=== PATIENT | male | born 1935 | race Caucasian/White ===

== ENCOUNTER → 2018-04-19 13:26 | Outpatient (CLI) | payer MEDICARE, OTHER, SELFPAY ==
[2018-04-19 14:18] LABS: INR 1.9 (0.9-1.3); Prothrombin Time 20.6 SECONDS (10.1-12.7)
== END ==
PROVIDERS: PCP Physician Assistant; Visit Provider Pharmacist
DX: Z79.01 Long term (current) use of anticoagulants (principal); I48.0 Paroxysmal atrial fibrillation
CPT/HCPCS: 36415; 85610

== ENCOUNTER → 2018-05-13 12:46 | Outpatient (CLI) | payer MEDICARE, OTHER, SELFPAY ==
[2018-05-13 13:34] LABS: INR 2.4 (0.9-1.3); Prothrombin Time 25.8 SECONDS (10.1-12.7)
== END ==
PROVIDERS: PCP Physician Assistant; Visit Provider Dentist Oral and Maxillofacial Surgery
DX: Z79.01 Long term (current) use of anticoagulants (principal); I48.0 Paroxysmal atrial fibrillation
CPT/HCPCS: 36415; 85610

== ENCOUNTER → 2018-06-07 15:13 | Outpatient (CLI) | payer MEDICARE, OTHER, SELFPAY ==
[2018-06-07 15:52] LABS: Prothrombin Time 22.1 SECONDS (10.1-12.7)
== END ==
PROVIDERS: PCP Physician Assistant; Visit Provider Pharmacist
DX: Z79.01 Long term (current) use of anticoagulants (principal); I48.0 Paroxysmal atrial fibrillation
CPT/HCPCS: 36415; 85610

== ENCOUNTER → 2018-06-24 13:25 | Outpatient (CLI) | payer MEDICARE, OTHER, SELFPAY ==
[2018-06-24 14:07] LABS: INR 2.1 (0.9-1.3); Prothrombin Time 23.2 SECONDS (10.1-12.7)
== END ==
PROVIDERS: Visit Provider Pharmacist
DX: Z79.01 Long term (current) use of anticoagulants (principal); I48.0 Paroxysmal atrial fibrillation
CPT/HCPCS: 36415; 85610

== ENCOUNTER → 2018-07-30 11:24 | Outpatient (CLI) | payer MEDICARE, OTHER, SELFPAY ==
[2018-07-30 13:08] LABS: INR 2.6 (0.9-1.3); Prothrombin Time 29.1 SECONDS (10.1-12.7)
== END ==
PROVIDERS: Visit Provider Pharmacist
DX: Z79.01 Long term (current) use of anticoagulants (principal); I48.0 Paroxysmal atrial fibrillation
CPT/HCPCS: 36415; 85610

== ENCOUNTER → 2018-08-31 12:19 | Outpatient (CLI) | payer MEDICARE, OTHER, SELFPAY ==
[2018-08-31 13:08] LABS: INR 1.9 (0.9-1.3); Prothrombin Time 20.4 SECONDS (10.1-12.7)
== END ==
PROVIDERS: PCP Physician Assistant; Visit Provider Internal Medicine Cardiovascular Disease
DX: Z79.01 Long term (current) use of anticoagulants (principal); I48.0 Paroxysmal atrial fibrillation
CPT/HCPCS: 36415; 85610

== ENCOUNTER 2018-09-04 08:32 | Emergency (ER) | payer MEDICARE, OTHER, SELFPAY ==
[2018-09-04 08:46] VITALS: PULSE 76; RESP 18; O2SAT 97
[2018-09-04] MEDS: ALBUTEROL/IPRATROPIUM 3 ML AMPUL INH (08:46)
--- NOTE | 2018-09-04 08:49 | DI.RAD.S_ITS ---
PROCEDURE: XR CHEST 1V INDICATIONS: SOB TECHNIQUE: One view of the chest was acquired. COMPARISON: [facility], , CHEST 2 VIEW, 11/24/2017, 9:53. FINDINGS: Surgical changes and devices: Post-surgical changes redemonstrated in the mediastinum. Lungs and pleura: There are confluent airspace opacities in the lung bases, left greater than right. There is a small left pleural effusion. Mediastinum: Mediastinal contours appear mildly prominent likely due to rotation. Heart size is normal. Bones and chest wall: No suspicious bony lesions. Overlying soft tissues appear unremarkable. IMPRESSION: 1. Confluent bibasilar air space opacities, left greater right, likely representing pneumonia possibly secondary to aspiration. 2. Small left pleural effusion. Dictated by: Angel Bolden M.D. on 09/04/2018 at 9:02 Approved by: Angel Bolden M.D. on 09/04/2018 at 9:05
--- NOTE | 2018-09-04 08:51 | ED.SOB ---
HPI - SOB/Dyspnea General Chief Complaint: Upper Respiratory Symptoms Stated Complaint: RESPIRATORY ISSUES Time Seen by Provider: 09/04/18 08:45 Source: patient Mode of arrival: ambulatory Limitations: no limitations History of Present Illness Patient is a 83-year-old male who presents with increasing shortness of breath. He said it started out of head cold a week ago on however last night he started having increased productive sputum. He does have a history of AFib and COPD. He denies any worsening shortness of breath or chest pain or palpitations. He has not had fever or chills. However last night he was coughing up quite a bit of mucus. MD Complaint: shortness of breath and cough Related Data Home Medications Medication Instructions Recorded Confirmed [VITEYES] #0 11/24/17 albuterol sulfate [Ventolin HFA] 2 puff INH QIDP PRN #0 11/24/17 aspirin #0 11/24/17 atorvastatin 40 mg PO HS #0 11/24/17 carvedilol [Coreg] 6.25 mg PO BID #0 11/24/17 digoxin [Lanoxin] 0.25 mg PO QDAY #0 11/24/17 furosemide 20 mg PO QDAY #0 11/24/17 imatinib [Gleevec] 400 mg PO QDAY #0 11/24/17 lisinopril 20 mg PO QDAY #0 11/24/17 spironolactone 12.5 mg PO QDAY #0 11/24/17 tiotropium bromide [Spiriva with 1 puff INH QDAY #0 11/24/17 HandiHaler] vardenafil [Levitra] 20 mg PO PRN PRN #0 11/24/17 warfarin [Coumadin] #0 11/24/17 Previous Rx's Medication Instructions Recorded prednisone 20 mg PO SEE INSTRUCTIONS #10 tab 11/24/17 doxycycline hyclate 100 mg PO BID #14 cap 09/04/18 Allergies Allergy/AdvReac Type Severity Reaction Status Date / Time No Known Allergies Allergy Uncoded 03/10/18 11:53 Review of Systems Review of Systems All systems reviewed & are unremarkable except as noted in HPI and below Constitutional Denies chills, Denies fever(s), Denies lethargy and Denies weakness Eyes Denies change in vision, Denies eye discharge, Denies irritation and Denies loss of vision Cardiovascular Denies chest pain, Denies irregular heart rhythm, Denies lightheadedness, Denies palpitations and Denies orthopnea Respiratory Reports as per HPI Gastrointestinal Gastrointestinal: Denies abdominal pain, Denies change in bowel habits, Denies diarrhea, Denies nausea and Denies vomiting Genitourinary Denies hematuria, Denies flank pain, Denies urinary incontinence and Denies urinary urgency Musculoskeletal Denies back pain, Denies muscle weakness, Denies numbness and Denies tingling Integumentary/Breasts Denies pruritus, Denies erythema, Denies rash and Denies wounds Neurologic Denies confusion, Denies loss of vision, Denies numbness, Denies tingling and Denies weakness Psychiatric Denies anxiety, Denies confusion, Denies depression, Denies homicidal ideation and Denies suicidal ideation Endocrine Denies palpitations PFSH Medical History Atrial fibrillation (Acute) COPD (chronic obstructive pulmonary disease) (Acute) Hyperlipidemia (Acute) Social History Smoking Status: Former smoker Exam Initial Vital Signs Initial Vital Signs: Vital Signs Pulse Rate 76 09/04/18 08:46 Respiratory Rate 18 09/04/18 08:46 Pulse Oximetry 97 09/04/18 08:46 Const General: cooperative and comfortable Orientation: alert, awake and oriented x3 Eyes General: appearance normal, both eyes and all related structures Neck Neck: normal visual inspection, full ROM and no meningeal signs Chest Chest: normal inspection of the chest Resp Effort & Inspection: normal respiratory effort and able to speak in complete sentences Auscultation: clear to auscultation bilaterally, no crackles, no rales, no rhonchi and no wheezes Cardio Rate: regular rate Rhythm: regular rhythm Heart Sounds: S1 normal and S2 normal GI Inspection: non-distended Palpation: soft, no hepatosplenomegaly, No guarding, No pulsatile mass and No tender Auscultation: normal bowel sounds Back/Spine/Pelvis Back: normal to inspection and No back tenderness Skin General: no rashes or lesions noted, No jaundice and No petechiae Neuro General: alert, oriented x3, gait normal and no focal motor deficits Speech: speech normal Scores CURB-65 Confusion: No BUN >19mg/dL (>7mmol/L): No Respiratory rate greater or equal to 30: No SBP <90mmHg or DBP less or equal to 60mmHg: No Age 65 or Older: Yes CURB-65 Total: 1 Score 0-1 Outpatient care, Score 2 Inpt vs. Obs, Score 3 or over Inpt admit with ICU for score of 4-5 Course Orders Ordered: ED Orders 09/04/18 08:48 Consult to Respiratory Therapy Evaluate & Treat 09/04/18 08:49 XR chest 1V Stat 09/04/18 08:51 EKG-12 Lead Stat 09/04/18 09:20 B Type Natriuretic Peptide Stat Complete Blood Count AUTO DIFF Stat Comprehensive Metabolic Panel Stat Partial Thromboplastin Time Stat Prothrombin Time INR Stat Troponin & CK Cardiac Panel Stat Discontinued Medications Albuterol/Ipratropium (Duoneb) 3 ml INH NOW ONE Stop: 09/04/18 08:48 Last Admin: 09/04/18 08:46 Dose: 3 ml Methylprednisolone (Solu-Medrol 125 Mg Vial) 125 mg IV NOW ONE Stop: 09/04/18 08:48 Last Admin: 09/04/18 09:20 Dose: 125 mg Vital Signs - 8 hr 09/04/18 08:46 09/04/18 08:55 09/04/18 09:00 Pulse Rate 76 82 82 Respiratory Rate 18 17 30 H Blood Pressure 148/74 H Blood Pressure [Right Arm] 114/58 L Pulse Oximetry 97 98 95 09/04/18 10:00 09/04/18 10:43 Pulse Rate 72 78 Respiratory Rate 22 24 Blood Pressure Blood Pressure [Right Arm] 123/56 L 123/61 Pulse Oximetry 99 96 MDM - SOB/Dyspnea Medical Records Attestation: I reviewed the patient's medical records. Lab Data Attestation: I reviewed the patient's lab results. Result diagrams: 09/04/18 09:20 09/04/18 09:20 Lab Results 09/04/18 09/04/18 09/04/18 Range/Units 09:20 09:20 09:20 WBC 14.0 H (4.5-11.0) X10^3/uL RBC 2.74 L (4.5-5.9) X10^6/uL Hgb 10.1 L (13.5-17.5) g/dL Hct 28.9 L (41-53) % MCV 105.7 H (80-100) fL MCH 37.1 H (26-34) PG MCHC 35.1 (30-36) % RDW 13.2 (11.6-14.8) % Plt Count 155 (150-400) X10^3/uL Neut % (Auto) 90.1 H (50-75) % Lymph % (Auto) 3.9 L (25-40) % [place] % (Auto) 5.9 (3-14) % Eos % (Auto) 0.0 L (2-4) % Baso % (Auto) 0.1 (0-2) % Neut # (Auto) 83723 H (5973-4167) /uL PT 21.0 H (10.1-12.7) SECONDS INR 1.9 H (0.9-1.3) APTT 34 (26.4-36.2) SECONDS Sodium 141 (137-145) mmol/L Potassium 4.0 (3.4-5.1) mmol/L Chloride 102 (98-107) mmol/L Carbon Dioxide 28 (22-32) mmol/L BUN 18 (9-20) mg/dL Creatinine 0.90 (0.66-1.25) mg/dL Estimated GFR > 60.0 (>60) mL/min BUN/Creatinine Ratio 20.0 (6-22) Glucose 129 H (80-110) mg/dL Calcium 8.2 L (8.4-10.2) mg/dL Total Bilirubin 1.7 H (0.2-1.3) mg/dL AST 17 (17-59) IU/L ALT 25 (21-72) IU/L Alkaline Phosphatase 56 (38-126) U/L Total Creatine Kinase 41 L (55-170) U/L CK-MB (CK-2) TNP CK-MB (CK-2) Rel Index TNP Troponin I 0.033 (0.01-0.034) ng/mL B-Natriuretic Peptide 260.0 H (<100) Total Protein 6.0 L (6.3-8.2) g/dL Albumin 3.6 (3.5-5.0) g/dL Globulin 2.4 (1.7-4.1) g/dL Albumin/Globulin Ratio 1.5 (1.0-2.8) Imaging Data Chest x-ray: Radiologist's impression: PROCEDURE: XR CHEST 1V INDICATIONS: SOB TECHNIQUE: One view of the chest was acquired. COMPARISON: [facility] , CHEST 2 VIEW, 11/24/2017, 9:53. FINDINGS: Surgical changes and devices: Post-surgical changes redemonstrated in the mediastinum. Lungs and pleura: There are confluent airspace opacities in the lung bases, left greater than right. There is a small left pleural effusion. Mediastinum: Mediastinal contours appear mildly prominent likely due to rotation. Heart size is normal. Bones and chest wall: No suspicious bony lesions. Overlying soft tissues appear unremarkable. IMPRESSION: 1. Confluent bibasilar air space opacities, left greater right, likely representing pneumonia possibly secondary to aspiration. 2. Small left pleural effusion. Dictated by: Angel Bolden M.D. on 09/04/2018 at 9:02 ECG Data Attestation: I personally reviewed and interpreted this ECG as follows: Prior ECG tracings: available for review Interpretation: Sinus rhythm rate [address] changes she does have ST depression and T-wave inversions in V5 and V6 similar to previous EKG in 2017 MDM Narrative Medical decision making narrative: Patient does have leukocytosis although he has taken 2 doses of prednisone. 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 I do not think he has CHF. X-ray does show pneumonia. Start him on doxycycline and short course of prednisone. He does have prednisone at home he says he vomited in [place]. Is a given him instructions on how much to use how often. Discharge Plan Departure Patient Disposition: Home Clinical Impression: Pneumonia Discharge Date/Time: 09/04/18 11:28 Interventions: ED Discharge Assessment Last Done: 09/04/18 11:27 Instructions: DI for Pneumonia -- Adult Activity Restrictions/Additional Instructions: *You have been diagnosed with pneumonia *What to do: Have INR rechecked next week with her primary provider, antibiotics can change this. *Continue to take medications as directed Doxycycline 1 pill twice a day for 1 week-faxed to [facility] Albuterol every 4 hr if needed for cough Prednisone 40 mg once a day for the next 3 days (you have already had 2 days worth of steroids) *Follow up with your primary care provider in 2-3 days *Return to ER if you should have increasing shortness of breath heart palpitations dizziness, shakes, computer or any new, worsening or concerning symptoms Prescriptions: New doxycycline hyclate 100 mg capsule 100 mg PO BID Qty: 14 RF: 0 No Action carvedilol [Coreg] 6.25 MG tablet 6.25 mg PO BID Qty: 0 RF: 0 digoxin [Lanoxin] 250 MCG tablet 0.25 mg PO QDAY Qty: 0 RF: 0 spironolactone 25 MG tablet 12.5 mg PO QDAY Qty: 0 RF: 0 furosemide 20 MG tablet 20 mg PO QDAY Qty: 0 RF: 0 imatinib [Gleevec] 400 MG tablet 400 mg PO QDAY Qty: 0 RF: 0 warfarin [Coumadin] 2.5 MG tablet Qty: 0 RF: 0 albuterol sulfate [Ventolin HFA] 90 MCG/PUFF HFA aerosol inhaler 2 puff INH QIDP PRNQty: 0 RF: 0 tiotropium bromide [Spiriva with HandiHaler] 18 MCG capsule, w/inhalation device 1 puff INH QDAY Qty: 0 RF: 0 atorvastatin 40 MG tablet 40 mg PO HS Qty: 0 RF: 0 lisinopril 20 MG tablet 20 mg PO QDAY Qty: 0 RF: 0 vardenafil [Levitra] 20 MG tablet 20 mg PO PRN PRNQty: 0 RF: 0 [VITEYES] Qty: 0 RF: 0 aspirin 81 MG tablet,delayed release (DR/EC) Qty: 0 RF: 0 prednisone 20 MG tablet 20 mg PO SEE INSTRUCTIONS Qty: 10 RF: 0 Referrals: Leigh Ann Alberto PA-C [Primary Care Provider] -
[2018-09-04 08:55] VITALS: BP 148/74; PULSE 82; RESP 17; O2SAT 98; BMI 28.5
[2018-09-04 09:00] VITALS: BP 114/58; PULSE 82; RESP 30; O2SAT 95
[2018-09-04] MEDS: methylPREDNISolone 125 MG/2 ML VIAL IV (09:20)
[2018-09-04 09:35] LABS: Add Manual Diff / Slide Review NO; Basophils Percent Auto 0.1 % (0-2); Hematocrit 28.9 % (41-53); Hemoglobin 10.1 g/dL (13.5-17.5); Lymphocytes Percent Auto 3.9 % (25-40); Mean Corpuscular HGB Conc 35.1 % (30-36); Mean Corpuscular Hemoglobin 37.1 PG (26-34); Mean Corpuscular Volume 105.7 fL (80-100); Monocytes Percent Auto 5.9 % (3-14); Neutrophils Absolute Auto 12600 /uL (3000-5900); Neutrophils Percent Auto 90.1 % (50-75); Platelet Count 155 X10^3/uL (150-400); Red Blood Cell Count 2.74 X10^6/uL (4.5-5.9); Red Cell Distribution Width 13.2 % (11.6-14.8)
[2018-09-04 09:40] LABS: INR 1.9 (0.9-1.3)
[2018-09-04 09:43] LABS: PTT Partial Thromboplastin Tim 34 SECONDS (26.4-36.2)
[2018-09-04 09:45] LABS: Alanine Aminotransferase 25 IU/L (21-72); Albumin 3.6 g/dL (3.5-5.0); Albumin Globulin Ratio 1.5 (1.0-2.8); Alkaline Phosphatase 56 U/L (38-126); Aspartate Aminotransferase 17 IU/L (17-59); Bilirubin Total 1.7 mg/dL (0.2-1.3); Blood Urea Nitrogen 18 mg/dL (9-20); Calcium 8.2 mg/dL (8.4-10.2); Carbon Dioxide 28 mmol/L (22-32); Chloride 102 mmol/L (98-107); Creatine Kinase 41 U/L (55-170); Estimated Glomerular Filt Rate > 60.0 mL/min (>60); Globulin 2.4 g/dL (1.7-4.1); Glucose 129 mg/dL (80-110); HEMOLYSIS < 15 (0-50); Sodium 141 mmol/L (137-145)
[2018-09-04 09:56] LABS: Troponin I 0.033 ng/mL (0.01-0.034)
[2018-09-04 10:00] VITALS: BP 123/56; PULSE 72; RESP 22; O2SAT 99
[2018-09-04 10:43] VITALS: BP 123/61; PULSE 78; RESP 24; O2SAT 96
--- NOTE | 2018-09-09 15:57 | PC.NURSE ---
called for pt follow up,no answer
== END 2018-09-04 11:28 | disposition home or self-care (01) ==
PROVIDERS: Emergency Provider Emergency Medicine; PCP Physician Assistant
DX: J18.9 Pneumonia, unspecified organism (principal)
CPT/HCPCS: 36591; 71045; 80053; 82550; 83880; 84484; 85025; 85610; 85730; 93005; 94640; 96374; 99283; 99285; J2930

== ENCOUNTER → 2018-10-05 13:51 | Outpatient (CLI) | payer MEDICARE, OTHER, SELFPAY ==
[2018-10-05 14:36] LABS: INR 2.1 (0.9-1.3); Prothrombin Time 23.2 SECONDS (10.1-12.7)
== END ==
PROVIDERS: PCP Physician Assistant; Visit Provider Pharmacist
DX: Z79.01 Long term (current) use of anticoagulants (principal); I48.0 Paroxysmal atrial fibrillation; I48.91 Unspecified atrial fibrillation
CPT/HCPCS: 36415; 85610

== ENCOUNTER → 2018-11-19 11:23 | Outpatient (CLI) | payer MEDICARE, OTHER, SELFPAY ==
[2018-11-19 12:52] LABS: INR 2.3 (0.9-1.3); Prothrombin Time 27.1 SECONDS (10.1-12.7)
== END ==
PROVIDERS: PCP Physician Assistant; Visit Provider Pharmacist
DX: Z79.01 Long term (current) use of anticoagulants (principal); I48.0 Paroxysmal atrial fibrillation
CPT/HCPCS: 36415; 85610

== ENCOUNTER 2019-01-18 23:37 | Inpatient (IN) | payer MEDICARE, OTHER, SELFPAY ==
[2019-01-18 23:54] VITALS: BP 191/72; PULSE 97; RESP 28; O2SAT 85
--- NOTE | 2019-01-18 23:55 | DI.RAD.S_ITS ---
PROCEDURE: XR CHEST 1V INDICATIONS: Shortness of breath, cough, hypoxia TECHNIQUE: One view of the chest was acquired. COMPARISON: [facility], CR, XR CHEST 1V, 09/04/2018, 8:52. FINDINGS: Surgical changes and devices: Mediastinal wires are stable. Lungs and pleura: Increased opacification noted in the left lung base which could represent, aspiration or pneumonia. Trace left sided pleural effusion. No pneumothorax. Mediastinum: Mediastinal contours appear normal. Heart size is normal. Bones and chest wall: No suspicious bony lesions. Overlying soft tissues appear unremarkable. IMPRESSION: Focal opacity left lung base concerning for aspiration or pneumonia. Trace left pleural effusion. Dictated by: Sharyn Waters MD, PhD on 01/19/2019 at 11:15 Approved by: Sharyn Waters MD, PhD on 01/19/2019 at 11:16
[2019-01-19] VITALS (25 sets, daily range): BP systolic 122–154; BP diastolic 56–91; PULSE 53–82; RESP 15–29; TEMP 36.6–38; O2SAT 88–98; BMI 28.3
[2019-01-19] MEDS: ALBUTEROL/IPRATROPIUM 3 ML AMPUL INH ×7 (00:10→19:21)
--- NOTE | 2019-01-19 00:17 | ED.SOB ---
HPI - SOB/Dyspnea General Chief Complaint: Shortness of Breath/Dyspnea Stated Complaint: HAVING COPD EPISODE DIFFICULTY BREATHING Time Seen by Provider: 01/18/19 23:45 Source: patient and family Mode of arrival: ambulatory Limitations: no limitations History of Present Illness 83-year-old male, former smoker with extensive cardiac history including heart failure, valve replacements, bypass, hypertension, hyperlipidemia, COPD presents with few days of gradually worsening shortness of breath, primarily at night. Presents and rather impressive fashion with significant respiratory distress and a pulse ox in the low to mid 80s. He is conversationally dyspneic and can get out 1-2 words. He denies missing any medications and does not use oxygen home. He has had cough which is increasingly productive of sputum. He denies any fever but had some chills earlier tonight. He did have his flu shot MD Complaint: shortness of breath and cough Onset (ago): day(s) Severity: severe Consistency/Duration: intermittent and progressively worsening Relieving factors: oxygen and rest Exacerbating factors: nothing Known history of: COPD and congestive heart failure Treatment prior to arrival: none Related Data Home oxygen amount: none Home Medications Medication Instructions Recorded Confirmed Ventolin HFA 2 puff INH QIDP PRN #0 11/24/17 01/19/19 aspirin 81 mg PO DAILY #0 11/24/17 01/19/19 atorvastatin 40 mg PO HS #0 11/24/17 01/19/19 furosemide 20 mg PO QDAY #0 11/24/17 01/19/19 imatinib [Gleevec] 400 mg PO QDAY #0 11/24/17 01/19/19 warfarin [Coumadin] 2.5 mg PO DAILY #0 11/24/17 01/19/19 amiodarone [Pacerone] 200 mg PO DAILY 01/19/19 01/19/19 carvedilol 3.125 mg PO BID 01/19/19 01/19/19 tamsulosin 0.4 mg PO DAILY 01/19/19 01/19/19 tiotropium bromide [Spiriva with 1 cap INHALATION DAILY 01/19/19 01/19/19 HandiHaler] Allergies Allergy/AdvReac Type Severity Reaction Status Date / Time No Known Drug Allergies Allergy Verified 01/19/19 00:41 Review of Systems Constitutional Denies chills, Denies fever(s), Denies lethargy and Denies weakness Eyes Denies change in vision, Denies eye discharge, Denies irritation and Denies loss of vision ENT Ears, Nose, Mouth, and Throat: Denies change in voice, Denies neck pain and Denies sore throat Cardiovascular Denies chest pain, Denies irregular heart rhythm, Denies lightheadedness, Denies palpitations, Reports dyspnea, Reports dyspnea on exertion and Denies orthopnea Respiratory Reports cough, Reports dyspnea, Reports dyspnea on exertion and Denies wheezing Gastrointestinal Gastrointestinal: Denies abdominal pain, Denies change in bowel habits, Denies diarrhea, Denies nausea and Denies vomiting Genitourinary Denies hematuria, Denies flank pain, Denies urinary incontinence and Denies urinary urgency Musculoskeletal Denies neck pain Integumentary/Breasts Denies pruritus, Denies erythema, Denies rash and Denies wounds Neurologic Denies confusion, Denies loss of vision and Denies weakness Psychiatric Denies anxiety, Denies confusion, Denies depression, Denies homicidal ideation and Denies suicidal ideation Endocrine Denies palpitations Hematologic/Lymphatic Denies easy bruising Allergic/Immunologic Denies wheezing [facility] Medical History Atrial fibrillation (Acute) COPD (chronic obstructive pulmonary disease) (Acute) Hyperlipidemia (Acute) Social History Smoking Status: Former smoker Social History Smoking Status: Former smoker Exam Narrative Exam Narrative: GENERAL: He 3-year-old male appears stated age, in obvious significant distress, use of accessory muscles, quite dyspneic, 1-2 word sentences HEAD: Atraumatic. Normocephalic. No temporal or scalp tenderness. EYES: Pupils equal round and reactive. Extraocular motions intact. No scleral icterus. No injection or drainage. ENT: Nose without bleeding, purulent drainage or septal hematoma. Throat without erythema, tonsillar hypertrophy or exudate. Uvula midline. Airway patent. NECK: Trachea midline. No JVD or lymphadenopathy. Supple, nontender, no meningeal signs. CARDIOVASCULAR: Regular rate and rhythm without murmurs, gallops, or rubs. RESPIRATORY: Tachypnea, prolonged expiratory phase with wet sounding lungs from the door. He GASTROINTESTINAL: Abdomen soft, non-tender, nondistended. No hepato-splenomegaly, or palpable masses. No guarding. EXTREMITIES: No clubbing, cyanosis, or edema. No joint tenderness, effusion, or edema noted. BACK: Nontender without deformity or crepitance. No flank tenderness. NEURO: AOx3. SKIN: No rash or erythema. Initial Vital Signs Initial Vital Signs: Vital Signs Pulse Rate 97 H 01/18/19 23:54 Respiratory Rate 28 H 01/18/19 23:54 Blood Pressure 191/72 H 01/18/19 23:54 Pulse Oximetry 85 L 01/18/19 23:54 Course Orders Ordered: ED Orders 01/18/19 23:48 Urine Culture Stat 01/18/19 23:54 Consult to Respiratory Therapy Evaluate & Treat Arterial Blood Gas Stat B Type Natriuretic Peptide Stat Basic Metabolic Panel Stat Blood Culture Stat Complete Blood Count AUTO DIFF Stat Digoxin Stat Lactate (Lactic Acid) Stat Magnesium Stat Partial Thromboplastin Time Stat Procalcitonin Stat Prothrombin Time INR Stat Troponin & CK Cardiac Panel Stat EKG-12 Lead Stat 01/18/19 23:55 XR chest 1V Stat 01/19/19 EKG-12 Lead Stat 01/19/19 00:03 Arterial Blood Gas Stat 01/19/19 00:20 Urine Microscopic Stat Albuterol/Ipratropium (Duoneb) 3 ml INH NOW PRN PRN Reason: Shortness Of Breath Or Wheezing Discontinued Medications Albuterol/Ipratropium (Duoneb) 3 ml INH NOW ONE Stop: 01/18/19 23:55 Furosemide (Lasix) 40 mg IV NOW ONE Stop: 01/19/19 00:18 Last Admin: 01/19/19 00:57 Dose: 40 mg Methylprednisolone (Solu-Medrol 125 Mg Vial) 125 mg IV NOW ONE Stop: 01/18/19 23:55 Last Admin: 01/19/19 00:46 Dose: 125 mg Reevaluation(s) Reevaluation #1: Patient shows definite improvement after DuoNeb, Solu-Medrol and oxygen. He has been given Lasix but yet to produce any dilute urine. Consultations Consultation #1: hospitalist happy to accept Vital Signs - 8 hr 01/18/19 23:54 01/19/19 00:00 01/19/19 00:10 Temperature Pulse Rate 97 H Respiratory Rate 28 H Blood Pressure 191/72 H Blood Pressure [Right Arm] Pulse Oximetry 85 L 92 93 01/19/19 00:20 01/19/19 01:03 01/19/19 01:14 Temperature 97.9 F Pulse Rate 82 Respiratory Rate 18 Blood Pressure Blood Pressure [Right Arm] 153/56 H Pulse Oximetry 94 96 MDM - SOB/Dyspnea Differential Diagnosis Likely acute exacerbation of chronic obstructive airways disease, congestive heart failure and community acquired pneumonia Medical Records Attestation: I reviewed the patient's medical records. Lab Data Attestation: I reviewed the patient's lab results. Result diagrams: 01/19/19 00:00 01/19/19 00:00 Lab Results 01/18/19 01/18/19 01/19/19 Range/Units 00:53 23:48 00:00 WBC 15.0 H (4.5-11.0) X10^3/uL RBC 3.12 L (4.5-5.9) X10^6/uL Hgb 10.7 L (13.5-17.5) g/dL Hct 32.2 L (41-53) % MCV 102.9 H (80-100) fL MCH 34.2 H (26-34) PG MCHC 33.2 (30-36) % RDW 14.5 (11.6-14.8) % Plt Count 215 (150-400) X10^3/uL Neut % (Auto) 87.8 H (50-75) % Lymph % (Auto) 5.2 L (25-40) % [place] % (Auto) 6.8 (3-14) % Eos % (Auto) 0.0 L (2-4) % Baso % (Auto) 0.2 (0-2) % Neut # (Auto) 34801 H (9567-4567) /uL Lymph # (Auto) 800 L (0364-3478) /uL [place] # (Auto) 1000 H (0-900) /uL Eos # (Auto) 0 (0-450) /uL Baso # (Auto) 0 (0-100) /uL PT (10.1-12.7) SECONDS INR (0.9-1.3) APTT (26.4-36.2) SECONDS ABG pH (7.35-7.45) ABG pCO2 (35-45) mmHg ABG pO2 (80-100) mmHg ABG HCO3 (22-26) mmol/L ABG Total CO2 (21-31) mmol/L ABG O2 Saturation (95-100) % ABG Base Excess (-2-2) mmol/L FiO2 Sodium (137-145) mmol/L Potassium (3.4-5.1) mmol/L Chloride (98-107) mmol/L Carbon Dioxide (22-32) mmol/L BUN (9-20) mg/dL Creatinine (0.66-1.25) mg/dL Estimated GFR (>60) mL/min BUN/Creatinine Ratio (6-22) Glucose (80-110) mg/dL Lactate (0.7-2.1) mmol/L Calcium (8.4-10.2) mg/dL Magnesium (1.6-2.3) mg/dL Total Creatine Kinase (55-170) U/L CK-MB (CK-2) CK-MB (CK-2) Rel Index Troponin I (0.01-0.034) ng/mL B-Natriuretic Peptide 516 H (<100) Procalcitonin (<0.5) ng/mL Urine RBC None seen (0-5/HPF) Urine WBC 0-1/hpf (0-5/HPF) Urine Bacteria None seen (None) Ur Culture Indicated? Specimen cultured Digoxin (0.8-2.0) ng/mL Influenza A & B (PCR) Negative (Negative) 01/19/19 01/19/19 01/19/19 Range/Units 00:00 00:00 00:00 WBC (4.5-11.0) X10^3/uL RBC (4.5-5.9) X10^6/uL Hgb (13.5-17.5) g/dL Hct (41-53) % MCV (80-100) fL MCH (26-34) PG MCHC (30-36) % RDW (11.6-14.8) % Plt Count (150-400) X10^3/uL Neut % (Auto) (50-75) % Lymph % (Auto) (25-40) % [place] % (Auto) (3-14) % Eos % (Auto) (2-4) % Baso % (Auto) (0-2) % Neut # (Auto) (1863-7900) /uL Lymph # (Auto) (2832-1636) /uL [place] # (Auto) (0-900) /uL Eos # (Auto) (0-450) /uL Baso # (Auto) (0-100) /uL PT 29.2 H (10.1-12.7) SECONDS INR 2.5 H (0.9-1.3) APTT 36 D (26.4-36.2) SECONDS ABG pH (7.35-7.45) ABG pCO2 (35-45) mmHg ABG pO2 (80-100) mmHg ABG HCO3 (22-26) mmol/L ABG Total CO2 (21-31) mmol/L ABG O2 Saturation (95-100) % ABG Base Excess (-2-2) mmol/L FiO2 Sodium 138 (137-145) mmol/L Potassium 3.8 (3.4-5.1) mmol/L Chloride 98 (98-107) mmol/L Carbon Dioxide 27 (22-32) mmol/L BUN 17 (9-20) mg/dL Creatinine 1.00 (0.66-1.25) mg/dL Estimated GFR > 60.0 (>60) mL/min BUN/Creatinine Ratio 17.0 (6-22) Glucose 148 H (80-110) mg/dL Lactate (0.7-2.1) mmol/L Calcium 8.6 (8.4-10.2) mg/dL Magnesium 1.5 L (1.6-2.3) mg/dL Total Creatine Kinase 33 L (55-170) U/L CK-MB (CK-2) TNP CK-MB (CK-2) Rel Index TNP Troponin I 0.027 (0.01-0.034) ng/mL B-Natriuretic Peptide (<100) Procalcitonin < 0.05 (<0.5) ng/mL Urine RBC (0-5/HPF) Urine WBC (0-5/HPF) Urine Bacteria (None) Ur Culture Indicated? Digoxin (0.8-2.0) ng/mL Influenza A & B (PCR) (Negative) 01/19/19 01/19/19 01/19/19 Range/Units 00:00 00:03 00:53 WBC (4.5-11.0) X10^3/uL RBC (4.5-5.9) X10^6/uL Hgb (13.5-17.5) g/dL Hct (41-53) % MCV (80-100) fL MCH (26-34) PG MCHC (30-36) % RDW (11.6-14.8) % Plt Count (150-400) X10^3/uL Neut % (Auto) (50-75) % Lymph % (Auto) (25-40) % [place] % (Auto) (3-14) % Eos % (Auto) (2-4) % Baso % (Auto) (0-2) % Neut # (Auto) (7199-1723) /uL Lymph # (Auto) (9920-3632) /uL [place] # (Auto) (0-900) /uL Eos # (Auto) (0-450) /uL Baso # (Auto) (0-100) /uL PT (10.1-12.7) SECONDS INR (0.9-1.3) APTT (26.4-36.2) SECONDS ABG pH 7.44 (7.35-7.45) ABG pCO2 35.6 (35-45) mmHg ABG pO2 71 L (80-100) mmHg ABG HCO3 24 (22-26) mmol/L ABG Total CO2 25 (21-31) mmol/L ABG O2 Saturation 95 (95-100) % ABG Base Excess 0.0 (-2-2) mmol/L FiO2 0.36 Sodium (137-145) mmol/L Potassium (3.4-5.1) mmol/L Chloride (98-107) mmol/L Carbon Dioxide (22-32) mmol/L BUN (9-20) mg/dL Creatinine (0.66-1.25) mg/dL Estimated GFR (>60) mL/min BUN/Creatinine Ratio (6-22) Glucose (80-110) mg/dL Lactate 1.2 (0.7-2.1) mmol/L Calcium (8.4-10.2) mg/dL Magnesium (1.6-2.3) mg/dL Total Creatine Kinase (55-170) U/L CK-MB (CK-2) CK-MB (CK-2) Rel Index Troponin I (0.01-0.034) ng/mL B-Natriuretic Peptide (<100) Procalcitonin (<0.5) ng/mL Urine RBC (0-5/HPF) Urine WBC (0-5/HPF) Urine Bacteria (None) Ur Culture Indicated? Digoxin < 0.4 L (0.8-2.0) ng/mL Influenza A & B (PCR) (Negative) Urine Dip Bedside Urine Glucose Negative Bedside Urine Bilirubin - Negative Bedside Urine Ketone - Negative Urine Specific [place] 1.015 Bedside Urine Occult Blood - Negative Bedside Urine pH 6.0 Bedside Urine Protein +/- 15 Bedside Urine Urobilinogen 1+ 2mg Bedside Urine Nitrite - Negative Bedside Urine Leukocytes + 70 Esterase Imaging Data Chest x-ray: Radiologist's impression: CHF ECG Data Attestation: I personally reviewed and interpreted this ECG as follows: Prior ECG tracings: not available for review Interpretation: Afib in 80s, no ectopy or ischemia MDM Narrative Medical decision making narrative: 83M with obvious respiratory difficulty. No fever or chills. Negative procalcitonin/lactate, no definite focal consolidate. Complains of orthopnea/exertional dyspnea with elevated BNP and mild B/L LE edema. Additional hx of COPD with decreased lung sounds and prolonged expiratory phase with response to bronchodilators would suggest COPD component. Discharge Plan Departure Patient Disposition: Admitted As Inpatient Clinical Impression: Acute and chronic respiratory failure with hypoxia, Acute exacerbation of chronic obstructive pulmonary disease (COPD) Acute CHF Qualifiers: Heart failure type: unspecified Qualified Code(s): I50.9 - Heart failure, unspecified Admit Date/Time: 01/19/19 01:31 Admit Provider: Mee Nova
[2019-01-19 00:19] LABS: INR 2.5 (0.9-1.3); Prothrombin Time 29.2 SECONDS (10.1-12.7)
[2019-01-19 00:22] LABS: PTT Partial Thromboplastin Tim 36 SECONDS (26.4-36.2)
[2019-01-19 00:26] LABS: Fractionated Inspired Oxygen 0.36; HCO3 ABG 24 mmol/L (22-26); Oxygen Saturation ABG 95 % (95-100); PCO2 ABG 35.6 mmHg (35-45); PO2 ABG 71 mmHg (80-100); TCO2 ABG 25 mmol/L (21-31); pH ABG 7.44 (7.35-7.45)
[2019-01-19 00:28] LABS: Add Manual Diff / Slide Review NO; Basophils Absolute Auto 0 /uL (0-100); Basophils Percent Auto 0.2 % (0-2); Blood Urea Nitrogen 17 mg/dL (9-20); Calcium 8.6 mg/dL (8.4-10.2); Carbon Dioxide 27 mmol/L (22-32); Chloride 98 mmol/L (98-107); Creatine Kinase 33 U/L (55-170); Eosinophils Absolute Auto 0 /uL (0-450); Estimated Glomerular Filt Rate > 60.0 mL/min (>60); Glucose 148 mg/dL (80-110); HEMOLYSIS 16 (0-50); Hematocrit 32.2 % (41-53); Hemoglobin 10.7 g/dL (13.5-17.5); Lymphocytes Absolute Auto 800 /uL (1100-4500); Lymphocytes Percent Auto 5.2 % (25-40); Magnesium 1.5 mg/dL (1.6-2.3); Mean Corpuscular HGB Conc 33.2 % (30-36); Mean Corpuscular Hemoglobin 34.2 PG (26-34); Mean Corpuscular Volume 102.9 fL (80-100); Monocytes Absolute Auto 1000 /uL (0-900); Monocytes Percent Auto 6.8 % (3-14); Neutrophils Absolute Auto 13100 /uL (1500-7000); Neutrophils Percent Auto 87.8 % (50-75); Platelet Count 215 X10^3/uL (150-400); Potassium 3.8 mmol/L (3.4-5.1); Red Blood Cell Count 3.12 X10^6/uL (4.5-5.9); Red Cell Distribution Width 14.5 % (11.6-14.8); Sodium 138 mmol/L (137-145)
[2019-01-19 00:29] LABS: Bacteria Urine None Seen; RBC Urine None Seen (0-5/HPF)
[2019-01-19 00:35] LABS: WBC Urine 0-1/HPF (0-5/HPF)
[2019-01-19 00:36] LABS: Culture Indicated Urine Specimen Cultured
[2019-01-19 00:40] LABS: Troponin I 0.027 ng/mL (0.01-0.034)
[2019-01-19] MEDS: methylPREDNISolone 125 MG/2 ML VIAL IV (00:46)
[2019-01-19 00:47] LABS: B Type Natriuretic Peptide 516 (<100)
--- NOTE | 2019-01-19 00:48 | ED_ITS ---
HPI - SOB/Dyspnea General Chief Complaint: Shortness of Breath/Dyspnea Stated Complaint: HAVING COPD EPISODE DIFFICULTY BREATHING Time Seen by Provider: 01/18/19 23:45 Source: patient and family Mode of arrival: ambulatory Limitations: no limitations History of Present Illness 83-year-old male, former smoker with extensive cardiac history including heart failure, valve replacements, bypass, hypertension, hyperlipidemia, COPD presents with few days of gradually worsening shortness of breath, primarily at night. Presents and rather impressive fashion with significant respiratory distress and a pulse ox in the low to mid 80s. He is conversationally dyspneic and can get out 1-2 words. He denies missing any medications and does not use oxygen home. He has had cough which is increasingly productive of sputum. He denies any fever but had some chills earlier tonight. He did have his flu shot MD Complaint: shortness of breath and cough Onset (ago): day(s) Severity: severe Consistency/Duration: intermittent and progressively worsening Relieving factors: oxygen and rest Exacerbating factors: nothing Known history of: COPD and congestive heart failure Treatment prior to arrival: none Related Data Home oxygen amount: none Home Medications Medication Instructions Recorded Confirmed Ventolin HFA 2 puff INH QIDP PRN #0 11/24/17 01/19/19 aspirin 81 mg PO DAILY #0 11/24/17 01/19/19 atorvastatin 40 mg PO HS #0 11/24/17 01/19/19 furosemide 20 mg PO QDAY #0 11/24/17 01/19/19 imatinib [Gleevec] 400 mg PO QDAY #0 11/24/17 01/19/19 warfarin [Coumadin] 2.5 mg PO DAILY #0 11/24/17 01/19/19 amiodarone [Pacerone] 200 mg PO DAILY 01/19/19 01/19/19 carvedilol 3.125 mg PO BID 01/19/19 01/19/19 tamsulosin 0.4 mg PO DAILY 01/19/19 01/19/19 tiotropium bromide [Spiriva with 1 cap INHALATION DAILY 01/19/19 01/19/19 HandiHaler] Allergies Allergy/AdvReac Type Severity Reaction Status Date / Time No Known Drug Allergies Allergy Verified 01/19/19 00:41 Review of Systems Constitutional Denies chills, Denies fever(s), Denies lethargy and Denies weakness Eyes Denies change in vision, Denies eye discharge, Denies irritation and Denies loss of vision ENT Ears, Nose, Mouth, and Throat: Denies change in voice, Denies neck pain and Denies sore throat Cardiovascular Denies chest pain, Denies irregular heart rhythm, Denies lightheadedness, Denies palpitations, Reports dyspnea, Reports dyspnea on exertion and Denies orthopnea Respiratory Reports cough, Reports dyspnea, Reports dyspnea on exertion and Denies wheezing Gastrointestinal Gastrointestinal: Denies abdominal pain, Denies change in bowel habits, Denies diarrhea, Denies nausea and Denies vomiting Genitourinary Denies hematuria, Denies flank pain, Denies urinary incontinence and Denies urinary urgency Musculoskeletal Denies neck pain Integumentary/Breasts Denies pruritus, Denies erythema, Denies rash and Denies wounds Neurologic Denies confusion, Denies loss of vision and Denies weakness Psychiatric Denies anxiety, Denies confusion, Denies depression, Denies homicidal ideation and Denies suicidal ideation Endocrine Denies palpitations Hematologic/Lymphatic Denies easy bruising Allergic/Immunologic Denies wheezing [facility] Medical History Atrial fibrillation (Acute) COPD (chronic obstructive pulmonary disease) (Acute) Hyperlipidemia (Acute) Social History Smoking Status: Former smoker Social History Smoking Status: Former smoker Exam Narrative Exam Narrative: GENERAL: He 3-year-old male appears stated age, in obvious significant distress, use of accessory muscles, quite dyspneic, 1-2 word sentences HEAD: Atraumatic. Normocephalic. No temporal or scalp tenderness. EYES: Pupils equal round and reactive. Extraocular motions intact. No scleral icterus. No injection or drainage. ENT: Nose without bleeding, purulent drainage or septal hematoma. Throat without erythema, tonsillar hypertrophy or exudate. Uvula midline. Airway patent. NECK: Trachea midline. No JVD or lymphadenopathy. Supple, nontender, no meningeal signs. CARDIOVASCULAR: Regular rate and rhythm without murmurs, gallops, or rubs. RESPIRATORY: Tachypnea, prolonged expiratory phase with wet sounding lungs from the door. He GASTROINTESTINAL: Abdomen soft, non-tender, nondistended. No hepato- splenomegaly, or palpable masses. No guarding. EXTREMITIES: No clubbing, cyanosis, or edema. No joint tenderness, effusion, or edema noted. BACK: Nontender without deformity or crepitance. No flank tenderness. NEURO: AOx3. SKIN: No rash or erythema. Initial Vital Signs Initial Vital Signs: Vital Signs Pulse Rate 97 H 01/18/19 23:54 Respiratory Rate 28 H 01/18/19 23:54 Blood Pressure 191/72 H 01/18/19 23:54 Pulse Oximetry 85 L 01/18/19 23:54 Course Orders Ordered: ED Orders 01/18/19 23:48 Urine Culture Stat 01/18/19 23:54 Consult to Respiratory Therapy Evaluate & Treat Arterial Blood Gas Stat B Type Natriuretic Peptide Stat Basic Metabolic Panel Stat Blood Culture Stat Complete Blood Count AUTO DIFF Stat Digoxin Stat Lactate (Lactic Acid) Stat Magnesium Stat Partial Thromboplastin Time Stat Procalcitonin Stat Prothrombin Time INR Stat Troponin & CK Cardiac Panel Stat EKG-12 Lead Stat 01/18/19 23:55 XR chest 1V Stat 01/19/19 EKG-12 Lead Stat 01/19/19 00:03 Arterial Blood Gas Stat 01/19/19 00:20 Urine Microscopic Stat Albuterol/Ipratropium (Duoneb) 3 ml INH NOW PRN PRN Reason: Shortness Of Breath Or Wheezing Discontinued Medications Albuterol/Ipratropium (Duoneb) 3 ml INH NOW ONE Stop: 01/18/19 23:55 Furosemide (Lasix) 40 mg IV NOW ONE Stop: 01/19/19 00:18 Last Admin: 01/19/19 00:57 Dose: 40 mg Methylprednisolone (Solu-Medrol 125 Mg Vial) 125 mg IV NOW ONE Stop: 01/18/19 23:55 Last Admin: 01/19/19 00:46 Dose: 125 mg Reevaluation(s) Reevaluation #1: Patient shows definite improvement after DuoNeb, Solu-Medrol and oxygen. He has been given Lasix but yet to produce any dilute urine. Consultations Consultation #1: hospitalist happy to accept Vital Signs - 8 hr 01/18/19 23:54 01/19/19 00:00 01/19/19 00:10 Temperature Pulse Rate 97 H Respiratory Rate 28 H Blood Pressure 191/72 H Blood Pressure [Right Arm] Pulse Oximetry 85 L 92 93 01/19/19 00:20 01/19/19 01:03 01/19/19 01:14 Temperature 97.9 F Pulse Rate 82 Respiratory Rate 18 Blood Pressure Blood Pressure [Right Arm] 153/56 H Pulse Oximetry 94 96 MDM - SOB/Dyspnea Differential Diagnosis Likely acute exacerbation of chronic obstructive airways disease, congestive heart failure and community acquired pneumonia Medical Records Attestation: I reviewed the patient's medical records. Lab Data Attestation: I reviewed the patient's lab results. Result diagrams: 01/19/19 00:00 01/19/19 00:00 Lab Results 01/18/19 01/18/19 01/19/19 Range/Units 00:53 23:48 00:00 WBC 15.0 H (4.5-11.0) X10^3/uL RBC 3.12 L (4.5-5.9) X10^6/uL Hgb 10.7 L (13.5-17.5) g/dL Hct 32.2 L (41-53) % MCV 102.9 H (80-100) fL MCH 34.2 H (26-34) PG MCHC 33.2 (30-36) % RDW 14.5 (11.6-14.8) % Plt Count 215 (150-400) X10^3/uL Neut % (Auto) 87.8 H (50-75) % Lymph % (Auto) 5.2 L (25-40) % [place] % (Auto) 6.8 (3-14) % Eos % (Auto) 0.0 L (2-4) % Baso % (Auto) 0.2 (0-2) % Neut # (Auto) 67020 H (5376-6625) /uL Lymph # (Auto) 800 L (4721-0277) /uL [place] # (Auto) 1000 H (0-900) /uL Eos # (Auto) 0 (0-450) /uL Baso # (Auto) 0 (0-100) /uL PT (10.1-12.7) SECONDS INR (0.9-1.3) APTT (26.4-36.2) SECONDS ABG pH (7.35-7.45) ABG pCO2 (35-45) mmHg ABG pO2 (80-100) mmHg ABG HCO3 (22-26) mmol/L ABG Total CO2 (21-31) mmol/L ABG O2 Saturation (95-100) % ABG Base Excess (-2-2) mmol/L FiO2 Sodium (137-145) mmol/L Potassium (3.4-5.1) mmol/L Chloride (98-107) mmol/L Carbon Dioxide (22-32) mmol/L BUN (9-20) mg/dL Creatinine (0.66-1.25) mg/dL Estimated GFR (>60) mL/min BUN/Creatinine Ratio (6-22) Glucose (80-110) mg/dL Lactate (0.7-2.1) mmol/L Calcium (8.4-10.2) mg/dL Magnesium (1.6-2.3) mg/dL Total Creatine Kinase (55-170) U/L CK-MB (CK-2) CK-MB (CK-2) Rel Index Troponin I (0.01-0.034) ng/mL B-Natriuretic Peptide 516 H (<100) Procalcitonin (<0.5) ng/mL Urine RBC None seen (0-5/HPF) Urine WBC 0-1/hpf (0-5/HPF) Urine Bacteria None seen (None) Ur Culture Indicated? Specimen cultured Digoxin (0.8-2.0) ng/mL Influenza A & B (PCR) Negative (Negative) 01/19/19 01/19/19 01/19/19 Range/Units 00:00 00:00 00:00 WBC (4.5-11.0) X10^3/uL RBC (4.5-5.9) X10^6/uL Hgb (13.5-17.5) g/dL Hct (41-53) % MCV (80-100) fL MCH (26-34) PG MCHC (30-36) % RDW (11.6-14.8) % Plt Count (150-400) X10^3/uL Neut % (Auto) (50-75) % Lymph % (Auto) (25-40) % [place] % (Auto) (3-14) % Eos % (Auto) (2-4) % Baso % (Auto) (0-2) % Neut # (Auto) (2771-8742) /uL Lymph # (Auto) (1514-2470) /uL [place] # (Auto) (0-900) /uL Eos # (Auto) (0-450) /uL Baso # (Auto) (0-100) /uL PT 29.2 H (10.1-12.7) SECONDS INR 2.5 H (0.9-1.3) APTT 36 D (26.4-36.2) SECONDS ABG pH (7.35-7.45) ABG pCO2 (35-45) mmHg ABG pO2 (80-100) mmHg ABG HCO3 (22-26) mmol/L ABG Total CO2 (21-31) mmol/L ABG O2 Saturation (95-100) % ABG Base Excess (-2-2) mmol/L FiO2 Sodium 138 (137-145) mmol/L Potassium 3.8 (3.4-5.1) mmol/L Chloride 98 (98-107) mmol/L Carbon Dioxide 27 (22-32) mmol/L BUN 17 (9-20) mg/dL Creatinine 1.00 (0.66-1.25) mg/dL Estimated GFR > 60.0 (>60) mL/min BUN/Creatinine Ratio 17.0 (6-22) Glucose 148 H (80-110) mg/dL Lactate (0.7-2.1) mmol/L Calcium 8.6 (8.4-10.2) mg/dL Magnesium 1.5 L (1.6-2.3) mg/dL Total Creatine Kinase 33 L (55-170) U/L CK-MB (CK-2) TNP CK-MB (CK-2) Rel Index TNP Troponin I 0.027 (0.01-0.034) ng/mL B-Natriuretic Peptide (<100) Procalcitonin < 0.05 (<0.5) ng/mL Urine RBC (0-5/HPF) Urine WBC (0-5/HPF) Urine Bacteria (None) Ur Culture Indicated? Digoxin (0.8-2.0) ng/mL Influenza A & B (PCR) (Negative) 01/19/19 01/19/19 01/19/19 Range/Units 00:00 00:03 00:53 WBC (4.5-11.0) X10^3/uL RBC (4.5-5.9) X10^6/uL Hgb (13.5-17.5) g/dL Hct (41-53) % MCV (80-100) fL MCH (26-34) PG MCHC (30-36) % RDW (11.6-14.8) % Plt Count (150-400) X10^3/uL Neut % (Auto) (50-75) % Lymph % (Auto) (25-40) % [place] % (Auto) (3-14) % Eos % (Auto) (2-4) % Baso % (Auto) (0-2) % Neut # (Auto) (8019-9071) /uL Lymph # (Auto) (5692-3039) /uL [place] # (Auto) (0-900) /uL Eos # (Auto) (0-450) /uL Baso # (Auto) (0-100) /uL PT (10.1-12.7) SECONDS INR (0.9-1.3) APTT (26.4-36.2) SECONDS ABG pH 7.44 (7.35-7.45) ABG pCO2 35.6 (35-45) mmHg ABG pO2 71 L (80-100) mmHg ABG HCO3 24 (22-26) mmol/L ABG Total CO2 25 (21-31) mmol/L ABG O2 Saturation 95 (95-100) % ABG Base Excess 0.0 (-2-2) mmol/L FiO2 0.36 Sodium (137-145) mmol/L Potassium (3.4-5.1) mmol/L Chloride (98-107) mmol/L Carbon Dioxide (22-32) mmol/L BUN (9-20) mg/dL Creatinine (0.66-1.25) mg/dL Estimated GFR (>60) mL/min BUN/Creatinine Ratio (6-22) Glucose (80-110) mg/dL Lactate 1.2 (0.7-2.1) mmol/L Calcium (8.4-10.2) mg/dL Magnesium (1.6-2.3) mg/dL Total Creatine Kinase (55-170) U/L CK-MB (CK-2) CK-MB (CK-2) Rel Index Troponin I (0.01-0.034) ng/mL B-Natriuretic Peptide (<100) Procalcitonin (<0.5) ng/mL Urine RBC (0-5/HPF) Urine WBC (0-5/HPF) Urine Bacteria (None) Ur Culture Indicated? Digoxin < 0.4 L (0.8-2.0) ng/mL Influenza A & B (PCR) (Negative) Urine Dip Bedside Urine Glucose Negative Bedside Urine Bilirubin - Negative Bedside Urine Ketone - Negative Urine Specific [place] 1.015 Bedside Urine Occult Blood - Negative Bedside Urine pH 6.0 Bedside Urine Protein +/- 15 Bedside Urine Urobilinogen 1+ 2mg Bedside Urine Nitrite - Negative Bedside Urine Leukocytes + 70 Esterase Imaging Data Chest x-ray: Radiologist's impression: CHF ECG Data Attestation: I personally reviewed and interpreted this ECG as follows: Prior ECG tracings: not available for review Interpretation: Afib in 80s, no ectopy or ischemia MDM Narrative Medical decision making narrative: 83M with obvious respiratory difficulty. No fever or chills. Negative procalcitonin/lactate, no definite focal consolidate. Complains of orthopnea/exertional dyspnea with elevated BNP and mild B/L LE edema. Additional hx of COPD with decreased lung sounds and prolonged expiratory phase with response to bronchodilators would suggest COPD component. Discharge Plan Departure Patient Disposition: Admitted As Inpatient Clinical Impression: Acute and chronic respiratory failure with hypoxia, Acute exacerbation of chronic obstructive pulmonary disease (COPD) Acute CHF Qualifiers: Heart failure type: unspecified Qualified Code(s): I50.9 - Heart failure, unspecified Admit Date/Time: 01/19/19 01:31 Admit Provider: Mee Nova
[2019-01-19 00:52] LABS: Procalcitonin < 0.05 ng/mL (<0.5)
[2019-01-19] MEDS: FUROSEMIDE 40 MG/4 ML VIAL IV ×2 (00:57→08:32)
[2019-01-19 01:17] LABS: Lactate (Lactic Acid) 1.2 mmol/L (0.7-2.1)
[2019-01-19 01:25] LABS: Influenza A and B by PCR Rapid Negative (Negative)
[2019-01-19 01:30] LABS: Digoxin < 0.4 ng/mL (0.8-2.0)
--- NOTE | 2019-01-19 01:51 | PC.NURSE ---
He was admitted to #[id number],pain free.controlled afib on cm.
--- NOTE | 2019-01-19 02:20 | PM.HP.1 ---
History of Present Illness Date Patient Seen: 01/19/19 Time Patient Seen: 02:21 Chief complaint: HAVING COPD EPISODE DIFFICULTY BREATHING Narrative: The patient is an 83-year-old male with PMH of COPD, pulmonary nodule LLL, PAH, CAD, chronic AFIB (s/p ablation x2, last in March 2018), chronic warfarin anticoagulation, (s/p TAVR, bio-prosphetic, 2015), HF, dyslipidemia, PAD, CML, anemia of chronic disease, anxiety, and EtOH use. Patient presented to the ED with shortness of breath, which has been worsening since thursday , 01/14/2019. Associated symptoms include a productive cough with dark purulence, exertional dyspnea, and hypoxia. Does not account for increase in purulence, but does note it to be thicker. Denies fever, but notes subjective chills. Denies CP, palpitations, dizziness, lightheadedness, or syncopal events. Denies abdominal pain, nausea, vomiting, and diarrhea. Patient does have underlying heart failure. In the past week he has taken partial doses of lasix 20 mg (supposed to take 40 mg) d/t discomfort associated w/ urinary frequency, he had multiple events to attend. Appetite stable. Notes baseline weight of 208#, in the past week he has been above his baseline, however consistent in the range of 211-212#. He does have baseline exertional dyspnea. He does not use oxygen at home. Reports 1 COPD / HF exacerbation a year for the past two years. Denies exposure to ill contacts; however, he has just returned from [place] (away Dec 14 to Jan 17). Reports increased use of rescue inhaler which was minimally effective. ED Work-Up WBC 15, HGB 10.7, PLT 215 INR 2.5 Trop 0.027, BNP 516 lactate 1.2, PCT < 0.05 NA 138, K 3.8, MG 1.5, CO 98, CA 8.6 CO2 27 BUN 17, Cr 1.0 Digoxin < 0.4 Influenza NEGATIVE pH 7.44, pCO2 35.6, pO2 71, HCO3 24 on room air PMH: COPD, pulmonary nodule LLL, PAH, CAD, chronic AFIB, chronic warfarin anticoagulation, (s/p TAVR, bio-prosphetic, 2016), HF, dyslipidemia, PAD, CML, anemia of chronic disease, anxiety, and EtOH use. PSH: A-V node ablation x2, TAVR, spinal surgery FHx: SHx: PRIOR tobacco dependence, 2 ppy x35 years, quit in 1990. Reports drinking 1 beer, 2 mixed drinks, and 1 wine 2-3x per week Patient History Medical History Atrial fibrillation (Acute) COPD (chronic obstructive pulmonary disease) (Acute) Hyperlipidemia (Acute) Social History Smoking Status: Former smoker Family & Social History Tobacco & Substance use: Smoking Status Former smoker alcohol intake frequency a few times a week Substance Use Type does not use Meds Home Medications Medication Instructions Recorded Confirmed Type Ventolin HFA 2 puff INH QIDP PRN #0 11/24/17 01/19/19 History aspirin 81 mg PO DAILY #0 11/24/17 01/19/19 History atorvastatin 40 mg PO HS #0 11/24/17 01/19/19 History furosemide 20 mg PO QDAY #0 11/24/17 01/19/19 History imatinib [Gleevec] 400 mg PO QDAY #0 11/24/17 01/19/19 History warfarin [Coumadin] 2.5 mg PO DAILY #0 11/24/17 01/19/19 History amiodarone [Pacerone] 200 mg PO DAILY 01/19/19 01/19/19 History carvedilol 3.125 mg PO BID 01/19/19 01/19/19 History tamsulosin 0.4 mg PO DAILY 01/19/19 01/19/19 History tiotropium bromide [Spiriva with 1 cap INHALATION DAILY 01/19/19 01/19/19 History HandiHaler] Allergies Allergy/AdvReac Type Severity Reaction Status Date / Time No Known Drug Allergies Allergy Verified 01/19/19 00:41 Review of Systems Review of Systems All systems reviewed & are unremarkable except as noted in HPI and below Exam Vital Signs (past 8 hours): - 01/18/19 23:54 01/19/19 00:00 01/19/19 00:10 Temperature Pulse Rate 97 H Respiratory Rate 28 H Blood Pressure 191/72 H Blood Pressure [Right Arm] Pulse Oximetry 85 L 92 93 01/19/19 00:20 01/19/19 01:03 01/19/19 01:14 Temperature 97.9 F Pulse Rate 82 Respiratory Rate 18 Blood Pressure Blood Pressure [Right Arm] 153/56 H Pulse Oximetry 94 96 01/19/19 02:12 Temperature 100.2 F H Pulse Rate 80 Respiratory Rate 24 Blood Pressure 154/91 H Blood Pressure [Right Arm] Pulse Oximetry 94 Oxygen Delivery Method Nasal Cannula Oxygen Flow Rate 4 Narrative Exam Narrative: Constitutional: mild respiratory distress Neurologic: AOx3, no focal neurological deficits Head: NC, AT Eyes: PERRL, EOMI, no scleral icterus Ears: external ears normal, no otorrhea Nose: external nose normal, no rhinorrhea or epistaxis Throat: MMM, oropharynx w/o exudate Neck: no masses, lymphadenopathy, or JVD Chest / Respiratory: equal chest rise, diminished, poor aeration, on 2L of oxygen Heart / CV: irregularly irregular, murmur present Abdomen / GI: round, NT, ND, + BS, no organomegaly : no suprapubic tenderness, no CVA Peripheral / Vascular: warm to touch, DP and PT pulses palpable, RLE 2+ edema (edema in RLE typically worse than left) and LLE 1+ Musc: full ROM of upper and lower extremities, adequate muscle tone and bulk Skin: no ecchymosis, skin tears / blisters on LLE Objective Labs Result Diagrams: 01/19/19 00:00 01/19/19 00:00 Labs: Laboratory Results - last 24 hr 01/18/19 01/18/19 01/19/19 00:53 23:48 00:00 WBC 15.0 H RBC 3.12 L Hgb 10.7 L Hct 32.2 L MCV 102.9 H MCH 34.2 H MCHC 33.2 RDW 14.5 Plt Count 215 Neut % (Auto) 87.8 H Lymph % (Auto) 5.2 L [place] % (Auto) 6.8 Eos % (Auto) 0.0 L Baso % (Auto) 0.2 Neut # (Auto) 93138 H Lymph # (Auto) 800 L [place] # (Auto) 1000 H Eos # (Auto) 0 Baso # (Auto) 0 PT INR APTT ABG pH ABG pCO2 ABG pO2 ABG HCO3 ABG Total CO2 ABG O2 Saturation ABG Base Excess FiO2 Sodium Potassium Chloride Carbon Dioxide BUN Creatinine Estimated GFR BUN/Creatinine Ratio Glucose Lactate Calcium Magnesium Total Creatine Kinase CK-MB (CK-2) CK-MB (CK-2) Rel Index Troponin I B-Natriuretic Peptide 516 H Procalcitonin Urine RBC None seen Urine WBC 0-1/hpf Urine Bacteria None seen Ur Culture Indicated? Specimen cultured Digoxin Influenza A & B (PCR) Negative 01/19/19 01/19/19 01/19/19 00:00 00:00 00:00 WBC RBC Hgb Hct MCV MCH MCHC RDW Plt Count Neut % (Auto) Lymph % (Auto) [place] % (Auto) Eos % (Auto) Baso % (Auto) Neut # (Auto) Lymph # (Auto) [place] # (Auto) Eos # (Auto) Baso # (Auto) PT 29.2 H INR 2.5 H APTT 36 D ABG pH ABG pCO2 ABG pO2 ABG HCO3 ABG Total CO2 ABG O2 Saturation ABG Base Excess FiO2 Sodium 138 Potassium 3.8 Chloride 98 Carbon Dioxide 27 BUN 17 Creatinine 1.00 Estimated GFR > 60.0 BUN/Creatinine Ratio 17.0 Glucose 148 H Lactate Calcium 8.6 Magnesium 1.5 L Total Creatine Kinase 33 L CK-MB (CK-2) TNP CK-MB (CK-2) Rel Index TNP Troponin I 0.027 B-Natriuretic Peptide Procalcitonin < 0.05 Urine RBC Urine WBC Urine Bacteria Ur Culture Indicated? Digoxin Influenza A & B (PCR) 01/19/19 01/19/19 01/19/19 00:00 00:03 00:53 WBC RBC Hgb Hct MCV MCH MCHC RDW Plt Count Neut % (Auto) Lymph % (Auto) [place] % (Auto) Eos % (Auto) Baso % (Auto) Neut # (Auto) Lymph # (Auto) [place] # (Auto) Eos # (Auto) Baso # (Auto) PT INR APTT ABG pH 7.44 ABG pCO2 35.6 ABG pO2 71 L ABG HCO3 24 ABG Total CO2 25 ABG O2 Saturation 95 ABG Base Excess 0.0 FiO2 0.36 Sodium Potassium Chloride Carbon Dioxide BUN Creatinine Estimated GFR BUN/Creatinine Ratio Glucose Lactate 1.2 Calcium Magnesium Total Creatine Kinase CK-MB (CK-2) CK-MB (CK-2) Rel Index Troponin I B-Natriuretic Peptide Procalcitonin Urine RBC Urine WBC Urine Bacteria Ur Culture Indicated? Digoxin < 0.4 L Influenza A & B (PCR) Assessment & Plan Assessment & Plan narrative: Acute respiratory failure with hypoxia pH 7.44 pCO2 35.6 pO2 71 HCO3 24, on room air 2/2 viral illness, RVP + rhinovirus - improving, down to 2L of oxygen - repeat ABG at 6 am Acute exacerbation of COPD 2/2 viral illness - Consult respiratory therapy - Respiratory viral panel STAT, results reviewed + rhinovirus / enterovirus - DuoNeb treatments Q6H x 24, then may adjust per RATE protocol - Resume [employer] regimen of Spiriva, will add LABA w/ ICS (salmeterol / fluticasone combination) - Start on azithromycin 500 mg QD x3 days - supplemental oxygen, maintain SpO2 between 90-94% - Received methylprednisolone 125 mg in ED. Continue at 60 mg IV BID for 24-48 hours, then re-evaluate, titrate downward and/or change to an oral regimen - Glucose POC Q8H while on steroids, if greater than 200 x2 then notify physician to consider prn SSI Leukocytosis, WBC 15, present on admission Inflammation vs. Infection. No fever, subjective chills. Increased / thick purulence. RVP + rhinovirus / enterovirus, immunocompromised, at risk for developing PNA. PCT WNL. Lactate WNL. Consider sepsis... meets criteria + SIRS w/ acute organ failure - blood cultures pending - influenza A/B negative in ED - respiratory viral panel pending - UA is not suggestive of an infection - CXR pending; degree of cardiopulmonary congestion, pending jill lread Heart Failure Exacerbation BNP 516 (appropriate for age), Trop is 0.027, CXR with degree of cardipulmonary congestion. Multi-factorial 2/2 COPD exacerbation and decreased dose of lasix. [employer] on furosemide 40 mg q.d., has been taking 20 mg on most days last week - Furosemide IV 40 mg QD - Daily weight, I/O monitoring - Daily BMP and Mg while diuresing, replete electrolytes Hypomagnesemia (Mg 1.5), acute, present on admission - MgSO4 2 gm IV x1, repeat Mg w/ am lab Chronic AFib, present on admission, controlled ventricular rate, Not on digoxin (taken off 24 days ago and started on amiodarone) - resume [employer] amiodarone, carvedilol, and warfarin Warfarin anticoagulation, chronic, h/o AFIB, (s/p TAVR), therapeutic INR of 2.5. Last week INR 1.5 his warfaring regimen was adjusted to 5 mg M-Sat, 2.5 Thursday - Daily INR, resume [employer] warfarin regimen, adjust warfarin accordingly CAD, stable chronic condition, present on admission No angina or angina-like / ACS-like symptoms - Continue optimizing risk factors, resume [employer] dose of ASA, statin, and BB Chronic myeloid leukemia, present on admission, stable - Resume [employer] regimen of Gleevec, (imatinib) 400 mg QD BPH w/o LUTS, present on admission, stable - Resume [employer] regimen of tamsulosin
--- NOTE | 2019-01-19 02:25 | P.HP_ITS ---
History of Present Illness Date Patient Seen: 01/19/19 Time Patient Seen: 02:21 Chief complaint: HAVING COPD EPISODE DIFFICULTY BREATHING Narrative: The patient is an 83-year-old male with PMH of COPD, pulmonary nodule LLL, PAH, CAD, chronic AFIB (s/p ablation x2, last in March 2018 ), chronic warfarin anticoagulation, (s/p TAVR, bio-prosphetic, 2015), HF, dyslipidemia, PAD, CML, anemia of chronic disease, anxiety, and EtOH use. Patient presented to the ED with shortness of breath, which has been worsening since thursday , 01/14/2019. Associated symptoms include a productive cough with dark purulence, exertional dyspnea, and hypoxia. Does not account for increase in purulence, but does note it to be thicker. Denies fever, but notes subjective chills. Denies CP, palpitations, dizziness, lightheadedness, or syncopal events. Denies abdominal pain, nausea, vomiting, and diarrhea. Patient does have underlying heart failure. In the past week he has taken partial doses of lasix 20 mg (supposed to take 40 mg) d/t discomfort associated w/ urinary frequency, he had multiple events to attend. Appetite stable. Notes baseline weight of 208#, in the past week he has been above his baseline, however consistent in the range of 211-212#. He does have baseline exertional dyspnea. He does not use oxygen at home. Reports 1 COPD / HF exacerbation a year for the past two years. Denies exposure to ill contacts; however, he has just returned from [place] (away Dec 14 to Jan 17). Reports increased use of rescue inhaler which was minimally effective. ED Work-Up WBC 15, HGB 10.7, PLT 215 INR 2.5 Trop 0.027, BNP 516 lactate 1.2, PCT < 0.05 NA 138, K 3.8, MG 1.5, CO 98, CA 8.6 CO2 27 BUN 17, Cr 1.0 Digoxin < 0.4 Influenza NEGATIVE pH 7.44, pCO2 35.6, pO2 71, HCO3 24 on room air PMH: COPD, pulmonary nodule LLL, PAH, CAD, chronic AFIB, chronic warfarin anticoagulation, (s/p TAVR, bio-prosphetic, 2016), HF, dyslipidemia, PAD, CML, anemia of chronic disease, anxiety, and EtOH use. PSH: A-V node ablation x2, TAVR, spinal surgery FHx: SHx: PRIOR tobacco dependence, 2 ppy x35 years, quit in 1990. Reports drinking 1 beer, 2 mixed drinks, and 1 wine 2-3x per week Patient History Medical History Atrial fibrillation (Acute) COPD (chronic obstructive pulmonary disease) (Acute) Hyperlipidemia (Acute) Social History Smoking Status: Former smoker Family & Social History Tobacco & Substance use: Smoking Status Former smoker alcohol intake frequency a few times a week Substance Use Type does not use Meds Home Medications Medication Instructions Recorded Confirmed Type Ventolin HFA 2 puff INH QIDP PRN #0 11/24/17 01/19/19 History aspirin 81 mg PO DAILY #0 11/24/17 01/19/19 History atorvastatin 40 mg PO HS #0 11/24/17 01/19/19 History furosemide 20 mg PO QDAY #0 11/24/17 01/19/19 History imatinib [Gleevec] 400 mg PO QDAY #0 11/24/17 01/19/19 History warfarin [Coumadin] 2.5 mg PO DAILY #0 11/24/17 01/19/19 History amiodarone [Pacerone] 200 mg PO DAILY 01/19/19 01/19/19 History carvedilol 3.125 mg PO BID 01/19/19 01/19/19 History tamsulosin 0.4 mg PO DAILY 01/19/19 01/19/19 History tiotropium bromide [Spiriva with 1 cap INHALATION DAILY 01/19/19 01/19/19 History HandiHaler] Allergies Allergy/AdvReac Type Severity Reaction Status Date / Time No Known Drug Allergies Allergy Verified 01/19/19 00:41 Review of Systems Review of Systems All systems reviewed & are unremarkable except as noted in HPI and below Exam Vital Signs (past 8 hours): - 01/18/19 23:54 01/19/19 00:00 01/19/19 00:10 Temperature Pulse Rate 97 H Respiratory Rate 28 H Blood Pressure 191/72 H Blood Pressure [Right Arm] Pulse Oximetry 85 L 92 93 01/19/19 00:20 01/19/19 01:03 01/19/19 01:14 Temperature 97.9 F Pulse Rate 82 Respiratory Rate 18 Blood Pressure Blood Pressure [Right Arm] 153/56 H Pulse Oximetry 94 96 01/19/19 02:12 Temperature 100.2 F H Pulse Rate 80 Respiratory Rate 24 Blood Pressure 154/91 H Blood Pressure [Right Arm] Pulse Oximetry 94 Oxygen Delivery Method Nasal Cannula Oxygen Flow Rate 4 Narrative Exam Narrative: Constitutional: mild respiratory distress Neurologic: AOx3, no focal neurological deficits Head: NC, AT Eyes: PERRL, EOMI, no scleral icterus Ears: external ears normal, no otorrhea Nose: external nose normal, no rhinorrhea or epistaxis Throat: MMM, oropharynx w/o exudate Neck: no masses, lymphadenopathy, or JVD Chest / Respiratory: equal chest rise, diminished, poor aeration, on 2L of oxygen Heart / CV: irregularly irregular, murmur present Abdomen / GI: round, NT, ND, + BS, no organomegaly : no suprapubic tenderness, no CVA Peripheral / Vascular: warm to touch, DP and PT pulses palpable, RLE 2+ edema (edema in RLE typically worse than left) and LLE 1+ Musc: full ROM of upper and lower extremities, adequate muscle tone and bulk Skin: no ecchymosis, skin tears / blisters on LLE Objective Labs Result Diagrams: 01/19/19 00:00 01/19/19 00:00 Labs: Laboratory Results - last 24 hr 01/18/19 01/18/19 01/19/19 00:53 23:48 00:00 WBC 15.0 H RBC 3.12 L Hgb 10.7 L Hct 32.2 L MCV 102.9 H MCH 34.2 H MCHC 33.2 RDW 14.5 Plt Count 215 Neut % (Auto) 87.8 H Lymph % (Auto) 5.2 L [place] % (Auto) 6.8 Eos % (Auto) 0.0 L Baso % (Auto) 0.2 Neut # (Auto) 36785 H Lymph # (Auto) 800 L [place] # (Auto) 1000 H Eos # (Auto) 0 Baso # (Auto) 0 PT INR APTT ABG pH ABG pCO2 ABG pO2 ABG HCO3 ABG Total CO2 ABG O2 Saturation ABG Base Excess FiO2 Sodium Potassium Chloride Carbon Dioxide BUN Creatinine Estimated GFR BUN/Creatinine Ratio Glucose Lactate Calcium Magnesium Total Creatine Kinase CK-MB (CK-2) CK-MB (CK-2) Rel Index Troponin I B-Natriuretic Peptide 516 H Procalcitonin Urine RBC None seen Urine WBC 0-1/hpf Urine Bacteria None seen Ur Culture Indicated? Specimen cultured Digoxin Influenza A & B (PCR) Negative 01/19/19 01/19/19 01/19/19 00:00 00:00 00:00 WBC RBC Hgb Hct MCV MCH MCHC RDW Plt Count Neut % (Auto) Lymph % (Auto) [place] % (Auto) Eos % (Auto) Baso % (Auto) Neut # (Auto) Lymph # (Auto) [place] # (Auto) Eos # (Auto) Baso # (Auto) PT 29.2 H INR 2.5 H APTT 36 D ABG pH ABG pCO2 ABG pO2 ABG HCO3 ABG Total CO2 ABG O2 Saturation ABG Base Excess FiO2 Sodium 138 Potassium 3.8 Chloride 98 Carbon Dioxide 27 BUN 17 Creatinine 1.00 Estimated GFR > 60.0 BUN/Creatinine Ratio 17.0 Glucose 148 H Lactate Calcium 8.6 Magnesium 1.5 L Total Creatine Kinase 33 L CK-MB (CK-2) TNP CK-MB (CK-2) Rel Index TNP Troponin I 0.027 B-Natriuretic Peptide Procalcitonin < 0.05 Urine RBC Urine WBC Urine Bacteria Ur Culture Indicated? Digoxin Influenza A & B (PCR) 01/19/19 01/19/19 01/19/19 00:00 00:03 00:53 WBC RBC Hgb Hct MCV MCH MCHC RDW Plt Count Neut % (Auto) Lymph % (Auto) [place] % (Auto) Eos % (Auto) Baso % (Auto) Neut # (Auto) Lymph # (Auto) [place] # (Auto) Eos # (Auto) Baso # (Auto) PT INR APTT ABG pH 7.44 ABG pCO2 35.6 ABG pO2 71 L ABG HCO3 24 ABG Total CO2 25 ABG O2 Saturation 95 ABG Base Excess 0.0 FiO2 0.36 Sodium Potassium Chloride Carbon Dioxide BUN Creatinine Estimated GFR BUN/Creatinine Ratio Glucose Lactate 1.2 Calcium Magnesium Total Creatine Kinase CK-MB (CK-2) CK-MB (CK-2) Rel Index Troponin I B-Natriuretic Peptide Procalcitonin Urine RBC Urine WBC Urine Bacteria Ur Culture Indicated? Digoxin < 0.4 L Influenza A & B (PCR) Assessment & Plan Assessment & Plan narrative: Acute respiratory failure with hypoxia pH 7.44 pCO2 35.6 pO2 71 HCO3 24, on room air 2/2 viral illness, RVP + rhinovirus - improving, down to 2L of oxygen - repeat ABG at 6 am Acute exacerbation of COPD 2/2 viral illness - Consult respiratory therapy - Respiratory viral panel STAT, results reviewed + rhinovirus / enterovirus - DuoNeb treatments Q6H x 24, then may adjust per RATE protocol - Resume DENTAL TECHNICIAN METAL regimen of Spiriva, will add LABA w/ ICS (salmeterol / fluticasone combination) - Start on azithromycin 500 mg QD x3 days - supplemental oxygen, maintain SpO2 between 90-94% - Received methylprednisolone 125 mg in ED. Continue at 60 mg IV BID for 24-48 hours, then re-evaluate, titrate downward and/or change to an oral regimen - Glucose POC Q8H while on steroids, if greater than 200 x2 then notify physician to consider prn SSI Leukocytosis, WBC 15, present on admission Inflammation vs. Infection. No fever, subjective chills. Increased / thick purulence. RVP + rhinovirus / enterovirus, immunocompromised, at risk for developing PNA. PCT WNL. Lactate WNL. Consider sepsis... meets criteria + SIRS w/ acute organ failure - blood cultures pending - influenza A/B negative in ED - respiratory viral panel pending - UA is not suggestive of an infection - CXR pending; degree of cardiopulmonary congestion, pending jill lread Heart Failure Exacerbation BNP 516 (appropriate for age), Trop is 0.027, CXR with degree of cardipulmonary congestion. Multi-factorial 2/2 COPD exacerbation and decreased dose of lasix. DENTAL TECHNICIAN METAL on furosemide 40 mg q.d., has been taking 20 mg on most days last week - Furosemide IV 40 mg QD - Daily weight, I/O monitoring - Daily BMP and Mg while diuresing, replete electrolytes Hypomagnesemia (Mg 1.5), acute, present on admission - MgSO4 2 gm IV x1, repeat Mg w/ am lab Chronic AFib, present on admission, controlled ventricular rate, Not on digoxin (taken off 24 days ago and started on amiodarone) - resume DENTAL TECHNICIAN METAL amiodarone, carvedilol, and warfarin Warfarin anticoagulation, chronic, h/o AFIB, (s/p TAVR), therapeutic INR of 2.5. Last week INR 1.5 his warfaring regimen was adjusted to 5 mg M-Sat, 2.5 Thursday - Daily INR, resume DENTAL TECHNICIAN METAL warfarin regimen, adjust warfarin accordingly CAD, stable chronic condition, present on admission No angina or angina-like / ACS-like symptoms - Continue optimizing risk factors, resume DENTAL TECHNICIAN METAL dose of ASA, statin, and BB Chronic myeloid leukemia, present on admission, stable - Resume DENTAL TECHNICIAN METAL regimen of Gleevec, (imatinib) 400 mg QD BPH w/o LUTS, present on admission, stable - Resume DENTAL TECHNICIAN METAL regimen of tamsulosin
[2019-01-19] MEDS: MAGNESIUM SULFATE 2 GM/50 ML PIGGYBACK IV (03:32)
[2019-01-19 03:47] LABS: Adenovirus Not Detected (Not Detect); Bordetella pertussis Not Detected (Not Detect); Chlamydophila pneumoniae Not Detected (Not Detect); Coronavirus 229E Not Detected (Not Detect); Coronavirus HKU1 Not Detected (Not Detect); Coronavirus NL 63 Not Detected (Not Detect); Coronavirus OC43 Not Detected (Not Detect); Human Metapneumovirus Not Detected (Not Detect); Human Rhinovirus/Enterovirus Detected (Not Detect); Influenza A Not Detected (Not Detect); Influenza B Not Detected (Not Detect); Mycoplasma pneumoniae Not Detected (Not Detect); Parainfluenza Virus 1 Not Detected (Not Detect); Parainfluenza Virus 2 Not Detected (Not Detect); Parainfluenza Virus 3 Not Detected (Not Detect); Parainfluenza Virus 4 Not Detected (Not Detect); Respiratory Syncytial Virus Not Detected (Not Detect)
[2019-01-19 05:10] LABS: INR 2.7 (0.9-1.3); Prothrombin Time 32.2 SECONDS (10.1-12.7)
--- NOTE | 2019-01-19 06:42 | PC.ADMIT ---
197 [facility] Admission Note: The patient,Cayetano Carrion,83 y/o, was given written information regarding hospital policies, unit procedures and contact persons. Patient's smoking status: Former smoker. Vital Signs - 8 hr 01/18/19 23:54 01/19/19 00:00 01/19/19 00:10 Temperature Pulse Rate 97 H Respiratory Rate 28 H Blood Pressure 191/72 H Blood Pressure [Right Arm] Pulse Oximetry 85 L 92 93 01/19/19 00:20 01/19/19 01:03 01/19/19 01:14 Temperature 97.9 F Pulse Rate 82 Respiratory Rate 18 Blood Pressure Blood Pressure [Right Arm] 153/56 H Pulse Oximetry 94 96 01/19/19 02:00 01/19/19 02:12 01/19/19 03:55 Temperature 100.2 F H 100.4 F H Pulse Rate 80 62 Respiratory Rate 24 29 H Blood Pressure 154/91 H 140/68 Blood Pressure [Right Arm] Pulse Oximetry 94 94 96 01/19/19 04:23 Temperature Pulse Rate Respiratory Rate Blood Pressure Blood Pressure [Right Arm] Pulse Oximetry 95 Patient admitted to ICU on Tele SR with PACs, rate controlled, SpO2 >92% on 2L NC, denies shortness of breath, can converse easily. Diuresing well after receiving Lasix in ED. Denies pain. at bedside.
--- NOTE | 2019-01-19 06:49 | PC.NURSE ---
Patient has been able to doze intermittently since admit. Mg+ rider bro, Zoë CHIU, 1st AVB, Temp 100.2, placed in Droplet Precautions for Entero/Rhino virus.
[2019-01-19] MEDS: AZITHROMYCIN 250 MG TABLET 500 MG PO (08:30)
[2019-01-19] MEDS: TAMSULOSIN 0.4 MG CAPSULE PO (08:30)
[2019-01-19] MEDS: methylPREDNISolone 125 MG/2 ML VIAL 60 MG IV ×2 (08:32→22:01)
[2019-01-19] MEDS: FLUTICASONE/SALMETEROL 500/50 14 PUFF DISKUS INH ×2 (08:41→19:22)
[2019-01-19] MEDS: TIOTROPIUM BROMIDE 18 MCG INHALER INH (08:41)
--- NOTE | 2019-01-19 08:43 | CM.DANOTE ---
DCP: Case received, EMR reviewed and met with patient. Introduced self and role. DCP template completed with information currently available. Patient is an 83 year old male who admitted early this morning to the care of [facility] hospitalist team. PCP: Seymour Brandt Payer: confirmed: Medicare/[employer]. Patient came to hospital via family vehicle due to symptoms of exacerbated shortness of breath. Patient has history of COPD, as well as A-Fib. Patient was diagnosed with Acute Resp. Failure, Hypoxia. Met with patient and spouse, Radha was in room. They both reside in [facility]. Confirmed with patient and that he does not use oxygen at home, and is independent. Does not have any DME supplies, but uses a walking stick when he goes out for walks. P: DCP to continue to follow closely. Will see how patient progresses here in hospital, to see if he may need any resources, such as home health. Nena Yoon RN/Floor Covering Contractor
[2019-01-19] MEDS: CARVEDILOL 3.125 MG TABLET PO ×2 (10:12→17:24)
[2019-01-19] MEDS: SODIUM CHLORIDE 0.9% FLUSH 10 ML IV ×2 (10:15→22:03)
[2019-01-19] MEDS: INSULIN ASPART 100 UNIT/ML INSULN PEN SUBCUT ×4 (10:15→22:03)
[2019-01-19] MEDS: AMIODARONE 200 MG TABLET PO (10:22)
[2019-01-19] MEDS: GLEEVEC 400 MG 400 EACH PO (12:47)
[2019-01-19] MEDS: WARFARIN 5 MG TABLET PO (17:25)
--- NOTE | 2019-01-19 20:32 | PC.NURSE ---
1700 - Pt sitting on edge of bed for meal. Reports feeling tight chest, and cough with deep inhalation. RA sats 94%. Educated to treatment plan. Information provided r/t BNP lab results. Pt and asking appropriate questions. A-febril. Denies pain. Review breathing treatment availability. Call light in reach.
[2019-01-19] MEDS: ATORVASTATIN 20 MG TABLET 40 MG PO (22:02)
[2019-01-20 01:00] VITALS: BP 148/70; PULSE 62; RESP 24; TEMP 36.8; O2SAT 94
[2019-01-20] MEDS: ALBUTEROL/IPRATROPIUM 3 ML AMPUL INH ×2 (01:47→06:24)
[2019-01-20 01:49] VITALS: PULSE 63; RESP 18; O2SAT 94
[2019-01-20 04:50] VITALS: BP 155/68; PULSE 62; RESP 20; TEMP 36.4; O2SAT 95
[2019-01-20 05:29] LABS: Magnesium 1.9 mg/dL (1.6-2.3)
[2019-01-20 05:33] LABS: Hematocrit 29.1 % (41-53); Hemoglobin 9.7 g/dL (13.5-17.5); Mean Corpuscular HGB Conc 33.4 % (30-36); Mean Corpuscular Hemoglobin 33.7 PG (26-34); Mean Corpuscular Volume 100.8 fL (80-100); Platelet Count 168 X10^3/uL (150-400); Red Blood Cell Count 2.89 X10^6/uL (4.5-5.9); Red Cell Distribution Width 14.1 % (11.6-14.8); White Blood Cell Count 15.9 X10^3/uL (4.5-11.0)
[2019-01-20 06:24] VITALS: PULSE 63; RESP 18; O2SAT 96
[2019-01-20 07:11] LABS: Neutrophils Absolute Manual 14946 /uL (3000-5900); Total Cells Counted 100
[2019-01-20 07:13] LABS: RBC Morphology Norm
[2019-01-20 07:19] LABS: Procalcitonin < 0.05 ng/mL (<0.5)
[2019-01-20 07:26] LABS: BUN Creatinine Ratio 25.5 (6-22); Blood Urea Nitrogen 28 mg/dL (9-20); Calcium 8.7 mg/dL (8.4-10.2); Carbon Dioxide 30 mmol/L (22-32); Chloride 96 mmol/L (98-107); Estimated Glomerular Filt Rate > 60.0 mL/min (>60); Glucose 175 mg/dL (80-110); HEMOLYSIS < 15 (0-50); Potassium 3.8 mmol/L (3.4-5.1); Sodium 133 mmol/L (137-145)
[2019-01-20 08:00] VITALS: BP 167/83; PULSE 64; PULSE 65; RESP 16; RESP 18; TEMP 36.4; O2SAT 93; O2SAT 97
--- NOTE | 2019-01-20 08:25 | P.DS_ITS ---
History of Present Illness Date Patient Seen: 01/20/19 Chief complaint: HAVING COPD EPISODE DIFFICULTY BREATHING Narrative: Written by Mee Nova: The patient is an 83-year-old male with PMH of COPD, pulmonary nodule LLL, PAH, CAD, chronic AFIB (s/p ablation x2, last in March 2018), chronic warfarin anticoagulation, (s/p TAVR, bio-prosphetic, 2016), HF, dyslipidemia, PAD, CML, anemia of chronic disease, anxiety, and EtOH use. Patient presented to the ED with shortness of breath, which has been worsening since thursday , 01/14/2019. Associated symptoms include a productive cough with dark purulence, exertional dyspnea, and hypoxia. Does not account for increase in purulence, but does note it to be thicker. Denies fever, but notes subjective chills. Denies CP, palpitations, dizziness, lightheadedness, or syncopal events. Denies abdominal pain, nausea, vomiting, and diarrhea. Patient does have underlying heart failure. In the past week he has taken partial doses of lasix 20 mg (supposed to take 40 mg) d/t discomfort associated w/ urinary frequency, he had multiple events to attend. Appetite stable. Notes baseline weight of 208#, in the past week he has been above his baseline, however consistent in the range of 211-212#. He does have baseline exertional dyspnea. He does not use oxygen at home. Reports 1 COPD / HF exacerbation a year for the past two years. Denies exposure to ill contacts; however, he has just returned from [place] (away Dec 14 to Jan 17). Reports increased use of rescue inhaler which was minimally effective. Discharge Providers Date of admission: 01/19/19 01:31 Primary care physician: Leigh Ann Alberto PA-C Consults: 01/18/19 23:54 Consult to Respiratory Therapy Evaluate & Treat Comment: Physician Instructions: Evaluate and treat Discharge provider: Esme Renae DO Discharge Date: 01/20/19 Summary Discharge Diagnosis: 1. Acute hypoxemic respiratory failure, present on admission. Resolved. 2. Acute COPD exacerbation, present on admission. Resolving. 3. Acute leukocytosis, present on admission. Stable. 4. Acute CHF exacerbation, unclear CHF type, present on admission. Resolved. 5. Hypomagnesemia acute, present on admission. Resolved. 6. Chronic atrial fibrillation with controlled ventricular rate, present on admission. Stable. 7. Chronic anticoagulation on warfarin, present on admission. Stable. 8. CAD, chronic, present on admission. Stable. 9. Chronic myeloid leukemia, present on admission. Stable. 10. BPH w/o LUTS, present on admission. Stable. Hospital Course: 1. Acute hypoxemic respiratory failure, present on admission. Resolved. -Secondary to viral illness with rhinovirus. -pH 7.44 pCO2 35.6 pO2 71 HCO3 24, on room air -Provided supplemental oxygen as needed. No longer on oxygen. 2. Acute COPD exacerbation, present on admission. Resolving. -Secondary to viral URI. -Consulted respiratory therapy. -Respiratory viral PCR positive for rhinovirus / enterovirus. -Continued DuoNeb treatments every 6 hr while awake. Discharged on home inhalers. Recommended discussing home nebulizer at scheduled appointment with environmental systems coordinator at [facility] next week. -Continued home Spiriva. -Received azithromycin 500 mg daily for 3 days total for anti-inflammatory effect. -Continued supplemental oxygen to maintain SpO2 88% or greater. No longer needing oxygen. -Received methylprednisolone 125 mg in ED. Continued at 60 mg IV BID for 24 hours then transition to prednisone 40 mg for 5 days total. -Continued to monitor blood glucose while on steroids and ordered low-dose correctional scale insulin as needed. 3. Acute leukocytosis, present on admission. Stable. -Initial WBC 15. WBC continues to be 15-16 likely due to glucocorticoids. -Inflammation vs. Infection. No fever, subjective chills. Increased / thick purulence. Respiratory viral PCR positive for rhinovirus / enterovirus, immunocompromised, at risk for developing PNA. -PCT WNL. Lactate WNL. Does not appear septic and overall clinically improved. -Blood cultures have no growth to date. -UA is not suggestive of an infection -Chest x-ray interpreted by me demonstrated mild degree of cardiopulmonary congestion and no definitive infiltrate. 4. Acute CHF exacerbation, unclear CHF type, present on admission. Resolved. -BNP 516 (appropriate for age), Trop is 0.027, CXR with degree of cardipulmonary congestion. Multi-factorial 2/2 COPD exacerbation and decreased dose of lasix. -Patient is on furosemide 40 mg daily for which he has been taking 20 mg on most days last week due to traveling. Received furosemide 40 mg IV. Discharged on home dose of furosemide 40 mg daily. -Measured daily weight and strict I&Os throughout hospitalization. Weight at time of discharge was 93 kg. -Checked BMP and Mg while diuresing, replete electrolytes 5. Hypomagnesemia acute, present on admission. Resolved. -Magnesium 1.5. Repleted with magnesium sulfate 2 gm IV x1. 6. Chronic atrial fibrillation with controlled ventricular rate, present on admission. Stable. -Not on digoxin (taken off 24 days ago and started on amiodarone). -Continued amiodarone, carvedilol, and warfarin. 7. Chronic anticoagulation on warfarin, present on admission. Stable. -History of atrial fibrillation and aortic stenosis status post TAVR on warfarin. Initial INR therapeutic at 2.5. Last week INR 1.5 his warfarin regimen was adjusted to 5 mg M-Sat, 2.5 Thursday. -Continued home warfarin doses and checked daily INR which was 3.0. [facility]. 8. CAD, chronic, present on admission. Stable. -No angina or angina-like / ACS-like symptoms, -Continued home ASA, statin, and BB. 9. Chronic myeloid leukemia, present on admission. Stable. -Continued Gleevec 400 mg daily. 10. BPH w/o LUTS, present on admission. Stable. -Continued home tamsulosin. Status at Discharge Functional status at discharge: independent ambulation Overall status at discharge: patient is back to baseline Exam Vital Signs (past 8 hours): - 01/20/19 01:00 01/20/19 01:49 01/20/19 04:50 Temperature 98.3 F 97.6 F Pulse Rate 62 63 62 Respiratory Rate 24 18 20 Blood Pressure 148/70 H 155/68 H Pulse Oximetry 94 94 95 01/20/19 06:24 Temperature Pulse Rate 63 Respiratory Rate 18 Blood Pressure Pulse Oximetry 96 Oxygen Delivery Method Room Air Oxygen Flow Rate 1 Narrative Exam Narrative: General: Elderly gentleman lying in bed and in no acute distress, well- developed, well-nourished, appropriately interactive. HEENT: Normocephalic, atraumatic. External ears without defect. Pupils equal, round, and reactive to light. Anicteric sclerae, moist conjunctivae, and no lid lag. Neck: Supple with full range of motion. No jugular venous distension. No bruits. No lymphadenopathy or thyromegaly. Cardiovascular: Irregularly irregular without murmurs, rubs, or gallops appreciated. Pulmonary: Diminished lung sounds throughout but clear to auscultation bilaterally without crackles, wheezes, or rhonchi. Normal respiratory effort with no use of accessory muscles. Abdomen: Soft, bowel sounds present, nontender, nondistended. No hepatosplenomegaly or masses appreciated. Extremities: No clubbing, cyanosis, or edema. Skin: Normal temperature, turgor, and texture; no rash, ulcers, or subcutaneous nodules appreciated. Neurological: Cranial nerves grossly intact. Psychiatric: Normal mood and affect. Alert and oriented to person, place, and time. Objective Labs Result Diagrams: 01/20/19 04:53 01/20/19 04:53 Labs: Laboratory Results - last 24 hr 01/20/19 01/20/19 01/20/19 04:53 04:53 04:53 WBC RBC Hgb Hct MCV MCH MCHC RDW Plt Count Total Counted Seg Neutrophils % Band Neutrophils % Lymphocytes % (Manual) Monocytes % (Manual) Neutrophils # (Manual) RBC Morphology PT 36.0 H INR 3.0 H Sodium 133 L Potassium 3.8 Chloride 96 L Carbon Dioxide 30 BUN 28 H Creatinine 1.10 Estimated GFR > 60.0 BUN/Creatinine Ratio 25.5 H Glucose 175 H Calcium 8.7 Magnesium Procalcitonin < 0.05 01/20/19 01/20/19 04:53 04:53 WBC 15.9 H RBC 2.89 L Hgb 9.7 L Hct 29.1 L MCV 100.8 H MCH 33.7 MCHC 33.4 RDW 14.1 Plt Count 168 Total Counted 100 Seg Neutrophils % 90.0 H Band Neutrophils % 4.0 Lymphocytes % (Manual) 4.0 L Monocytes % (Manual) 2.0 Neutrophils # (Manual) 61057 H RBC Morphology Norm PT INR Sodium Potassium Chloride Carbon Dioxide BUN Creatinine Estimated GFR BUN/Creatinine Ratio Glucose Calcium Magnesium 1.9 Procalcitonin Discharge Plan Discharge Plan Patient Disposition: Home Discharge comment: You are being discharged home. Please follow-up with your PCP, environmental systems coordinator, and time stamp assembler at your scheduled appointments at [facility]. You were hospitalized for CHF exacerbation and COPD exacerbation due to rhinovirus. Try to get plenty of rest and stay well-hydrated. You were prescribed azithromycin 500 mg for 1 more dose and prednisone 40 mg for 4 more days. You should discuss a nebulizer with your environmental systems coordinator. You may take [id number] medications such as Mucinex for excessive sputum production as directed on bottle and as needed for symptom management. Please continue taking your diuretic as prescribed. Your weight today was 93 kg or 204 lbs. Continue to keep track of your weight daily. Your INR was 3.0. Please have your INR checked at your Coumadin clinic by the end of the week. Discharge Med Rec/Prescriptions Prescriptions: New azithromycin [Zithromax Z-Ganesh] 250 mg Tablet 500 mg PO DAILY Qty: 1 RF: 0 prednisone 20 mg Tablet 40 mg PO DAILY Qty: 4 RF: 0 Continued furosemide 20 MG tablet 20 mg PO QDAY Qty: 0 RF: 0 imatinib [Gleevec] 400 MG tablet 400 mg PO QDAY Qty: 0 RF: 0 warfarin [Coumadin] 2.5 MG tablet 2.5 mg PO DAILY Qty: 0 RF: 0 Ventolin HFA 90 MCG/PUFF HFA aerosol inhaler 2 puff INH QIDP PRN (Reason: Shortness Of Breath) Qty: 0 RF: 0 atorvastatin 40 MG tablet 40 mg PO HS Qty: 0 RF: 0 aspirin 81 MG tablet,delayed release (DR/EC) 81 mg PO DAILY Qty: 0 RF: 0 carvedilol 3.125 mg Tablet 3.125 mg PO BID RF: 0 tamsulosin 0.4 mg Capsule 0.4 mg PO DAILY RF: 0 Spiriva with HandiHaler 18 mcg Capsule, W/Inhalation Device 1 cap Inhalation DAILY RF: 0 amiodarone [Pacerone] 100 mg Tablet 200 mg PO DAILY RF: 0 Follow up/Referrals: Leigh Ann Alberto PA-C [Primary Care Provider] - Provider Discharge Instructions Diet: Low-fat, Low-sodium and Low-cholesterol Activity: Activity as tolerated Visit Report/Discharge Packet Instructions: DI for Chronic Obstructive Pulmonary Disease, DI for Viral Syndrome Discharge Data Primary Care Provider: Leigh Ann Alberto Attending Provider: Mee Nova Admit Date/Time: 01/19/19 01:31 Quality VTE Deep Vein Thrombosis/Pulmonary Embolism Present on Admission: No
[2019-01-20] MEDS: AMIODARONE 200 MG TABLET PO (08:33)
[2019-01-20] MEDS: AZITHROMYCIN 250 MG TABLET 500 MG PO (08:34)
[2019-01-20] MEDS: predniSONE 20 MG TABLET 40 MG PO (08:35)
[2019-01-20] MEDS: GLEEVEC 400 MG 400 EACH PO (08:35)
[2019-01-20] MEDS: TAMSULOSIN 0.4 MG CAPSULE PO (08:36)
[2019-01-20] MEDS: FUROSEMIDE 40 MG TABLET PO (08:45)
[2019-01-20] MEDS: CARVEDILOL 3.125 MG TABLET PO (09:33)
[2019-01-20] MEDS: TIOTROPIUM BROMIDE 18 MCG INHALER INH (09:44)
[2019-01-20] MEDS: FLUTICASONE/SALMETEROL 500/50 14 PUFF DISKUS INH (09:44)
== END 2019-01-20 10:00 | disposition home or self-care (01) | DRG 190 ==
LOC: ED 01-19 00:48 → ICU 01-19 01:31
PROVIDERS: Admitting Provider Nurse Practitioner Gerontology; Emergency Provider Emergency Medicine; PCP Physician Assistant; Visit Provider Nurse Practitioner Gerontology
DX: J44.1 Chronic obstructive pulmonary disease with (acute) exacerbation (principal); J96.01 Acute respiratory failure with hypoxia; C92.10 Chronic myeloid leukemia, BCR/ABL-positive, not having achieved remission; I50.9 Heart failure, unspecified; E83.42 Hypomagnesemia; I25.10 Atherosclerotic heart disease of native coronary artery without angina pectoris; Z79.01 Long term (current) use of anticoagulants; E78.5 Hyperlipidemia, unspecified; N40.1 Benign prostatic hyperplasia with lower urinary tract symptoms; I48.2 Chronic atrial fibrillation
CPT/HCPCS: 36415; 36591; 36600; 71045; 80048; 80162; 81003; 81015; 82550; 82805; 82962; 83605; 83735; 83880; 84145; 84484; 85025; 85610; 85730; 87040; 87086; 87400; 87633; 87797; 93005; 94640; 94762; 96374; 96375; 99282; 99285; J1940; J2930

== ENCOUNTER → 2019-01-24 14:57 | Outpatient (CLI) | payer MEDICARE, OTHER, SELFPAY ==
[2019-01-19 02:12] VITALS: BMI 28.3
[2019-01-24 16:05] LABS: INR 3.2 (0.9-1.3); Prothrombin Time 37.7 SECONDS (10.1-12.7)
== END ==
PROVIDERS: PCP Physician Assistant; Visit Provider Pharmacist
DX: Z79.01 Long term (current) use of anticoagulants (principal); I48.0 Paroxysmal atrial fibrillation
CPT/HCPCS: 36415; 85610

== ENCOUNTER → 2019-02-11 12:44 | Outpatient (CLI) | payer MEDICARE, OTHER, SELFPAY ==
[2019-01-19 02:12] VITALS: BMI 28.3
[2019-02-11 14:21] LABS: Prothrombin Time 23.8 SECONDS (10.1-12.7)
== END ==
PROVIDERS: PCP Physician Assistant; Visit Provider Pharmacist
DX: Z79.01 Long term (current) use of anticoagulants (principal); I48.0 Paroxysmal atrial fibrillation
CPT/HCPCS: 36415; 85610

== ENCOUNTER 2019-02-17 17:28 | Emergency (ER) | payer MEDICARE, OTHER, SELFPAY ==
[2019-01-19 02:12] VITALS: BMI 28.3
[2019-02-17] VITALS (7 sets, daily range): BP systolic 141–174; BP diastolic 55–76; PULSE 68–77; RESP 15–27; TEMP 36.6; O2SAT 97–100
--- NOTE | 2019-02-17 18:12 | ED.SOB ---
HPI - SOB/Dyspnea General Chief Complaint: Shortness of Breath/Dyspnea Stated Complaint: FLUID RETENTION, BACK PAIN Time Seen by Provider: 02/17/19 18:09 Source: patient and family Mode of arrival: ambulatory Limitations: no limitations History of Present Illness Patient comes to the emergency department complaining of progressive weight gain over the last month and pain in his right flank/hip. Patient was admitted to the hospital last month for CHF and COPD exacerbations, and discharged January 20. He states that since then, he has not had an increase in shortness of breath, but does note that he has been progressively gaining weight, and has gained about 5 lb since discharge. Patient states he saw both his log hauler and his director of programming a couple of weeks ago, and that the director of programming doubled his Lasix dose from 40 mg once daily to 40 mg twice daily. Patient states that he has not noticed any increase in urination, and that his weight has continued to climb. Patient states he has not really noticed any increase in lower extremity edema, and that he has actually been up and around quite a bit. He states that he actually started going to cardiovascular rehab today, and was able to go for 8 min on the treadmill without getting short of breath. He states he actually did that twice today. Patient states that he has not noticed any dyspnea otherwise, but is concerned that the weight gain may indicate that he is building up fluid again. Patient does notice that he is more drowsy during the day, even though he states he spends 9 hr in bed. He states that today, he took a nap for an hour. Patient is also in treatment for a chronic form of leukemia, for which [facility], and is on chronic oral therapy. Patient states this has been stable. He denies fevers or increasing cough. No chest pain. He states he has a history of spinal stenosis, and thought that the right flank/hip pain was probably from that, though feels a little different. Patient denies any dysuria or fevers. No blood in his urine. Patient did notice that he had some dark stool last week, and has had this tested at his primary doctor's office. He states he is still waiting to hear the results. Patient denies any easy bruising or bleeding anywhere else. He is not on any anticoagulants, other than aspirin. No other complaints at this time. Related Data Home Medications Medication Instructions Recorded Confirmed Ventolin HFA 2 puff INH QIDP PRN #0 11/24/17 01/19/19 aspirin 81 mg PO DAILY #0 11/24/17 01/19/19 atorvastatin 40 mg PO HS #0 11/24/17 01/19/19 furosemide 20 mg PO QDAY #0 11/24/17 01/19/19 imatinib [Gleevec] 400 mg PO QDAY #0 11/24/17 01/19/19 warfarin [Coumadin] 2.5 mg PO DAILY #0 11/24/17 01/19/19 Spiriva with HandiHaler 1 cap INHALATION DAILY 01/19/19 01/19/19 amiodarone [Pacerone] 200 mg PO DAILY 01/19/19 01/19/19 carvedilol 3.125 mg PO BID 01/19/19 01/19/19 tamsulosin 0.4 mg PO DAILY 01/19/19 01/19/19 Previous Rx's Medication Instructions Recorded azithromycin [Zithromax Z-Ganesh] 500 mg PO DAILY #1 tab 01/20/19 prednisone 40 mg PO DAILY #4 tab 01/20/19 Allergies Allergy/AdvReac Type Severity Reaction Status Date / Time No Known Drug Allergies Allergy Verified 02/17/19 18:06 Review of Systems Constitutional Denies chills, Reports daytime sleepiness, Denies fever(s), Denies lethargy, Denies weakness and Reports weight gain Comments: Patient notes decreased appetite. Eyes Denies change in vision, Denies eye discharge, Denies irritation and Denies loss of vision ENT Ears, Nose, Mouth, and Throat: Denies change in voice, Denies neck pain and Denies sore throat Cardiovascular Denies chest pain, Denies irregular heart rhythm, Denies lightheadedness, Denies palpitations, Denies dyspnea, Denies dyspnea on exertion and Denies orthopnea Respiratory Denies cough, Denies dyspnea, Denies dyspnea on exertion and Denies wheezing Gastrointestinal Gastrointestinal: Denies abdominal pain, Denies change in bowel habits, Denies diarrhea, Denies nausea and Denies vomiting Genitourinary Denies hematuria, Denies flank pain, Denies urinary incontinence and Denies urinary urgency Musculoskeletal Denies neck pain Integumentary/Breasts Denies pruritus, Denies erythema, Denies rash and Denies wounds Neurologic Denies confusion, Denies loss of vision and Denies weakness Psychiatric Denies anxiety, Denies confusion, Denies depression, Denies homicidal ideation and Denies suicidal ideation Endocrine Denies palpitations Hematologic/Lymphatic Denies easy bruising Allergic/Immunologic Denies wheezing PFSH Medical History Acute and chronic respiratory failure with hypoxia (Acute) Acute CHF (Acute) Acute exacerbation of chronic obstructive pulmonary disease (COPD) (Acute) COPD exacerbation (Acute) Pulmonary nodule (Acute) Atrial fibrillation (Acute) COPD (chronic obstructive pulmonary disease) (Acute) Hyperlipidemia (Acute) Social History household members: spouse Smoking Status: Former smoker alcohol intake: current Social History household members: spouse Smoking Status: Former smoker alcohol intake: current Comment: Patient notes drinking 3 or more alcoholic drinks per day. Exam Narrative Exam Narrative: Patient in general is actually quite well appearing, with good color. He is not grossly dyspneic, and speaks in full sentences without difficulty. He is able to ambulate to the bathroom without difficulty. Initial Vital Signs Initial Vital Signs: Vital Signs Temperature 97.9 F 02/17/19 18:06 Pulse Rate 77 02/17/19 18:06 Respiratory Rate 20 02/17/19 18:06 Blood Pressure 174/73 H 02/17/19 18:06 Pulse Oximetry 98 02/17/19 18:06 Const General: cooperative and well developed Nutritional Appearance: well nourished Orientation: alert, awake, oriented x3 and not confused [facility] Head: normocephalic and atraumatic Ears: external ears normal and TM's normal bilaterally Nose: external nose normal and No nasal discharge Face and sinus: sinuses nontender, face symmetric, no sinus tenderness and No dry mucous membranes Mouth: oral mucosae normal and moist mucous membranes Teeth and gingiva: dentition normal Throat: tonsils normal and uvula midline Eyes General: appearance normal, both eyes and all related structures Eyelids: eyelids normal Conjunctivae: conjunctivae normal Sclera: sclerae normal Pupils: PERRL EOM: EOM intact bilaterally Neck Neck: normal visual inspection, trachea midline, No lymphadenopathy, No midline deformity and No JVD Lymphatic: No lymphedema Chest Chest: normal inspection of the chest Resp Effort & Inspection: normal respiratory effort, able to speak in complete sentences, no respiratory distress and no use of accessory muscles Auscultation: clear to auscultation bilaterally, diminished lung sounds (Throughout the entire lung kim) bilaterally, no rales, no rhonchi and no wheezes Cardio Rate: regular rate Rhythm: regular rhythm Heart Sounds: no click, no gallops, no murmurs and no rubs Pulses: normal peripheral pulses GI Inspection: non-distended Palpation: soft, no hepatosplenomegaly, No guarding, No pulsatile mass and No tender Other: No flank tenderness. Back/Spine/Pelvis Back: No CVA tenderness Cervical Spine: cervical ROM normal and No pain with cervical ROM Thoracic/Lumbar Spine: thoracic and lumbar spine normal to inspection Other: Patient has no paraspinal tenderness on either side, and no tenderness or step-off any level of the spine. Skin General: no rashes or lesions noted, No jaundice and No petechiae Neuro General: alert, oriented x3, gait normal and no focal motor deficits Speech: speech normal Extrem General: full ROM and no calf tenderness Other: Patient has minimal lower extremity edema with only slight pitting, just proximal to his ankles bilaterally. Patient has full active and passive range of motion of his right hip, and has no tenderness to palpation. There is no pain with range of motion. No pain in the back when right leg is put through range of motion. Psych Appearance: well kempt Mental Status: mental status grossly normal Attitude: cooperative Thought Content: normal and suicidality Judgment: judgment good Course Course Narrative: Patient was worked up with labs, EKG, urinalysis, and chest x-ray. He displayed minimal signs of fluid buildup, and I did not feel this was likely to be the cause of his weight gain clinically. Patient's labs were unremarkable, and did not display an increase in BNP. His chest x-ray was unremarkable. CT scan of the abdomen and pelvis was performed to evaluate the patient's right flank pain, after urinalysis was negative, and this was found to be unremarkable, as well. I have discussed with the patient and his that I am not sure what is causing the patient's waking, but that there is no sign of fluid buildup at this point. He will need to discuss with his director of programming whether he should continue on the double dose of Lasix, or whether he should go back to his prior dosing. We have discussed the usual indications for return. Vital Signs - 8 hr 02/17/19 18:06 Temperature 97.9 F Pulse Rate 77 Respiratory Rate 20 Blood Pressure 174/73 H Pulse Oximetry 98 MDM - SOB/Dyspnea Medical Records Attestation: I reviewed the patient's medical records. Lab Data Attestation: I reviewed the patient's lab results. Result diagrams: 02/17/19 18:25 02/17/19 18:25 Lab Results 02/17/19 02/17/19 02/17/19 Range/Units 18:25 18:25 19:10 WBC 4.8 (4.5-11.0) X10^3/uL RBC 2.73 L (4.5-5.9) X10^6/uL Hgb 9.1 L (13.5-17.5) g/dL Hct 27.2 L (41-53) % MCV 99.5 (80-100) fL MCH 33.1 (26-34) PG MCHC 33.3 (30-36) % RDW 15.2 H (11.6-14.8) % Plt Count 200 (150-400) X10^3/uL Neut % (Auto) 62.1 (50-75) % Lymph % (Auto) 23.4 L (25-40) % Wilkinson % (Auto) 12.7 (3-14) % Eos % (Auto) 1.6 L (2-4) % Baso % (Auto) 0.2 (0-2) % Neut # (Auto) 3000 (2165-6349) /uL Lymph # (Auto) 1100 (2461-6337) /uL Wilkinson # (Auto) 600 (0-900) /uL Eos # (Auto) 100 (0-450) /uL Baso # (Auto) 0 (0-100) /uL Sodium 137 (137-145) mmol/L Potassium 3.5 (3.4-5.1) mmol/L Chloride 100 (98-107) mmol/L Carbon Dioxide 31 (22-32) mmol/L BUN 18 (9-20) mg/dL Creatinine 1.20 (0.66-1.25) mg/dL Estimated GFR 58.0 L (>60) mL/min BUN/Creatinine Ratio 15.0 (6-22) Glucose 114 H (80-110) mg/dL Calcium 8.4 (8.4-10.2) mg/dL Total Bilirubin 1.1 (0.2-1.3) mg/dL AST 30 (17-59) IU/L ALT 41 (21-72) IU/L Alkaline Phosphatase 77 (38-126) U/L B-Natriuretic Peptide 155 H (<100) Total Protein 5.7 L (6.3-8.2) g/dL Albumin 3.5 (3.5-5.0) g/dL Globulin 2.2 (1.7-4.1) g/dL Albumin/Globulin Ratio 1.6 (1.0-2.8) Urine Color Yellow Urine Appearance Clear Urine pH 7.0 (4.5-8.0) Ur Specific [place] <=1.005 (1.000-1.035) Urine Protein Negative (Negative) Urine Glucose (UA) Negative (Negative) g/dL Urine Ketones Negative (NEGATIVE) Urine Occult Blood Negative (Negative) Urine Nitrate Negative (Negative) Urine Bilirubin Negative (NEGATIVE) Urine Urobilinogen 0.2 (0.2) E.U./dL Ur Leukocyte Esterase Negative (NEGATIVE) Urine RBC None seen (0-5/HPF) Urine WBC 0-1/hpf (0-5/HPF) Ur Squamous Epith Cells 0-1 /hpf Urine Bacteria None seen (None) Ur Culture Indicated? Cult not indicated Imaging Data Chest x-ray: Radiologist's impression: PROCEDURE: XR CHEST 2V INDICATIONS: dyspnea TECHNIQUE: 2 views of the chest were acquired. COMPARISON: [facility], , XR CHEST 1V, 01/18/2019, 23:59. FINDINGS: Surgical changes and devices: Multiple sternotomy wires are intact. Lungs and pleura: Streaky bibasilar opacities, more pronounced on the left. Previously reported opacity in the left lung base is much less conspicuous. No pleural effusions or pneumothorax. Mediastinum: Cardiomediastinal contours are stable. Bones and chest wall: No suspicious bony abnormalities. Soft tissues appear unremarkable. IMPRESSION: Persistent but decreased conspicuity of left basilar opacity. Mild persistent streaky left basilar opacity may represent atelectasis. No new focal consolidations. Dictated by: Jatinder Bhardwaj M.D. on 02/17/2019 at 20:58 Approved by: Jatinder Bhardwaj M.D. on 02/17/2019 at 21:01 CT scan - abdomen: Radiologist's impression: PROCEDURE: CT KIDNEY URETER BLADDER (KUB) INDICATIONS: Right flank pain TECHNIQUE: Noncontrast 5 mm thick sections acquired from the diaphragms to the symphysis. 5 mm thick coronal and sagittal reformats were then performed. For radiation dose reduction, the following was used: automated exposure control, adjustment of mA and/or kV according to patient size. COMPARISON: [facility], CT, CT CHEST ABDOMEN PELVIS WITH CONTRAST, 12/06/2018, 17:32. FINDINGS: Image quality: Excellent. Lung bases: Patchy bibasilar opacities worse on the left. Persistent thickening of the distal esophagus the. Heart size is normal. Urinary system: Both kidneys are normal in size. No kidney stones. No hydronephrosis or perinephric fat stranding. Multiple subcentimeter bilateral renal hyperdensities likely representing hyperdense cysts. These are too small to accurately characterize but were relatively hypointense on contrasted CT dated 12/06/2018. Both ureters appear non-dilated throughout their expected courses. Bladder wall thickness is normal; no calcified bladder stones. Other solid organs: Liver is normal in size. A few scattered hepatic hypodensities are too small to accurately characterize but likely represent cysts versus hemangiomas. Gallbladder contains innumerable gallstones as before. No CT evidence for acute pericholecystic inflammatory stranding. No CT evidence for extrahepatic or intrahepatic biliary ductal dilatation. Pancreas is normal in contours. The main pancreatic duct appears within normal limits. Scattered pancreatic calcifications most notably within the head and neck likely sequela of chronic pancreatitis. No peripancreatic inflammation. Spleen is normal in size. No adrenal nodules. Peritoneum and bowel: Unenhanced bowel loops demonstrate normal wall thickness and caliber. No free fluid or air.The visualized appendix appears normal. Nodes and vessels: No retroperitoneal or mesenteric adenopathy by size criteria. Aorta and inferior vena cava are normal in caliber. Scattered atherosclerotic calcifications of the abdominal aorta and iliac vessels. Abdominal wall: No ventral hernias. Pelvis: No free pelvic fluid. Small bilateral fat containing inguinal hernias. No evidence for adenopathy. The prostate is enlarged. Bones: No suspicious bony lesions. No acute vertebral body compression fractures. IMPRESSION: 1. CT abdomen and pelvis without acute abnormalities. 2. Cholelithiasis without CT evidence for acute cholecystitis. 3. No CT evidence for urolithiasis or obstructive uropathy. 4. Normal appendix. 5. Other chronic findings as above. Dictated by: Jatinder Bhardwaj M.D. on 02/17/2019 22:08 Approved by: Jatinder Bhardwaj M.D. on 02/17/2019 at 22:22 ECG Data Attestation: I personally reviewed and interpreted this ECG as follows: ( See below) Interpretation: 12 lead EKG performed February 17, 2019 at 7:31 p.m., as follows: Irregular ventricular rhythm with a rate of 67 beats per minute VA interval undetectable QRS duration 108 milliseconds QTC interval 402 millisecond axis normal Nonspecific ST T wave changes interpretation: Atrial fibrillation; possible anterior TX, indeterminate age; no STEMI; abnormal EKG as interpreted by ED MD. Discharge Plan Departure Patient Disposition: Home Clinical Impression: Recent weight gain, Acute flank pain Discharge Date/Time: 02/17/19 23:32 Interventions: ED Discharge Assessment Last Done: 02/17/19 23:32 Instructions: DI for Flank Pain Activity Restrictions/Additional Instructions: Your labs look good. There actually improved from your most recent levels, including heart labs. There is no evidence of a flare up of your congestive heart failure. Your kidney labs also are about at baseline. Your chest x-ray does not show increased fluid in your lungs. There is no evidence at this point that you're retaining excessive fluid. There is no evidence of extra fluid in your abdominal cavity on CT scan. Additionally, there is no evidence of any other organ or structural abnormality to be causing your right flank pain. You should speak with your director of programming to determine whether you should continue the double dose of furosemide, given that you're not retaining extra fluid. Prescriptions: No Action furosemide 20 MG tablet 20 mg PO QDAY Qty: 0 RF: 0 imatinib [Gleevec] 400 MG tablet 400 mg PO QDAY Qty: 0 RF: 0 warfarin [Coumadin] 2.5 MG tablet 2.5 mg PO DAILY Qty: 0 RF: 0 Ventolin HFA 90 MCG/PUFF HFA aerosol inhaler 2 puff INH QIDP PRN (Reason: Shortness Of Breath) Qty: 0 RF: 0 atorvastatin 40 MG tablet 40 mg PO HS Qty: 0 RF: 0 aspirin 81 MG tablet,delayed release (DR/EC) 81 mg PO DAILY Qty: 0 RF: 0 carvedilol 3.125 mg Tablet 3.125 mg PO BID RF: 0 tamsulosin 0.4 mg Capsule 0.4 mg PO DAILY RF: 0 Spiriva with HandiHaler 18 mcg Capsule, W/Inhalation Device 1 cap Inhalation DAILY RF: 0 amiodarone [Pacerone] 100 mg Tablet 200 mg PO DAILY RF: 0 azithromycin [Zithromax Z-Ganesh] 250 mg Tablet 500 mg PO DAILY Qty: 1 RF: 0 prednisone 20 mg Tablet 40 mg PO DAILY Qty: 4 RF: 0 Referrals: Leigh Ann Alberto PA-C [Primary Care Provider] -
--- NOTE | 2019-02-17 19:00 | DI.RAD.S_ITS ---
PROCEDURE: XR CHEST 2V INDICATIONS: dyspnea TECHNIQUE: 2 views of the chest were acquired. COMPARISON: [facility], CR, XR CHEST 1V, 01/18/2019, 23:59. FINDINGS: Surgical changes and devices: Multiple sternotomy wires are intact. Lungs and pleura: Streaky bibasilar opacities, more pronounced on the left. Previously reported opacity in the left lung base is much less conspicuous. No pleural effusions or pneumothorax. Mediastinum: Cardiomediastinal contours are stable. Bones and chest wall: No suspicious bony abnormalities. Soft tissues appear unremarkable. IMPRESSION: Persistent but decreased conspicuity of left basilar opacity. Mild persistent streaky left basilar opacity may represent atelectasis. No new focal consolidations. Dictated by: Jatinder Bhardwaj M.D. on 02/17/2019 at 20:58 Approved by: Jatinder Bhardwaj M.D. on 02/17/2019 at 21:01
--- NOTE | 2019-02-17 19:10 | ED_ITS ---
HPI - SOB/Dyspnea General Chief Complaint: Shortness of Breath/Dyspnea Stated Complaint: FLUID RETENTION, BACK PAIN Time Seen by Provider: 02/17/19 18:09 Source: patient and family Mode of arrival: ambulatory Limitations: no limitations History of Present Illness Patient comes to the emergency department complaining of progressive weight gain over the last month and pain in his right flank/hip. Patient was admitted to the hospital last month for CHF and COPD exacerbations, and discharged January 20. He states that since then, he has not had an increase in shortness of breath, but does note that he has been progressively gaining weight, and has gained about 5 lb since discharge. Patient states he saw both his web applications administrator and his tassel snipper a couple of weeks ago, and that the tassel snipper doubled his Lasix dose from 40 mg once daily to 40 mg twice daily. Patient states that he has not noticed any increase in urination, and that his weight has continued to climb. Patient states he has not really noticed any increase in lower extremity edema, and that he has actually been up and around quite a bit. He states that he actually started going to cardiovascular rehab today, and was able to go for 8 min on the treadmill without getting short of breath. He states he actually did that twice today. Patient states that he has not noticed any dyspnea otherwise, but is concerned that the weight gain may indicate that he is building up fluid again. Patient does notice that he is more drowsy during the day, even though he states he spends 9 hr in bed. He states that today, he took a nap for an hour. Patient is also in treatment for a chronic form of leukemia, for which [facility], and is on chronic oral therapy. Patient states this has been stable. He denies fevers or increasing cough. No chest pain. He states he has a history of spinal stenosis, and thought that the right flank/hip pain was probably from that, though feels a little different. Patient denies any dysuria or fevers. No blood in his urine. Patient did notice that he had some dark stool last week, and has had this tested at his primary doctor's office. He states he is still waiting to hear the results. Patient denies any easy bruising or bleeding anywhere else. He is not on any anticoagulants, other than aspirin. No other complaints at this time. Related Data Home Medications Medication Instructions Recorded Confirmed Ventolin HFA 2 puff INH QIDP PRN #0 11/24/17 01/19/19 aspirin 81 mg PO DAILY #0 11/24/17 01/19/19 atorvastatin 40 mg PO HS #0 11/24/17 01/19/19 furosemide 20 mg PO QDAY #0 11/24/17 01/19/19 imatinib [Gleevec] 400 mg PO QDAY #0 11/24/17 01/19/19 warfarin [Coumadin] 2.5 mg PO DAILY #0 11/24/17 01/19/19 Spiriva with HandiHaler 1 cap INHALATION DAILY 01/19/19 01/19/19 amiodarone [Pacerone] 200 mg PO DAILY 01/19/19 01/19/19 carvedilol 3.125 mg PO BID 01/19/19 01/19/19 tamsulosin 0.4 mg PO DAILY 01/19/19 01/19/19 Previous Rx's Medication Instructions Recorded azithromycin [Zithromax Z-Ganesh] 500 mg PO DAILY #1 tab 01/20/19 prednisone 40 mg PO DAILY #4 tab 01/20/19 Allergies Allergy/AdvReac Type Severity Reaction Status Date / Time No Known Drug Allergies Allergy Verified 02/17/19 18:06 Review of Systems Constitutional Denies chills, Reports daytime sleepiness, Denies fever(s), Denies lethargy, Denies weakness and Reports weight gain Comments: Patient notes decreased appetite. Eyes Denies change in vision, Denies eye discharge, Denies irritation and Denies loss of vision ENT Ears, Nose, Mouth, and Throat: Denies change in voice, Denies neck pain and Denies sore throat Cardiovascular Denies chest pain, Denies irregular heart rhythm, Denies lightheadedness, Denies palpitations, Denies dyspnea, Denies dyspnea on exertion and Denies orthopnea Respiratory Denies cough, Denies dyspnea, Denies dyspnea on exertion and Denies wheezing Gastrointestinal Gastrointestinal: Denies abdominal pain, Denies change in bowel habits, Denies diarrhea, Denies nausea and Denies vomiting Genitourinary Denies hematuria, Denies flank pain, Denies urinary incontinence and Denies urinary urgency Musculoskeletal Denies neck pain Integumentary/Breasts Denies pruritus, Denies erythema, Denies rash and Denies wounds Neurologic Denies confusion, Denies loss of vision and Denies weakness Psychiatric Denies anxiety, Denies confusion, Denies depression, Denies homicidal ideation and Denies suicidal ideation Endocrine Denies palpitations Hematologic/Lymphatic Denies easy bruising Allergic/Immunologic Denies wheezing PFSH Medical History Acute and chronic respiratory failure with hypoxia (Acute) Acute CHF (Acute) Acute exacerbation of chronic obstructive pulmonary disease (COPD) (Acute) COPD exacerbation (Acute) Pulmonary nodule (Acute) Atrial fibrillation (Acute) COPD (chronic obstructive pulmonary disease) (Acute) Hyperlipidemia (Acute) Social History household members: spouse Smoking Status: Former smoker alcohol intake: current Social History household members: spouse Smoking Status: Former smoker alcohol intake: current Comment: Patient notes drinking 3 or more alcoholic drinks per day. Exam Narrative Exam Narrative: Patient in general is actually quite well appearing, with good color. He is not grossly dyspneic, and speaks in full sentences without difficulty. He is able to ambulate to the bathroom without difficulty. Initial Vital Signs Initial Vital Signs: Vital Signs Temperature 97.9 F 02/17/19 18:06 Pulse Rate 77 02/17/19 18:06 Respiratory Rate 20 02/17/19 18:06 Blood Pressure 174/73 H 02/17/19 18:06 Pulse Oximetry 98 02/17/19 18:06 Const General: cooperative and well developed Nutritional Appearance: well nourished Orientation: alert, awake, oriented x3 and not confused [facility] Head: normocephalic and atraumatic Ears: external ears normal and TM's normal bilaterally Nose: external nose normal and No nasal discharge Face and sinus: sinuses nontender, face symmetric, no sinus tenderness and No dry mucous membranes Mouth: oral mucosae normal and moist mucous membranes Teeth and gingiva: dentition normal Throat: tonsils normal and uvula midline Eyes General: appearance normal, both eyes and all related structures Eyelids: eyelids normal Conjunctivae: conjunctivae normal Sclera: sclerae normal Pupils: PERRL EOM: EOM intact bilaterally Neck Neck: normal visual inspection, trachea midline, No lymphadenopathy, No midline deformity and No JVD Lymphatic: No lymphedema Chest Chest: normal inspection of the chest Resp Effort & Inspection: normal respiratory effort, able to speak in complete sentences, no respiratory distress and no use of accessory muscles Auscultation: clear to auscultation bilaterally, diminished lung sounds (T hroughout the entire lung ikm) bilaterally, no rales, no rhonchi and no wheezes Cardio Rate: regular rate Rhythm: regular rhythm Heart Sounds: no click, no gallops, no murmurs and no rubs Pulses: normal peripheral pulses GI Inspection: non-distended Palpation: soft, no hepatosplenomegaly, No guarding, No pulsatile mass and No tender Other: No flank tenderness. Back/Spine/Pelvis Back: No CVA tenderness Cervical Spine: cervical ROM normal and No pain with cervical ROM Thoracic/Lumbar Spine: thoracic and lumbar spine normal to inspection Other: Patient has no paraspinal tenderness on either side, and no tenderness or step-off any level of the spine. Skin General: no rashes or lesions noted, No jaundice and No petechiae Neuro General: alert, oriented x3, gait normal and no focal motor deficits Speech: speech normal Extrem General: full ROM and no calf tenderness Other: Patient has minimal lower extremity edema with only slight pitting, just proximal to his ankles bilaterally. Patient has full active and passive range of motion of his right hip, and has no tenderness to palpation. There is no pain with range of motion. No pain in the back when right leg is put through range of motion. Psych Appearance: well kempt Mental Status: mental status grossly normal Attitude: cooperative Thought Content: normal and suicidality Judgment: judgment good Course Course Narrative: Patient was worked up with labs, EKG, urinalysis, and chest x- ray. He displayed minimal signs of fluid buildup, and I did not feel this was likely to be the cause of his weight gain clinically. Patient's labs were unremarkable, and did not display an increase in BNP. His chest x-ray was unremarkable. CT scan of the abdomen and pelvis was performed to evaluate the patient's right flank pain, after urinalysis was negative, and this was found to be unremarkable, as well. I have discussed with the patient and his that I am not sure what is causing the patient's waking, but that there is no sign of fluid buildup at this point. He will need to discuss with his tassel snipper whether he should continue on the double dose of Lasix, or whether he should go back to his prior dosing. We have discussed the usual indications for return. Vital Signs - 8 hr 02/17/19 18:06 Temperature 97.9 F Pulse Rate 77 Respiratory Rate 20 Blood Pressure 174/73 H Pulse Oximetry 98 MDM - SOB/Dyspnea Medical Records Attestation: I reviewed the patient's medical records. Lab Data Attestation: I reviewed the patient's lab results. Result diagrams: 02/17/19 18:25 02/17/19 18:25 Lab Results 02/17/19 02/17/19 02/17/19 Range/Units 18:25 18:25 19:10 WBC 4.8 (4.5-11.0) X10^3/uL RBC 2.73 L (4.5-5.9) X10^6/uL Hgb 9.1 L (13.5-17.5) g/dL Hct 27.2 L (41-53) % MCV 99.5 (80-100) fL MCH 33.1 (26-34) PG MCHC 33.3 (30-36) % RDW 15.2 H (11.6-14.8) % Plt Count 200 (150-400) X10^3/uL Neut % (Auto) 62.1 (50-75) % Lymph % (Auto) 23.4 L (25-40) % [place] % (Auto) 12.7 (3-14) % Eos % (Auto) 1.6 L (2-4) % Baso % (Auto) 0.2 (0-2) % Neut # (Auto) 3000 (0081-1657) /uL Lymph # (Auto) 1100 (9767-0733) /uL [place] # (Auto) 600 (0-900) /uL Eos # (Auto) 100 (0-450) /uL Baso # (Auto) 0 (0-100) /uL Sodium 137 (137-145) mmol/L Potassium 3.5 (3.4-5.1) mmol/L Chloride 100 (98-107) mmol/L Carbon Dioxide 31 (22-32) mmol/L BUN 18 (9-20) mg/dL Creatinine 1.20 (0.66-1.25) mg/dL Estimated GFR 58.0 L (>60) mL/min BUN/Creatinine Ratio 15.0 (6-22) Glucose 114 H (80-110) mg/dL Calcium 8.4 (8.4-10.2) mg/dL Total Bilirubin 1.1 (0.2-1.3) mg/dL AST 30 (17-59) IU/L ALT 41 (21-72) IU/L Alkaline Phosphatase 77 (38-126) U/L B-Natriuretic Peptide 155 H (<100) Total Protein 5.7 L (6.3-8.2) g/dL Albumin 3.5 (3.5-5.0) g/dL Globulin 2.2 (1.7-4.1) g/dL Albumin/Globulin Ratio 1.6 (1.0-2.8) Urine Color Yellow Urine Appearance Clear Urine pH 7.0 (4.5-8.0) Ur Specific [place] <=1.005 (1.000-1.035) Urine Protein Negative (Negative) Urine Glucose (UA) Negative (Negative) g/dL Urine Ketones Negative (NEGATIVE) Urine Occult Blood Negative (Negative) Urine Nitrate Negative (Negative) Urine Bilirubin Negative (NEGATIVE) Urine Urobilinogen 0.2 (0.2) E.U./dL Ur Leukocyte Esterase Negative (NEGATIVE) Urine RBC None seen (0-5/HPF) Urine WBC 0-1/hpf (0-5/HPF) Ur Squamous Epith Cells 0-1 /hpf Urine Bacteria None seen (None) Ur Culture Indicated? Cult not indicated Imaging Data Chest x-ray: Radiologist's impression: PROCEDURE: XR CHEST 2V INDICATIONS: dyspnea TECHNIQUE: 2 views of the chest were acquired. COMPARISON: [facility], , XR CHEST 1V, 01/18/2019, 23:59. FINDINGS: Surgical changes and devices: Multiple sternotomy wires are intact. Lungs and pleura: Streaky bibasilar opacities, more pronounced on the left. Previously reported opacity in the left lung base is much less conspicuous. No pleural effusions or pneumothorax. Mediastinum: Cardiomediastinal contours are stable. Bones and chest wall: No suspicious bony abnormalities. Soft tissues appear unremarkable. IMPRESSION: Persistent but decreased conspicuity of left basilar opacity. Mild persistent streaky left basilar opacity may represent atelectasis. No new focal consolidations. Dictated by: Jatinder Bhardwaj M.D. on 02/17/2019 at 20:58 Approved by: Jatinder Bhardwaj M.D. on 02/17/2019 at 21:01 CT scan - abdomen: Radiologist's impression: PROCEDURE: CT KIDNEY URETER BLADDER (KUB) INDICATIONS: Right flank pain TECHNIQUE: Noncontrast 5 mm thick sections acquired from the diaphragms to the symphysis. 5 mm thick coronal and sagittal reformats were then performed. For radiation dose reduction, the following was used: automated exposure control, adjustment of mA and/or kV according to patient size. COMPARISON: [facility], CT, CT CHEST ABDOMEN PELVIS WITH CONTRAST, 12/06/2018, 17:32. FINDINGS: Image quality: Excellent. Lung bases: Patchy bibasilar opacities worse on the left. Persistent thickening of the distal esophagus the. Heart size is normal. Urinary system: Both kidneys are normal in size. No kidney stones. No hydronephrosis or perinephric fat stranding. Multiple subcentimeter bilateral renal hyperdensities likely representing hyperdense cysts. These are too small to accurately characterize but were relatively hypointense on contrasted CT dated 12/06/2018. Both ureters appear non-dilated throughout their expected courses. Bladder wall thickness is normal; no calcified bladder stones. Other solid organs: Liver is normal in size. A few scattered hepatic hypodensities are too small to accurately characterize but likely represent cysts versus hemangiomas. Gallbladder contains innumerable gallstones as before. No CT evidence for acute pericholecystic inflammatory stranding. No CT evidence for extrahepatic or intra hepatic biliary ductal dilatation. Pancreas is normal in contours. The main pancreatic duct appears within normal limits. Scattered pancreatic calcifications most notably within the head and neck likely sequela of chronic pancreatitis. No peripancreatic inflammation. Spleen is normal in size. No adrenal nodules. Peritoneum and bowel: Unenhanced bowel loops demonstrate normal wall thickness and caliber. No free fluid or air.The visualized appendix appears normal. Nodes and vessels: No retroperitoneal or mesenteric adenopathy by size criteria. Aorta and inferior vena cava are normal in caliber. Scattered atherosclerotic calcifications of the abdominal aorta and iliac vessels. Abdominal wall: No ventral hernias. Pelvis: No free pelvic fluid. Small bilateral fat containing inguinal hernias. No evidence for adenopathy. The prostate is enlarged. Bones: No suspicious bony lesions. No acute vertebral body compression fractures. IMPRESSION: 1. CT abdomen and pelvis without acute abnormalities. 2. Cholelithiasis without CT evidence for acute cholecystitis. 3. No CT evidence for urolithiasis or obstructive uropathy. 4. Normal appendix. 5. Other chronic findings as above. Dictated by: Jatinder Bhardwaj M.D. on 02/17/2019 22:08 Approved by: Jatinder Bhardwaj M.D. on 02/17/2019 at 22:22 ECG Data Attestation: I personally reviewed and interpreted this ECG as follows: ( See jim vieira) Interpretation: 12 lead EKG performed February 17, 2019 at 7:31 p.m., as follows: Irregular ventricular rhythm with a rate of 67 beats per minute TN interval undetectable QRS duration 108 milliseconds QTC interval 402 millisecond axis normal Nonspecific ST T wave changes interpretation: Atrial fibrillation; possible anterior FL, indeterminate age; no STEMI; abnormal EKG as interpreted by ED MD. Discharge Plan Departure Patient Disposition: Home Clinical Impression: Recent weight gain, Acute flank pain Discharge Date/Time: 02/17/19 23:32 Interventions: ED Discharge Assessment Last Done: 02/17/19 23:32 Instructions: DI for Flank Pain Activity Restrictions/Additional Instructions: Your labs look good. There actually improved from your most recent levels, including heart labs. There is no evidence of a flare up of your congestive heart failure. Your kidney labs also are about at baseline. Your chest x-ray does not show increased fluid in your lungs. There is no evidence at this point that you're retaining excessive fluid. There is no evidence of extra fluid in your abdominal cavity on CT scan. Additionally, there is no evidence of any other organ or structural abnormality to be causing your right flank pain. You should speak with your tassel snipper to determine whether you should continue the double dose of furosemide, given that you're not retaining extra fluid. Prescriptions: No Action furosemide 20 MG tablet 20 mg PO QDAY Qty: 0 RF: 0 imatinib [Gleevec] 400 MG tablet 400 mg PO QDAY Qty: 0 RF: 0 warfarin [Coumadin] 2.5 MG tablet 2.5 mg PO DAILY Qty: 0 RF: 0 Ventolin HFA 90 MCG/PUFF HFA aerosol inhaler 2 puff INH QIDP PRN (Reason: Shortness Of Breath) Qty: 0 RF: 0 atorvastatin 40 MG tablet 40 mg PO HS Qty: 0 RF: 0 aspirin 81 MG tablet,delayed release (DR/EC) 81 mg PO DAILY Qty: 0 RF: 0 carvedilol 3.125 mg Tablet 3.125 mg PO BID RF: 0 tamsulosin 0.4 mg Capsule 0.4 mg PO DAILY RF: 0 Spiriva with HandiHaler 18 mcg Capsule, W/Inhalation Device 1 cap Inhalation DAILY RF: 0 amiodarone [Pacerone] 100 mg Tablet 200 mg PO DAILY RF: 0 azithromycin [Zithromax Z-Ganesh] 250 mg Tablet 500 mg PO DAILY Qty: 1 RF: 0 prednisone 20 mg Tablet 40 mg PO DAILY Qty: 4 RF: 0 Referrals: Leigh Ann Alberto PA-C [Primary Care Provider] -
[2019-02-17 19:39] LABS: Add Manual Diff / Slide Review NO; Basophils Absolute Auto 0 /uL (0-100); Basophils Percent Auto 0.2 % (0-2); Eosinophils Absolute Auto 100 /uL (0-450); Eosinophils Percent Auto 1.6 % (2-4); Hematocrit 27.2 % (41-53); Hemoglobin 9.1 g/dL (13.5-17.5); Lymphocytes Absolute Auto 1100 /uL (1100-4500); Lymphocytes Percent Auto 23.4 % (25-40); Mean Corpuscular HGB Conc 33.3 % (30-36); Mean Corpuscular Hemoglobin 33.1 PG (26-34); Mean Corpuscular Volume 99.5 fL (80-100); Monocytes Absolute Auto 600 /uL (0-900); Monocytes Percent Auto 12.7 % (3-14); Neutrophils Absolute Auto 3000 /uL (1500-7000); Neutrophils Percent Auto 62.1 % (50-75); Platelet Count 200 X10^3/uL (150-400); Red Blood Cell Count 2.73 X10^6/uL (4.5-5.9); Red Cell Distribution Width 15.2 % (11.6-14.8); White Blood Cell Count 4.8 X10^3/uL (4.5-11.0)
[2019-02-17 19:44] LABS: Alanine Aminotransferase 41 IU/L (21-72); Albumin 3.5 g/dL (3.5-5.0); Albumin Globulin Ratio 1.6 (1.0-2.8); Alkaline Phosphatase 77 U/L (38-126); Aspartate Aminotransferase 30 IU/L (17-59); Bilirubin Total 1.1 mg/dL (0.2-1.3); Blood Urea Nitrogen 18 mg/dL (9-20); Calcium 8.4 mg/dL (8.4-10.2); Carbon Dioxide 31 mmol/L (22-32); Chloride 100 mmol/L (98-107); Globulin 2.2 g/dL (1.7-4.1); Glucose 114 mg/dL (80-110); HEMOLYSIS < 15 (0-50); Potassium 3.5 mmol/L (3.4-5.1); Sodium 137 mmol/L (137-145); Total Protein 5.7 g/dL (6.3-8.2)
[2019-02-17 19:45] LABS: Bacteria Urine None Seen; RBC Urine None Seen (0-5/HPF)
[2019-02-17 19:55] LABS: Appearance Urine UA CLEAR; Bilirubin Urine UA NEGATIVE (NEGATIVE); Color Urine UA YELLOW; Glucose Urine UA NEGATIVE (Negative); Ketones Urine UA NEGATIVE (NEGATIVE); Leukocyte Esterase Urine UA NEGATIVE (NEGATIVE); Nitrite Urine UA NEGATIVE (Negative); Occult Blood Urine UA NEGATIVE (Negative); Protein Urine UA NEGATIVE (Negative); Specific Gravity Urine UA <=1.005 (1.000-1.035); Urobilinogen Urine UA 0.2 E.U./dL (0.2)
[2019-02-17 20:02] LABS: B Type Natriuretic Peptide 155 (<100)
[2019-02-17 20:10] LABS: Culture Indicated Urine Cult Not Indicated; Squamous Epithelial Cell Urine 0-1 /HPF; WBC Urine 0-1/HPF (0-5/HPF)
--- NOTE | 2019-02-17 21:26 | DI.CT.S_ITS ---
PROCEDURE: CT KIDNEY URETER BLADDER (KUB) INDICATIONS: Right flank pain TECHNIQUE: Noncontrast 5 mm thick sections acquired from the diaphragms to the symphysis. 5 mm thick coronal and sagittal reformats were then performed. For radiation dose reduction, the following was used: automated exposure control, adjustment of mA and/or kV according to patient size. COMPARISON: [facility], CT, CT CHEST ABDOMEN PELVIS WITH CONTRAST, 12/06/2018, 17:32. FINDINGS: Image quality: Excellent. Lung bases: Patchy bibasilar opacities worse on the left. Persistent thickening of the distal esophagus the. Heart size is normal. Urinary system: Both kidneys are normal in size. No kidney stones. No hydronephrosis or perinephric fat stranding. Multiple subcentimeter bilateral renal hyperdensities likely representing hyperdense cysts. These are too small to accurately characterize but were relatively hypointense on contrasted CT dated 12/06/2018. Both ureters appear non-dilated throughout their expected courses. Bladder wall thickness is normal; no calcified bladder stones. Other solid organs: Liver is normal in size. A few scattered hepatic hypodensities are too small to accurately characterize but likely represent cysts versus hemangiomas. Gallbladder contains innumerable gallstones as before. No CT evidence for acute pericholecystic inflammatory stranding. No CT evidence for extrahepatic or intrahepatic biliary ductal dilatation. Pancreas is normal in contours. The main pancreatic duct appears within normal limits. Scattered pancreatic calcifications most notably within the head and neck likely sequela of chronic pancreatitis. No peripancreatic inflammation. Spleen is normal in size. No adrenal nodules. Peritoneum and bowel: Unenhanced bowel loops demonstrate normal wall thickness and caliber. No free fluid or air.The visualized appendix appears normal. Nodes and vessels: No retroperitoneal or mesenteric adenopathy by size criteria. Aorta and inferior vena cava are normal in caliber. Scattered atherosclerotic calcifications of the abdominal aorta and iliac vessels. Abdominal wall: No ventral hernias. Pelvis: No free pelvic fluid. Small bilateral fat containing inguinal hernias. No evidence for adenopathy. The prostate is enlarged. Bones: No suspicious bony lesions. No acute vertebral body compression fractures. IMPRESSION: 1. CT abdomen and pelvis without acute abnormalities. 2. Cholelithiasis without CT evidence for acute cholecystitis. 3. No CT evidence for urolithiasis or obstructive uropathy. 4. Normal appendix. 5. Other chronic findings as above. Dictated by: Jatinder Bhardwaj M.D. on 02/17/2019 22:08 Approved by: Jatinder Bhardwaj M.D. on 02/17/2019 at 22:22
== END 2019-02-17 23:32 | disposition home or self-care (01) ==
PROVIDERS: Emergency Provider Emergency Medicine; PCP Physician Assistant
DX: R63.5 Abnormal weight gain (principal); R10.9 Unspecified abdominal pain; Z87.09 Personal history of other diseases of the respiratory system
CPT/HCPCS: 36591; 71046; 74176; 80053; 81001; 83880; 85025; 93005; 99283; 99285

== ENCOUNTER → 2019-03-08 13:56 | Outpatient (CLI) | payer MEDICARE, OTHER, SELFPAY ==
[2019-01-19 02:12] VITALS: BMI 28.3
[2019-03-08 14:30] LABS: INR 1.9 (0.9-1.3); Prothrombin Time 21.8 SECONDS (10.1-12.7)
== END ==
PROVIDERS: PCP Physician Assistant; Visit Provider Pharmacist
DX: I50.32 Chronic diastolic (congestive) heart failure (principal); I48.0 Paroxysmal atrial fibrillation; Z79.01 Long term (current) use of anticoagulants
CPT/HCPCS: 36415; 85610

== ENCOUNTER → 2019-03-29 11:28 | Outpatient (CLI) | payer MEDICARE, OTHER, SELFPAY ==
[2019-01-19 02:12] VITALS: BMI 28.3
[2019-03-29 12:24] LABS: INR 2.8 (0.9-1.3); Prothrombin Time 32.8 SECONDS (10.1-12.7)
== END ==
PROVIDERS: PCP Physician Assistant; Visit Provider Pharmacist
DX: I48.0 Paroxysmal atrial fibrillation (principal); Z79.01 Long term (current) use of anticoagulants
CPT/HCPCS: 36415; 85610

== ENCOUNTER → 2019-04-21 15:18 | Outpatient (CLI) | payer MEDICARE, OTHER, SELFPAY ==
[2019-01-19 02:12] VITALS: BMI 28.3
[2019-04-21 17:44] LABS: Prothrombin Time 23.7 SECONDS (10.1-12.7)
== END ==
PROVIDERS: PCP Physician Assistant; Visit Provider Pharmacist
DX: I48.0 Paroxysmal atrial fibrillation (principal); Z79.01 Long term (current) use of anticoagulants
CPT/HCPCS: 36415; 85610

== ENCOUNTER → 2019-05-09 13:28 | Outpatient (CLI) | payer MEDICARE, OTHER, SELFPAY ==
[2019-01-19 02:12] VITALS: BMI 28.3
[2019-05-09 15:03] LABS: INR 3.8 (0.9-1.3); Prothrombin Time 44.9 SECONDS (10.1-12.7)
== END ==
PROVIDERS: PCP Physician Assistant; Visit Provider Internal Medicine Cardiovascular Disease
DX: I48.0 Paroxysmal atrial fibrillation (principal); Z79.01 Long term (current) use of anticoagulants
CPT/HCPCS: 36415; 85610

== ENCOUNTER → 2019-05-26 12:38 | Outpatient (CLI) | payer MEDICARE, OTHER, SELFPAY ==
[2019-01-19 02:12] VITALS: BMI 28.3
[2019-05-26 13:34] LABS: INR 2.4 (0.9-1.3); Prothrombin Time 28.1 SECONDS (10.1-12.7)
[2019-05-26 13:52] LABS: Add Manual Diff / Slide Review NO; Basophils Absolute Auto 0 /uL (0-100); Basophils Percent Auto 0.3 % (0-2); Eosinophils Absolute Auto 100 /uL (0-450); Eosinophils Percent Auto 1.7 % (2-4); Hematocrit 28.3 % (41-53); Hemoglobin 9.6 g/dL (13.5-17.5); Lymphocytes Absolute Auto 800 /uL (1100-4500); Lymphocytes Percent Auto 20.4 % (25-40); Mean Corpuscular HGB Conc 33.9 % (30-36); Mean Corpuscular Hemoglobin 34.9 PG (26-34); Mean Corpuscular Volume 102.9 fL (80-100); Monocytes Absolute Auto 500 /uL (0-900); Monocytes Percent Auto 12.2 % (3-14); Neutrophils Absolute Auto 2700 /uL (1500-7000); Neutrophils Percent Auto 65.4 % (50-75); Platelet Count 155 X10^3/uL (150-400); Red Blood Cell Count 2.75 X10^6/uL (4.5-5.9); White Blood Cell Count 4.1 X10^3/uL (4.5-11.0)
[2019-05-26 13:57] LABS: BUN Creatinine Ratio 14.6 (6-22); Blood Urea Nitrogen 19 mg/dL (9-20); Calcium 8.4 mg/dL (8.4-10.2); Carbon Dioxide 30 mmol/L (22-32); Chloride 103 mmol/L (98-107); Estimated Glomerular Filt Rate 52.7 mL/min (>60); Glucose 108 mg/dL (80-110); HEMOLYSIS < 15 (0-50); Potassium 4.3 mmol/L (3.4-5.1); Sodium 141 mmol/L (137-145)
[2019-05-26 14:25] LABS: B Type Natriuretic Peptide 198 (<100)
[2019-05-26 14:29] LABS: Anisocytosis 3+; Macrocytosis 2+
[2019-05-26 14:30] LABS: Acanthocytes 1+
== END ==
PROVIDERS: Visit Provider Internal Medicine Cardiovascular Disease
DX: I25.10 Atherosclerotic heart disease of native coronary artery without angina pectoris (principal); I48.91 Unspecified atrial fibrillation; I48.92 Unspecified atrial flutter; T14.8XXA Other injury of unspecified body region, initial encounter; I73.9 Peripheral vascular disease, unspecified; I50.9 Heart failure, unspecified; T82.857A Stenosis of other cardiac prosthetic devices, implants and grafts, initial encounter; I48.0 Paroxysmal atrial fibrillation; I25.2 Old myocardial infarction; Z79.01 Long term (current) use of anticoagulants
CPT/HCPCS: 36415; 80048; 83880; 85025; 85610

== ENCOUNTER → 2019-06-08 11:27 | Outpatient (CLI) | payer MEDICARE, OTHER, SELFPAY ==
[2019-01-19 02:12] VITALS: BMI 28.3
[2019-06-08 12:33] LABS: INR 2.1 (0.9-1.3)
== END ==
PROVIDERS: PCP Physician Assistant; Visit Provider Internal Medicine Cardiovascular Disease
DX: Z79.01 Long term (current) use of anticoagulants (principal); I48.0 Paroxysmal atrial fibrillation
CPT/HCPCS: 36415; 85610

== ENCOUNTER → 2019-07-11 13:21 | Outpatient (CLI) | payer MEDICARE, OTHER, SELFPAY ==
[2019-01-19 02:12] VITALS: BMI 28.3
[2019-07-11 14:02] LABS: INR 2.2 (0.9-1.3); Prothrombin Time 25.2 SECONDS (10.1-12.7)
== END ==
PROVIDERS: PCP Physician Assistant; Visit Provider Pharmacist
DX: I48.0 Paroxysmal atrial fibrillation (principal); Z79.01 Long term (current) use of anticoagulants
CPT/HCPCS: 36415; 85610

== ENCOUNTER → 2019-08-17 13:20 | Outpatient (CLI) | payer MEDICARE, OTHER, SELFPAY ==
[2019-01-19 02:12] VITALS: BMI 28.3
[2019-08-17 14:17] LABS: INR 2.1 (0.9-1.3); Prothrombin Time 24.8 SECONDS (10.1-12.7)
== END ==
PROVIDERS: PCP Physician Assistant; Visit Provider Internal Medicine Cardiovascular Disease
DX: Z79.01 Long term (current) use of anticoagulants (principal); I48.0 Paroxysmal atrial fibrillation
CPT/HCPCS: 36415; 85610

== ENCOUNTER 2019-08-17 14:00 | Outpatient (RCR) | payer MEDICARE, OTHER, SELFPAY ==
[2019-01-19 02:12] VITALS: BMI 28.3
== END 2019-08-23 12:28 ==
LOC: CAR 14:00
PROVIDERS: PCP Physician Assistant; Visit Provider Internal Medicine Cardiovascular Disease
DX: Z95.5 Presence of coronary angioplasty implant and graft (principal)
CPT/HCPCS: 93798

== ENCOUNTER → 2019-09-23 11:20 | Outpatient (CLI) | payer MEDICARE, OTHER, SELFPAY ==
[2019-01-19 02:12] VITALS: BMI 28.3
--- NOTE | 2019-09-23 | DI.RAD.S_ITS ---
PROCEDURE: XR CHEST 2V INDICATIONS: Shortness of breath TECHNIQUE: 2 views of the chest were acquired. COMPARISON: [facility], CR, XR CHEST 2V, 02/17/2019, 19:13. FINDINGS: Surgical changes and devices: That is post median sternotomy. Lungs and pleura: Multifocal patchy pulmonary opacities are present throughout the right lung which are new when compared with the prior plain film dated 02/17/19. There may be a small left pleural effusion. Mediastinum: Mediastinal contours are normal. Heart size is normal. Bones and chest wall: No suspicious bony abnormalities. Soft tissues appear unremarkable. IMPRESSION: Right pulmonary radiopacities and questionable small effusion suspicious for infection or aspiration. Atypical edema could also be considered in the differential. Short interval followup is recommended with resolution of the patient's symptoms to ensure there is no underlying pulmonary pathology. Dictated by: Maria Luisa Taylor M.D. on 09/23/2019 at 13:24 Approved by: Maria Luisa Taylor M.D. on 09/23/2019 at 13:25
== END ==
PROVIDERS: PCP Student in an Organized Health Care Education/Training Program; Referring Provider Internal Medicine Pulmonary Disease; Visit Provider Student in an Organized Health Care Education/Training Program
DX: R06.02 Shortness of breath (principal); R53.1 Weakness
CPT/HCPCS: 71046

== ENCOUNTER → 2019-09-26 13:21 | Outpatient (CLI) | payer MEDICARE, OTHER, SELFPAY ==
[2019-01-19 02:12] VITALS: BMI 28.3
[2019-09-26 14:21] LABS: INR 1.3 (0.9-1.3); Prothrombin Time 15.1 SECONDS (10.1-12.7)
== END ==
PROVIDERS: PCP Student in an Organized Health Care Education/Training Program; Visit Provider Pharmacist
DX: Z79.01 Long term (current) use of anticoagulants (principal); I48.0 Paroxysmal atrial fibrillation
CPT/HCPCS: 36415; 85610

== ENCOUNTER → 2019-11-02 13:34 | Outpatient (CLI) | payer MEDICARE, OTHER, SELFPAY ==
[2019-01-19 02:12] VITALS: BMI 28.3
[2019-11-02 16:22] LABS: INR 2.4 (0.9-1.3); Prothrombin Time 28.6 SECONDS (10.1-12.7)
== END ==
PROVIDERS: PCP Student in an Organized Health Care Education/Training Program; Visit Provider Pharmacist
DX: Z79.01 Long term (current) use of anticoagulants (principal); I48.0 Paroxysmal atrial fibrillation
CPT/HCPCS: 36415; 85610

== ENCOUNTER 2019-11-17 14:00 | Outpatient (RCR) | payer MEDICARE, OTHER, SELFPAY ==
[2019-01-19 02:12] VITALS: BMI 28.3
== END 2019-11-17 14:05 ==
LOC: CAR 14:00
PROVIDERS: PCP Physician Assistant; Visit Provider Surgery Vascular Surgery
DX: I70.213 Atherosclerosis of native arteries of extremities with intermittent claudication, bilateral legs (principal)
CPT/HCPCS: 93668

== ENCOUNTER 2019-11-27 04:39 | Observation (INO) | payer MEDICARE, OTHER, SELFPAY ==
[2019-01-19 02:12] VITALS: BMI 28.3
[2019-11-27] VITALS (13 sets, daily range): BP systolic 113–148; BP diastolic 52–85; PULSE 61–78; RESP 15–22; TEMP 36.8–37.2; O2SAT 92–98; BMI 28.2
--- NOTE | 2019-11-27 04:49 | DI.CT.S_ITS ---
PROCEDURE: CT CERVICAL SPINE WO CON INDICATIONS: fall, unknown injury, mild midline pain TECHNIQUE: Noncontrast 3 mm thick sections acquired from the skull base to the T4 level. Sagittal and coronal reformats were then constructed. For radiation dose reduction, the following was used: automated exposure control, adjustment of mA and/or kV according to patient size. COMPARISON: [facility], CT, CT HEAD/BRAIN WO CON, 11/27/2019, 5:04. [facility], CT, CT CHEST ABD PEL W CON, 11/27/2019, 5:04. FINDINGS: Image quality: Excellent. Bones: No fractures or dislocations. Visualized superior ribs are intact. Prominent degenerative changes are seen, including calcification of the posterior longitudinal ligament. Soft tissues: Prevertebral soft tissues are normal in thickness. No paravertebral hematomas. No apical pneumothoraces. Atherosclerotic calcification is noted. Sternotomy wires are partially seen. IMPRESSION: No acute fracture can be seen. Degenerative changes are seen. Note: No significant discrepancy from the preliminary report. Dictated by: Jonathan Harris M.D. on 11/27/2019 at 7:08 Approved by: Jonathan Harris M.D. on 11/27/2019 at 7:09
--- NOTE | 2019-11-27 04:49 | DI.CT.S_ITS ---
PROCEDURE: CT CHEST ABD PEL W CON INDICATIONS: trauma, abdomen pain, swelling, coumadin TECHNIQUE: After the administration of intravenous contrast, 5 mm thick sections acquired from the lung apices to the symphysis. 2.5 mm thick coronal and sagittal reformats were acquired. Additional 7 mm thick coronal maximum intensity projection (MIP) reformats acquired through the lungs. Optional 10-minute delayed imaging may be performed from the kidneys to the bladder. For radiation dose reduction, the following was used: automated exposure control, adjustment of mA and/or kV according to patient size. COMPARISON: [facility], CT, CT KIDNEY URETER BLADDER (KUB), 02/17/2019, 21:46. [facility], CT, THORAX WITH CONTRAST, 11/24/2017, 11:04. [facility], CT, CT HEAD/BRAIN WO CON, 11/27/2019, 5:04. [facility], CT, CT CERVICAL SPINE WO CON, 11/27/2019, 5:04. FINDINGS: Image quality: Excellent. CHEST: Lungs: Within the left lower lobe, there is again seen a soft tissue nodule that measures 1.8 cm, as on series 3 image 267. This is not significantly changed compared to 2017. Within the right middle lobe, there is a focus of the appearance of scarring, as on series 3 image 269. A nodular focus can be seen within the left posterior costophrenic angle, as on series 3 image 3090 measuring 1.5 cm. Scattered areas of wispy consolidation are seen, which are likely related to atelectasis. Mild emphysematous changes are seen. No pulmonary contusions or lacerations. No acute airspace opacities. No pneumothorax or hemothorax. Central and peripheral airways appear patent and normal in caliber. The previously seen left mainstem bronchus nodule has resolved. Mediastinum: Sternotomy wires and an aortic valve prosthesis can be seen. Coronary artery calcifications are seen. No mediastinal hematomas. Heart size is normal. No pericardial effusion. No aortic aneurysm is seen. The main pulmonary artery measures 4.2 cm, which is mildly enlarged. No mediastinal or hilar adenopathy. Esophagus is normal in caliber. No hiatal hernia. Chest wall: No rib fractures. No subcutaneous emphysema. No axillary or supraclavicular adenopathy. Thyroid gland demonstrates no significant CT abnormality. ABDOMEN: Solid organs: Liver is normal in size and enhancement, without lacerations. Gallbladder demonstrates gallstones within its lumen. Biliary system is non-dilated. Pancreas enhances normally, without transection. Calcifications can be seen within the pancreas. Spleen is normal in size and enhancement, without lacerations. No adrenal hematomas. Both kidneys enhance normally, without hydronephrosis or lacerations. Peritoneum and bowel: No free fluid or air. Unenhanced bowel loops demonstrate normal wall thickness and caliber. Nodes and vessels: No retroperitoneal or mesenteric adenopathy. Aorta and inferior vena cava are normal in size and enhancement. Atherosclerotic calcification is noted. Miscellaneous: No ventral hernias. PELVIS: Genitourinary: Bladder wall thickness is normal. The prostate is prominent measuring 5.9 cm transversely. Miscellaneous: No inguinal adenopathy. Bilateral fat containing inguinal hernias are seen, left worse than right. Bones: Pelvic ring and hip joints appear intact. No vertebral compression fractures. Age-appropriate bony degenerative changes are seen. Fusion of the sacroiliac joints can be seen. IMPRESSION: No significant posttraumatic findings can be seen. No significant hematomas are seen. Pulmonary nodules are seen, with the largest stable compared to 2017. Differential diagnosis includes metastatic disease and benign processes. Attention should be paid to these nodules on any future followup studies. Incidental note is made of: Emphysematous changes Prominent pulmonary arteries, as before Atherosclerotic calcification, including coronary artery calcification Gallstones Chronic pancreatitis Bilateral fat containing inguinal hernias, left larger than right. Note: No significant discrepancy from the preliminary report. Dictated by: Jonathan Harris M.D. on 11/27/2019 at 6:56 Approved by: Jonathan Harris M.D. on 11/27/2019 at 7:05
--- NOTE | 2019-11-27 04:49 | DI.CT.S_ITS ---
PROCEDURE: CT HEAD/BRAIN WO CON INDICATIONS: fall, head injury, blood thinner TECHNIQUE: Noncontrast 4.5 mm thick angled axial sections acquired from the foramen magnum to the vertex, with coronal and sagittal reformats. For radiation dose reduction, the following was used: automated exposure control, adjustment of mA and/or kV according to patient size. COMPARISON: [facility], CT, CT CERVICAL SPINE WO CON, 11/27/2019, 5:04. [facility], CT, CT CHEST ABD PEL W CON, 11/27/2019, 5:04. FINDINGS: Image quality: Excellent. CSF spaces: Basal cisterns are patent. No extra-axial fluid collections. The ventricles are symmetric in size and shape. Brain: No intracranial bleeds or masses. There is cerebral volume loss for age, with resultant ventricular and sulcal prominence. There are periventricular and deep white matter chronic small vessel ischemic changes. There is intracranial internal carotid artery atherosclerosis. Skull and face: Calvarium and visualized facial bones appear intact, without suspicious lesions. Sinuses: Visualized sinuses and mastoids are clear. IMPRESSION: No acute intracranial hemorrhage is seen. No acute intracranial process is seen. Note is made of age-appropriate brain parenchymal volume loss and chronic small vessel ischemic changes. Note: No significant discrepancy from the preliminary report. Dictated by: Jonathan Harris M.D. on 11/27/2019 at 7:06 Approved by: Jonathan Harris M.D. on 11/27/2019 at 7:07
[2019-11-27 05:06] LABS: Add Manual Diff / Slide Review NO; Basophils Absolute Auto 0 /uL (0-100); Basophils Percent Auto 0.1 % (0-2); Eosinophils Absolute Auto 0 /uL (0-450); Eosinophils Percent Auto 0.2 % (2-4); Hematocrit 31.9 % (41-53); Hemoglobin 11.1 g/dL (13.5-17.5); Lymphocytes Absolute Auto 1000 /uL (1100-4500); Lymphocytes Percent Auto 6.6 % (25-40); Mean Corpuscular HGB Conc 34.7 % (30-36); Mean Corpuscular Hemoglobin 36.1 PG (26-34); Monocytes Absolute Auto 1000 /uL (0-900); Monocytes Percent Auto 6.4 % (3-14); Neutrophils Absolute Auto 13700 /uL (1500-7000); Neutrophils Percent Auto 86.7 % (50-75); Platelet Count 180 X10^3/uL (150-400); Red Blood Cell Count 3.07 X10^6/uL (4.5-5.9); Red Cell Distribution Width 13.4 % (11.6-14.8); White Blood Cell Count 15.8 X10^3/uL (4.5-11.0)
[2019-11-27 05:08] LABS: INR 2.7 (0.9-1.3); Prothrombin Time 31.2 SECONDS (10.1-12.7)
[2019-11-27 05:10] LABS: PTT Partial Thromboplastin Tim 35 SECONDS (26.4-36.2)
[2019-11-27 05:13] LABS: Alanine Aminotransferase 29 IU/L (<50); Albumin 4.1 g/dL (3.5-5.0); Alkaline Phosphatase 101 U/L (38-126); Aspartate Aminotransferase 31 IU/L (17-59); BUN Creatinine Ratio 21.7 (6-22); Bilirubin Total 1.3 mg/dL (0.2-1.3); Blood Urea Nitrogen 39 mg/dL (9-20); Calcium 8.7 mg/dL (8.4-10.2); Carbon Dioxide 27 mmol/L (22-32); Chloride 103 mmol/L (98-107); Creatine Kinase 65 U/L (55-170); Estimated Glomerular Filt Rate 36.2 mL/min (>60); Ethanol (ETOH) < 10 mg/dL; Globulin 2.1 g/dL (1.7-4.1); Glucose 153 mg/dL (80-110); HEMOLYSIS < 15 (0-50); Lipase 145 U/L (23-300); Potassium 4.2 mmol/L (3.4-5.1); Sodium 138 mmol/L (137-145); Total Protein 6.2 g/dL (6.3-8.2)
[2019-11-27 05:24] LABS: Troponin I 0.031 ng/mL (0.01-0.034)
[2019-11-27 05:35] LABS: Lactate (Lactic Acid) 1.5 mmol/L (0.7-2.1)
[2019-11-27] MEDS: TET,DIPH,PERTUSS(ACELL),VAC/PF 0.5 ML SYRINGE IM (05:48)
[2019-11-27] MEDS: SODIUM CHLORIDE 0.9% 1,000 ML 1000 ML IV (06:34)
--- NOTE | 2019-11-27 06:58 | ED.SYNCOPE ---
HPI - Syncope General Chief Complaint: Trauma Stated Complaint: GLF Time Seen by Provider: 11/27/19 04:40 Source: patient Mode of arrival: Ambulatory Limitations: no limitations History of Present Illness HPI narrative: 84-year-old male nonsmoker with history of hypertension, hyperlipidemia in CHF presents by EMS with an unclear story of a fall versus syncope this morning. He had been in his normal state of health when he went to bed and had a fall this morning without full recall. The patient has AFib and takes Coumadin and is unaware if he hit his head, his only complaint is of back pain. Medics state that on arrival the patient was pale and diaphoretic and had a blood pressure of 90, upon laying him flat he felt much better and blood pressure raised 140. He denies any nausea, vomiting or diarrhea. He denies any recent alterations in his Coumadin. He states that leading up to [place] he had about an 8 lb weight gain and doubled up on his Lasix for a few days. He complains of being thirsty and has a dry mucous membrane. He denies any chest pain or shortness of breath. Patient is activated as a modified trauma due to high likelihood of striking his head while on blood thinners (he has no recall) as well as gut instinct of provider and nursing MD complaint: loss of consciousness, felt faint and collapsed Onset (ago): minute(s) Prodromal symptoms: none Witnessed: no Context: at rest Injuries sustained associated with event: none Current symptoms: back to baseline Related Data Home Medications Medication Instructions Recorded Confirmed atorvastatin 40 mg PO HS #0 11/24/17 11/27/19 furosemide 40 mg PO QDAY #0 11/24/17 11/27/19 imatinib [Gleevec] 400 mg PO QDAY #0 11/24/17 11/27/19 warfarin [Coumadin] 2.5 mg PO DAILY #0 11/24/17 11/27/19 Spiriva with HandiHaler 1 cap INHALATION DAILY 01/19/19 11/27/19 amiodarone [Pacerone] 200 mg PO DAILY 01/19/19 11/27/19 carvedilol 6.25 mg PO BID 01/19/19 11/27/19 tamsulosin 0.4 mg PO DAILY 01/19/19 11/27/19 albuterol sulfate 2 puff INHALATION QID PRN 11/27/19 11/27/19 clopidogrel 75 mg PO DAILY 11/27/19 11/27/19 ferrous sulfate 325 mg PO Q OTHER DAY 11/27/19 11/27/19 lisinopril 2.5 mg PO DAILY 11/27/19 11/27/19 magnesium oxide 400 mg PO DAILY 11/27/19 11/27/19 omeprazole 20 mg PO DAILY 11/27/19 11/27/19 spironolactone 12.5 mg PO DAILY 11/27/19 11/27/19 Allergies Allergy/AdvReac Type Severity Reaction Status Date / Time No Known Drug Allergies Allergy Verified 11/27/19 04:57 Review of Systems Constitutional Constitutional: Denies chills, Denies fatigue, Denies fever(s), Denies frequent falls, Denies lethargy and Denies weakness Eyes Eyes: Denies change in vision, Denies eye discharge, Denies irritation and Denies loss of vision ENT Ears, Nose, Mouth, and Throat: Denies change in voice, Denies dizziness, Denies neck pain, Denies sore throat and Denies throat swelling Cardiovascular Cardiovascular: Denies chest pain, Reports syncope, Denies irregular heart rhythm, Reports lightheadedness, Denies palpitations, Denies dyspnea, Denies dyspnea on exertion and Denies orthopnea Respiratory Respiratory: Denies cough, Denies dyspnea, Denies dyspnea on exertion and Denies wheezing Gastrointestinal Gastrointestinal: Denies abdominal pain, Denies change in bowel habits, Denies diarrhea, Denies nausea and Denies vomiting Genitourinary Genitourinary: Denies hematuria, Denies flank pain, Denies urinary incontinence and Denies urinary urgency Musculoskeletal Musculoskeletal: Reports back pain, Denies muscle weakness, Denies neck pain, Denies numbness and Denies tingling Integumentary/Breasts Skin/Breast: Denies pruritus, Denies erythema, Denies rash, Reports unusual bruising and Reports wounds Neurologic Neurologic: Denies behavioral changes, Denies confusion, Denies dizziness, Reports syncope, Denies frequent falls, Denies loss of vision, Denies numbness, Denies tingling and Denies weakness Psychiatric Psychiatric: Denies anxiety, Denies behavioral changes, Denies confusion, Denies depression, Denies homicidal ideation and Denies suicidal ideation Endocrine Endocrine: Denies fatigue, Denies flushing and Denies palpitations Hematologic/Lymphatic Hematologic/Lymphatic: Denies easy bruising Allergic/Immunologic Allergic/Immunologic: Denies urticaria, Denies throat swelling and Denies wheezing Patient History Medical History Acute and chronic respiratory failure with hypoxia (Acute) Acute CHF (Acute) Acute exacerbation of chronic obstructive pulmonary disease (COPD) (Acute) Atrial fibrillation (Acute) COPD (chronic obstructive pulmonary disease) (Acute) COPD exacerbation (Acute) Hyperlipidemia (Acute) Pulmonary nodule (Acute) Social History household members: spouse Smoking Status: Former smoker alcohol intake: current Smoking Status: Former smoker alcohol intake frequency: 3 or more drinks per day Substance Use Type: does not use Exam Narrative Exam Narrative: GENERAL: [84] year old patient appears stated age. Well-nourished, well-developed patient, in mild distress. HEAD: Atraumatic. Normocephalic. EYES: Pupils equal round and reactive. Extraocular motions intact. No scleral icterus. No injection or drainage. ENT: Nose without bleeding, purulent drainage. Throat without erythema, tonsillar hypertrophy or exudate. Airway patent. NECK: Trachea midline. Non tender CARDIOVASCULAR: Irregular and rhythm without murmurs, gallops, or rubs. Contusion / ecchymosis to L chest wall RESPIRATORY: Clear to auscultation. Breath sounds equal bilaterally. No wheezes, rales, or rhonchi. GASTROINTESTINAL: Abdomen soft, mild periumbilical tenderness, mild distension. 4cm ecchymosis central abdomen EXTREMITIES: Full painless range of motion with a small skin tear over lateral elbow and some active bleeding which is easily controlled with pressure and a wrap. Nothing to suture BACK: Tender in mid thoracics. No stepoff. Very small skin tear with slow active bleeding. Not suturable. Hemostasis with pressure and surgicel NEURO: AOx3. SKIN: No rash or erythema of visible areas other than that which is stated above Initial Vital Signs Initial Vital Signs: Vital Signs Temperature 98.9 F 11/27/19 04:57 Pulse Rate 71 11/27/19 04:57 Respiratory Rate 22 11/27/19 04:57 Blood Pressure 139/53 L 11/27/19 04:57 Pulse Oximetry 94 11/27/19 04:57 Scores GCS Dane coma scale eye opening: To sound [place] coma scale verbal response: Orientated Dane coma scale motor response: Obey commands Dane coma scale total score: 14 Course Orders Ordered: ED Orders 11/27/19 04:49 CT cervical spine wo con Stat CT chest abd pel w con Stat CT head/brain wo con Stat 11/27/19 04:51 EKG-12 Lead Stat 11/27/19 05:02 Complete Blood Count AUTO DIFF Stat Comprehensive Metabolic Panel Stat Ethanol (ETOH) Stat Lipase Stat Partial Thromboplastin Time Stat Prothrombin Time INR Stat Troponin & CK Cardiac Panel Stat 11/27/19 05:05 Lactate (Lactic Acid) Urgent Type and Screen Stat Acetaminophen (Tylenol) 650 mg PO Q6HR PRN PRN Reason: Fever/Mild Pain (1-3) Al Hydrox/Mg Hydrox/Simethicone (Maalox Plus) 30 ml PO Q6HR PRN PRN Reason: Dyspepsia Calcium Carbonate (Tums) 1,000 mg PO Q4HR PRN PRN Reason: Dyspepsia Sodium Chloride (Normal Saline 0.9%) 1,000 mls @ 100 mls/hr IV CONT LATRICE Naloxone HCl (Narcan) 0.2 mg IV Q2MIN PRN PRN Reason: Opiate Reversal Ondansetron HCl (Zofran) 4 mg IV Q8HR PRN PRN Reason: Nausea And Vomiting Discontinued Medications Diphtheria/Tetanus/Acell Pertussis (Adacel) 0.5 ml IM .ONCE ONE Stop: 11/27/19 05:48 Last Admin: 11/27/19 05:48 Dose: 0.5 ml Documented by: KIMBERLI Sodium Chloride (Normal Saline 0.9%) 1,000 mls @ 1,000 mls/hr IV BOLUS ONE Stop: 11/27/19 07:32 Last Infusion: 11/27/19 07:44 Dose: 0 mls/hr Documented by: Admin: 11/27/19 06:34 Dose: 1,000 mls/hr Documented by: KIMBERLI Vital Signs Vital signs: Vital Signs - 8 hr 11/27/19 04:57 11/27/19 05:05 11/27/19 05:59 Temperature 98.9 F Pulse Rate 71 64 69 Respiratory Rate 22 15 17 Blood Pressure 139/53 L 135/61 Blood Pressure [Right Arm] 134/52 L Pulse Oximetry 94 93 98 11/27/19 06:20 Temperature Pulse Rate 66 Respiratory Rate 18 Blood Pressure Blood Pressure [Right Arm] 125/54 L Pulse Oximetry 98 MDM - Syncope Differential Diagnosis Differential diagnosis: Likely syncope due to orthostatic hypotension Lab Data Result diagrams: 11/27/19 05:02 11/27/19 05:02 Labs: Lab Results 11/27/19 11/27/19 11/27/19 Range/Units 05:02 05:02 05:02 WBC 15.8 H (4.5-11.0) X10^3/uL RBC 3.07 L (4.5-5.9) X10^6/uL Hgb 11.1 L (13.5-17.5) g/dL Hct 31.9 L (41-53) % MCV 104.0 H (80-100) fL MCH 36.1 H (26-34) PG MCHC 34.7 (30-36) % RDW 13.4 (11.6-14.8) % Plt Count 180 (150-400) X10^3/uL Neut % (Auto) 86.7 H (50-75) % Lymph % (Auto) 6.6 L (25-40) % [place] % (Auto) 6.4 (3-14) % Eos % (Auto) 0.2 L (2-4) % Baso % (Auto) 0.1 (0-2) % Neut # (Auto) 40537 H (6260-6731) /uL Lymph # (Auto) 1000 L (9168-8279) /uL [place] # (Auto) 1000 H (0-900) /uL Eos # (Auto) 0 (0-450) /uL Baso # (Auto) 0 (0-100) /uL PT 31.2 H (10.1-12.7) SECONDS INR 2.7 H (0.9-1.3) APTT 35 (26.4-36.2) SECONDS Sodium 138 (137-145) mmol/L Potassium 4.2 (3.4-5.1) mmol/L Chloride 103 (98-107) mmol/L Carbon Dioxide 27 (22-32) mmol/L BUN 39 H (9-20) mg/dL Creatinine 1.80 H (0.66-1.25) mg/dL Estimated GFR 36.2 L (>60) mL/min BUN/Creatinine Ratio 21.7 (6-22) Glucose 153 H (80-110) mg/dL Lactate (0.7-2.1) mmol/L Calcium 8.7 (8.4-10.2) mg/dL Magnesium (1.6-2.3) mg/dL Total Bilirubin 1.3 (0.2-1.3) mg/dL AST 31 (17-59) IU/L ALT 29 (<50) IU/L Alkaline Phosphatase 101 (38-126) U/L Total Creatine Kinase 65 (55-170) U/L CK-MB (CK-2) TNP CK-MB (CK-2) Rel Index TNP Troponin I 0.031 (0.01-0.034) ng/mL Total Protein 6.2 L (6.3-8.2) g/dL Albumin 4.1 (3.5-5.0) g/dL Globulin 2.1 (1.7-4.1) g/dL Albumin/Globulin Ratio 2.0 (1.0-2.8) Lipase 145 (23-300) U/L Ethyl Alcohol < 10 ( - 10) mg/dL Blood Type Antibody Screen 11/27/19 11/27/19 11/27/19 Range/Units 05:05 05:05 05:17 WBC (4.5-11.0) X10^3/uL RBC (4.5-5.9) X10^6/uL Hgb (13.5-17.5) g/dL Hct (41-53) % MCV (80-100) fL MCH (26-34) PG MCHC (30-36) % RDW (11.6-14.8) % Plt Count (150-400) X10^3/uL Neut % (Auto) (50-75) % Lymph % (Auto) (25-40) % [place] % (Auto) (3-14) % Eos % (Auto) (2-4) % Baso % (Auto) (0-2) % Neut # (Auto) (7808-8551) /uL Lymph # (Auto) (1167-1140) /uL [place] # (Auto) (0-900) /uL Eos # (Auto) (0-450) /uL Baso # (Auto) (0-100) /uL PT (10.1-12.7) SECONDS INR (0.9-1.3) APTT (26.4-36.2) SECONDS Sodium (137-145) mmol/L Potassium (3.4-5.1) mmol/L Chloride (98-107) mmol/L Carbon Dioxide (22-32) mmol/L BUN (9-20) mg/dL Creatinine (0.66-1.25) mg/dL Estimated GFR (>60) mL/min BUN/Creatinine Ratio (6-22) Glucose (80-110) mg/dL Lactate 1.5 (0.7-2.1) mmol/L Calcium (8.4-10.2) mg/dL Magnesium 2.1 (1.6-2.3) mg/dL Total Bilirubin (0.2-1.3) mg/dL AST (17-59) IU/L ALT (<50) IU/L Alkaline Phosphatase (38-126) U/L Total Creatine Kinase (55-170) U/L CK-MB (CK-2) CK-MB (CK-2) Rel Index Troponin I (0.01-0.034) ng/mL Total Protein (6.3-8.2) g/dL Albumin (3.5-5.0) g/dL Globulin (1.7-4.1) g/dL Albumin/Globulin Ratio (1.0-2.8) Lipase (23-300) U/L Ethyl Alcohol ( - 10) mg/dL Blood Type B Positive Antibody Screen Negative Point of Care Testing Glucose POC [address] scan - head: Radiologist's Impression: No Bleed CT scan - chest: Radiologist's Impression: No Fx, No bleed CT scan - abdomen/pelvis: Radiologist's Impression: No bleed or contusion CT - cervical spine: Radiologist's Impression: No fracture ECG Data Attestation: I personally reviewed and interpreted this ECG as follows: Interpretation: AFib at 65, no other ectopy or signs of ischemia. QRS 110, QTC 418 Discharge Plan Departure Patient Disposition: Admitted As Inpatient Admit Date/Time: 11/27/19 06:48 Admit Provider: Eric Tovar
[2019-11-27 07:33] LABS: Magnesium 2.1 mg/dL (1.6-2.3)
--- NOTE | 2019-11-27 07:47 | PC.NURSE ---
Areas of superficial skin tears have continued to bleed through new dressings. New bruising noted to areas. Dr Garza called to room to see. Surgicelx2 applied to left shoulder and surgicel applied x2 to elbow, manual pressure applied to each site for more than 5 minutes each. Guera VILLA notified in report about sites. Elbow wrapped with coban and gauze over surgicel and left shoulder has allevyn applied over surgicel.
--- NOTE | 2019-11-27 07:56 | P.HP_ITS ---
History of Present Illness History of Present Illness Date Patient Seen: 11/27/19 Chief complaint: GLF Narrative: Cayetano Carrion is an 84-year-old male with a past medical history significant for coronary artery disease status post stenting x2, peripheral arterial disease, hypertension, hyperlipidemia, aortic stenosis status post open heart valve replacement and TAVR, paroxysmal atrial fibrillation status post ablation x2 and recent cardioversion on warfarin, HFpEF, CML on Gleevec, COPD, pulmonary hypertension and BPH who presented to the ED after sustaining a ground level fall. The patient reports that he got up around 1:00 a.m. in the morning to use the restroom and was standing at bathroom sink and then suddenly he was on the bathroom floor. He landed on his bottom and back but thinks he may have possibly hit his head lightly. He has an abrasion on his posterior left shanita ulder and left elbow and a bruise on his anterior left shoulder. He does not believe he lost consciousness but does not remember what led to the fall as it happened ?so quickly. He then began having nausea with an episode of vomiting and he just didn't feel well which prompted him to call EMS. When EMS arrived he was found to have positive orthostasis and the patient reports mild lightheadedness at that time. He receives most of his medical care at [facility] including PCP, Cardiology, vascular surgery, pulmonology and urology. He reports that over the last 6-7 days he had doubled his furosemide dose due to 4 lb weight gain. He reports his dry weight is 204 lb and he was up to 208 lb prompting him to increases furosemide dose. He also reported he took prednisone with it which seems to help him urinate. Discussed use of glucocorticoids in detail and recommended he only take this medication at the guidance and under the supervision of his medical providers. He currently has no complaints other than back pain due to the fall. He denies headache, lightheadedness or dizzin ess, cough, sore throat, rhinitis, chest pain, shortness of breath, abdominal pain, nausea, vomiting, fever, chills, dysuria, diarrhea or constipation. He does endorse chronic urinary hesitancy due to BPH. ED course: Vital signs temperature 98.9?, blood pressure 139/53, pulse rate 71, respiratory rate 22, pulse ox 94% on room air. Chest x-ray did not demonstrate any pneumo/hemothorax. CT brain without contrast and CT chest, abdomen and pelvis with contrast did not demonstrate any intracranial bleed or internal hemorrhage. Cervical spinal x-ray did not demonstrate any acute fractures. CBC demonstrated likely glucocorticoid induced leukocytosis and chronic macrocytic anemia with hemoglobin and hematocrit higher than usual baseline. CMP demonstrated elevated BUN at 39, elevated creatinine at 1.8 (baseline creatinine 0.9-1.2), reduced eGFR at 36.2, and mildly elevated glucose at 153 likely glucocorticoid induced otherwise all other values normal. INR therapeutic at 2.7. The patient was admitted observation for over-diuresis/dehydration, SARAH, and orthostasis. Patient History Medical History Aortic stenosis (Acute) Atrial fibrillation (Acute) BPH (benign prostatic hyperplasia) (Acute) CAD (coronary artery disease) (Acute) CHF (congestive heart failure) (Acute) CML (chronic myelocytic leukemia) (Acute) COPD (chronic obstructive pulmonary disease) (Acute) History of cardioversion (Acute) Hyperlipidemia (Acute) Hypertension (Acute) PAD (peripheral artery disease) (Acute) Pulmonary arterial hypertension (Acute) Pulmonary nodule (Acute) Squamous cell carcinoma of skin of ear (Acute) Stenosis of coronary stent (Acute) Surgical History (Updated 11/27/19 @ 15:37 by Esme Renae DO) H/O aortic valve replacement (Acute) H/O transurethral resection of prostate (Acute) History of cardiac radiofrequency ablation (Acute) History of coronary artery stent placement (Acute) S/P TAVR (transcatheter aortic valve replacement) (Acute) Family & Social History Family History (Updated 11/27/19 @ 12:57 by Esme Renae DO) Mother Diabetes mellitus Heart disease PAD (peripheral artery disease) Father Lung disease Heart disease Brother Heart attack Brother Heart attack Social History: household members spouse Safety & Behavioral: Feels Safe in Current Yes Environment Tobacco & Substance use: Tobacco type cigarettes,cigars Smoking Status Former smoker alcohol intake current alcohol intake frequency 3-4 shots a day Substance Use Type does not use The patient has been for 55 years. He has 3 adult daughters. He has 1 daughter who has had history of breast cancer, is deaf and has asthma. He is a former smoker and smoked 2 ppd x 30 years and several cigars a day for 10 years. He drinks alcohol daily and consumes 2 mixed drinks per day with 2 shots of liquor in each drink. He does not use recreational drugs. Meds Home Medications and Allergies Home Medications Medication Instructions Recorded Confirmed Type atorvastatin 40 mg PO HS #0 11/24/17 11/27/19 History furosemide 40 mg PO QDAY #0 11/24/17 11/27/19 History imatinib [Gleevec] 400 mg PO QDAY #0 11/24/17 11/27/19 History warfarin [Coumadin] 2.5 mg PO DAILY #0 11/24/17 11/27/19 History Spiriva with HandiHaler 1 cap INHALATION DAILY 01/19/19 11/27/19 History amiodarone [Pacerone] 200 mg PO DAILY 01/19/19 11/27/19 History carvedilol 6.25 mg PO BID 01/19/19 11/27/19 History tamsulosin 0.4 mg PO DAILY 01/19/19 11/27/19 History albuterol sulfate 2 puff INHALATION QID PRN 11/27/19 11/27/19 History clopidogrel 75 mg PO DAILY 11/27/19 11/27/19 History ferrous sulfate 325 mg PO Q OTHER DAY 11/27/19 11/27/19 History lisinopril 2.5 mg PO DAILY 11/27/19 11/27/19 History magnesium oxide 400 mg PO DAILY 11/27/19 11/27/19 History omeprazole 20 mg PO DAILY 11/27/19 11/27/19 History spironolactone 12.5 mg PO DAILY 11/27/19 11/27/19 History Allergies Allergy/AdvReac Type Severity Reaction Status Date / Time No Known Drug Allergies Allergy Verified 11/27/19 04:57 Review of Systems Review of Systems Narrative: A 10 system comprehensive review of systems was conducted with the patient and found to be negative except as above in the History of Present Illness. Exam Vital Signs (past 8 hours): - 11/27/19 04:57 11/27/19 05:05 11/27/19 05:59 Temperature 98.9 F Pulse Rate 71 64 69 Respiratory Rate 22 15 17 Blood Pressure 139/53 L 135/61 Blood Pressure [Right Arm] 134/52 L Pulse Oximetry 94 93 98 11/27/19 06:20 11/27/19 07:02 Temperature Pulse Rate 66 73 Respiratory Rate 18 15 Blood Pressure Blood Pressure [Right Arm] 125/54 L 145/76 H Pulse Oximetry 98 96 Oxygen Delivery Method Room Air Oxygen Flow Rate 1 Narrative Exam Narrative: General: Elderly male lying in bed and in no acute distress, appears younger than stated age, well-developed, well-nourished, appropriately interactive. HEENT: Normocephalic, atraumatic. External ears without defect. Pupils equal, round, and reactive to light. Anicteric sclerae, moist conjunctivae, and no lid lag. Oropharynx free of erythema and cobble stoning with moist mucosa. Neck: Supple with full range of motion. No jugular venous distension. No lymphadenopathy or thyromegaly. Cardiovascular: Regular rate and rhythm without murmurs, rubs, or gallops appreciated. Pulmonary: Clear to auscultation bilaterally without crackles, wheezes, or rhonchi. Normal respiratory effort with no use of accessory muscles. Abdomen: Soft, bowel sounds present, nontender, nondistended. No hepatosplenomegaly or masses appreciated. Extremities: No clubbing, cyanosis, or edema. Distal pulses faint R>L. Skin: Normal temperature, turgor, and texture; no rash, ulcers, or subcutaneous nodules appreciated. Bruise on anterior left shoulder, abrasion on posterior left shoulder with dried heme, abrasion on left elbow with dressing in place C/D/I. Senile purpura on bilateral forearms/hands. Neurological: Cranial nerves grossly intact. Psychiatric: Normal mood and affect. Alert and oriented to person, place, and time. Objective Labs Result Diagrams: 11/28/19 05:10 11/28/19 05:10 Labs: Laboratory Results - last 24 hr 11/27/19 11/27/19 11/27/19 05:02 05:02 05:02 WBC 15.8 H RBC 3.07 L Hgb 11.1 L Hct 31.9 L MCV 104.0 H MCH 36.1 H MCHC 34.7 RDW 13.4 Plt Count 180 Neut % (Auto) 86.7 H Lymph % (Auto) 6.6 L Buchanan % (Auto) 6.4 Eos % (Auto) 0.2 L Baso % (Auto) 0.1 Neut # (Auto) 87694 H Lymph # (Auto) 1000 L Buchanan # (Auto) 1000 H Eos # (Auto) 0 Baso # (Auto) 0 PT 31.2 H INR 2.7 H APTT 35 Sodium 138 Potassium 4.2 Chloride 103 Carbon Dioxide 27 BUN 39 H Creatinine 1.80 H Estimated GFR 36.2 L BUN/Creatinine Ratio 21.7 Glucose 153 H Lactate Calcium 8.7 Magnesium Total Bilirubin 1.3 AST 31 ALT 29 Alkaline Phosphatase 101 Total Creatine Kinase 65 CK-MB (CK-2) TNP CK-MB (CK-2) Rel Index TNP Troponin I 0.031 Total Protein 6.2 L Albumin 4.1 Globulin 2.1 Albumin/Globulin Ratio 2.0 Lipase 145 Ethyl Alcohol < 10 Blood Type Antibody Screen 11/27/19 11/27/19 11/27/19 05:05 05:05 05:17 WBC RBC Hgb Hct MCV MCH MCHC RDW Plt Count Neut % (Auto) Lymph % (Auto) Buchanan % (Auto) Eos % (Auto) Baso % (Auto) Neut # (Auto) Lymph # (Auto) Buchanan # (Auto) Eos # (Auto) Baso # (Auto) PT INR APTT Sodium Potassium Chloride Carbon Dioxide BUN Creatinine Estimated GFR BUN/Creatinine Ratio Glucose Lactate 1.5 Calcium Magnesium 2.1 Total Bilirubin AST ALT Alkaline Phosphatase Total Creatine Kinase CK-MB (CK-2) CK-MB (CK-2) Rel Index Troponin I Total Protein Albumin Globulin Albumin/Globulin Ratio Lipase Ethyl Alcohol Blood Type B Positive Antibody Screen Negative Assessment & Plan Assessment & Plan narrative: Cayetano Carrion is an 84-year-old male with a past medical history significant for coronary artery disease status post stenting x2, peripheral arterial disease, hypertension, hyperlipidemia, aortic stenosis status post open heart valve replacement and TAVR, paroxysmal atrial fibrillation status post ablation x2 and recent cardioversion on warfarin, HFpEF, CML on Gleevec, COPD, pulmonary hypertension and BPH who presented to the ED after sustaining a ground level fall. 1. Orthostatic hypotension with ground level fall, secondary to over-diuresis, present on admission. Active. -Patient presented after ground level fall in which he denies feeling lightheaded/dizzy or loss of consciousness. Patient did not have loss of bowel or bladder function. -Per EMS, the patient was orthostatic upon arrival. Continue orthostatic blood pressure measurements every shift. Placed compression stockings on patient. -EKG demonstrated sinus or ectopic atrial rhythm with occasional ventricular and supraventricular premature complexes and T-wave inversion in leads II and II. Patient denies ACS or chest pain symptoms. Troponin negative at 0.031. C ontinue to monitor closely on telemetry. -Chest x-ray did not demonstrate any pneumo/hemothorax. -CT brain without contrast and CT chest, abdomen and pelvis with contrast did not demonstrate any intracranial bleed or internal hemorrhage. -Cervical spinal x-ray did not demonstrate any acute fractures. -Initial hemoglobin 11.1 which is higher than baseline and possibly due to hemoconcentration. Continue to monitor for overt signs of bleeding. Applied pressure dressing to abrasions on posterior left shoulder and elbow to stop bleeding. Patient is currently hemodynamically stable. Continue to monitor hemoglobin and hematocrit daily. -Received 1 L of NS in ED. Continued normal saline at 100 mL/hr for approx 250 mL then discontinued to avoid fluid overload. If patient continues to have positive orthostasis will give additional IVF. -Held furosemide. -Ordered physical therapy evaluation and treatment, pending. 2. Acute kidney injury, secondary to over-diuresis, present on admission. Active. -Secondary to over-diuresis. -Initial creatinine 1.8. Baseline creatinine 0.9-1.2. -Received 1 L NS in the ED. Continued normal saline at 100 mL/hr for 250 mL an discontinued. If patient continues to have positive orthostasis will plan to give remaining normal saline 750 mL in bag. -Held lisinopril and furosemide. Avoid nephrotoxic agents. -Continue to monitor renal function daily. 3. Leukocytosis, present on admission. Stable. -Likely secondary to glucocorticoid versus reactive. -Patient reports he took a dose of prednisone to help with diuresis? Discussed glucocorticoid use and recommended that he only use prednisone at the guidance and under supervision of a physician. -No systemic signs of infection. Procalcitonin negative. Afebrile. Chest x- ray and CT chest, abdomen and pelvis with contrast did not demonstrate any acute infectious process. 4. CAD status post stenting x2, HFpEF, PAD with claudication, hypertension, hyperlipidemia, paroxysmal atrial fibrillation, and aortic stenosis status post TAVR, chronic, present on admission. Stable. -Patient has completed cardiac rehab x2. The patient recently underwent cardioversion 6 months ago and is in sinus rhythm by physical exam as there is no palpable pulse deficit. EKG questionable sinus versus ectopic atrial rhythm. The patient's director of student services is Dr. Burch at [facility] and will request records specifically previous echocardiogram. -Continue amiodarone 200 mg daily, atorvastatin 40 mg daily at bedtime, carvedilol 6.25 mg twice daily, clopidogrel 75 mg daily, spironolactone 12.5 mg daily, and warfarin 5 mg daily except on Thursday he takes 2.5 mg. Held lisinopril and furosemide due to SARAH and over diuresis. 5. CML, present on admission. Stable. -Continue Gleevec 400 mg daily. 6. COPD with pulmonary hypertension, chronic, present on admission. Stable. -Does not represent COPD exacerbation. -Patient has completed pulmonary rehab x2. -CT chest with contrast demonstrated pulmonary nodules with the largest stable compared to 2017, emphysematous changes and prominent pulmonary arteries, as before. -Continue home inhalers including albuterol 2 puffs every 6 hours as needed for shortness of breath and tiotropium 1 puff daily. 7. BPH status post TURP, chronic, present on admission. Stable. -Continued tamsulosin 0.4 mg daily. -Ordered as need PVR for concern of incomplete bladder emptying. -Ordered urinalysis, pending. Patient is admitted under observation status with expected length of stay less than 2 midnights due to severity of presenting symptoms, risk of adverse event, and complexity of treatment plan.
[2019-11-27] MEDS: ACETAMINOPHEN 325 MG TABLET 650 MG PO ×2 (08:42→20:53)
[2019-11-27] MEDS: SODIUM CHLORIDE 0.9% 1,000 ML 100 ML IV (08:47)
--- NOTE | 2019-11-27 09:25 | PC.NURSE ---
Pt to room 209 via stretcher from ER. Pt was able to stand and void and then transfer to bed with SBA. Pt denies dizziness when standing.. Pt is alert and oriented x 3. Spouse Midge at the bedside. Pt given Tylenol for chronic back pain 7/10 which has decreased to 4/10 with Tylenol and repositioning. Pt has 2 IV's to his right arm (wrist and forearm.) Both sites are oozing a small amount of blood. Redressed IV sites and covered lightly with Coban to avoid tape. Pt has skin tears to his left elbow, posterior shoulder, and left arm that were also redressed due to oozing. Dr. Renae is aware. Scattered bruising throughout. Pt oriented to room, call light, tv controls, and bed controls. Pt had a small amount of breakfast (approx. 25%) and fluids to drink. IVF infusing as ordered. SCD's contraindicated. Bed alarm on for safety.
[2019-11-27] MEDS: TAMSULOSIN 0.4 MG CAPSULE PO (12:00)
[2019-11-27] MEDS: carvediloL 6.25 MG TABLET PO ×2 (12:00→20:52)
[2019-11-27 12:06] LABS: Hemoglobin A1C% w Est Avg Glu 5.9 % (4.0-6.0)
[2019-11-27 12:17] LABS: RBC Urine None Seen (0-5/HPF)
--- NOTE | 2019-11-27 12:27 | PC.NURSE ---
1200 Orthostatic VS done, recorded. Completed a bladder scan prior to oob for 600 ml. Pt then oob with PT, Pt voided 300 ml. UA sent. Pt able to walk in peña with walker and PT. Pt is steay, denies dizziness.
[2019-11-27 12:29] LABS: Appearance Urine UA CLEAR; Bilirubin Urine UA NEGATIVE (NEGATIVE); Color Urine UA YELLOW; Glucose Urine UA NEGATIVE (Negative); Ketones Urine UA NEGATIVE (NEGATIVE); Leukocyte Esterase Urine UA TRACE (NEGATIVE); Nitrite Urine UA NEGATIVE (Negative); Occult Blood Urine UA TRACE-LYSED (Negative); Protein Urine UA NEGATIVE (Negative); Specific Gravity Urine UA <=1.005 (1.000-1.035); Urobilinogen Urine UA 0.2 E.U./dL (0.2); pH Urine UA 6.5 (4.5-8.0)
--- NOTE | 2019-11-27 12:30 | CM.DANOTE ---
Patient is an 84 year old male who was admitted OBS STATUS on 11/27/19 for GLF. Pt has MCR and REG PPO for insurance and his PCP is Dr. Carol Ann Miller. EMR was reviewed. Per MD, pt with a hx of CHF and AFIB at baseline and takes blood thinners. PT has been ordered and pending and pt may be stable for d/c tomorrow if remains stable overnight. Per PT, pt was able to ambulate the peña with FWW and CGA and recommending likely HH at d/c. Per PT, pt states his is starting to have some significant memory issues and pt and spouse tend to help each other a fair amount. SW met bedside with pt and explained role and updated white board and pt confirms that he still lives at home in [facility] with his and they have a chancery clerk 2x month to help with cleaning. Pt denies any other supportive services in place and no other caregivers. Pt denies any hx of HH or SNF and pt still uses his walking stick and sometimes a walker for longer ambulation. Pt's DPOA is his spouse and then his two adult Dtrs (one lives in [place] and the other in [facility]). Pt states that he is mostly independent with ADL's and they have traveled to [place] in Sep for a couple months and then go to [facility] in November for a couple months for the past 10 years. Pt states they have tickets to fly to [place] on Dec 16, 2019 and he thinks this will be their last trip to [place] as travel is getting harder and spouse is having more memory issues. SW discussed HH services and frequency and pt states that he feels HH would be helpful at d/c especially for strengthening before their trip to [place]. SW provided the HH Choice List and pt does not have a HH preference so SW made [facility] referral based on Vendor Calendar and faxed clinicals to review and called to request review for possible d/c home tomorrow or . F2F will need MD signature and orders at d/c if HH still needed. Plan: SW to follow for [facility] review and MD signature on F2F prior to d/c. SW to follow to provide additional resources to pt towards helping with spouse's increased memory issues. CONSTANCE Rae Discharge Planning/Care Management Advanced directive, confirm from FAMILY Start: 11/27/19 08:38 Freq: Q24H Status: Active Protocol: Document 11/27/19 09:24 CM (Rec: 11/27/19 09:25 CM [id number]) Advance Directive, confirm on record Time 09:24 Person contacted Patient Copy received No Copy received No Advanced directive available on record No CM Discharge Assessment Start: 11/27/19 12:26 Freq: Status: Active Protocol: Document 11/27/19 12:26 BF (Rec: 11/27/19 12:29 BF [id number]) Discharge Planning Assessment Assigned Outside Sales Manager CONSTANCE Mackey DPOA/Assigned Designee Name Spouse Radha and Dtr Contact Information spouse [phone] Advance Directives? Yes: Reeling Operator has just drawn up new papers and they dont have. Advance Directives on File No History Provided By Patient,Significant Other, Medical Record Has Patient been admitted in last 30 No days? Prior Living Arrangements House Household Members spouse Type of transporation used prior to Drives own vehicle admit Independent with ADL's Yes Is patient alert and oriented? Yes Needs Assistance With Home Chores / Shopping Caregiver for Another No DME Already Rented / Owned Cane Comment Uses a walking stick Patient/Family Preference Home with Home Health Barriers to Discharge No Discharge Plan Home with Home Health Transportation Arrangement Spouse Referrals Initiated Home Health If patient plan is home with home health No : Has signed face to face form been completed? Medicare Choice List Provided Yes SNF/HH Preference no preference, [facility] referral per Vendor Calendar Has Agency SNF been contacted Yes Whiteboard Updated in Patient Room with Yes name and ext. # of Outside Sales Manager Review Status In Process Please Provide Date Initial DC 11/27/19 Assessment Was Performed Next Review Type Continued Stay Review
[2019-11-27 12:37] LABS: Bacteria Urine Few (2-10); Culture Indicated Urine Specimen Cultured; Squamous Epithelial Cell Urine 0-1 /HPF (0-5/HPF); WBC Urine 0-1/HPF (0-5/HPF)
[2019-11-27] MEDS: SPIRONOLACTONE 25 MG TABLET 12.5 MG PO (12:51)
--- NOTE | 2019-11-27 12:51 | PT.IIE ---
Medical History (Last Updated 11/27/19 @ 12:47 by Esme Renae DO) Acute and chronic respiratory failure with hypoxia (Inactive) Acute CHF (Inactive) Acute exacerbation of chronic obstructive pulmonary disease (COPD) (Inactive) Atrial fibrillation (Acute) COPD (chronic obstructive pulmonary disease) (Acute) COPD exacerbation (Acute) Hyperlipidemia (Acute) Pulmonary nodule (Acute) Physical Therapy Inpatient Evaluation/Re-Eval M1 PT/OT-IP Prior Functional Status Start: 11/27/19 08:38 Freq: NEEDED Status: Active Protocol: Document 11/27/19 12:15 AW (Rec: 11/27/19 12:50 AW [id number]) Medical Review Prior Functional Status Medical History Reviewed Yes Communication WNL Mobility and Gait Pt reports he was independent without AD for household ambulation but did use a single trekking pole for longer walks (anything longer than 1/2 block). He states he could go grocery shopping and stand 30-45 minutes with shopping cart for support. Activities of Daily Living and IADL's Pt reports independence with dressing, bathing, toileting though he states he did need occasional help with donning shoes and socks. Prior Functional Level (Other details) Pt drives. He is known to this facility, having completed an episode of care with cardiac rehab and pulmonary rehab. He either just started or was scheduled to start another round of rehab for PAD. Social History Household Members spouse Living Arrangements House Number of Floors (Floors) One Floor Number of Stairs To Enter/Railing? Level entrance Home Environment High Toilet,Walk in Shower Home Equipment Four Wheel Walker,Straight Cane,Grab Bars In Shower Additional Social History Comment Pt lives with his spouse, Lola. Per pt account, she is starting to demonstrate significant memory problems. I guess we help each other out . M2 PT-IP Current Condition Start: 11/27/19 08:38 Freq: NEEDED Status: Active Protocol: Document 11/27/19 12:15 AW (Rec: 11/27/19 12:50 AW [id number]) Physical Therapy Current Condition Current Condition Evaluation Date 11/27/19 Treatment Diagnosis acute hypoxic respiratory failure, difficulty in walking Onset Date 11/26/19 Precautions Other Precautions known syncopal episode, fall risk Weight Bearing Status Weight Bearing Status Full Weight Bearing M3 PT-IP Subjective Start: 11/27/19 08:38 Freq: NEEDED Status: Active Protocol: Document 11/27/19 12:15 AW (Rec: 11/27/19 12:50 AW [id number]) Subjective Physical Therapy Visit Type Type Initial Evaluation Visit Start Time 11:39 Visit Stop Time 12:10 Total Visit Minutes 31 Number of MANAGEMENT ACCOUNTS MANAGER Visits 0 Physical Therapy Visit Comments Patient Comments Pt is happy to mobilize with PT. Walking helps my back pain. Patient Goals To go home Therapy Pain Assessment Pain When Pain Assessed During Mobility Pain Present Pain Present Pain Reported Location Back Scale Used not quantified Pain Behaviors Facial Grimacing,Wincing Pain Management Techniques Distraction,Timing of Activity with Medications M4 PT-IP Mobility and Gait Start: 11/27/19 08:38 Freq: NEEDED Status: Active Protocol: Document 11/27/19 12:15 AW (Rec: 11/27/19 12:50 AW [id number]) PT-Bed Mobility Assessment Supine to Sit Supine to Sit Minimal Assistance,1 Person Assistance,Bedrails Scooting Scooting to Edge of Bed Standby Assistance PT-Transfer Assessment Sit to and From Stand Sit to and from Stand Contact Guard Assistance, Minimal Assistance Equipment Transfer Assistive Device Gait Belt,Front Wheeled Walker Orthotic/Prosthetic Devices or Brace: No Transfers Transfer Destination Chair Transfer Technique pt ambulated with FWW Transfer Ability Level of Assist Contact Guard Assistance Comments Mobility Comments Pt completed supine to sit exiting to the right from flat bed with use of bedrails and min A to pull up to sitting. Sit to stand from bed required min A. Pt ambulated with FWW CGA to bathroom to void and then in the halls for gait assessment. Upon return to room, pt sat in bedside chair CGA and cues to use UE's for eccentric control of descent. Subsequent sit to stand from chair required only CGA with pt able to perform better with firm chair arms from which to push. Gait Assessment Gait Gait Assistance Required: Standby Assistance,Contact Guard Assist Distance (Feet) 75 Able to Maintain Weight Bearing Status Yes During Gait Assistive Devices Assistive Device Gait Belt,Front Wheeled Walker Orthotic/Prosthetic Devices or Brace: No Gait Deviations General Gait Pattern Antalgic,Decreased Stride Length,Flexed Trunk Factors Limiting Gait Function Factors Limiting Gait Function Decreased Activity Tolerance, Decreased Strength,Pain, Respiratory Distress Comments Gait Comments Pt ambulated in the room and out in the halls ~75 feet using FWW CGA to SBA. Assist was required due to pt's reported shortness of breath and poor activity tolerance. SpO2 was maintained 92-93% throughout treatment. Stair Climbing Assessment Comments Stair Climbing Comments Not assessed. No stairs at home PT-Balance Assessment Sitting Balance and Reactions Static Sitting Balance Ability Good Dynamic Sitting Balance Ability Good Standing Balance and Reactions Static Standing Balance Ability Good Dynamic Standing Balance Ability Fair Device Used FWW M5 PT-IP Objective Assessments Start: 11/27/19 08:38 Freq: NEEDED Status: Active Protocol: Document 11/27/19 12:15 AW (Rec: 11/27/19 12:50 AW [id number]) Orientation Orientation/Cognition Level of Alertness Alert Orientation Name,Day of Week,Place, Situation Language Function Ability No Deficits Noted Safety Awareness Understands Safety Issues Memory Description No Deficits Noted Gross Range of Motion Lower Extremity ROM Assessment Within Functional Limits Strength Lower Extremity Strength Assessment Bilaterally Impaired Hip 4-/5 Knee 4/5 Ankle 4+/5 Coordination Assessment Gross Coordination Gross Coordination WNL Sensation Assessment Sensation Gross Sensation WNL Other Assessments Other Other Assessments Orthostatic BP: supine 147/85 HR 72; after 5 minutes sitting 140/64 HR 71; after standing (including 5 foot walk to toilet where pt stood to void) 126/59 HR 75. BP after 75 feet ambulation 123/71 HR 80. M6 PT-IP Treatment Start: 11/27/19 08:38 Freq: NEEDED Status: Active Protocol: Document 11/27/19 12:15 AW (Rec: 11/27/19 12:50 AW [id number]) Physical Therapy Treatment Education Education Provided Precautions,Safety Other Treatments Other Treatment Performed Educated pt on PT plan of care , safe use of FWW, and possible need for increased use of assistive device in the home. Pt agreeable to all. M7 PT-IP Assessment and Plan Start: 11/27/19 08:38 Freq: NEEDED Status: Active Protocol: Document 11/27/19 12:15 AW (Rec: 11/27/19 12:50 AW [id number]) PT Summary Assessment and Plan Potential Rehabilitation Potential Good Status of Condition at Evaluation Stable Summary Impairments Pain,Strength,Balance,Bed Mobility,Transfers,Gait, Activity Tolerance Assessment Summary Patel is an 84 yo man admitted with acute hypoxic respiratory failure and seen for PT evaluation one day after admission. At baseline, he is an independent household ambulator and uses a single trekking pole for community ambulation > 1/[address] and partipates in shopping trips with use of a cart for support ~30-45 minutes. CLOF: Pt presents with generalized B LE weakness and required CGA to min assist for most mobilities. PT anticipates he will meet the goals of this plan of care and will likely be safe to discharge back to home environment, but he would benefit from home health services to address strength and balance impairments and to increase his independence/ safety in his home. Goals Bed Mobility Goal Independent Transfer Goal Independent,Cane,Front Wheeled Walker Gait Goal Independent,Cane,Front Wheel Walker Gait Distance 200 Days to Meet Goals 5 Frequency of Treatment Frequency Of Treatment Once a Day Treatment Plan Physical Therapy Treatment Plan Bed Mobility Training,Transfer Training,Gait Training, Therapeutic Exercise,Balance Retraining,Discharge Planning, Hot or Cold Pack,Neuromuscular Re-ed Other Recommendations and Next Treatment monitor vitals, progress gait Focus distance, trial SPC vs 4WW ( has 4WW at home) Recommendations To Nursing Amount of Assist Needed 1 Person Assist Discharge Recommendations PT Discharge Recommendations Home with Assistance,Home Health Equipment Needed for Home Before may need FWW if unsafe with Discharge 4WW or SPC
[2019-11-27 15:24] LABS: Procalcitonin < 0.05 ng/mL (<0.5)
[2019-11-27 15:37] LABS: TSH w/ Reflex to FT4 1.85 uIU/mL (0.47-4.68)
[2019-11-27] MEDS: TRAMADOL 50 MG TABLET PO (15:49)
[2019-11-27] MEDS: CALCIUM CARBONATE 500 MG TAB 1000 MG PO (19:35)
[2019-11-27] MEDS: PANTOPRAZOLE 20 MG TABLET 40 MG PO (20:53)
[2019-11-27] MEDS: MELATONIN 3 MG TABLET 6 MG PO (20:53)
[2019-11-27] MEDS: ATORVASTATIN 20 MG TABLET 40 MG PO (20:53)
[2019-11-28] VITALS (13 sets, daily range): BP systolic 88–168; BP diastolic 48–94; PULSE 60–90; RESP 14–19; TEMP 36.5–37.5; O2SAT 90–98
[2019-11-28] MEDS: PANTOPRAZOLE 20 MG TABLET PO (05:17)
[2019-11-28 05:25] LABS: Add Manual Diff / Slide Review NO; Basophils Absolute Auto 0 /uL (0-100); Basophils Percent Auto 0.1 % (0-2); Eosinophils Absolute Auto 0 /uL (0-450); Eosinophils Percent Auto 0.6 % (2-4); Hematocrit 26.4 % (41-53); Hemoglobin 9.1 g/dL (13.5-17.5); Lymphocytes Absolute Auto 1000 /uL (1100-4500); Mean Corpuscular HGB Conc 34.5 % (30-36); Mean Corpuscular Hemoglobin 36.2 PG (26-34); Mean Corpuscular Volume 104.8 fL (80-100); Monocytes Absolute Auto 700 /uL (0-900); Monocytes Percent Auto 9.6 % (3-14); Neutrophils Absolute Auto 5600 /uL (1500-7000); Neutrophils Percent Auto 76.7 % (50-75); Platelet Count 121 X10^3/uL (150-400); Red Blood Cell Count 2.51 X10^6/uL (4.5-5.9); Red Cell Distribution Width 13.3 % (11.6-14.8); White Blood Cell Count 7.3 X10^3/uL (4.5-11.0)
[2019-11-28 05:33] LABS: Prothrombin Time 35.4 SECONDS (10.1-12.7)
[2019-11-28 05:39] LABS: BUN Creatinine Ratio 21.4 (6-22); Blood Urea Nitrogen 30 mg/dL (9-20); Calcium 8.3 mg/dL (8.4-10.2); Carbon Dioxide 26 mmol/L (22-32); Chloride 103 mmol/L (98-107); Estimated Glomerular Filt Rate 48.4 mL/min (>60); Glucose 112 mg/dL (80-110); HEMOLYSIS < 15 (0-50); Sodium 136 mmol/L (137-145)
--- NOTE | 2019-11-28 05:51 | PC.NURSE ---
0610 Noted bloody drainage lt. elbow drsg. Changed dressing. old dressing saturated with bloody drainage large amount. Skin tear continue to leak some bloody drainage. Orthostatic B/P laying 138/67 heart rate 70, sitting 99/56, HR 68 & standing 88/48 & heart rate 68. Denies any dizziness when he stood up. ISAIAH Tovar will be notified, will cont. POC & monitor.
--- NOTE | 2019-11-28 06:20 | PC.NURSE ---
ISAIAH Tovar aware of pt's. Orthostatic VS. Ordered to bolus him with 500 cc NS. Will implement order after verified with Night Pharmacist & monitor.
[2019-11-28] MEDS: SODIUM CHLORIDE 0.9% 500 ML IV (06:38)
[2019-11-28] MEDS: SODIUM CHLORIDE 0.9% FLUSH 10 ML IV ×5 (06:38→21:18)
[2019-11-28] MEDS: ACETAMINOPHEN 325 MG TABLET 650 MG PO ×2 (07:18→14:20)
[2019-11-28] MEDS: TIOTROPIUM BROMIDE 18 MCG INHALER INH (08:24)
[2019-11-28] MEDS: TRAMADOL 50 MG TABLET PO ×3 (09:26→21:14)
[2019-11-28] MEDS: SODIUM CHLORIDE 0.9% 500 ML 1000 ML IV (09:27)
[2019-11-28] MEDS: TAMSULOSIN 0.4 MG CAPSULE PO (09:27)
[2019-11-28] MEDS: MAGNESIUM OXIDE 400 MG TABLET PO (09:27)
[2019-11-28] MEDS: IMATINIB 400 MG 400 EACH PO (09:30)
[2019-11-28] MEDS: FERROUS SULFATE 325 MG TABLET PO (09:30)
--- NOTE | 2019-11-28 10:10 | P.PN_ITS ---
Subjective Subjective Date Patient Seen: 11/28/19 Interval history: Cayetano Carrion is an 84-year-old male with a past medical history significant for coronary artery disease status post stenting x2, peripheral arterial disease, hypertension, hyperlipidemia, aortic stenosis status post open heart valve replacement and TAVR, paroxysmal atrial fibrillation status post ablation x2 and recent cardioversion on warfarin, HFpEF, CML on Gleevec, COPD, pulmonary hypertension and BPH who presented to the ED after sustaining a ground level fall. The patient is sitting at bedside and appears comfortable. The patient's orthostatic hypotension resolved yesterday afternoon and oddly recurred this morning questioning accuracy of measurements. The patient is asymptomatic. He endorses back pain from the fall and weakness. He otherwise has no complaints and denies headache, lightheadedness or dizziness, vision changes, chest pain, abdominal pain, nausea, vomiting, fever, chills, dysuria, diarrhea or constipation. He does have chronic shortness of breath which is unchanged from his baseline. He is voiding without difficulty. He has not had a bowel movement since admission and a bowel regimen has been implemented. He is up ambulating with assistance. Exam Vital Signs (past 8 hours): - 11/28/19 05:54 11/28/19 07:20 11/28/19 08:27 Temperature 97.8 F Pulse Rate 70 80 Pulse Rate [Orthostatic Lying] 70 Pulse Rate [Orthostatic Sitting] 68 Pulse Rate [Orthostatic Standing] 68 Respiratory Rate 16 14 Blood Pressure 138/67 Blood Pressure [Orthostatic Lying] 138/67 Blood Pressure [Orthostatic Sitting] 99/56 L Blood Pressure [Orthostatic Standing] 88/48 L Pulse Oximetry 95 90 L 95 11/28/19 08:34 11/28/19 08:45 Temperature 98.7 F Pulse Rate 63 Pulse Rate [Orthostatic Lying] 90 Pulse Rate [Orthostatic Sitting] 75 Pulse Rate [Orthostatic Standing] 60 Respiratory Rate 18 Blood Pressure 122/57 L Blood Pressure [Orthostatic Lying] 122/57 L Blood Pressure [Orthostatic Sitting] 98/56 L Blood Pressure [Orthostatic Standing] 93/75 Pulse Oximetry 90 L Oxygen Delivery Method Room Air Oxygen Flow Rate 0 Narrative Exam Narrative: General: Elderly male lying in bed and in no acute distress, appears younger than stated age, well-developed, well-nourished, appropriately interactive. HEENT: Normocephalic, atraumatic. External ears without defect. Pupils equal, round, and reactive to light. Anicteric sclerae, moist conjunctivae, and no lid lag. Oropharynx free of erythema and cobble stoning with moist mucosa. Neck: Supple with full range of motion. No jugular venous distension. No lymphadenopathy or thyromegaly. Cardiovascular: Regular rate and rhythm without murmurs, rubs, or gallops appreciated. Pulmonary: Diminished trhoughout but clear to auscultation bilaterally without crackles, wheezes, or rhonchi. Normal respiratory effort with no use of accessory muscles. Abdomen: Soft, bowel sounds present, nontender, nondistended. No hepatosplenomegaly or masses appreciated. Extremities: No clubbing, cyanosis, or edema. Distal pulses faint R>L. Skin: Normal temperature, turgor, and texture; no rash, ulcers, or subcutaneous nodules appreciated. Bruise on anterior left shoulder, abrasion on posterior left shoulder with dried heme, abrasion on left elbow with slight oozing and dressing in place with serosanguineous drainage. Senile purpura on bilateral forearms/hands. Neurological: Cranial nerves grossly intact. Psychiatric: Normal mood and affect. Alert and oriented to person, place, and time. Objective Labs Result Diagrams: 11/28/19 05:10 11/28/19 05:10 Labs: Laboratory Results - last 24 hr 11/27/19 11/27/19 11/27/19 05:02 05:02 05:02 WBC RBC Hgb Hct MCV MCH MCHC RDW Plt Count Neut % (Auto) Lymph % (Auto) Daggett % (Auto) Eos % (Auto) Baso % (Auto) Neut # (Auto) Lymph # (Auto) Daggett # (Auto) Eos # (Auto) Baso # (Auto) PT INR Sodium Potassium Chloride Carbon Dioxide BUN Creatinine Estimated GFR BUN/Creatinine Ratio Glucose Hemoglobin A1c 5.9 Calcium Procalcitonin < 0.05 TSH 1.85 Urine Color Urine Appearance Urine pH Ur Specific Erath Urine Protein Urine Glucose (UA) Urine Ketones Urine Occult Blood Urine Nitrate Urine Bilirubin Urine Urobilinogen Ur Leukocyte Esterase Urine RBC Urine WBC Ur Squamous Epith Cells Urine Bacteria Ur Culture Indicated? 11/27/19 11/28/19 11/28/19 12:00 05:10 05:10 WBC 7.3 D RBC 2.51 L Hgb 9.1 L Hct 26.4 L MCV 104.8 H MCH 36.2 H MCHC 34.5 RDW 13.3 Plt Count 121 L Neut % (Auto) 76.7 H Lymph % (Auto) 13.0 L Daggett % (Auto) 9.6 Eos % (Auto) 0.6 L Baso % (Auto) 0.1 Neut # (Auto) 5600 Lymph # (Auto) 1000 L Daggett # (Auto) 700 Eos # (Auto) 0 Baso # (Auto) 0 PT 35.4 H INR 3.0 H Sodium Potassium Chloride Carbon Dioxide BUN Creatinine Estimated GFR BUN/Creatinine Ratio Glucose Hemoglobin A1c Calcium Procalcitonin TSH Urine Color Yellow Urine Appearance Clear Urine pH 6.5 Ur Specific Erath <=1.005 Urine Protein Negative Urine Glucose (UA) Negative Urine Ketones Negative Urine Occult Blood Trace-lysed Urine Nitrate Negative Urine Bilirubin Negative Urine Urobilinogen 0.2 Ur Leukocyte Esterase Trace H Urine RBC None seen Urine WBC 0-1/hpf Ur Squamous Epith Cells 0-1 /hpf Urine Bacteria Few (2-10) H Ur Culture Indicated? Specimen cultured 11/28/19 05:10 WBC RBC Hgb Hct MCV MCH MCHC RDW Plt Count Neut % (Auto) Lymph % (Auto) Daggett % (Auto) Eos % (Auto) Baso % (Auto) Neut # (Auto) Lymph # (Auto) Daggett # (Auto) Eos # (Auto) Baso # (Auto) PT INR Sodium 136 L Potassium 4.0 Chloride 103 Carbon Dioxide 26 BUN 30 H Creatinine 1.40 H Estimated GFR 48.4 L BUN/Creatinine Ratio 21.4 Glucose 112 H Hemoglobin A1c Calcium 8.3 L Procalcitonin TSH Urine Color Urine Appearance Urine pH Ur Specific Erath Urine Protein Urine Glucose (UA) Urine Ketones Urine Occult Blood Urine Nitrate Urine Bilirubin Urine Urobilinogen Ur Leukocyte Esterase Urine RBC Urine WBC Ur Squamous Epith Cells Urine Bacteria Ur Culture Indicated? Assessment & Plan Assessment & Plan narrative: Cayetano Carrion is an 84-year-old male with a past medical history significant for coronary artery disease status post stenting x2, peripheral arterial disease, hypertension, hyperlipidemia, aortic stenosis status post open heart valve replacement and TAVR, paroxysmal atrial fibrillation status post ablation x2 and recent cardioversion on warfarin, HFpEF, CML on Gleevec, COPD, pulmonary hypertension and BPH who presented to the ED after sustaining a ground level fall. 1. Orthostatic hypotension with ground level fall, secondary to over-diuresis, present on admission. Active. -Patient presented after ground level fall in which he denies feeling lightheaded/dizzy or loss of consciousness. Patient did not have loss of bowel or bladder function. -Per EMS, the patient was orthostatic upon arrival. -EKG demonstrated sinus or ectopic atrial rhythm with occasional ventricular and supraventricular premature complexes and T-wave inversion in leads II and II. Patient denies ACS or chest pain symptoms. Troponin negative at 0.031. Continue to monitor closely on telemetry. -Chest x-ray did not demonstrate any pneumo/hemothorax. -CT brain without contrast and CT chest, abdomen and pelvis with contrast did not demonstrate any intracranial bleed or internal hemorrhage. -Cervical spinal x-ray did not demonstrate any acute fractures. -Initial hemoglobin 11.1 which is higher than baseline and possibly due to hemoconcentration. Continue to monitor for overt signs of bleeding. Applied pressure dressing to abrasions on posterior left shoulder and elbow to stop bleeding and recommended minimal movement of left arm. Patient is currently hemodynamically stable. Continue to monitor hemoglobin and hematocrit daily. -Received 1 L of NS in ED. Continued normal saline at 100 mL/hr for approx 250 mL then discontinued to avoid fluid overload. -Continue physical therapy evaluation and treatment. -Continue orthostatic blood pressure measurements every shift. Placed compression stockings on patient. The patient's orthostasis resolved yesterday afternoon then oddly recurred this morning for which he is asymptomatic and question accuracy of measurements as pulse does not vary and it would be odd to have intermittent orthostasis. Patient received an additional 1 L of IV fluid with normal saline (2- 500 ML NS boluses). Held furosemide and other cardiac medications as below for now. 2. Acute kidney injury on chronic kidney disease stage III, secondary to over- diuresis, present on admission. Resolving. -Secondary to over-diuresis. -Initial creatinine 1.8. Baseline creatinine 0.9-1.2. Creatinine trending down now 1.4. -Received 1 L NS in the ED. Continued normal saline at 100 mL/hr for 250 mL an discontinued. The patient's orthostasis resolved and recurred this morning for which he received another 1 L (2- 500 mL NS boluses). -Held lisinopril and furosemide. Avoid nephrotoxic agents. -Continue to monitor renal function daily. 3. Leukocytosis, present on admission. Resolved. -Likely secondary to glucocorticoid versus reactive. -Patient reports he took a dose of prednisone to help with diuresis? Discussed glucocorticoid use and recommended that he only use prednisone at the guidance and under the supervision of a physician. -No systemic signs of infection. Procalcitonin negative. Afebrile. Chest x- ray and CT chest, abdomen and pelvis with contrast did not demonstrate any acute infectious process. 4. CAD status post stenting x2, HFpEF, PAD with claudication, hypertension, hyperlipidemia, paroxysmal atrial fibrillation on warfarin, and aortic stenosis status post TAVR, chronic, present on admission. Stable. -Patient has completed cardiac rehab x2. The patient recently underwent cardioversion 6 months ago and is in sinus rhythm by physical exam as there is no palpable pulse deficit. EKG questionable sinus versus ectopic atrial rhythm. 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 Burch at [facility] and will request records specifically previous echocardiogram. -Continue atorvastatin 40 mg daily at bedtime, carvedilol 6.25 mg twice daily, clopidogrel 75 mg daily, and spironolactone 12.5 mg daily. Held lisinopril and furosemide due to SARAH and orthostasis. Held warfarin and clopidogrel temporarily as patient continues to ooze from a left elbow abrasion and peripheral IV. Do not want to reverse warfarin yet as patient is high risk of VTE and has history of left atrial appendage thrombus. 5. CML, present on admission. Stable. -Continue Gleevec 400 mg daily. 6. COPD with pulmonary hypertension, chronic, present on admission. Stable. -Does not represent COPD exacerbation. -Patient has completed pulmonary rehab x2. -CT chest with contrast demonstrated pulmonary nodules with the largest stable compared to 2017, emphysematous changes and prominent pulmonary arteries, as before. -Continue home inhalers including albuterol 2 puffs every 6 hours as needed for shortness of breath and tiotropium 1 puff daily. 7. BPH status post TURP, chronic, present on admission. Stable. -Continued tamsulosin 0.4 mg daily. -Ordered as need PVR for concern of incomplete bladder emptying. -Urinalysis does not appear grossly infected but was sent for culture. 8. Macrocytic anemia, chronic, present on admission. Stable. -Secondary to anemia of chronic kidney disease and possibly alcohol dependence now with some contribution due to acute blood loss. -Initial hemoglobin 11.1 which is higher than patient's baseline and he was likely hemoconcentrated due to over diuresis. Baseline hemoglobin 9.5-10.5. Hemoglobin now 9.1. Transfusion goal < 8.0. -Continue to monitor for hemodynamic instability and/or overt signs of bleeding. Held warfarin and clopidogrel temporarily as patient continues to ooze from left elbow abrasion and peripheral IV. Do not want to reverse warfarin yet as patient is high risk of VTE and has history of left atrial appendage thrombus. -Continue to monitor CBC daily. 9. Alcohol dependence, chronic, present on admission. Stable. -Patient reports he drinks two double shot mixed drinks per night. He denies any history of alcohol withdrawal, DTs or alcohol withdrawal seizures. -Discussed alcohol use and recommended he cut back or abstain altogether. -Continue to monitor for signs of alcohol withdrawal low threshold to start CIWA protocol. Disposition: Patient likely to discharge home with home health tomorrow if kidney function has improved. Quality VTE Deep Vein Thrombosis/Pulmonary Embolism Present on Admission: No
--- NOTE | 2019-11-28 10:11 | DI.ECHO.S_ITS ---
[place] [facility]---------+ [facility] +---------+ : : [address] : [address] : : : : [id number] : : : : Phone: [phone]+ Echocardiogram Report + + :Name: SERENITY LITTLEJOHN Study Date: 11/29/2019 Height: 72 in : :[facility] Weight: 212 lb : : Gender: Male BSA: 2.2 m2 : :: 1935 Age: 84 yrs BP: 150/78 mmHg: :Reason For Study: Orthostatic Hypotension : :Ordering Physician: <No : :Ordering Physician Performed By: Louie Saravia : :Selected> : :Referring: ABDULLAHI RENEE : + + Interpretation Summary Technically difficult study. Mild-moderate concentric left ventricular hypertrophy with ejection fraction 55-60%. Moderate biatrial enlargement. 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 with the mean gradient of 18 mmHg. Mild mitral annular calcification. Mild mitral regurgitation. Moderate tricuspid regurgitation. Right ventricular systolic pressure is estimated to be 54 mmHg plus the clinically estimated CVP which cannot be estimated on this exam. Procedure: A two-dimensional transthoracic echocardiogram with color flow and Doppler was performed. The study quality was technically difficult. There is no prior echocardiogram noted for this patient. Left Ventricle: The left ventricle is normal in size. There is mild-moderate concentric left ventricular hypertrophy. Left ventricular systolic function is normal. The ejection fraction is estimated to be 55-60%. There are no obvious focal wall motion abnormalities noted but poor endocardial definition reduces the sensitivity for the detection of such. Right Ventricle: The right ventricle grossly appears normal in size with probable normal systolic function. Atria: There is moderate biatrial enlargement. The interatrial septum is intact with no evidence for an atrial septal defect. Mitral Valve: The mitral valve leaflets appear mildly thickened, but open well. The mitral valve leaflets are mildly calcified. There is mild mitral annular calcification. There is mild mitral regurgitation. 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 The peak aortic velocity is 2.9 m/sec. The aortic valve mean gradient is 18 mmHg. There is trace aortic regurgitation. Tricuspid Valve: The tricuspid valve is not well visualized. There is moderate tricuspid regurgitation. Right ventricular systolic pressure is estimated to be 54 mmHg plus the clinically estimated CVP which cannot be estimated on this exam. Pulmonic Valve: The pulmonic valve is not well visualized. There is moderate to severe pulmonic regurgitation. Great Vessels: The aortic root is not well visualized. The ascending aorta is moderately enlarged. The pulmonary artery is normal size. The inferior vena cava was not visualized. Pericardium/ Pleura There is no pericardial effusion. There is no pleural effusion. MMode/2D Measurements & Calculations LVIDd: 5.2 cm LVOT diam: 2.1 cm LVIDs: 3.6 cm asc Aorta Diam: 4.1 cm FS: 30.5 % EPSS: 0.78 cm IVSd: 1.4 cm LVPWd: 1.3 cm LV rouse. diameter/BSA (cm/m^2): 2.4 LV sys. diameter/BSA (cm/m^2): 1.7 LA A2 area: 28.3 cm2 RA long axis: 7.0 cm LA A4 area: 23.6 cm2 RA area: 27.2 cm2 LA length (vol): 5.4 cm RA vol: 89.1 ml LA vol: 103.9 ml RA : 40.8 ml/m2 LA vol index: 47.6 ml/m2 TAPSE: 1.2 cm Doppler Measurements & Calculations Ao V2 max: 291.4 cm/sec LVOT Max Camron: 100.8 cm/sec Ao V2 mean: 197.2 cm/sec LV V1 max P.1 mmHg Ao max P.0 mmHg LV V1 VTI: 22.7 cm Ao mean P.1 mmHg CURTIS(I,D): 1.2 cm2 Ao V2 VTI: 62.1 cm CURTIS(V,D): 1.2 cm2 sev ratio: 0.37 CURTIS indexed to BSA (cm^2/m^2): 0.56 MV E max camron: 120.7 cm/sec TR max camron: 364.9 cm/sec MV A max camron: 103.8 cm/sec TR max P.3 mmHg MV E/A: 1.2 Med Peak E' Camron: 6.6 cm/sec E/E' med: 18.3 Lat Peak E' Camron: 10.1 cm/sec E/E' lat: 11.9 E/e' average: 15.1 MV dec time: 0.22 sec SV(LVOT): 76.0 ml Electronically signed by: Vidya Ray on Reading Physician:11/29/2019 12:20 PM
--- NOTE | 2019-11-28 10:15 | PT.IPTN ---
Physical Therapy Treatment Note M2 PT-IP Current Condition Start: 11/27/19 08:38 Freq: NEEDED Status: Active Protocol: Document 11/27/19 12:15 AW (Rec: 11/27/19 12:50 AW [id number]) Physical Therapy Current Condition Current Condition Evaluation Date 11/27/19 Treatment Diagnosis acute hypoxic respiratory failure, difficulty in walking Onset Date 11/26/19 Precautions Other Precautions known syncopal episode, fall risk Weight Bearing Status Weight Bearing Status Full Weight Bearing M3 PT-IP Subjective Start: 11/27/19 08:38 Freq: NEEDED Status: Active Protocol: Document 11/28/19 09:50 AW (Rec: 11/28/19 10:15 AW [id number]) Subjective Physical Therapy Visit Type Type Treatment Note Visit Start Time 08:58 Visit Stop Time 09:24 Total Visit Minutes 26 Number of DENTAL RESIDENT Visits 0 Physical Therapy Visit Comments Patient Comments I'm feeling a little better today. M4 PT-IP Mobility and Gait Start: 11/27/19 08:38 Freq: NEEDED Status: Active Protocol: Document 11/28/19 09:50 AW (Rec: 11/28/19 10:15 AW [id number]) PT-Bed Mobility Assessment Rolling Type of Rolling Log Rolling Level of Assist Standby Assistance Supine to Sit Supine to Sit Contact Guard Assistance,1 Person Assistance,Bedrails Sit to Supine Sit to Supine Standby Assistance Scooting Scooting to Edge of Bed Standby Assistance PT-Transfer Assessment Sit to and From Stand Sit to and from Stand Contact Guard Assistance Equipment Transfer Assistive Device Gait Belt,4 Wheeled Walker Orthotic/Prosthetic Devices or Brace: No Transfers Transfer Destination Bed,Chair Transfer Technique pt ambulated with 4WW Transfer Ability Level of Assist Contact Guard Assistance Comments Mobility Comments VS monitored throughout: sitting 129/71 HR 66, after 5 min standing 92/45 HR 73, immediate sitting EOB 104/57 HR 70, after ambulation 129/71 HR 69. Pt found sitting up in chair finishing breakfast. Transfer to bed required CGA with use of 4WW. Pt completed sit > supine SBA and supine to sit with log roll to right, use of bed rails, verbal cues for sequencing and CGA. Sit to stand from chair and bed were completed with 4WW CGA. After gait training, pt returned to bedside chair SBA, demonstrating safe technique with 4WW. Pt positioned in chair with alarm on for safety , call light and table within reach. Gait Assessment Gait Gait Assistance Required: Standby Assistance,Contact Guard Assist Distance (Feet) 150 Able to Maintain Weight Bearing Status Yes During Gait Assistive Devices Assistive Device Gait Belt,Straight Cane,4 Wheeled Walker Orthotic/Prosthetic Devices or Brace: No Gait Deviations General Gait Pattern Antalgic,Decreased Stride Length,Decreased Feet Clearance,Flexed Trunk,Step-to Gait Factors Limiting Gait Function Factors Limiting Gait Function Decreased Activity Tolerance, Decreased Strength,Pain, Respiratory Distress Comments Gait Comments Pt ambulated in the halls 125 feet with 4WW SBA to CGA and another 25 feet using SPC requiring constant CGA. Pt admits to feeling less steady and PT observes decreased gait speed and step length with SPC. Pt was asymptomatic throughout treatment other than vague report of mild shortness of breath. PT-Balance Assessment Sitting Balance and Reactions Static Sitting Balance Ability Good Dynamic Sitting Balance Ability Good Standing Balance and Reactions Static Standing Balance Ability Good Dynamic Standing Balance Ability Fair Device Used 4WW M5 PT-IP Objective Assessments Start: 11/27/19 08:38 Freq: NEEDED Status: Active Protocol: Document 11/27/19 12:15 AW (Rec: 11/27/19 12:50 AW [id number]) Orientation Orientation/Cognition Level of Alertness Alert Orientation Name,Day of Week,Place, Situation Language Function Ability No Deficits Noted Safety Awareness Understands Safety Issues Memory Description No Deficits Noted Gross Range of Motion Lower Extremity ROM Assessment Within Functional Limits Strength Lower Extremity Strength Assessment Bilaterally Impaired Hip 4-/5 Knee 4/5 Ankle 4+/5 Coordination Assessment Gross Coordination Gross Coordination WNL Sensation Assessment Sensation Gross Sensation WNL Other Assessments Other Other Assessments Orthostatic BP: supine 147/85 HR 72; after 5 minutes sitting 140/64 HR 71; after standing (including 5 foot walk to toilet where pt stood to void) 126/59 HR 75. BP after 75 feet ambulation 123/71 HR 80. M6 PT-IP Treatment Start: 11/27/19 08:38 Freq: NEEDED Status: Active Protocol: Document 11/28/19 09:50 AW (Rec: 11/28/19 10:15 AW [id number]) Physical Therapy Treatment Education Education Provided Precautions,Safety Other Treatments Other Treatment Performed PT continued to recommend use of 4WW at home to which pt is agreeable. M7 PT-IP Assessment and Plan Start: 11/27/19 08:38 Freq: NEEDED Status: Active Protocol: Document 11/28/19 09:50 AW (Rec: 11/28/19 10:15 AW [id number]) PT Summary Assessment and Plan Summary Impairments Pain,Strength,Balance,Bed Mobility,Transfers,Gait, Activity Tolerance Progress Towards Goals Progressing Toward Goals Assessment Summary Patel improved with bed mobility and transfers, but still required use of bed rails and CGA. PT assessed safety with 4WW and SPC with PT and pt clearly expressing preference for 4WW. Pt demonstrated improved steadiness, confidence, gait speed, and step length with the 4WW. Pt continues to experience orthostatic drop with standing but is asymptomatic - nursing and hospitalist aware. In the context of diminished strength and activity tolerance, PT continues to recommend home with home health services when medically cleared for discharge. Goals Bed Mobility Goal Independent Transfer Goal Independent,Cane,Four Wheeled Walker Gait Goal Independent,Cane,Front Wheel Walker Gait Distance 200 Days to Meet Goals 5 Frequency of Treatment Frequency Of Treatment Once a Day Treatment Plan Physical Therapy Treatment Plan Bed Mobility Training,Transfer Training,Gait Training, Therapeutic Exercise,Balance Retraining,Discharge Planning, Hot or Cold Pack,Neuromuscular Re-ed Other Recommendations and Next Treatment monitor vitals, ther ex for B Focus LE strengthening, gait training with 4WW Recommendations To Nursing Amount of Assist Needed 1 Person Assist Discharge Recommendations PT Discharge Recommendations Home with Assistance,Home Health
--- NOTE | 2019-11-28 10:20 | PT.IPTN ---
Physical Therapy Treatment Note M2 PT-IP Current Condition Start: 11/27/19 08:38 Freq: NEEDED Status: Active Protocol: Document 11/27/19 12:15 AW (Rec: 11/27/19 12:50 AW [id number]) Physical Therapy Current Condition Current Condition Evaluation Date 11/27/19 Treatment Diagnosis acute hypoxic respiratory failure, difficulty in walking Onset Date 11/26/19 Precautions Other Precautions known syncopal episode, fall risk Weight Bearing Status Weight Bearing Status Full Weight Bearing M3 PT-IP Subjective Start: 11/27/19 08:38 Freq: NEEDED Status: Active Protocol: Document 11/28/19 09:50 AW (Rec: 11/28/19 10:15 AW [id number]) Subjective Physical Therapy Visit Type Type Treatment Note Visit Start Time 08:58 Visit Stop Time 09:24 Total Visit Minutes 26 Number of CLOTH WEIGHER Visits 0 Physical Therapy Visit Comments Patient Comments I'm feeling a little better today. M4 PT-IP Mobility and Gait Start: 11/27/19 08:38 Freq: NEEDED Status: Active Protocol: Document 11/28/19 09:50 AW (Rec: 11/28/19 10:15 AW [id number]) PT-Bed Mobility Assessment Rolling Type of Rolling Log Rolling Level of Assist Standby Assistance Supine to Sit Supine to Sit Contact Guard Assistance,1 Person Assistance,Bedrails Sit to Supine Sit to Supine Standby Assistance Scooting Scooting to Edge of Bed Standby Assistance PT-Transfer Assessment Sit to and From Stand Sit to and from Stand Contact Guard Assistance Equipment Transfer Assistive Device Gait Belt,4 Wheeled Walker Orthotic/Prosthetic Devices or Brace: No Transfers Transfer Destination Bed,Chair Transfer Technique pt ambulated with 4WW Transfer Ability Level of Assist Contact Guard Assistance Comments Mobility Comments VS monitored throughout: sitting 129/71 HR 66, after 5 min standing 92/45 HR 73, immediate sitting EOB 104/57 HR 70, after ambulation 129/71 HR 69. Pt found sitting up in chair finishing breakfast. Transfer to bed required CGA with use of 4WW. Pt completed sit > supine SBA and supine to sit with log roll to right, use of bed rails, verbal cues for sequencing and CGA. Sit to stand from chair and bed were completed with 4WW CGA. After gait training, pt returned to bedside chair SBA, demonstrating safe technique with 4WW. Pt positioned in chair with alarm on for safety , call light and table within reach. Gait Assessment Gait Gait Assistance Required: Standby Assistance,Contact Guard Assist Distance (Feet) 150 Able to Maintain Weight Bearing Status Yes During Gait Assistive Devices Assistive Device Gait Belt,Straight Cane,4 Wheeled Walker Orthotic/Prosthetic Devices or Brace: No Gait Deviations General Gait Pattern Antalgic,Decreased Stride Length,Decreased Feet Clearance,Flexed Trunk,Step-to Gait Factors Limiting Gait Function Factors Limiting Gait Function Decreased Activity Tolerance, Decreased Strength,Pain, Respiratory Distress Comments Gait Comments Pt ambulated in the halls 125 feet with 4WW SBA to CGA and another 25 feet using SPC requiring constant CGA. Pt admits to feeling less steady and PT observes decreased gait speed and step length with SPC. Pt was asymptomatic throughout treatment other than vague report of mild shortness of breath. PT-Balance Assessment Sitting Balance and Reactions Static Sitting Balance Ability Good Dynamic Sitting Balance Ability Good Standing Balance and Reactions Static Standing Balance Ability Good Dynamic Standing Balance Ability Fair Device Used 4WW M5 PT-IP Objective Assessments Start: 11/27/19 08:38 Freq: NEEDED Status: Active Protocol: Document 11/27/19 12:15 AW (Rec: 11/27/19 12:50 AW [id number]) Orientation Orientation/Cognition Level of Alertness Alert Orientation Name,Day of Week,Place, Situation Language Function Ability No Deficits Noted Safety Awareness Understands Safety Issues Memory Description No Deficits Noted Gross Range of Motion Lower Extremity ROM Assessment Within Functional Limits Strength Lower Extremity Strength Assessment Bilaterally Impaired Hip 4-/5 Knee 4/5 Ankle 4+/5 Coordination Assessment Gross Coordination Gross Coordination WNL Sensation Assessment Sensation Gross Sensation WNL Other Assessments Other Other Assessments Orthostatic BP: supine 147/85 HR 72; after 5 minutes sitting 140/64 HR 71; after standing (including 5 foot walk to toilet where pt stood to void) 126/59 HR 75. BP after 75 feet ambulation 123/71 HR 80. M6 PT-IP Treatment Start: 11/27/19 08:38 Freq: NEEDED Status: Active Protocol: Document 11/28/19 09:50 AW (Rec: 11/28/19 10:15 AW [id number]) Physical Therapy Treatment Education Education Provided Precautions,Safety Other Treatments Other Treatment Performed PT continued to recommend use of 4WW at home to which pt is agreeable. M7 PT-IP Assessment and Plan Start: 11/27/19 08:38 Freq: NEEDED Status: Active Protocol: Document 11/28/19 09:50 AW (Rec: 11/28/19 10:15 AW [id number]) PT Summary Assessment and Plan Summary Impairments Pain,Strength,Balance,Bed Mobility,Transfers,Gait, Activity Tolerance Progress Towards Goals Progressing Toward Goals Assessment Summary Patel improved with bed mobility and transfers, but still required use of bed rails and CGA. PT assessed safety with 4WW and SPC with PT and pt clearly expressing preference for 4WW. Pt demonstrated improved steadiness, confidence, gait speed, and step length with the 4WW. Pt continues to experience orthostatic drop with standing but is asymptomatic - nursing and hospitalist aware. In the context of diminished strength and activity tolerance, PT continues to recommend home with home health services when medically cleared for discharge. Goals Bed Mobility Goal Independent Transfer Goal Independent,Cane,Four Wheeled Walker Gait Goal Independent,Cane,Four Wheel Walker Gait Distance 200 Days to Meet Goals 5 Frequency of Treatment Frequency Of Treatment Once a Day Treatment Plan Physical Therapy Treatment Plan Bed Mobility Training,Transfer Training,Gait Training, Therapeutic Exercise,Balance Retraining,Discharge Planning, Hot or Cold Pack,Neuromuscular Re-ed Other Recommendations and Next Treatment monitor vitals, ther ex for B Focus LE strengthening, gait training with 4WW Recommendations To Nursing Amount of Assist Needed 1 Person Assist Discharge Recommendations PT Discharge Recommendations Home with Assistance,Home Health
--- NOTE | 2019-11-28 11:12 | OT.IP.EVAL ---
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) Stenosis of coronary stent (Acute) Surgical History (Last Updated 11/27/19 @ 15:37 by Esme Renae DO) H/O aortic valve replacement (Acute) H/O transurethral resection of prostate (Acute) History of cardiac radiofrequency ablation (Acute) History of coronary artery stent placement (Acute) S/P TAVR (transcatheter aortic valve replacement) (Acute) Occupational Therapy Inpatient Evaluation/Re-Eval M1 PT/OT-IP Prior Functional Status Start: 11/27/19 08:38 Freq: NEEDED Status: Active Protocol: Document 11/28/19 13:02 CGR (Rec: 11/28/19 13:18 CGR [email or web address]) Medical Review Prior Functional Status Medical History Reviewed Yes Communication WNL Mobility and Gait Pt reports he was independent without AD for household ambulation but did use a single trekking pole for longer walks (anything longer than 1/2 block). He states he could go grocery shopping and stand 30-45 minutes with shopping cart for support. Activities of Daily Living and IADL's Pt reports independence with dressing, bathing, toileting though he states he did need occasional help with donning shoes and socks. Prior Functional Level (Other details) Pt drives. He is known to this facility, having completed an episode of care with cardiac rehab and pulmonary rehab. He either just started or was scheduled to start another round of rehab for PAD. Social History Household Members spouse Living Arrangements House Number of Floors (Floors) One Floor Number of Stairs To Enter/Railing? no stairs Home Environment High Toilet,Walk in Shower Home Equipment Front Wheel Walker,Four Wheel Walker,Straight Cane,Grab Bars In Shower Employment Status Retired M2 OT-IP Current Condition Start: 11/28/19 13:01 Freq: Status: Active Protocol: Document 11/28/19 13:02 CGR (Rec: 11/28/19 13:18 CGR [email or web address]) Occupational Therapy Current Condition Current Condition Evaluation Date 11/28/19 Treatment Diagnosis GLF, orthostatic hypotension Diagnosis Onset Date 11/27/19 M3 OT- IP Subjective and Pain Start: 11/28/19 13:01 Freq: Status: Active Protocol: Document 11/28/19 13:02 CGR (Rec: 11/28/19 13:18 CGR [email or web address]) OT- Subjective Occupational Therapy Visit Type Type Initial Evaluation Visit Start Time 10:39 Visit Stop Time 11:12 Total Visit Minutes 33 Notes Pt's present throughtout session. OT Pain Assessment Pain When Pain Assessed At Rest Pain Present Pain Present Pain Reported Location Back Intensity 4 Scale Used Numeric (1 - 10) Management Techniques Modification of Treatment,Re- positioning M4 OT- IP ADL's Start: 11/28/19 13:01 Freq: Status: Active Protocol: Document 11/28/19 13:02 CGR (Rec: 11/28/19 13:18 CGR [email or web address]) OT [id number] Comments OT Self-Feeding Comments Not meal time. OT ADL-Grooming General Evaluation Grooming Ability Contact Guard Assistance Areas Needing Assistance Retrieving/Set-up of Grooming Items,Combing/Brushing Hair, Face Washing Comments OT Grooming Comments Standing at sink OT ADL-Oral Care General Eval Oral Care Ability Contact Guard Assistance Areas of Assistance Brushing Teeth Comments Oral Care Comments Standing at sink OT ADL-Dressing Comments OT Dressing Comments Pt states he has difficulty donning socks and is interested in LB dressing with equipment. OT ADL-Toileting General Evaluation Toileting Ability Standby Assistance Comments OT Toileting Comments standing at toilet for urination with extra time and educated on use of walker with standing toileting. OT ADL-Bathing Comments OT Bathing Comments Not performed in this session. M5 OT- IP IADL's Start: 11/28/19 13:01 Freq: Status: Active Protocol: Document 11/28/19 13:02 CGR (Rec: 11/28/19 13:18 CGR [email or web address]) OT-Instrumental Activities of Daily Living Deficits IADL Deficits Identified Deficits Home Safety Awareness Awareness of Need for Assistance at Home Good Awareness Ability to Problem Solve Emergency Able to Problem Solve Situations Medication Management Medication Management No Deficits Identified Money Management Money Management No Deficits Identified Meal Preparation Meal Preparation Caregiver Provides Assist Patient Ombudsperson Patient Ombudsperson Caregiver Provides Assist Driving Driving Caregiver Provides Assist M6 OT- IP Functional Cognition Start: 11/28/19 13:01 Freq: Status: Active Protocol: Document 11/28/19 13:02 CGR (Rec: 11/28/19 13:18 CGR [email or web address]) Cognitive Factors Limiting Selfcare Function Cognitive Ability Level of Alertness Alert Patient Orientation Name,Age,Birthday,Month,Date, Year,Day of Week,Place, Situation Attention Span Ability Capable of Focused Attention, Capable of Sustained Attention Ability to Follow Commands Able to Follow Multi-Step Commands Memory Description No Deficits Noted Safety Awareness No Deficits Noted Problem Solving Ability No deficits Noted OT- Vision and Hearing OT- Hearing Assessment OT- Hearing Assessment Hearing Impaired,Use of Hearing Aids OT- Vision Assessment Visual Acuity Glasses For Reading Visual Attentiveness WFL Occular Pursuits WFL Visual Convergence WFL Visual Chaney WFL Vision Assessment Comments Pt states he has hearing aids at home. M7 OT- IP Mobility and Balance Start: 11/28/19 13:01 Freq: Status: Active Protocol: Document 11/28/19 13:02 CGR (Rec: 11/28/19 13:18 CGR [email or web address]) OT- Bed Mobility Assessment Sit to Supine Sit to Supine Assist Standby Assistance Scooting Scooting to Edge of Bed Standby Assistance Scooting Up and Down in Bed Standby Assistance OT-Transfer Assessment Sit to and From Stand Sit to and from Stand Contact Guard Assistance Transfers Transfer Ability Contact Guard Assistance Technique Transfer Destination Bed,Chair,Toilet Transfer Technique Stand Step Pivot Devices Transfer Assistive Devices Gait Belt,Front Wheeled Walker Comments Mobility Comments Mobility around the room. Pt needed VC for use of walker to perform ADLs like standing at the sink and standing for urination. OT- Balance Assessment Sitting Balance and Reactions Static Sitting Balance Ability Good Dynamic Sitting Balance Ability Fair M8 OT- IP Objective Assessments Start: 11/28/19 13:01 Freq: Status: Active Protocol: Document 11/28/19 13:02 CGR (Rec: 11/28/19 13:18 CGR [email or web address]) OT Gross Range of Motion Upper Extremity Range of Motion Assessment Within Functional Limits OT Strength Upper Extremity Strength Assessment Within Functional Limits OT- Coordination Assessment Upper Extremity Finger to Nose Test Within Functional Limits Finger Tapping Test Within Functional Limits OT-Muscle Tone Assessment Muscle Tone WNL Yes OT Sensation Assessment Edema Edema Absent M9 OT- IP Assessment and Plan Start: 11/28/19 13:01 Freq: Status: Active Protocol: Document 11/28/19 13:02 CGR (Rec: 11/28/19 13:18 CGR [email or web address]) OT Summary Assessment and Plan Potential Rehabilitation Potential Good Analytic Complexity at Evaluation Low Summary OT Impairments Pain,Balance,Functional Mobility,Grooming,Dressing, Toileting,Bathing,Toilet Transfers,Shower Transfers Progress Towards Goals Progressing Toward Goals Assessment Summary Pt presents as a low complexity evaluation. Pt admitted after ground level fall and found to be orthostatic. Pt just finished receiving a second bolus of fluid for his orthostatic hypotension when OT saw pt. BP as follows: Initial stand 111 /61, 2 minutes later 117/74, 5 minutes after initial BP 131/ 65. Pt states fatigue with mobility but no dizziness. Educated on different symptoms of low BP. Pt moves well as CGA but is quickly fatigued. Pt would benefit from OT services while hospitalized and current recommendation is for discharge to SNF. Goals Grooming Goal Independent Dressing Goal Independent,Supervisory Examiner,Sock Aid Toileting Goal Independent Bathing Goal Independent Toilet Transfer Goal Independent Shower Transfer Goal Independent Days to Meet Goals 5 Frequency of Treatment Frequency Of Treatment Once a Day Treatment Plan OT Treatment Plan ADL Training,Functional Mobility,Therapeutic Exercises ,Patient/Family Education, Discharge Planning Other Treatment Recommendations and Next LB dressing with hip kit. Treatment Focus Shower if not symptomatic and agreeable. Discharge Recommendations OT Discharge Recommendations SNF Rehab Home Equipment Needs shower chair and GB at toilet
--- NOTE | 2019-11-28 13:57 | PC.NURSE ---
Orthostasis: Orthostatic vitals measured after completion of fluid bolus per request from Dr Renae. Measured both on the L wrist (w/ automatic cuff) and R upper arm (with manual cuff). These measurements did not show orthostasis as before, and appeared to match up pretty well from side to side. Vitals entered in computer, and will pass on to Dr Renae also. Pre-void bladder scan showed 645 ml, voided approx 300 ml, with PVR scan showing approx 380 ml. Will relay to Dr Renae also (she had asked earlier that we do this). Patient did void sitting at edge of bed, so feels he probably did not empty as well as he could have if he'd been standing at the time. Up in chair now per his request. Light and belongings within reach, chair alarm on.
[2019-11-28] MEDS: MAG HYDROX/ALUM/SIMETH 30 ML UDC PO (16:23)
[2019-11-28] MEDS: CALCIUM CARBONATE 500 MG TAB 1000 MG PO (16:23)
[2019-11-28 21:14] LABS: Creatine Kinase 99 U/L (55-170)
[2019-11-28] MEDS: carvediloL 6.25 MG TABLET PO (21:14)
[2019-11-28] MEDS: ATORVASTATIN 20 MG TABLET 40 MG PO (21:14)
[2019-11-28] MEDS: MELATONIN 3 MG TABLET 6 MG PO (21:14)
[2019-11-28 21:27] LABS: Troponin I 0.035 ng/mL (0.01-0.034)
--- NOTE | 2019-11-28 22:50 | PC.NURSE ---
Magdalene shift note: No c/o dizziness, with position changes. Up out of bed to BR, FWW. States still feels weak. Placed on O2 at 1L via NC due to desats while asleep to 84-85%.
[2019-11-29] VITALS (14 sets, daily range): BP systolic 91–150; BP diastolic 48–80; PULSE 66–87; RESP 16–18; TEMP 36.4–36.8; O2SAT 92–96
--- NOTE | 2019-11-29 01:15 | PC.NURSE ---
Patient is alert and oriented. Breath sounds diminished throughout. Currently on oxygen per NC at 1L/min as evening RN reported patient desats with sleep. Was 98% on the 1L and now when asleep is 92%; on continuous pulse oximetry. HR irregular with hx of afib; telemetry reading was afib CVR at last check. Denies nausea. BT hyperactive. Denies dysuria, frequency or urgency but does state he has hesitancy; voiding per urinal. Able to turn self in bed. Dressings to left shoulder and elbow are CDI. Has bruising around dressing on shoulder, bilateral forearms, upper abdomen, left buttock and hip from fall he sustained prior to admission. Trace bilateral foot edema. Fall risk score is high and bed alarm is activated. Bilateral SOWMYA stockings on. Had SCD's on at shift change but stated he would not be able to sleep with them on so discussed with ISAIAH Tovar, and order for SCD's was d'cd. Denies pain. On chemo isolation.
[2019-11-29] MEDS: PANTOPRAZOLE 20 MG TABLET PO (05:47)
[2019-11-29 06:23] LABS: Add Manual Diff / Slide Review NO; Basophils Absolute Auto 0 /uL (0-100); Basophils Percent Auto 0.2 % (0-2); Eosinophils Absolute Auto 0 /uL (0-450); Eosinophils Percent Auto 0.4 % (2-4); Hematocrit 26.1 % (41-53); Lymphocytes Absolute Auto 800 /uL (1100-4500); Mean Corpuscular HGB Conc 34.5 % (30-36); Mean Corpuscular Hemoglobin 36.2 PG (26-34); Mean Corpuscular Volume 104.9 fL (80-100); Monocytes Absolute Auto 600 /uL (0-900); Monocytes Percent Auto 9.5 % (3-14); Neutrophils Absolute Auto 5100 /uL (1500-7000); Neutrophils Percent Auto 77.9 % (50-75); Platelet Count 112 X10^3/uL (150-400); Red Blood Cell Count 2.49 X10^6/uL (4.5-5.9); Red Cell Distribution Width 13.1 % (11.6-14.8); White Blood Cell Count 6.5 X10^3/uL (4.5-11.0)
[2019-11-29 06:27] LABS: INR 2.6 (0.9-1.3); Prothrombin Time 30.1 SECONDS (10.1-12.7)
[2019-11-29 06:35] LABS: Blood Urea Nitrogen 24 mg/dL (9-20); Calcium 8.6 mg/dL (8.4-10.2); Carbon Dioxide 29 mmol/L (22-32); Chloride 104 mmol/L (98-107); Estimated Glomerular Filt Rate 57.8 mL/min (>60); Glucose 112 mg/dL (80-110); HEMOLYSIS < 15 (0-50); Magnesium 2.3 mg/dL (1.6-2.3); Sodium 136 mmol/L (137-145)
[2019-11-29 06:38] LABS: Potassium 5.5 mmol/L (3.4-5.1)
[2019-11-29 06:47] LABS: Troponin I 0.041 ng/mL (0.01-0.034)
[2019-11-29 08:54] LABS: BUN Creatinine Ratio 18.3 (6-22); Blood Urea Nitrogen 22 mg/dL (9-20); Calcium 8.4 mg/dL (8.4-10.2); Carbon Dioxide 28 mmol/L (22-32); Chloride 104 mmol/L (98-107); Estimated Glomerular Filt Rate 57.8 mL/min (>60); Glucose 105 mg/dL (80-110); HEMOLYSIS < 15 (0-50); Potassium 4.6 mmol/L (3.4-5.1); Sodium 137 mmol/L (137-145)
[2019-11-29] MEDS: SODIUM CHLORIDE 0.9% FLUSH 10 ML IV ×2 (10:23)
--- NOTE | 2019-11-29 10:23 | PM.DS.1 ---
History of Present Illness History of Present Illness Chief complaint: GLF Narrative: Written by myself Dr. Renae: Cayetnao Carrion is an 84-year-old male with a past medical history significant for coronary artery disease status post stenting x2, peripheral arterial disease, hypertension, hyperlipidemia, aortic stenosis status post open heart valve replacement and TAVR, paroxysmal atrial fibrillation status post ablation x2 and recent cardioversion on warfarin, HFpEF, CML on Gleevec, COPD, pulmonary hypertension and BPH who presented to the ED after sustaining a ground level fall. The patient reports that he got up around 1:00 a.m. in the morning to use the restroom and was standing at bathroom sink and then suddenly he was on the bathroom floor. He landed on his bottom and back but thinks he may have possibly hit his head lightly. He has an abrasion on his posterior left shoulder and left elbow and a bruise on his anterior left shoulder. He does not believe he lost consciousness but does not remember what led to the fall as it happened ?so quickly. He then began having nausea with an episode of vomiting and he just didn't feel well which prompted him to call EMS. When EMS arrived he was found to have positive orthostasis and the patient reports mild lightheadedness at that time. He receives most of his medical care at [facility] including PCP, Cardiology, vascular surgery, pulmonology and urology. He reports that over the last 6-7 days he had doubled his furosemide dose due to 4 lb weight gain. He reports his dry weight is 204 lb and he was up to 208 lb prompting him to increases furosemide dose. He also reported he took prednisone with it which seems to help him urinate. Discussed use of glucocorticoids in detail and recommended he only take this medication at the guidance and under the supervision of his medical providers. He currently has no complaints other than back pain due to the fall. He denies headache, lightheadedness or dizziness, cough, sore throat, rhinitis, chest pain, shortness of breath, abdominal pain, nausea, vomiting, fever, chills, dysuria, diarrhea or constipation. He does endorse chronic urinary hesitancy due to BPH. ED course: Vital signs temperature 98.9?, blood pressure 139/53, pulse rate 71, respiratory rate 22, pulse ox 94% on room air. Chest x-ray did not demonstrate any pneumo/hemothorax. CT brain without contrast and CT chest, abdomen and pelvis with contrast did not demonstrate any intracranial bleed or internal hemorrhage. Cervical spinal x-ray did not demonstrate any acute fractures. CBC demonstrated likely glucocorticoid induced leukocytosis and chronic macrocytic anemia with hemoglobin and hematocrit higher than usual baseline. CMP demonstrated elevated BUN at 39, elevated creatinine at 1.8 (baseline creatinine 0.9-1.2), reduced eGFR at 36.2, and mildly elevated glucose at 153 likely glucocorticoid induced otherwise all other values normal. INR therapeutic at 2.7. The patient was admitted observation for over-diuresis/dehydration, SARAH, and orthostasis. Discharge Providers Provider Date of admission: 11/27/19 06:48 Discharge Date: 11/29/19 Primary care physician: Carol Ann Miller PA-C Consults: 11/27/19 07:00 Consult to Discharge Planning Routine Comment: Consult to Occupational Therapy Evaluate & Treat Comment: Syncope, GLF Physician Instructions: Evaluate and treat 11/27/19 07:01 Consult to Physical Therapy Evaluate & Treat Comment: Syncope, GLF Physician Instructions: Evaluate and Treat Discharge provider: Esme Renae DO Summary Hospital Course Hospital Course: Cayetano Carrion is an 84-year-old male with a past medical history significant for coronary artery disease status post stenting x2, peripheral arterial disease, hypertension, hyperlipidemia, aortic stenosis status post open heart valve replacement and TAVR, paroxysmal atrial fibrillation status post ablation x2 and recent cardioversion on warfarin, HFpEF, CML on Gleevec, COPD, pulmonary hypertension and BPH who presented to the ED after sustaining a ground level fall. 1. Orthostatic hypotension with ground level fall, secondary to over-diuresis, present on admission. Active. -Patient presented after ground level fall in which he denies feeling lightheaded/dizzy or loss of consciousness. Patient did not have loss of bowel or bladder function. -Per EMS, the patient was orthostatic upon arrival. -EKG demonstrated sinus or ectopic atrial rhythm with occasional ventricular and supraventricular premature complexes and T-wave inversion in leads II and II. Patient denies ACS or chest pain symptoms. Troponin negative at 0.031. Continue to monitor closely on telemetry. -Chest x-ray did not demonstrate any pneumo/hemothorax. -CT brain without contrast and CT chest, abdomen and pelvis with contrast did not demonstrate any intracranial bleed or internal hemorrhage. -Cervical spinal x-ray did not demonstrate any acute fractures. -Echocardiogram did not demonstrate any significant valve disease or pump failure to account for orthostatsis. Echocardiogram demonstrated mild-moderate concentric left ventricular hypertrophy with ejection fraction 55-60%, moderate biatrial enlargement, TAVR valve in bioprosthetic valve present with peak aortic velocity is 2.9 m/sec with the mean gradient of 18 mmHg, mild mitral annular calcification, mild mitral regurgitation, moderate tricuspid regurgitation, RVSP 54 mmHg. -Initial hemoglobin 11.1 which is higher than baseline and possibly due to hemoconcentration. Continue to monitor for overt signs of bleeding. Applied pressure dressing to abrasions on posterior left shoulder and elbow to stop bleeding and recommended minimal movement of left arm. Patient is currently hemodynamically stable. Continued to monitor hemoglobin and hematocrit daily which was stable. -Received 1 L of NS in ED. Continued normal saline at 100 mL/hr for 250 cc and received another 1 L total bolus of NS. Discontinued IV fluids to avoid fluid overload. -Continued physical therapy evaluation and treatment. -Continued orthostatic blood pressure measurements every shift. Placed compression stockings on patient. The patient's orthostasis resolved. Held furosemide and other cardiac medications initially as below. Instructed patient to resume furosemide only as prescribed and to discuss with his PCP before taking extra doses. 2. Acute kidney injury on chronic kidney disease stage III, secondary to over-diuresis, present on admission. Resolving. -Secondary to over-diuresis. -Initial creatinine 1.8. Baseline creatinine 0.9-1.2. Creatinine trending down now 1.4. -Received 1 L NS in the ED. Continued normal saline at 100 mL/hr for 250 mL an discontinued. The patient's orthostasis resolved and recurred this morning for which he received another 1 L (2- 500 mL NS boluses). -Held lisinopril and furosemide. Avoid nephrotoxic agents. -Continue to monitor renal function daily. 3. Leukocytosis, present on admission. Resolved. -Likely secondary to glucocorticoid versus reactive. -Patient reports he took a dose of prednisone to help with diuresis? Discussed glucocorticoid use and recommended that he only use prednisone at the guidance and under the supervision of a physician. -No systemic signs of infection. Procalcitonin negative. Afebrile. Chest x-ray and CT chest, abdomen and pelvis with contrast did not demonstrate any acute infectious process. 4. CAD status post stenting x2, HFpEF, PAD with claudication, hypertension, hyperlipidemia, paroxysmal atrial fibrillation on warfarin, and aortic stenosis status post TAVR, chronic, present on admission. Stable. -Patient has completed cardiac rehab x2. The patient recently underwent cardioversion 6 months ago and is in sinus rhythm by physical exam as there is no palpable pulse deficit. EKG questionable sinus versus ectopic atrial rhythm. 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 Burch at [facility] and will request records specifically previous echocardiogram. -Continued atorvastatin 40 mg daily at bedtime, carvedilol 6.25 mg twice daily, clopidogrel 75 mg daily, and spironolactone 12.5 mg daily. Held lisinopril and furosemide due to SARAH and orthostasis. Held warfarin and clopidogrel temporarily as patient continued to ooze from left elbow abrasion and peripheral IV. Did not reverse warfarin as patient was high risk of VTE and has history of left atrial appendage thrombus. Discharged with instruction to restart warfarin and follow-up closely with Coumadin clinic for INR check. 5. CML, present on admission. Stable. -Continued Gleevec 400 mg daily. 6. COPD with pulmonary hypertension, chronic, present on admission. Stable. -Does not represent COPD exacerbation. -Patient has completed pulmonary rehab x2. -CT chest with contrast demonstrated pulmonary nodules with the largest stable compared to 2017, emphysematous changes and prominent pulmonary arteries, as before. -Continued home inhalers including albuterol 2 puffs every 6 hours as needed for shortness of breath and tiotropium 1 puff daily. 7. BPH status post TURP, chronic, present on admission. Stable. -Continued tamsulosin 0.4 mg daily. -Ordered as need PVR for concern of incomplete bladder emptying. -Urinalysis does not appear grossly infected but was sent for culture. 8. Macrocytic anemia, chronic, present on admission. Stable. -Secondary to anemia of chronic kidney disease and possibly alcohol dependence now with some contribution due to acute blood loss. -Initial hemoglobin 11.1 which is higher than patient's baseline and he was likely hemoconcentrated due to over diuresis. Baseline hemoglobin 9.5-10.5. Hemoglobin now 9.1. Transfusion goal < 8.0. -Continued to monitor for hemodynamic instability and/or overt signs of bleeding. Held warfarin and clopidogrel temporarily as patient continues to ooze from left elbow abrasion and peripheral IV. Do not want to reverse warfarin yet as patient is high risk of VTE and has history of left atrial appendage thrombus. -Continued to monitor CBC daily. 9. Alcohol dependence, chronic, present on admission. Stable. -Patient reports he drinks two double shot mixed drinks per night. He denies any history of alcohol withdrawal, DTs or alcohol withdrawal seizures. -Discussed alcohol use and recommended he cut back or abstain altogether. -Continued to monitor for signs of alcohol withdrawal low threshold to start CIWA protocol. Exam Vital Signs (past 8 hours): - 11/29/19 03:06 11/29/19 08:00 11/29/19 09:30 Temperature 98.3 F 97.5 F L Pulse Rate 70 66 85 Respiratory Rate 18 18 Blood Pressure 144/80 H 137/71 100/62 Pulse Oximetry 94 96 92 Oxygen Delivery Method Room Air Oxygen Flow Rate 0 Objective Labs Result Diagrams: 11/29/19 05:52 11/29/19 08:20 Labs: Laboratory Results - last 24 hr 11/28/19 11/29/19 11/29/19 21:00 05:52 05:52 WBC 6.5 RBC 2.49 L Hgb 9.0 L Hct 26.1 L MCV 104.9 H MCH 36.2 H MCHC 34.5 RDW 13.1 Plt Count 112 L Neut % (Auto) 77.9 H Lymph % (Auto) 12.0 L Mclean % (Auto) 9.5 Eos % (Auto) 0.4 L Baso % (Auto) 0.2 Neut # (Auto) 5100 Lymph # (Auto) 800 L Mclean # (Auto) 600 Eos # (Auto) 0 Baso # (Auto) 0 PT 30.1 H D INR 2.6 H Sodium Potassium Chloride Carbon Dioxide BUN Creatinine Estimated GFR BUN/Creatinine Ratio Glucose Calcium Magnesium Total Creatine Kinase 99 CK-MB (CK-2) TNP CK-MB (CK-2) Rel Index TNP Troponin I 0.035 H 11/29/19 11/29/19 11/29/19 05:52 05:52 08:20 WBC RBC Hgb Hct MCV MCH MCHC RDW Plt Count Neut % (Auto) Lymph % (Auto) Mclean % (Auto) Eos % (Auto) Baso % (Auto) Neut # (Auto) Lymph # (Auto) Mclean # (Auto) Eos # (Auto) Baso # (Auto) PT INR Sodium 136 L 137 Potassium 5.5 H D 4.6 Chloride 104 104 Carbon Dioxide 29 28 BUN 24 H 22 H Creatinine 1.20 1.20 Estimated GFR 57.8 L 57.8 L BUN/Creatinine Ratio 20.0 18.3 Glucose 112 H 105 Calcium 8.6 8.4 Magnesium 2.3 Total Creatine Kinase CK-MB (CK-2) CK-MB (CK-2) Rel Index Troponin I 0.041 H Discharge Plan Discharge Plan Patient Disposition: Home Health Service Discharge comment: You are being discharged home with home health for physical and occupational therapy. Please follow-up with your primary care provider, Carol Ann Cross, at you scheduled appointment. You had over diuresed yourself and incurred a kidney injury and had orthostatic hypotension which led to your fall. Please do not take your furosemide other than how it is prescribed. If you begin to have shortness of breath or lower extremity swelling in combination with 2-3 lb weight gain please call your PCP or picking machine operator helper for further instruction in regard to taking extra of your furosemide. Please do not take steroids unless under the guidance of a physician. You may take Tylenol 650 mg every 6 hours and/or tramadol 50 mg 3 times a day as needed for back pain. You may also use heat and/or ice for pain relief. Please have labs performed by the end of the week including CBC, BMP, and INR. Discharge orders & Medications Prescriptions: New tramadol 50 mg Tablet 50 mg PO TID PRN (Reason: Pain, Moderate (4-6)) Qty: 20 RF: 0 acetaminophen 325 mg Tablet 650 mg PO Q6HR PRN (Reason: Fever/Mild Pain (1-3)) Qty: 30 RF: 0 Continued furosemide 20 MG tablet 40 mg PO QDAY Qty: 0 RF: 0 imatinib [Gleevec] 400 MG tablet 400 mg PO QDAY Qty: 0 RF: 0 warfarin [Coumadin] 2.5 MG tablet 2.5 mg PO DAILY Qty: 0 RF: 0 atorvastatin 40 MG tablet 40 mg PO HS Qty: 0 RF: 0 carvedilol 3.125 mg Tablet 6.25 mg PO BID RF: 0 tamsulosin 0.4 mg Capsule 0.4 mg PO DAILY RF: 0 Spiriva with HandiHaler 18 mcg Capsule, W/Inhalation Device 1 cap Inhalation DAILY RF: 0 clopidogrel 75 mg Tablet 75 mg PO DAILY RF: 0 spironolactone 25 mg Tablet 12.5 mg PO DAILY RF: 0 magnesium oxide 400 mg (241.3 mg magnesium) Tablet 400 mg PO DAILY RF: 0 ferrous sulfate 325 mg (65 mg iron) tablet 325 mg PO Q OTHER DAY RF: 0 omeprazole 20 mg Capsule,Delayed Release(Dr/Ec) 20 mg PO DAILY RF: 0 albuterol sulfate 90 mcg/actuation Hfa Aerosol Inhaler 2 puff INHALATION QID PRN (Reason: Shortness Of Breath) RF: 0 lisinopril 2.5 mg Tablet 2.5 mg PO DAILY RF: 0 Follow up/Referrals: Carol Ann Miller PA-C [Primary Care Provider] - 12/02/19 3:20 pm (appt:12/02 @ 3:20 with tim @ [facility] [phone] ) Diet/Activity/Treatments Diet: Low-fat, Low-sodium and Low-cholesterol Diet comment: Low-sodium less than 2 g or 2000 mg a day, Fluid restriction 1.5 L Activity: Activity as tolerated with four wheeled walker Skin/Wound/Dressing Care Skin care: apply pressure to wounds if bleeding and if they do not stop be seen by Dr Visit Report/Discharge Packet Instructions: The DASH Diet, DI for Orthostatic Hypotension, DI for Heart Failure, Fluid Restricted Diet, Low-Sodium Diet Visit Report Forms: Patient Portal/API, Stroke Signs & Symptoms Discharge Data Primary Care Provider: Carol Ann Miller Attending Provider: Eric Tovar Admit Date/Time: 11/27/19 06:48 Discharges patient from system. Discharge Date/Time: 11/29/19 15:44 Quality VTE Deep Vein Thrombosis/Pulmonary Embolism Present on Admission: No
[2019-11-29] MEDS: IMATINIB 400 MG 400 EACH PO (10:24)
--- NOTE | 2019-11-29 10:26 | PT.IPTN ---
Physical Therapy Treatment Note M2 PT-IP Current Condition Start: 11/27/19 08:38 Freq: NEEDED Status: Active Protocol: Document 11/27/19 12:15 AW (Rec: 11/27/19 12:50 AW [id number]) Physical Therapy Current Condition Current Condition Evaluation Date 11/27/19 Treatment Diagnosis acute hypoxic respiratory failure, difficulty in walking Onset Date 11/26/19 Precautions Other Precautions known syncopal episode, fall risk Weight Bearing Status Weight Bearing Status Full Weight Bearing M3 PT-IP Subjective Start: 11/27/19 08:38 Freq: NEEDED Status: Active Protocol: Document 11/29/19 10:26 CLB (Rec: 11/29/19 11:11 CLB [email or web address]) Subjective Physical Therapy Visit Type Type Treatment Note Visit Start Time 10:26 Visit Stop Time 10:46 Total Visit Minutes [address] Renae entered room and ther ex was deferred. Number of CERTIFIED FLIGHT INSTRUCTOR Visits 1 Physical Therapy Visit Comments Patient Comments pt willing to work with therapy. M4 PT-IP Mobility and Gait Start: 11/27/19 08:38 Freq: NEEDED Status: Active Protocol: Document 11/29/19 10:26 CLB (Rec: 11/29/19 11:11 CLB [email or web address]) PT-Transfer Assessment Sit to and From Stand Sit to and from Stand Contact Guard Assistance Equipment Transfer Assistive Device Gait Belt,4 Wheeled Walker Orthotic/Prosthetic Devices or Brace: No Transfers Transfer Destination Chair Transfer Technique pt ambulated with 4WW Transfer Ability Level of Assist Contact Guard Assistance Comments Mobility Comments BP in sitting 112/67, BP standing 91/48, BP in sitting after ~10ft of gait 116/61, BP in standing after ~30ft 118/ 55, BP sitting after ambulation 150/78. Pt with SOB with activity. Gait Assessment Gait Gait Assistance Required: Standby Assistance,Contact Guard Assist Distance (Feet) 50 Able to Maintain Weight Bearing Status Yes During Gait Assistive Devices Assistive Device Gait Belt,4 Wheeled Walker Orthotic/Prosthetic Devices or Brace: No Gait Deviations General Gait Pattern Antalgic,Decreased Stride Length,Decreased Feet Clearance,Flexed Trunk,Step-to Gait Factors Limiting Gait Function Factors Limiting Gait Function Decreased Activity Tolerance, Decreased Strength,Pain, Respiratory Distress Comments Gait Comments Pt with SOB with ambulation. Pt ambulated ~50ft in room due to low BP upon standing, pt with no c/o dizziness. (see mobility comments) M5 PT-IP Objective Assessments Start: 11/27/19 08:38 Freq: NEEDED Status: Active Protocol: Document 11/27/19 12:15 AW (Rec: 11/27/19 12:50 AW [id number]) Orientation Orientation/Cognition Level of Alertness Alert Orientation Name,Day of Week,Place, Situation Language Function Ability No Deficits Noted Safety Awareness Understands Safety Issues Memory Description No Deficits Noted Gross Range of Motion Lower Extremity ROM Assessment Within Functional Limits Strength Lower Extremity Strength Assessment Bilaterally Impaired Hip 4-/5 Knee 4/5 Ankle 4+/5 Coordination Assessment Gross Coordination Gross Coordination WNL Sensation Assessment Sensation Gross Sensation WNL Other Assessments Other Other Assessments Orthostatic BP: supine 147/85 HR 72; after 5 minutes sitting 140/64 HR 71; after standing (including 5 foot walk to toilet where pt stood to void) 126/59 HR 75. BP after 75 feet ambulation 123/71 HR 80. M6 PT-IP Treatment Start: 11/27/19 08:38 Freq: NEEDED Status: Active Protocol: Document 11/28/19 09:50 AW (Rec: 11/28/19 10:15 AW [id number]) Physical Therapy Treatment Education Education Provided Precautions,Safety Other Treatments Other Treatment Performed PT continued to recommend use of 4WW at home to which pt is agreeable. M7 PT-IP Assessment and Plan Start: 11/27/19 08:38 Freq: NEEDED Status: Active Protocol: Document 11/29/19 10:26 CLB (Rec: 11/29/19 11:11 CLB [email or web address]) PT Summary Assessment and Plan Summary Impairments Pain,Strength,Balance,Bed Mobility,Transfers,Gait, Activity Tolerance Progress Towards Goals Progressing Toward Goals Assessment Summary Pt present for tx. Pt requires CGA for sit-stand and gait. Pt is able to safely ambulate with 4WW with good safety awareness and is able to properly manage 4WW. Pt with SOB with activity and has decreased activity tolerance and encouraged to take standing or sitting rest breaks as needed. (See mobilty section for BP during activity) Goals Bed Mobility Goal Independent Transfer Goal Independent,Cane,Four Wheeled Walker Gait Goal Independent,Cane,Four Wheel Walker Gait Distance 200 Days to Meet Goals 5 Treatment Plan Physical Therapy Treatment Plan Bed Mobility Training,Transfer Training,Gait Training, Therapeutic Exercise,Balance Retraining,Discharge Planning, Hot or Cold Pack,Neuromuscular Re-ed Other Recommendations and Next Treatment monitor vitals, ther ex for B Focus LE strengthening, gait training with 4WW Recommendations To Nursing Amount of Assist Needed 1 Person Assist Discharge Recommendations PT Discharge Recommendations Home with Assistance,Home Health
[2019-11-29] MEDS: TAMSULOSIN 0.4 MG CAPSULE PO (10:27)
[2019-11-29] MEDS: MAGNESIUM OXIDE 400 MG TABLET PO (10:27)
[2019-11-29] MEDS: DOCUSATE 100 MG CAPSULE PO (10:27)
[2019-11-29] MEDS: FUROSEMIDE 40 MG TABLET PO (10:27)
[2019-11-29] MEDS: carvediloL 6.25 MG TABLET PO (10:27)
[2019-11-29] MEDS: SPIRONOLACTONE 25 MG TABLET 12.5 MG PO (10:56)
[2019-11-29] MEDS: LISINOPRIL 5 MG TABLET 2.5 MG PO (10:57)
[2019-11-29] MEDS: TIOTROPIUM BROMIDE 18 MCG INHALER INH (11:13)
--- NOTE | 2019-11-29 12:00 | OT.IP.TRT ---
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 (11/27/19) Occupational Therapy Treatment Note M2 OT-IP Current Condition Start: 11/28/19 13:01 Freq: Status: Active Protocol: Document 11/28/19 13:02 CGR (Rec: 11/28/19 13:18 CGR [email or web address]) Occupational Therapy Current Condition Current Condition Evaluation Date 11/28/19 Treatment Diagnosis GLF, orthostatic hypotension Diagnosis Onset Date 11/27/19 M3 OT- IP Subjective and Pain Start: 11/28/19 13:01 Freq: Status: Active Protocol: Document 11/29/19 12:39 CCC (Rec: 11/29/19 12:52 CCC [email or web address]) OT- Subjective Occupational Therapy Visit Type Type Treatment Note Visit Start Time 12:00 Visit Stop Time 12:33 Total Visit Minutes 33 Occupational Therapy Visit Comments Patient Comments Pt and present for OT treatment. Patient/Caregiver Goals Pt a little apprehensive about going home today, nursing aware. OT Pain Assessment Pain When Pain Assessed At Rest Pain Present Pain Present Pain Reported M4 OT- IP ADL's Start: 11/28/19 13:01 Freq: Status: Active Protocol: Document 11/29/19 12:39 CCC (Rec: 11/29/19 12:52 CCC [email or web address]) OT ELU-Tdcz-Kfkoagm Comments OT Self-Feeding Comments Not meal time. OT ADL-Grooming Comments OT Grooming Comments Recommended to have a chair to sit while doing shaving at the sink as pt tires easily. OT ADL-Dressing General Eval Lower Body Dressing Ability Standby Assistance,Minimal Assistance Comments OT Dressing Comments Educated pt on use of centrifugal operator due to difficulty for pt to bend over so able to terence socks with sock aid. Educated pt's on techniques to terence compression stockings if pt having to wear them at home . Nursing to clarify if pt needs to wear the compression stocking or not at home. OT ADL-Toileting General Evaluation Toileting Ability Standby Assistance,Minimal Assistance Comments OT Toileting Comments Educated to get BSC or use of FWW to help to stand if able to stabilize the FWW before coming to stand. OT ADL-Bathing Comments OT Bathing Comments Recommended pt get a shower chair. Pt very tired but wanting to shower, therefore nursing aid to assist with shower before leaving. Nursing notified of pt's request. M5 OT- IP IADL's Start: 11/28/19 13:01 Freq: Status: Active Protocol: Document 11/28/19 13:02 CGR (Rec: 11/28/19 13:18 CGR [email or web address]) OT-Instrumental Activities of Daily Living Deficits IADL Deficits Identified Deficits Home Safety Awareness Awareness of Need for Assistance at Home Good Awareness Ability to Problem Solve Emergency Able to Problem Solve Situations Medication Management Medication Management No Deficits Identified Money Management Money Management No Deficits Identified Meal Preparation Meal Preparation Caregiver Provides Assist Carpentry Instructor Carpentry Instructor Caregiver Provides Assist Driving Driving Caregiver Provides Assist M6 OT- IP Functional Cognition Start: 11/28/19 13:01 Freq: Status: Active Protocol: Document 11/28/19 13:02 CGR (Rec: 11/28/19 13:18 CGR [email or web address]) Cognitive Factors Limiting Selfcare Function Cognitive Ability Level of Alertness Alert Patient Orientation Name,Age,Birthday,Month,Date, Year,Day of Week,Place, Situation Attention Span Ability Capable of Focused Attention, Capable of Sustained Attention Ability to Follow Commands Able to Follow Multi-Step Commands Memory Description No Deficits Noted Safety Awareness No Deficits Noted Problem Solving Ability No deficits Noted OT- Vision and Hearing OT- Hearing Assessment OT- Hearing Assessment Hearing Impaired,Use of Hearing Aids OT- Vision Assessment Visual Acuity Glasses For Reading Visual Attentiveness WFL Occular Pursuits WFL Visual Convergence WFL Visual Chaney WFL Vision Assessment Comments Pt states he has hearing aids at home. M7 OT- IP Mobility and Balance Start: 11/28/19 13:01 Freq: Status: Active Protocol: Document 11/29/19 12:39 [facility] (Rec: 11/29/19 12:52 [facility] [email or web address]) OT- Bed Mobility Assessment Supine to Sit Supine to Sit Assist Standby Assistance,Minimal Assistance,Bedrails OT-Transfer Assessment Sit to and From Stand Sit to and from Stand Contact Guard Assistance, Minimal Assistance Technique Transfer Destination Bed,Chair,Toilet Devices Transfer Assistive Devices Gait Belt,Front Wheeled Walker Comments Mobility Comments Without bedrail , pt needing HARVEY to get to the edge of the bed, educated able to have hold FWW in place and pt able to use up to the edge of the bed on his own. Otherwise suggested for pt to picked edge sewing machine operator a bedrail. Pt's educated on use of gait belt and how to terence/doff and options of hand placement when pt needing assist , especially to stand from lower surfaces. OT- Gait Assessment Gait Gait Assistance Required: Contact Guard Assist Distance (Feet) 20 Comments Gait Ability Comments Pt easily gets SOB O2 on RA drops to 79% and after one minute increased to 88%. M8 OT- IP Objective Assessments Start: 11/28/19 13:01 Freq: Status: Active Protocol: Document 11/28/19 13:02 CGR (Rec: 11/28/19 13:18 CGR [email or web address]) OT Gross Range of Motion Upper Extremity Range of Motion Assessment Within Functional Limits OT Strength Upper Extremity Strength Assessment Within Functional Limits OT- Coordination Assessment Upper Extremity Finger to Nose Test Within Functional Limits Finger Tapping Test Within Functional Limits OT-Muscle Tone Assessment Muscle Tone WNL Yes OT Sensation Assessment Edema Edema Absent M9 OT- IP Assessment and Plan Start: 11/28/19 13:01 Freq: Status: Active Protocol: Document 11/29/19 12:39 [facility] (Rec: 11/29/19 12:52 CCC [email or web address]) OT Summary Assessment and Plan Potential Rehabilitation Potential Good Analytic Complexity at Evaluation Low Summary OT Impairments Pain,Balance,Functional Mobility,Grooming,Dressing, Toileting,Bathing,Toilet Transfers,Shower Transfers Progress Towards Goals Progressing Toward Goals Assessment Summary Pt main barrier is decreased activity tolerance and assist to stand from lower surfaces. Pt's has been trained to assist pt for bed mobility needs, OT equipment needs, and has good understanding to assist pt for all needs. Pt going home with to assist and home health. Goals Grooming Goal Independent Dressing Goal Independent,Claims Account Manager,Sock Aid Toileting Goal Independent Bathing Goal Independent Toilet Transfer Goal Independent Shower Transfer Goal Independent Days to Meet Goals 4 Frequency of Treatment Frequency Of Treatment Once a Day Treatment Plan OT Treatment Plan ADL Training,Functional Mobility,Therapeutic Exercises ,Patient/Family Education, Discharge Planning Discharge Recommendations OT Discharge Recommendations Home with Assistance,Home Health,SNF Rehab Home Equipment Needs shower chair, BSC
--- NOTE | 2019-11-29 12:11 | CM.DPC ---
DCP Cont: This classification case manager assisting FEED MANAGER with sending orders to [facility]. Patient is to be discharged home today, and will be needing nursing, P.T, as well as O.T. H&P has already been faxed. Went ahead and faxed over signed face to face, orders, as well as DC summary. Called [facility] and gave update to Siri that patient is to be discharged home today. P: Patient is to be discharged home today with [facility]. Nena Yoon RN/Supplier Diversity Director
--- NOTE | 2019-11-29 15:30 | PC.NURSE ---
Discharge: Late entry- Both IV sites dc'd intact, good hemostasis achieved with gauze/tegaderm pressure dressings to both. Tele dc'd. Patient showered prior to leaving, and then this brief writer took down old dressings on his posterior L shoulder and L elbow and re-dressed. The skin tear on his back looked well-approximated and was not oozing or draining, cleansed with saline and covered w/ a pressure dressing using Telfa, Exudry and Coversite. Site on L elbow was well-approximated and oozing blood- cleansed w/ saline and covered with Telfa, gauze, Exudry and secured with gauze wrap and Coban. Reviewed all d/c instructions thoroughly with patient and . Provided CHF teaching, hand-out and color-coded guidelines. Reviewed home med list and new prescriptions. Made aware of f/u with STAN Miller on 12/02. Given lab draw orders and instructed to have drawn or Thursday morning (before appt. so PA can see results). Filled out paperwork (and faxed to medical records) so records can be sent to his Cleaning Laborer (Dr Burch) and Field Map Technician (Dr Rivera) at [facility]. Patient and verbalized understanding of all instructions and stated no further questions. All personal belongings sent with patient including home meds from pharmacy. Wheeled out to private vehicle by this brief writer.
== END 2019-11-29 15:44 | disposition home health service (06) ==
LOC: ED 04:48 → AC 06:58
PROVIDERS: Internal Medicine; Admitting Provider Nurse Practitioner Adult Health; Emergency Provider Emergency Medicine; PCP Student in an Organized Health Care Education/Training Program; Visit Provider Nurse Practitioner Adult Health
DX: I95.2 Hypotension due to drugs (principal); N17.9 Acute kidney failure, unspecified; Z79.01 Long term (current) use of anticoagulants; W18.39XA Other fall on same level, initial encounter; S40.212A Abrasion of left shoulder, initial encounter; S50.312A Abrasion of left elbow, initial encounter; N18.3 Chronic kidney disease, stage 3 (moderate); I25.10 Atherosclerotic heart disease of native coronary artery without angina pectoris; I10 Essential (primary) hypertension; E78.5 Hyperlipidemia, unspecified; I48.0 Paroxysmal atrial fibrillation; C92.10 Chronic myeloid leukemia, BCR/ABL-positive, not having achieved remission; J44.9 Chronic obstructive pulmonary disease, unspecified; I27.20 Pulmonary hypertension, unspecified; N40.1 Benign prostatic hyperplasia with lower urinary tract symptoms; R39.11 Hesitancy of micturition; D63.1 Anemia in chronic kidney disease; F10.20 Alcohol dependence, uncomplicated; Z23 Encounter for immunization
CPT/HCPCS: 36415; 70450; 71260; 72125; 74177; 80048; 80053; 80320; 81001; 82550; 82962; 83036; 83605; 83690; 83735; 84145; 84443; 84484; 85025; 85610; 85730; 86850; 86900; 86901; 87086; 90471; 93005; 93306; 94640; 94760; 94762; 96360; 96361; 97116; 97162; 97165; 97530; 97535; 99285; G0378; 90715; Q9967

== ENCOUNTER → 2019-12-01 14:58 | Outpatient (CLI) | payer MEDICARE, OTHER, SELFPAY ==
[2019-11-27 08:19] VITALS: BMI 28.2
[2019-12-01 16:10] LABS: Add Manual Diff / Slide Review NO; Basophils Absolute Auto 0 /uL (0-100); Eosinophils Absolute Auto 0 /uL (0-450); Eosinophils Percent Auto 0.3 % (2-4); Hematocrit 26.2 % (41-53); Hemoglobin 9.1 g/dL (13.5-17.5); Lymphocytes Absolute Auto 700 /uL (1100-4500); Mean Corpuscular HGB Conc 34.5 % (30-36); Mean Corpuscular Hemoglobin 36.5 PG (26-34); Mean Corpuscular Volume 105.8 fL (80-100); Monocytes Absolute Auto 800 /uL (0-900); Monocytes Percent Auto 10.9 % (3-14); Neutrophils Absolute Auto 5800 /uL (1500-7000); Neutrophils Percent Auto 78.8 % (50-75); Platelet Count 137 X10^3/uL (150-400); Red Blood Cell Count 2.48 X10^6/uL (4.5-5.9); Red Cell Distribution Width 13.5 % (11.6-14.8); White Blood Cell Count 7.3 X10^3/uL (4.5-11.0)
[2019-12-01 16:20] LABS: INR 1.9 (0.9-1.3); Prothrombin Time 21.8 SECONDS (10.1-12.7)
[2019-12-01 16:34] LABS: BUN Creatinine Ratio 16.9 (6-22); Blood Urea Nitrogen 27 mg/dL (9-20); Calcium 8.5 mg/dL (8.4-10.2); Carbon Dioxide 28 mmol/L (22-32); Chloride 95 mmol/L (98-107); Estimated Glomerular Filt Rate 41.5 mL/min (>60); Glucose 112 mg/dL (80-110); HEMOLYSIS < 15 (0-50); Potassium 4.8 mmol/L (3.4-5.1); Sodium 134 mmol/L (137-145)
== END ==
PROVIDERS: PCP Student in an Organized Health Care Education/Training Program; Visit Provider Internal Medicine
DX: N17.9 Acute kidney failure, unspecified (principal); R58 Hemorrhage, not elsewhere classified; Z79.01 Long term (current) use of anticoagulants
CPT/HCPCS: 80048; 85025; 85610

== ENCOUNTER → 2020-01-25 15:25 | Outpatient (CLI) | payer MEDICARE, OTHER, SELFPAY ==
[2019-11-27 08:19] VITALS: BMI 28.2
[2020-01-25 16:41] LABS: INR 3.3 (0.9-1.3); Prothrombin Time 37.3 SECONDS (10.1-12.7)
== END ==
PROVIDERS: PCP Student in an Organized Health Care Education/Training Program; Referring Provider Pharmacist; Visit Provider Pharmacist
DX: Z79.01 Long term (current) use of anticoagulants (principal); I48.0 Paroxysmal atrial fibrillation
CPT/HCPCS: 36415; 85610

== ENCOUNTER 2020-02-10 15:12 | Emergency (ER) | payer MEDICARE, OTHER, SELFPAY ==
[2019-11-27 08:19] VITALS: BMI 28.2
[2020-02-10 15:25] VITALS: BMI 27.3
[2020-02-10 15:44] VITALS: BP 137/76; PULSE 105; RESP 22; TEMP 36.3; O2SAT 99
--- NOTE | 2020-02-10 16:19 | ED_ITS ---
HPI - Arrhythmia/Palpitations General Chief Complaint: Arrhythmia/Palpitations Stated Complaint: AFIB Time Seen by Provider: 02/10/20 16:18 Mode of arrival: Ambulatory Limitations: no limitations History of Present Illness HPI narrative: The patient is an 84-year-old male who was at physical therapy when he developed a rapid heart rate and was sent to the emergency department. The patient denied any chest pain or significant shortness of breath. He states that he would not have even come into the emergency department except physical therapy insisted. The patient has a history of atrial fibrillation. He had a cardioversion 8 months ago. He believes he has been in normal sinus rhythm since then with rate being controlled. He is on carvedilol and warfarin. He has had 2 ablations in the past. He has had arm 2 aortic valve replacements. He states that he is chronically short of breath to some degree because he has a history of she COPD. He has mild dizziness. He has not passed out. He denies any awareness of palpitations or pounding in his chest. He denies having any cough more than usual nausea vomiting abdominal pain. He has had no urinary symptoms. He denies any fever chills or sweats. Ten weeks ago the patient passed out in his bathroom and arm injured his back for he is receiving physical therapy. He is wearing a back brace. He admits to history of COPD and aortic valve replacement and hypertension but denies a history of diabetes mellitus myocardial infarction in asthma. Related Data Home Medications Medication Instructions Recorded Confirmed atorvastatin 40 mg PO BEDTIME #0 11/24/17 02/10/20 furosemide 40 mg PO DAILY #0 11/24/17 02/10/20 imatinib [Gleevec] 400 mg PO DAILY #0 11/24/17 02/10/20 warfarin [Coumadin] 2.5 mg PO DAILY #0 11/24/17 02/10/20 Spiriva with HandiHaler 1 cap INHALATION DAILY 01/19/19 02/10/20 carvedilol 6.25 mg PO BID 01/19/19 02/10/20 tamsulosin 0.4 mg PO DAILY 01/19/19 02/10/20 albuterol sulfate 2 puff INHALATION QID PRN 11/27/19 02/10/20 clopidogrel 75 mg PO DAILY 11/27/19 02/10/20 ferrous sulfate 325 mg PO Q OTHER DAY 11/27/19 02/10/20 lisinopril 2.5 mg PO DAILY 11/27/19 02/10/20 magnesium oxide 400 mg PO DAILY 11/27/19 02/10/20 omeprazole 20 mg PO DAILY 11/27/19 02/10/20 spironolactone 12.5 mg PO DAILY 11/27/19 02/10/20 Previous Rx's Medication Instructions Recorded acetaminophen 650 mg PO Q6HR PRN #30 tab 11/29/19 tramadol 50 mg PO TID PRN #20 tab 11/29/19 diltiazem HCl 120 mg PO QAM #30 cap 02/10/20 Allergies Allergy/AdvReac Type Severity Reaction Status Date / Time No Known Drug Allergies Allergy Verified 02/10/20 15:25 Review of Systems Review of Systems Narrative: His review of systems were all negative except those mentioned in the history of present illness. Patient History Medical History Aortic stenosis (Acute) Atrial fibrillation (Acute) BPH (benign prostatic hyperplasia) (Acute) CAD (coronary artery disease) (Acute) CHF (congestive heart failure) (Acute) CML (chronic myelocytic leukemia) (Acute) COPD (chronic obstructive pulmonary disease) (Acute) History of cardioversion (Acute) Hyperlipidemia (Acute) Hypertension (Acute) PAD (peripheral artery disease) (Acute) Pulmonary arterial hypertension (Acute) Pulmonary nodule (Acute) Squamous cell carcinoma of skin of ear (Acute) Stenosis of coronary stent (Acute) Surgical History H/O aortic valve replacement (Acute) H/O transurethral resection of prostate (Acute) History of cardiac radiofrequency ablation (Acute) History of coronary artery stent placement (Acute) S/P TAVR (transcatheter aortic valve replacement) (Acute) Family History Mother Diabetes mellitus Heart disease PAD (peripheral artery disease) Father Lung disease Heart disease Brother Heart attack Brother Heart attack Social History household members: spouse Smoking Status: Former smoker alcohol intake: current Smoking Status: Former smoker alcohol intake frequency: 0-2 drinks per day Alcohol type: hard liquor Substance Use Type: does not use Exam Narrative Exam Narrative: PHYSICAL EXAM: CONSTITUTIONAL: Awake, Alert, Oriented, Coherent, Cooperative in NAD. Does not appear toxic or ill. Monitor reveals that the patient has a heart rate that ranges from 96 to 105. HEAD: AT/NC EENT: PERRL, FROM of eyes, no discharge, . No epistaxis or nasal drainage Oral mucosa is moist and pink, posterior pharynx is without erythema or exud ate. NECK: Supple, no obvious JVD, Trachea is midline without stridor, no palpable LN .. SPINE: No gross deformity, no palpable tenderness of the cervical, thoracic, lumbar or sacral spine. No CVA tenderness. THORAX: No deformity, retractions, chest wall tenderness.. LUNGS: Clear with symmetrical breath sounds without respiratory distress HEART: Variable alum S1-S2. The patient's heart rate is irregular irregular. No appreciable murmur at this time. ABDOMEN: Soft, non-tender, normal bowel sounds without guarding, rebound, rigidity or palpable mass EXTREMITIES: No edema, cyanosis, deformity or tenderness. SKIN: No rash petechiae or purpura. Multiple large bruises over both arms from his warfarin. NEURO: Awake, alert, oriented, conversive, cranial nerves II-XII are symmetrical and normal, moves all 4 extremities and is ambulatory Initial Vital Signs Initial Vital Signs: Vital Signs Temperature 97.4 F L 02/10/20 15:44 Pulse Rate 105 H 02/10/20 15:44 Respiratory Rate 22 02/10/20 15:44 Blood Pressure 137/76 02/10/20 15:44 Pulse Oximetry 99 02/10/20 15:44 Course Course Course Narrative: 1750 the patient's INR is 2.6. The rest of his laboratory chemistries are normal. His troponin is 0.02 which is in the range according to his old labs. 5 mg of Cardizem IV brought his heart rate between 85 and 90. The patient will be placed on Cardizem ER 120 mg to control his rate and advised to follow-up with his order entry clerk. Orders Ordered: Discontinued Medications Diltiazem HCl (Cardizem) 5 mg IV NOW ONE Stop: 02/10/20 16:54 Last Admin: 02/10/20 17:09 Dose: 5 mg Documented by: KIMBERLI Diltiazem HCl (Cardizem Cd) 120 mg PO NOW ONE Stop: 02/10/20 18:30 Last Admin: 02/10/20 18:37 Dose: 120 mg Documented by: KIMBERLI Sodium Chloride (Normal Saline 0.9%) 1,000 mls @ 1,000 mls/hr IV BOLUS ONE Stop: 02/10/20 17:54 Last Admin: 02/10/20 18:40 Dose: Not Given Documented by: JOSE ANTONIO Vital Signs Vital signs: Vital Signs - 8 hr 02/10/20 15:44 02/10/20 16:55 02/10/20 17:09 Temperature 97.4 F L Pulse Rate 105 H 77 102 H Respiratory Rate 22 18 Blood Pressure 144/83 H Blood Pressure [Left Arm] 137/76 137/76 Pulse Oximetry 99 96 MDM - Arrhythmia/Palpitations Medical Records Attestation: I reviewed the patient's medical records. Lab Data Attestation: I reviewed the patient's lab results. Result diagrams: 02/10/20 15:35 02/10/20 15:35 Labs: Lab Results 02/10/20 02/10/20 02/10/20 Range/Units 15:35 15:35 15:35 WBC 5.0 (4.5-11.0) X10^3/uL RBC 2.77 L (4.5-5.9) X10^6/uL Hgb 10.0 L (13.5-17.5) g/dL Hct 29.2 L (41-53) % MCV 105.6 H (80-100) fL MCH 36.1 H (26-34) PG MCHC 34.1 (30-36) % RDW 15.1 H (11.6-14.8) % Plt Count 182 (150-400) X10^3/uL Neut % (Auto) 66.3 (50-75) % Lymph % (Auto) 19.5 L (25-40) % Dixie % (Auto) 12.5 (3-14) % Eos % (Auto) 1.5 L (2-4) % Baso % (Auto) 0.2 (0-2) % Neut # (Auto) 3300 (7443-1036) /uL Lymph # (Auto) 1000 L (6702-2946) /uL Dixie # (Auto) 600 (0-900) /uL Eos # (Auto) 100 (0-450) /uL Baso # (Auto) 0 (0-100) /uL PT 29.9 H (10.1-12.7) SECONDS INR 2.6 H (0.9-1.3) Sodium 136 L (137-145) mmol/L Potassium 4.6 (3.4-5.1) mmol/L Chloride 103 (98-107) mmol/L Carbon Dioxide 26 (22-32) mmol/L BUN 22 H (9-20) mg/dL Creatinine 1.44 H (0.66-1.25) mg/dL Estimated GFR 46.9 L (>60) mL/min BUN/Creatinine Ratio 15.3 (6-22) Glucose 120 H (80-110) mg/dL Calcium 8.7 (8.4-10.2) mg/dL Magnesium 2.1 (1.6-2.3) mg/dL Total Bilirubin 1.0 (0.2-1.3) mg/dL AST 32 (17-59) IU/L ALT 24 (<50) IU/L Alkaline Phosphatase 78 (38-126) U/L Troponin I 0.020 (0.01-0.034) ng/mL Total Protein 6.3 (6.3-8.2) g/dL Albumin 3.8 (3.5-5.0) g/dL Globulin 2.5 (1.7-4.1) g/dL Albumin/Globulin Ratio 1.5 (1.0-2.8) ECG Data Attestation: I personally reviewed and interpreted this ECG as follows: Interpretation: The EKG obtained on February 09 at 15:2 6:53 a.m. reveals arm and atrial fibrillation with a ventricular rate of 96. His QRS is slightly prolonged at 106 milliseconds. QTC is normal. Left axis deviation. The patient has small R waves in leads III and AVF with most of them look in like QS waves. There are no inverted T-waves or ST segment changes. The patient has a QS wave in V1. There are nonspecific ST segment changes in V1 V2 V3 without any acute diagnostic changes. T-waves are inverted in V6 questionably V5 1 and aVL suggesting that the patient has lateral wall ischemia. Discharge Plan Departure Patient Disposition: Home Clinical Impression: Atrial fibrillation with rapid ventricular response COPD (chronic obstructive pulmonary disease) Qualifiers: COPD type: unspecified COPD Qualified Code(s): J44.9 - Chronic obstructive pulmonary disease, unspecified Discharge Date/Time: 02/10/20 18:47 Instructions: DI for Atrial Fibrillation Activity Restrictions/Additional Instructions: 1. Follow-up with your order entry clerk and call for an appointment. 2. Take the Cardizem daily to control your heart rate. If you develop a rapid heart rate increased dizziness chest pain passing-out you need to proceed to the nearest emergency department. 3. Continue to take the rest of your medications as prescribed. 4. Your INR is 2.6. Continue your current dose of Coumadin/warfarin. Prescriptions: New diltiazem HCl 120 mg capsule,extended release 24hr 120 mg PO QAM Qty: 30 RF: 0 No Action furosemide 20 MG tablet 40 mg PO DAILY Qty: 0 RF: 0 imatinib [Gleevec] 400 MG tablet 400 mg PO DAILY Qty: 0 RF: 0 warfarin [Coumadin] 2.5 MG tablet 2.5 mg PO DAILY Qty: 0 RF: 0 atorvastatin 40 MG tablet 40 mg PO BEDTIME Qty: 0 RF: 0 carvedilol 3.125 mg Tablet 6.25 mg PO BID RF: 0 tamsulosin 0.4 mg Capsule 0.4 mg PO DAILY RF: 0 Spiriva with HandiHaler 18 mcg Capsule, W/Inhalation Device 1 cap Inhalation DAILY RF: 0 clopidogrel 75 mg Tablet 75 mg PO DAILY RF: 0 spironolactone 25 mg Tablet 12.5 mg PO DAILY RF: 0 magnesium oxide 400 mg (241.3 mg magnesium) Tablet 400 mg PO DAILY RF: 0 ferrous sulfate 325 mg (65 mg iron) tablet 325 mg PO Q OTHER DAY RF: 0 omeprazole 20 mg Capsule,Delayed Release(Dr/Ec) 20 mg PO DAILY RF: 0 albuterol sulfate 90 mcg/actuation Hfa Aerosol Inhaler 2 puff INHALATION QID PRN (Reason: Shortness Of Breath) RF: 0 lisinopril 2.5 mg Tablet 2.5 mg PO DAILY RF: 0 tramadol 50 mg Tablet 50 mg PO TID PRN (Reason: Pain, Moderate (4-6)) Qty: 20 RF: 0 acetaminophen 325 mg Tablet 650 mg PO Q6HR PRN (Reason: Fever/Mild Pain (1-3)) Qty: 30 RF: 0 Referrals: Miller,Carol Ann, PA-C [Primary Care Provider] -
[2020-02-10 16:55] VITALS: BP 137/76; PULSE 77; RESP 18; O2SAT 96
[2020-02-10 17:04] LABS: INR 2.6 (0.9-1.3); Prothrombin Time 29.9 SECONDS (10.1-12.7)
[2020-02-10 17:09] VITALS: BP 144/83; PULSE 102
[2020-02-10] MEDS: dilTIAZem 5 MG/ML SDV IV (17:09)
[2020-02-10 17:10] LABS: Add Manual Diff / Slide Review NO; Basophils Absolute Auto 0 /uL (0-100); Basophils Percent Auto 0.2 % (0-2); Eosinophils Absolute Auto 100 /uL (0-450); Eosinophils Percent Auto 1.5 % (2-4); Hematocrit 29.2 % (41-53); Lymphocytes Absolute Auto 1000 /uL (1100-4500); Lymphocytes Percent Auto 19.5 % (25-40); Mean Corpuscular HGB Conc 34.1 % (30-36); Mean Corpuscular Hemoglobin 36.1 PG (26-34); Mean Corpuscular Volume 105.6 fL (80-100); Monocytes Absolute Auto 600 /uL (0-900); Monocytes Percent Auto 12.5 % (3-14); Neutrophils Absolute Auto 3300 /uL (1500-7000); Neutrophils Percent Auto 66.3 % (50-75); Platelet Count 182 X10^3/uL (150-400); Red Blood Cell Count 2.77 X10^6/uL (4.5-5.9); Red Cell Distribution Width 15.1 % (11.6-14.8)
[2020-02-10 17:11] LABS: Alanine Aminotransferase 24 IU/L (<50); Albumin 3.8 g/dL (3.5-5.0); Albumin Globulin Ratio 1.5 (1.0-2.8); Alkaline Phosphatase 78 U/L (38-126); Aspartate Aminotransferase 32 IU/L (17-59); BUN Creatinine Ratio 15.3 (6-22); Blood Urea Nitrogen 22 mg/dL (9-20); Calcium 8.7 mg/dL (8.4-10.2); Carbon Dioxide 26 mmol/L (22-32); Chloride 103 mmol/L (98-107); Estimated Glomerular Filt Rate 46.9 mL/min (>60); Globulin 2.5 g/dL (1.7-4.1); Glucose 120 mg/dL (80-110); HEMOLYSIS 43 (0-50); Magnesium 2.1 mg/dL (1.6-2.3); Potassium 4.6 mmol/L (3.4-5.1); Sodium 136 mmol/L (137-145); Total Protein 6.3 g/dL (6.3-8.2)
[2020-02-10] MEDS: dilTIAZem CD 120 MG CAP PO (18:37)
[2020-02-10 18:45] VITALS: BP 137/74; PULSE 86; RESP 18; O2SAT 96
== END 2020-02-10 18:47 | disposition home or self-care (01) ==
PROVIDERS: Emergency Provider Emergency Medicine; PCP Student in an Organized Health Care Education/Training Program
DX: I48.20 Chronic atrial fibrillation, unspecified (principal); Z79.01 Long term (current) use of anticoagulants; J44.9 Chronic obstructive pulmonary disease, unspecified; I10 Essential (primary) hypertension; Z95.2 Presence of prosthetic heart valve
CPT/HCPCS: 36415; 80053; 83735; 84484; 85025; 85610; 93005; 96374; 99284

== ENCOUNTER 2020-07-02 20:46 | Emergency (ER) | payer MEDICARE, OTHER, SELFPAY ==
[2019-11-27 08:19] VITALS: BMI 28.2
[2020-07-02 20:50] VITALS: BP 145/73; PULSE 76; RESP 16; TEMP 37.1; O2SAT 98; BMI 29.1
== END 2020-07-02 21:44 | disposition left against medical advice (07) ==
PROVIDERS: Emergency Provider Emergency Medicine; PCP Student in an Organized Health Care Education/Training Program
CPT/HCPCS: 99281

== ENCOUNTER → 2020-07-05 13:41 | Outpatient (CLI) | payer MEDICARE, OTHER, SELFPAY ==
[2019-11-27 08:19] VITALS: BMI 28.2
[2020-07-05 14:37] LABS: INR 2.5 (0.9-1.3); Prothrombin Time 28.5 SECONDS (10.1-12.7)
[2020-07-05 15:09] LABS: Blood Urea Nitrogen 28 mg/dL (9-20); Calcium 8.7 mg/dL (8.4-10.2); Carbon Dioxide 30 mmol/L (22-32); Chloride 101 mmol/L (98-107); Estimated Glomerular Filt Rate 34.6 mL/min (>60); Glucose 108 mg/dL (80-110); HEMOLYSIS < 15 (0-50); Potassium 4.2 mmol/L (3.4-5.1); Sodium 139 mmol/L (137-145)
[2020-07-05 15:17] LABS: NT-proBNP (BNP-Adult 18+) 3340 pg/mL (<450)
== END ==
PROVIDERS: PCP Student in an Organized Health Care Education/Training Program; Referring Provider Internal Medicine Cardiovascular Disease; Visit Provider Internal Medicine Cardiovascular Disease
DX: I48.91 Unspecified atrial fibrillation (principal); I50.9 Heart failure, unspecified
CPT/HCPCS: 36415; 80048; 83880; 85610

== ENCOUNTER → 2020-07-26 16:16 | Outpatient (ROUT) | payer MEDICARE, OTHER, SELFPAY ==
[2019-11-27 08:19] VITALS: BMI 28.2
[2020-07-26 17:50] LABS: BUN Creatinine Ratio 17.9 (6-22); Blood Urea Nitrogen 32 mg/dL (9-20); Calcium 8.4 mg/dL (8.4-10.2); Carbon Dioxide 30 mmol/L (22-32); Chloride 101 mmol/L (98-107); Estimated Glomerular Filt Rate 36.4 mL/min (>60); Glucose 150 mg/dL (80-110); HEMOLYSIS < 15 (0-50); Potassium 4.5 mmol/L (3.4-5.1); Sodium 137 mmol/L (137-145)
== END ==
PROVIDERS: PCP Student in an Organized Health Care Education/Training Program; Visit Provider Internal Medicine
DX: I50.23 Acute on chronic systolic (congestive) heart failure (principal)
CPT/HCPCS: 80048

== ENCOUNTER → 2020-09-21 22:12 | Outpatient (ROUT) | payer MEDICARE, OTHER, SELFPAY ==
[2019-11-27 08:19] VITALS: BMI 28.2
[2020-09-21 22:26] LABS: Add Manual Diff / Slide Review NO; Basophils Absolute Auto 0 /uL (0-100); Basophils Percent Auto 0.2 % (0-2); Eosinophils Absolute Auto 100 /uL (0-450); Eosinophils Percent Auto 1.2 % (2-4); Hematocrit 28.2 % (41-53); Hemoglobin 9.4 g/dL (13.5-17.5); Lymphocytes Absolute Auto 800 /uL (1100-4500); Lymphocytes Percent Auto 16.2 % (25-40); Mean Corpuscular HGB Conc 33.4 % (30-36); Mean Corpuscular Hemoglobin 35.8 PG (26-34); Mean Corpuscular Volume 107.1 fL (80-100); Monocytes Absolute Auto 500 /uL (0-900); Monocytes Percent Auto 10.2 % (3-14); Neutrophils Absolute Auto 3600 /uL (1500-7000); Neutrophils Percent Auto 72.2 % (50-75); Platelet Count 133 X10^3/uL (150-400); Red Blood Cell Count 2.63 X10^6/uL (4.5-5.9); Red Cell Distribution Width 14.9 % (11.6-14.8); White Blood Cell Count 4.9 X10^3/uL (4.5-11.0)
[2020-09-21 22:37] LABS: BUN Creatinine Ratio 16.9 (6-22); Blood Urea Nitrogen 26 mg/dL (9-20); Calcium 8.4 mg/dL (8.4-10.2); Carbon Dioxide 30 mmol/L (22-32); Chloride 104 mmol/L (98-107); Estimated Glomerular Filt Rate 43.3 mL/min (>60); Glucose 132 mg/dL (80-110); HEMOLYSIS < 15 (0-50); Phosphorous 2.7 mg/dL (2.3-3.7); Sodium 138 mmol/L (137-145)
[2020-09-21 23:00] LABS: Potassium 5.2 mmol/L (3.4-5.1)
[2020-09-23 08:25] LABS: Parathyroid Hormone Int 88 pg/mL (15-65)
[2020-09-25 00:16] LABS: Calcium 8.6 mg/dL (8.4-10.2); Cholesterol 67 mg/dL (140-199); HDL Cholesterol 30 mg/dL (40-60); LDL Cholesterol Calculated 12 mg/dL (<100); Triglycerides 127 mg/dL (35-150)
== END ==
PROVIDERS: PCP Student in an Organized Health Care Education/Training Program; Visit Provider Internal Medicine
DX: N18.30 Chronic kidney disease, stage 3 unspecified (principal); E78.2 Mixed hyperlipidemia
CPT/HCPCS: 80048; 80061; 82310; 83970; 84100; 85025

== ENCOUNTER → 2020-11-19 19:22 | Outpatient (ROUT) | payer MEDICARE, OTHER, SELFPAY ==
[2019-11-27 08:19] VITALS: BMI 28.2
[2020-11-19 19:49] LABS: Add Manual Diff / Slide Review NO; Basophils Absolute Auto 0 /uL (0-100); Basophils Percent Auto 0.2 % (0-2); Eosinophils Absolute Auto 100 /uL (0-450); Eosinophils Percent Auto 1.1 % (2-4); Hematocrit 31.4 % (41-53); Hemoglobin 10.7 g/dL (13.5-17.5); Lymphocytes Absolute Auto 900 /uL (1100-4500); Lymphocytes Percent Auto 13.7 % (25-40); Mean Corpuscular HGB Conc 34.1 % (30-36); Mean Corpuscular Hemoglobin 36.4 PG (26-34); Mean Corpuscular Volume 106.6 fL (80-100); Monocytes Absolute Auto 600 /uL (0-900); Monocytes Percent Auto 9.3 % (3-14); Neutrophils Absolute Auto 5000 /uL (1500-7000); Neutrophils Percent Auto 75.7 % (50-75); Platelet Count 162 X10^3/uL (150-400); Red Blood Cell Count 2.94 X10^6/uL (4.5-5.9); White Blood Cell Count 6.6 X10^3/uL (4.5-11.0)
[2020-11-19 20:03] LABS: Alanine Aminotransferase 19 IU/L (<50); Albumin 3.3 g/dL (3.5-5.0); Albumin Globulin Ratio 1.5 (1.0-2.8); Alkaline Phosphatase 77 U/L (38-126); Aspartate Aminotransferase 18 IU/L (17-59); BUN Creatinine Ratio 19.4 (6-22); Blood Urea Nitrogen 28 mg/dL (9-20); Calcium 8.4 mg/dL (8.4-10.2); Carbon Dioxide 37 mmol/L (22-32); Chloride 100 mmol/L (98-107); Estimated Glomerular Filt Rate 46.7 mL/min (>60); Globulin 2.2 g/dL (1.7-4.1); Glucose 100 mg/dL (80-110); HEMOLYSIS < 15 (0-50); Potassium 4.1 mmol/L (3.4-5.1); Sodium 140 mmol/L (137-145); Total Protein 5.5 g/dL (6.3-8.2)
[2020-11-19 20:08] LABS: NT-proBNP (BNP-Adult 18+) 2760 pg/mL (<450)
== END ==
PROVIDERS: PCP Student in an Organized Health Care Education/Training Program; Visit Provider Internal Medicine
DX: I50.32 Chronic diastolic (congestive) heart failure (principal)
CPT/HCPCS: 80053; 83880; 85025

== ENCOUNTER → 2020-12-03 20:06 | Outpatient (ROUT) | payer MEDICARE, OTHER, SELFPAY ==
[2019-11-27 08:19] VITALS: BMI 28.2
[2020-12-03 21:05] LABS: BUN Creatinine Ratio 18.9 (6-22); Blood Urea Nitrogen 33 mg/dL (9-20); Calcium 8.5 mg/dL (8.4-10.2); Carbon Dioxide 33 mmol/L (22-32); Chloride 100 mmol/L (98-107); Estimated Glomerular Filt Rate 37.3 mL/min (>60); Glucose 134 mg/dL (80-110); HEMOLYSIS < 15 (0-50); Potassium 5.1 mmol/L (3.4-5.1); Sodium 137 mmol/L (137-145)
[2020-12-03 21:14] LABS: NT-proBNP (BNP-Adult 18+) 1580 pg/mL (<450)
== END ==
PROVIDERS: PCP Student in an Organized Health Care Education/Training Program; Visit Provider Internal Medicine
DX: I50.32 Chronic diastolic (congestive) heart failure (principal)
CPT/HCPCS: 80048; 83880

== ENCOUNTER → 2021-01-24 11:42 | Outpatient (CLI) | payer MEDICARE, OTHER, SELFPAY ==
[2019-11-27 08:19] VITALS: BMI 28.2
[2021-01-24 12:29] LABS: Add Manual Diff / Slide Review NO; Basophils Absolute Auto 0 /uL (0-100); Basophils Percent Auto 0.4 % (0-2); Eosinophils Absolute Auto 0 /uL (0-450); Hematocrit 31.2 % (41-53); Hemoglobin 10.6 g/dL (13.5-17.5); Lymphocytes Absolute Auto 900 /uL (1100-4500); Lymphocytes Percent Auto 18.7 % (25-40); Mean Corpuscular HGB Conc 33.8 % (30-36); Mean Corpuscular Hemoglobin 36.6 PG (26-34); Mean Corpuscular Volume 108.1 fL (80-100); Monocytes Absolute Auto 600 /uL (0-900); Monocytes Percent Auto 11.8 % (3-14); Neutrophils Absolute Auto 3200 /uL (1500-7000); Neutrophils Percent Auto 68.1 % (50-75); Platelet Count 184 X10^3/uL (150-400); Red Blood Cell Count 2.89 X10^6/uL (4.5-5.9); Red Cell Distribution Width 13.8 % (11.6-14.8); White Blood Cell Count 4.8 X10^3/uL (4.5-11.0)
[2021-01-24 12:56] LABS: Alanine Aminotransferase 16 IU/L (<50); Albumin 3.9 g/dL (3.5-5.0); Albumin Globulin Ratio 1.8 (1.0-2.8); Alkaline Phosphatase 78 U/L (38-126); Aspartate Aminotransferase 21 IU/L (17-59); BUN Creatinine Ratio 13.9 (6-22); Bilirubin Total 1.3 mg/dL (0.2-1.3); Blood Urea Nitrogen 20 mg/dL (9-20); Calcium 8.5 mg/dL (8.4-10.2); Carbon Dioxide 30 mmol/L (22-32); Chloride 101 mmol/L (98-107); Estimated Glomerular Filt Rate 46.7 mL/min (>60); Globulin 2.2 g/dL (1.7-4.1); Glucose 110 mg/dL (80-110); HEMOLYSIS < 15 (0-50); Potassium 4.6 mmol/L (3.4-5.1); Sodium 136 mmol/L (137-145); Total Protein 6.1 g/dL (6.3-8.2)
[2021-01-31 12:36] LABS: Interpretation Positive (.); e13a2(b2a2) transcript 0.0944 % (.)
== END ==
PROVIDERS: PCP Internal Medicine; Referring Provider Internal Medicine; Visit Provider Internal Medicine
DX: C92.10 Chronic myeloid leukemia, BCR/ABL-positive, not having achieved remission (principal)
CPT/HCPCS: 36415; 80053; 81206; 81207; 85025

== ENCOUNTER 2021-04-11 20:01 | Emergency (ER) | payer MEDICARE, OTHER, SELFPAY ==
[2019-11-27 08:19] VITALS: BMI 28.2
[2021-04-11 20:14] VITALS: BP 128/61; PULSE 94; RESP 20; TEMP 36.6; O2SAT 98; BMI 27.3
--- NOTE | 2021-04-11 22:56 | ED_ITS ---
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 He notes that the dressing continues to soak through any continues to ooze from the wound. He comes in for further evaluation. He describes no pain. He currently is not noticing fevers, cough, chills, dyspnea, exertional dyspnea nor dizziness. Related Data Home Medications Medication Instructions Recorded Confirmed atorvastatin 40 mg PO BEDTIME #0 11/24/17 02/10/20 furosemide 40 mg PO DAILY #0 11/24/17 02/10/20 imatinib [Gleevec] 400 mg PO DAILY #0 11/24/17 02/10/20 warfarin [Coumadin] 2.5 mg PO DAILY #0 11/24/17 02/10/20 Spiriva with HandiHaler 1 cap INHALATION DAILY 01/19/19 02/10/20 carvedilol 6.25 mg PO BID 01/19/19 02/10/20 tamsulosin 0.4 mg PO DAILY 01/19/19 02/10/20 albuterol sulfate 2 puff INHALATION QID PRN 11/27/19 02/10/20 clopidogrel 75 mg PO DAILY 11/27/19 02/10/20 ferrous sulfate 325 mg PO Q OTHER DAY 11/27/19 02/10/20 lisinopril 2.5 mg PO DAILY 11/27/19 02/10/20 magnesium oxide 400 mg PO DAILY 11/27/19 02/10/20 omeprazole 20 mg PO DAILY 11/27/19 02/10/20 spironolactone 12.5 mg PO DAILY 11/27/19 02/10/20 Previous Rx's Medication Instructions Recorded acetaminophen 650 mg PO Q6HR PRN #30 tab 11/29/19 tramadol 50 mg PO TID PRN #20 tab 11/29/19 diltiazem HCl 120 mg PO QAM #30 cap 02/10/20 Allergies Allergy/AdvReac Type Severity Reaction Status Date / Time No Known Drug Allergies Allergy Verified 02/10/20 15:25 Review of Systems Review of Systems Narrative: Remainder of complete review of systems is otherwise unremarkable except for that included in the HPI. 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 coronary stent Surgical History H/O aortic valve replacement H/O transurethral resection of prostate History of cardiac radiofrequency ablation History of coronary artery stent placement S/P TAVR (transcatheter aortic valve replacement) Family History Mother Diabetes mellitus Heart disease PAD (peripheral artery disease) Father Lung disease Heart disease Brother Heart attack Brother Heart attack Social History household members: spouse Smoking Status: Former smoker alcohol intake: current Smoking Status: Former smoker alcohol intake frequency: 0-2 drinks per day Alcohol type: hard liquor Substance Use Type: does not use Exam Narrative Exam Narrative: General: Alert appropriate in no acute distress Respiratory: Able to speak in full sentences, no obvious respiratory distress Skin: No obvious rashes, warm and dry Neurologic: Grossly intact no obvious asymmetries or abnormalities Psych: appropriate insight and affect, cooperative Back: There is a 4 cm wound mid upper back with sutures in place that is continuing to lose. Surgical dressing is completely saturated. There is no obvious underlying hematoma. It does appear to be from skin edges and not arterial deep to the wound. Initial Vital Signs Initial Vital Signs: Vital Signs Temperature 97.9 F 04/11/21 20:14 Pulse Rate 94 H 04/11/21 20:14 Respiratory Rate 20 04/11/21 20:14 Blood Pressure 128/61 04/11/21 20:14 Pulse Oximetry 98 04/11/21 20:14 Procedures Laceration Repair Back wound: Site: back Size (cm): 4 Description: linear (oosing around interrupted sutures in place) Depth: simple, single layer Local Anesthetic: lidocaine 1% Amount of anesthesia used (mL): 5 Pre-repair: wound explored (Pressure is applied and still significant oozing.) Skin layer closed with: nylon Size (cm): 3-0 Number of sutures: 4 Technique: simple, interrupted (A single simple interrupted at the top of the initial wound, then 3 large horizontal mattress sutures around the wound for hemostasis) Course Orders Ordered: Discontinued Medications Lidocaine/Sodium Bicarbonate (Lido 1%/Sod Bicarb 8.4% (10ml) 10 Ml Syringe) 10 ml INJ NOW ONE Stop: 04/11/21 23:11 Last Admin: 04/12/21 00:42 Dose: 10 ml Documented by: MARIVEL Vital Signs Vital signs: Vital Signs - 8 hr 04/11/21 23:53 Pulse Rate 76 Respiratory Rate 18 Blood Pressure 142/65 H Pulse Oximetry 98 MDM - Wound/Laceration Medical Records Attestation: I reviewed the patient's medical records. [facility] Narrative Medical decision making narrative: 86-year-old gentleman on Plavix with dermatologic procedure earlier today. 4 cm wound mid back continuing to use and soaking through dressings. Additional sutures are placed including wide horizontal mattress sutures outside the original suture line. Original sutures are not disturbed. With the additional larger hemostatic sutures, bleeding is controlled. Dressing is applied and patient is safe for home discharge Discharge Plan Departure Patient Disposition: Home Clinical Impression: Post-op bleeding Qualifiers: Surgical complication system/body Area: skin Procedure type: dermatologic Qualified Code(s): L76.21 - Postprocedural hemorrhage of skin and subcutaneous tissue following a dermatologic procedure Instructions: DI for Laceration Repair Activity Restrictions/Additional Instructions: Thank you for coming in today That likely was not going to stop bleeding without some hemostatic sutures placed. I did put 1 more stitch at the top of the original wound and then 3 base stitches on the edges simply to provide additional pressure. Keep the dressing that I placed on until Thursday morning At that time, you can take it off, you may find that making sure it is nice and wet by being in the shower helps come off without causing any pain. Use antibiotic ointment on the wound and then keep a simple dressing over it so that the sutures are not catching on her clothing. 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 Prescriptions: No Action furosemide 20 MG tablet 40 mg PO DAILY Qty: 0 RF: 0 imatinib [Gleevec] 400 MG tablet 400 mg PO DAILY Qty: 0 RF: 0 warfarin [Coumadin] 2.5 MG tablet 2.5 mg PO DAILY Qty: 0 RF: 0 atorvastatin 40 MG tablet 40 mg PO BEDTIME Qty: 0 RF: 0 diltiazem HCl 120 mg capsule,extended release 24hr 120 mg PO QAM Qty: 30 RF: 0 carvedilol 3.125 mg Tablet 6.25 mg PO BID RF: 0 tamsulosin 0.4 mg Capsule 0.4 mg PO DAILY RF: 0 Spiriva with HandiHaler 18 mcg Capsule, W/Inhalation Device 1 cap Inhalation DAILY RF: 0 clopidogrel 75 mg Tablet 75 mg PO DAILY RF: 0 spironolactone 25 mg Tablet 12.5 mg PO DAILY RF: 0 magnesium oxide 400 mg (241.3 mg magnesium) Tablet 400 mg PO DAILY RF: 0 ferrous sulfate 325 mg (65 mg iron) tablet 325 mg PO Q OTHER DAY RF: 0 omeprazole 20 mg Capsule,Delayed Release(Dr/Ec) 20 mg PO DAILY RF: 0 albuterol sulfate 90 mcg/actuation Hfa Aerosol Inhaler 2 puff INHALATION QID PRN (Reason: Shortness Of Breath) RF: 0 lisinopril 2.5 mg Tablet 2.5 mg PO DAILY RF: 0 tramadol 50 mg Tablet 50 mg PO TID PRN (Reason: Pain, Moderate (4-6)) Qty: 20 RF: 0 acetaminophen 325 mg Tablet 650 mg PO Q6HR PRN (Reason: Fever/Mild Pain (1-3)) Qty: 30 RF: 0 Referrals: Christos Byrd MD [Primary Care Provider] -
[2021-04-11 23:53] VITALS: BP 142/65; PULSE 76; RESP 18; O2SAT 98
[2021-04-12] MEDS: LIDO 1%/SOD BICARB 8.4% (10ML) 10 ML SYRINGE INJ (00:42)
== END 2021-04-11 23:55 | disposition home or self-care (01) ==
PROVIDERS: Emergency Provider Emergency Medicine; PCP Internal Medicine
DX: L76.21 Postprocedural hemorrhage of skin and subcutaneous tissue following a dermatologic procedure (principal)
CPT/HCPCS: 12002; 99283

== ENCOUNTER → 2021-04-30 19:22 | Outpatient (ROUT) | payer MEDICARE, OTHER, SELFPAY ==
[2019-11-27 08:19] VITALS: BMI 28.2
[2021-04-30 20:29] LABS: Add Manual Diff / Slide Review NO; Basophils Absolute Auto 0 /uL (0-100); Basophils Percent Auto 0.2 % (0-2); Eosinophils Absolute Auto 0 /uL (0-450); Eosinophils Percent Auto 1.1 % (2-4); Hematocrit 27.5 % (41-53); Hemoglobin 9.3 g/dL (13.5-17.5); Lymphocytes Absolute Auto 800 /uL (1100-4500); Lymphocytes Percent Auto 18.9 % (25-40); Mean Corpuscular HGB Conc 33.9 % (30-36); Mean Corpuscular Hemoglobin 37.8 PG (26-34); Monocytes Absolute Auto 400 /uL (0-900); Monocytes Percent Auto 9.5 % (3-14); Neutrophils Absolute Auto 3100 /uL (1500-7000); Neutrophils Percent Auto 70.3 % (50-75); Platelet Count 153 X10^3/uL (150-400); Red Blood Cell Count 2.47 X10^6/uL (4.5-5.9); White Blood Cell Count 4.5 X10^3/uL (4.5-11.0)
[2021-04-30 20:45] LABS: Alanine Aminotransferase 18 IU/L (<50); Albumin 3.5 g/dL (3.5-5.0); Albumin Globulin Ratio 1.7 (1.0-2.8); Alkaline Phosphatase 85 U/L (38-126); Aspartate Aminotransferase 20 IU/L (17-59); BUN Creatinine Ratio 15.3 (6-22); Bilirubin Total 1.6 mg/dL (0.2-1.3); Blood Urea Nitrogen 28 mg/dL (9-20); Calcium 9.1 mg/dL (8.4-10.2); Carbon Dioxide 26 mmol/L (22-32); Chloride 105 mmol/L (98-107); Estimated Glomerular Filt Rate 35.4 mL/min (>60); Globulin 2.1 g/dL (1.7-4.1); Glucose 153 mg/dL (80-110); HDL Cholesterol 25 mg/dL (40-60); HEMOLYSIS < 15 (0-50); Potassium 4.9 mmol/L (3.4-5.1); Sodium 139 mmol/L (137-145); Total Protein 5.6 g/dL (6.3-8.2); Triglycerides 115 mg/dL (35-150)
[2021-04-30 20:56] LABS: Cholesterol < 50 mg/dL (140-199); LDL Cholesterol Calculated 2 mg/dL (<100)
[2021-05-02 05:18] LABS: Parathyroid Hormone Int 49 pg/mL (15-65)
== END ==
PROVIDERS: PCP Internal Medicine; Visit Provider Internal Medicine
DX: I50.32 Chronic diastolic (congestive) heart failure (principal); E78.2 Mixed hyperlipidemia; N25.81 Secondary hyperparathyroidism of renal origin
CPT/HCPCS: 80053; 80061; 83970; 85025

== ENCOUNTER → 2021-06-14 16:11 | Outpatient (CLI) | payer MEDICARE, OTHER, SELFPAY ==
[2019-11-27 08:19] VITALS: BMI 28.2
[2021-06-14 17:14] LABS: Add Manual Diff / Slide Review NO; Basophils Absolute Auto 0 /uL (0-100); Basophils Percent Auto 0.3 % (0-2); Eosinophils Absolute Auto 100 /uL (0-450); Eosinophils Percent Auto 1.3 % (2-4); Hematocrit 29.3 % (41-53); Hemoglobin 9.9 g/dL (13.5-17.5); Lymphocytes Absolute Auto 1000 /uL (1100-4500); Lymphocytes Percent Auto 18.2 % (25-40); Mean Corpuscular HGB Conc 33.9 % (30-36); Mean Corpuscular Hemoglobin 37.1 PG (26-34); Mean Corpuscular Volume 109.3 fL (80-100); Monocytes Absolute Auto 600 /uL (0-900); Monocytes Percent Auto 11.2 % (3-14); Neutrophils Absolute Auto 3700 /uL (1500-7000); Platelet Count 178 X10^3/uL (150-400); Red Blood Cell Count 2.68 X10^6/uL (4.5-5.9); Red Cell Distribution Width 12.4 % (11.6-14.8); White Blood Cell Count 5.3 X10^3/uL (4.5-11.0)
[2021-06-14 17:31] LABS: Alanine Aminotransferase 15 IU/L (<50); Albumin Globulin Ratio 1.8 (1.0-2.8); Alkaline Phosphatase 70 U/L (38-126); Aspartate Aminotransferase 21 IU/L (17-59); BUN Creatinine Ratio 18.6 (6-22); Bilirubin Total 1.2 mg/dL (0.2-1.3); Blood Urea Nitrogen 48 mg/dL (9-20); Calcium 8.9 mg/dL (8.4-10.2); Carbon Dioxide 26 mmol/L (22-32); Chloride 102 mmol/L (98-107); Estimated Glomerular Filt Rate 23.8 mL/min (>60); Globulin 2.2 g/dL (1.7-4.1); Glucose 133 mg/dL (80-110); HEMOLYSIS < 15 (0-50); Potassium 4.7 mmol/L (3.4-5.1); Sodium 137 mmol/L (137-145); Total Protein 6.2 g/dL (6.3-8.2)
[2021-06-20 13:57] LABS: Interpretation Positive (.); e13a2(b2a2) transcript 1.8674 % (.)
== END ==
PROVIDERS: PCP Internal Medicine; Referring Provider Internal Medicine; Visit Provider Internal Medicine
DX: C92.10 Chronic myeloid leukemia, BCR/ABL-positive, not having achieved remission (principal)
CPT/HCPCS: 36415; 80053; 81206; 81207; 85025

== ENCOUNTER 2021-06-27 07:13 | Inpatient (IN) | payer MEDICARE, OTHER, SELFPAY ==
[2019-11-27 08:19] VITALS: BMI 28.2
[2021-06-27] VITALS (69 sets, daily range): BP systolic 74–117; BP diastolic 44–61; PULSE 69–90; RESP 13–38; TEMP 32–37; O2SAT 83–100; BMI 25.8; BMI 27.6
--- NOTE | 2021-06-27 07:30 | DI.RAD.S_ITS ---
PROCEDURE: XR CHEST 1V INDICATIONS: SOB TECHNIQUE: One view of the chest was acquired. COMPARISON: [facility], CR, XR CHEST 2V, 09/23/2019, 11:20. FINDINGS: Surgical changes and devices: Generator device overlies heart. Remote midline sternotomy. Coronary artery stent. Valve replacement. Lungs and pleura: Relatively dense consolidation in the left mid and lower lung field. Patchy right basilar consolidation. No pleural effusions or pneumothorax. Mediastinum: Mediastinal contou in rs appear normal. Heart size is normal. Bones and chest wall: No suspicious bony lesions. Overlying soft tissues appear unremarkable. IMPRESSION: Bilateral pneumonia, left greater than right. Comment: Progress films are recommended until clear. Dictated by: Zander Singh M.D. on 06/27/2021 at 8:38 Approved by: Zander Singh M.D. on 06/27/2021 at 8:39
--- NOTE | 2021-06-27 07:31 | ED_ITS ---
HPI - SOB/Dyspnea General Chief Complaint: Shortness of Breath/Dyspnea Stated Complaint: COUGHING UP BLOOD, SOB Time Seen by Provider: 06/27/21 07:23 History of Present Illness HPI Narrative: 86-year-old male former smoker with extensive cardiac history including valvular surgeries, pacemaker, Watchman procedure presents with his and a chief complaint of at least 3 episodes of vomiting over the course of the night and presents this morning with profound shortness of breath, fatigue and feeling unwell. He denies any headache or blurred vision. He has no chest pain, fever or chills. He denies any abdominal pain or diarrhea but has had vomiting. He reports perhaps some blood when coughing but it is unclear. He denies any blood with emesis. He does take Coumadin Related Data Home Medications Medication Instructions Recorded Confirmed atorvastatin 40 mg tablet 40 mg PO BEDTIME #0 11/24/17 06/27/21 imatinib 400 mg tablet (Gleevec) 400 mg PO DAILY #0 11/24/17 06/27/21 carvedilol 3.125 mg tablet 3.125 mg PO DAILY 01/19/19 06/27/21 tamsulosin 0.4 mg capsule 0.4 mg PO DAILY 01/19/19 06/27/21 tiotropium bromide 18 mcg capsule 1 cap INHALATION DAILY 01/19/19 06/27/21 with inhalation device (Spiriva with HandiHaler) albuterol sulfate 90 mcg/actuation 2 puff INHALATION QID PRN 11/27/19 06/27/21 aerosol inhaler clopidogrel 75 mg tablet 75 mg PO DAILY 11/27/19 06/27/21 ferrous sulfate 325 mg (65 mg 325 mg PO Q OTHER DAY 11/27/19 06/27/21 iron) tablet magnesium oxide 400 mg (241.3 mg 400 mg PO DAILY 11/27/19 06/27/21 magnesium) tablet omeprazole 20 mg capsule,delayed 20 mg PO DAILY 11/27/19 06/27/21 release spironolactone 25 mg tablet 25 mg PO DAILY 11/27/19 06/27/21 albuterol sulfate 5 mg/mL(0.5 %) 5 mg INHALATION Q6H PRN 06/27/21 06/27/21 solution for nebulization alpha lipoic acid 100 mg capsule 100 mg PO DAILY PRN 06/27/21 06/27/21 aspirin 81 mg tablet 81 mg PO DAILY 06/27/21 06/27/21 cholecalciferol (vitamin D3) 50 50 mcg PO BID 06/27/21 06/27/21 mcg (2,000 unit) tablet cilostazol 100 mg tablet 100 mg PO 06/27/21 cyanocobalamin (vitamin B-12) 1,000 mcg PO DAILY 06/27/21 06/27/21 1,000 mcg tablet lisinopril 20 mg tablet 20 mg PO DAILY 06/27/21 06/27/21 lorazepam 0.5 mg tablet (Ativan) 0.5 mg PO DAILY PRN 06/27/21 06/27/21 metolazone 5 mg tablet 5 mg PO DAILY 06/27/21 06/27/21 ondansetron HCl 4 mg tablet 4 mg PO DAILY PRN 06/27/21 06/27/21 (Zofran) potassium chloride 10 mEq 10 meq PO Q OTHER DAY 06/27/21 06/27/21 tablet,extended release sildenafil 100 mg tablet 100 mg PO DAILY PRN 06/27/21 06/27/21 torsemide 20 mg tablet 20 mg PO Q OTHER DAY 06/27/21 06/27/21 torsemide 20 mg tablet 40 mg PO Q OTHER DAY 06/27/21 06/27/21 Previous Rx's Medication Instructions Recorded acetaminophen 325 mg tablet 650 mg PO Q6HR PRN #30 tab 11/29/19 Allergies Allergy/AdvReac Type Severity Reaction Status Date / Time No Known Drug Allergies Allergy Verified 02/10/20 15:25 Review of Systems Review of Systems Narrative: GENERAL: See HPI HEENT: Denies sinus pain, ear pain, sore throat, difficulty swallowing, dizziness. RESPIRATORY: See HPI CARDIOVASCULAR: See HPI GASTROINTESTINAL: see HPI : Denies dysuria, frequency, incontinence, hematuria, urinary retention. MUSCULOSKELETAL: denies weakness, joint pain, or bony pain SKIN: Denies rash, skin lesions, or other NEUROLOGIC: Denies weakness, headache, numbness, change in speech, confusion, seizures, incoordination. PSYCHIATRIC: No concerning psychosocial issues. 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 Surgical History H/O aortic valve replacement H/O transurethral resection of prostate History of cardiac radiofrequency ablation History of coronary artery stent placement S/P TAVR (transcatheter aortic valve replacement) Family History Mother Diabetes mellitus Heart disease PAD (peripheral artery disease) Father Lung disease Heart disease Brother Heart attack Brother Heart attack Social History household members: spouse Smoking Status: Former smoker alcohol intake: current Smoking Status: Former smoker alcohol intake frequency: 0-2 drinks per day Alcohol type: hard liquor Substance Use Type: does not use Exam Narrative Exam Narrative: GENERAL: [86] year old patient appears stated age. Well- developed patient in obvious significant distress with pale color, rapid breathing with use of accessory muscles and hypoxic in the 70s HEAD: Atraumatic. Normocephalic. EYES: Pupils equal round and reactive. Extraocular motions intact. No scleral icterus. No injection or drainage. ENT: Dry mucous membranes. Nose without bleeding, purulent drainage. Throat without erythema, tonsillar hypertrophy or exudate. Airway patent. NECK: Trachea midline. Non tender CARDIOVASCULAR: Regular rate and rhythm without murmurs, gallops, or rubs. RESPIRATORY: Wet sounding lung sounds particularly in bilateral bases GASTROINTESTINAL: Abdomen soft, non-tender, nondistended. EXTREMITIES: No edema or joint tenderness. BACK: Nontender without deformity or crepitance. No flank tenderness. NEURO: AOx3. SKIN: No rash or erythema of visible areas Initial Vital Signs Initial Vital Signs: Vital Signs Temperature 97.8 F 06/27/21 07:20 Course Orders Ordered: Acetaminophen (Acetaminophen 325 Mg Tablet) 650 mg PO Q6HR PRN PRN Reason: Fever/Mild Pain (1-3) Al Hydrox/Mg Hydrox/Simethicone (Mag Hydrox/Alum/Simeth 30 Ml Udc) 30 ml PO Q6HR PRN PRN Reason: Dyspepsia Albuterol (Albuterol 2.5 Mg/3 Ml Neb (Adult)) 2.5 mg INH QID PRN PRN Reason: Shortness Of Breath Aspirin (Aspirin Ec 81 Mg Tablet) 81 mg PO DAILY [facility] Atorvastatin Calcium (Atorvastatin 20 Mg Tablet) 40 mg PO BEDTIME [facility] Bisacodyl (Bisacodyl 10 Mg Supp) 10 mg [place] DAILY PRN PRN Reason: Constipation Calcium Carbonate (Calcium Carbonate 500 Mg Tab) 1,000 mg PO Q4HR PRN PRN Reason: Dyspepsia Clopidogrel Bisulfate (Clopidogrel 75 Mg Tablet) 75 mg PO DAILY [facility] Docusate Sodium (Docusate 100 Mg Capsule) 100 mg PO BID [facility] Enoxaparin Sodium (Enoxaparin 100 Mg/Ml Syringe) 90 mg SUBCUT 1600 [facility] Last Admin: 06/27/21 16:49 Dose: 90 mg Documented by: CORTNEY Ampicillin Sodium/Sulbactam (Sodium 1.5 gm/ Sodium Chloride) 100 mls @ 100 mls/hr IV Q12H [facility] Last Infusion: 06/27/21 17:28 Dose: 0 mls/hr Documented by: Admin: 06/27/21 15:40 Dose: 100 mls/hr Documented by: CORTNEY Sodium Chloride (Normal Saline 0.9%) 250 mls @ 21 mls/hr IV Q24H PRN PRN Reason: Flush Ipratropium [place] (Ipratropium 0.5 Mg/2.5 Ml Neb) 0.5 mg INH Q4HRWA [facility] Last Admin: 06/27/21 17:10 Dose: 0.5 mg Documented by: EMMA Ipratropium [place] (Ipratropium 0.5 Mg/2.5 Ml Neb) 0.5 mg INH Q2H PRN PRN Reason: Shortness Of Breath Magnesium Oxide (Magnesium Oxide 400 Mg Tablet) 400 mg PO DAILY [facility] Naloxone HCl (Naloxone 0.4 Mg/Ml Vial) 0.2 mg IV Q2MIN PRN PRN Reason: Opiate Reversal Imatinib [Gleevec] (400 Mg Tablet) 400 mg PO DAILY [facility] Ondansetron HCl (Ondansetron 4 Mg/2 Ml Inj) 4 mg IV Q8HR PRN PRN Reason: Nausea And Vomiting Pantoprazole Sodium (Pantoprazole Dr 20 Mg Tablet) 20 mg PO 0600 [place] Sodium Chloride (Sodium Chloride 0.9% Flush) 10 ml IV PRN PRN PRN Reason: Flush Discontinued Medications Albuterol (Albuterol 2.5 Mg/3 Ml Neb (Adult)) 5 mg INH Q6H PRN PRN Reason: Shortness Of Breath Or Wheezing Enoxaparin Sodium (Enoxaparin 40 Mg/0.4 Ml Syringe) 40 mg SUBCUT DAILY [facility] Enoxaparin Sodium (Enoxaparin 30 Mg/0.3 Ml Syringe) 30 mg SUBCUT DAILY [facility] Enoxaparin Sodium (Enoxaparin 30 Mg/0.3 Ml Syringe) 30 mg SUBCUT BID [facility] Furosemide (Furosemide 40 Mg/4 Ml Vial) 40 mg IV NOW ONE Stop: 06/27/21 07:29 Last Admin: 06/27/21 07:40 Dose: 40 mg Documented by: BERNIE Sodium Chloride (Normal Saline 0.9%) 500 mls @ 1,000 mls/hr IV BOLUS ONE Stop: 06/27/21 08:51 Last Infusion: 06/27/21 09:08 Dose: 0 mls/hr Documented by: Admin: 06/27/21 08:39 Dose: 1,000 mls/hr Documented by: BERNIE Ceftriaxone Sodium 2,000 mg/ (Sodium Chloride) 100 mls @ 200 mls/hr IV NOW ONE Stop: 06/27/21 08:56 Last Infusion: 06/27/21 10:00 Dose: 0 mls/hr Documented by: Admin: 06/27/21 09:20 Dose: 200 mls/hr Documented by: BERNIE Azithromycin 500 mg/ Dextrose 250 mls @ 250 mls/hr IV NOW ONE Stop: 06/27/21 08:56 Last Infusion: 06/27/21 10:12 Dose: 0 mls/hr Documented by: Admin: 06/27/21 09:06 Dose: 250 mls/hr Documented by: BERNIE Sodium Chloride (Normal Saline 0.9%) 1,000 mls @ 1,000 mls/hr IV BOLUS ONE Stop: 06/27/21 09:54 Last Admin: 06/27/21 09:07 Dose: Not Given Documented by: BERNIE Lactated Ringer's (Lactated Ringers) 2,381.37 mls @ 793.79 mls/hr 30 ml/kg infuse over 3 hr (2381.37 ml) IV NOW ONE Stop: 06/27/21 12:00 Last Infusion: 06/27/21 13:00 Dose: 0 mls/hr Documented by: Admin: 06/27/21 09:07 Dose: 793.79 mls/hr Documented by: BERNIE Lactated Ringer's (Lactated Ringers) 1,000 mls @ 100 mls/hr IV CONT [facility] Last Infusion: 06/27/21 18:53 Dose: 0 mls/hr Documented by: Admin: 06/27/21 15:38 Dose: 100 mls/hr Documented by: CORTNEY Ampicillin Sodium/Sulbactam (Sodium 1.5 gm/ Sodium Chloride) 100 mls @ 100 mls/hr IV Q6H [facility] Last Infusion: 06/27/21 17:28 Dose: 0 mls/hr Documented by: Admin: 06/27/21 15:38 Dose: 100 mls/hr Documented by: CORTNEY Ondansetron HCl (Ondansetron 4 Mg/2 Ml Inj) 4 mg IV NOW ONE Stop: 06/27/21 07:37 Last Admin: 06/27/21 07:40 Dose: 4 mg Documented by: BERNIE Reevaluation(s) Reevaluation #1: Blood pressure dipping a bit, into the upper 70s, patient placed in Trendelenburg, fluids ordered, push dose epinephrine mix, Time: 08:28 Reevaluation #2: BiPap taken off, placed on HFNC, vitals stabilizing. Patient responding to fluids, BP now in upper 90s, HR 77. RR 20. SpO2 95% Reevaluation #3: Patient did receive 2 pushes of epinephrine push does pressor when his blood pressures were in the 70s earlier. He has been over 100 for some time now and does not need an ongoing vasopressor. Vital Signs Vital signs: Vital Signs - 8 hr 06/27/21 07:20 06/27/21 08:20 06/27/21 08:21 Temperature 97.8 F Pulse Rate 69 69 Respiratory Rate 21 28 H Blood Pressure 74/44 L Pulse Oximetry 97 99 06/27/21 08:22 06/27/21 08:30 06/27/21 08:45 Temperature Pulse Rate 71 69 71 Respiratory Rate 24 16 25 H Blood Pressure 79/50 L 83/53 L 87/53 L Pulse Oximetry 98 99 99 06/27/21 08:46 06/27/21 08:51 06/27/21 08:58 Temperature Pulse Rate 71 71 72 Respiratory Rate 27 H 24 22 Blood Pressure 86/53 L 79/50 L 98/54 L Pulse Oximetry 100 98 94 06/27/21 09:00 06/27/21 09:15 Temperature Pulse Rate 71 70 Respiratory Rate 15 23 Blood Pressure 107/58 L 87/52 L Pulse Oximetry 93 98 MDM - SOB/Dyspnea Lab Data Result diagrams: 06/27/21 13:45 06/27/21 13:45 Labs: Lab Results 06/27/21 06/27/21 06/27/21 Range/Units 07:26 07:50 07:50 WBC (4.5-11.0) X10^3/uL RBC (4.5-5.9) X10^6/uL Hgb (13.5-17.5) g/dL Hct (41-53) % MCV (80-100) fL MCH (26-34) PG MCHC (30-36) % RDW (11.6-14.8) % Plt Count (150-400) X10^3/uL Neut % (Auto) (50-75) % Lymph % (Auto) (25-40) % [place] % (Auto) (3-14) % Eos % (Auto) (2-4) % Baso % (Auto) (0-2) % Neut # (Auto) (7868-6718) /uL Lymph # (Auto) (0996-0908) /uL [place] # (Auto) (0-900) /uL Eos # (Auto) (0-450) /uL Baso # (Auto) (0-100) /uL Platelet Estimate RBC Morphology Macrocytosis PT (10.1-12.7) SECONDS INR (0.9-1.3) D-Dimer 3313 H (<230) ng/mL ABG pH (7.35-7.45) ABG pCO2 (35-45) mmHg ABG pO2 (80-100) mmHg ABG HCO3 (22-26) mmol/L ABG Total CO2 (21-31) mmol/L ABG O2 Saturation (95-100) % ABG Base Excess (-2-2) mmol/L FiO2 Sodium (137-145) mmol/L Potassium (3.4-5.1) mmol/L Chloride (98-107) mmol/L Carbon Dioxide (22-32) mmol/L BUN (9-20) mg/dL Creatinine (0.66-1.25) mg/dL Estimated GFR (>60) mL/min BUN/Creatinine Ratio (6-22) Glucose (80-110) mg/dL Lactate (0.7-2.1) mmol/L Calcium (8.4-10.2) mg/dL Magnesium (1.6-2.3) mg/dL Total Bilirubin (0.2-1.3) mg/dL AST (17-59) IU/L ALT (<50) IU/L Alkaline Phosphatase (38-126) U/L Total Creatine Kinase (55-170) U/L CK-MB (CK-2) CK-MB (CK-2) Rel Index Troponin I (0.01-0.034) ng/mL NT-Pro-B Natriuret Pep 5350 H (<450) pg/mL Total Protein (6.3-8.2) g/dL Albumin (3.5-5.0) g/dL Globulin (1.7-4.1) g/dL Albumin/Globulin Ratio (1.0-2.8) Procalcitonin 1.50 H (<0.5) ng/mL SARS-CoV-2 (PCR) Negative (Negative) 06/27/21 06/27/21 06/27/21 Range/Units 07:50 07:50 07:50 WBC 10.5 (4.5-11.0) X10^3/uL RBC 2.84 L (4.5-5.9) X10^6/uL Hgb 10.6 L (13.5-17.5) g/dL Hct 31.5 L (41-53) % MCV 110.8 H (80-100) fL MCH 37.2 H (26-34) PG MCHC 33.6 (30-36) % RDW 11.9 (11.6-14.8) % Plt Count 150 (150-400) X10^3/uL Neut % (Auto) 98.5 H (50-75) % Lymph % (Auto) 0.8 L (25-40) % [place] % (Auto) 0.3 L (3-14) % Eos % (Auto) 0.1 L (2-4) % Baso % (Auto) 0.3 (0-2) % Neut # (Auto) 17584 H (8692-3825) /uL Lymph # (Auto) 100 L (0422-8397) /uL [place] # (Auto) 0 (0-900) /uL Eos # (Auto) 0 (0-450) /uL Baso # (Auto) 0 (0-100) /uL Platelet Estimate Decreased on smear RBC Morphology See below Macrocytosis 1+ H PT (10.1-12.7) SECONDS INR (0.9-1.3) D-Dimer (<230) ng/mL ABG pH (7.35-7.45) ABG pCO2 (35-45) mmHg ABG pO2 (80-100) mmHg ABG HCO3 (22-26) mmol/L ABG Total CO2 (21-31) mmol/L ABG O2 Saturation (95-100) % ABG Base Excess (-2-2) mmol/L FiO2 Sodium (137-145) mmol/L Potassium (3.4-5.1) mmol/L Chloride (98-107) mmol/L Carbon Dioxide (22-32) mmol/L BUN (9-20) mg/dL Creatinine (0.66-1.25) mg/dL Estimated GFR (>60) mL/min BUN/Creatinine Ratio (6-22) Glucose (80-110) mg/dL Lactate 3.2 H (0.7-2.1) mmol/L Calcium (8.4-10.2) mg/dL Magnesium 1.9 (1.6-2.3) mg/dL Total Bilirubin (0.2-1.3) mg/dL AST (17-59) IU/L ALT (<50) IU/L Alkaline Phosphatase (38-126) U/L Total Creatine Kinase 47 L (55-170) U/L CK-MB (CK-2) TNP CK-MB (CK-2) Rel Index TNP Troponin I 0.063 H (0.01-0.034) ng/mL NT-Pro-B Natriuret Pep (<450) pg/mL Total Protein (6.3-8.2) g/dL Albumin (3.5-5.0) g/dL Globulin (1.7-4.1) g/dL Albumin/Globulin Ratio (1.0-2.8) Procalcitonin (<0.5) ng/mL SARS-CoV-2 (PCR) (Negative) 06/27/21 06/27/21 06/27/21 Range/Units 07:50 07:50 08:21 WBC (4.5-11.0) X10^3/uL RBC (4.5-5.9) X10^6/uL Hgb (13.5-17.5) g/dL Hct (41-53) % MCV (80-100) fL MCH (26-34) PG MCHC (30-36) % RDW (11.6-14.8) % Plt Count (150-400) X10^3/uL Neut % (Auto) (50-75) % Lymph % (Auto) (25-40) % [place] % (Auto) (3-14) % Eos % (Auto) (2-4) % Baso % (Auto) (0-2) % Neut # (Auto) (3957-6713) /uL Lymph # (Auto) (9260-6550) /uL [place] # (Auto) (0-900) /uL Eos # (Auto) (0-450) /uL Baso # (Auto) (0-100) /uL Platelet Estimate RBC Morphology Macrocytosis PT 13.2 H (10.1-12.7) SECONDS INR 1.2 (0.9-1.3) D-Dimer (<230) ng/mL ABG pH 7.41 (7.35-7.45) ABG pCO2 30.5 L (35-45) mmHg ABG pO2 79 L (80-100) mmHg ABG HCO3 19 L (22-26) mmol/L ABG Total CO2 20 L (21-31) mmol/L ABG O2 Saturation 96 (95-100) % ABG Base Excess -5.0 L (-2-2) mmol/L FiO2 50 Sodium 135 L (137-145) mmol/L Potassium 3.7 (3.4-5.1) mmol/L Chloride 104 (98-107) mmol/L Carbon Dioxide 20 L (22-32) mmol/L BUN 51 H (9-20) mg/dL Creatinine 2.89 H (0.66-1.25) mg/dL Estimated GFR 20.9 L (>60) mL/min BUN/Creatinine Ratio 17.6 (6-22) Glucose 127 H (80-110) mg/dL Lactate (0.7-2.1) mmol/L Calcium 8.7 (8.4-10.2) mg/dL Magnesium (1.6-2.3) mg/dL Total Bilirubin 1.8 H (0.2-1.3) mg/dL AST 22 (17-59) IU/L ALT 19 (<50) IU/L Alkaline Phosphatase 92 (38-126) U/L Total Creatine Kinase (55-170) U/L CK-MB (CK-2) CK-MB (CK-2) Rel Index Troponin I (0.01-0.034) ng/mL NT-Pro-B Natriuret Pep (<450) pg/mL Total Protein 5.9 L (6.3-8.2) g/dL Albumin 3.8 (3.5-5.0) g/dL Globulin 2.1 (1.7-4.1) g/dL Albumin/Globulin Ratio 1.8 (1.0-2.8) Procalcitonin (<0.5) ng/mL SARS-CoV-2 (PCR) (Negative) Discharge Plan Departure Patient Disposition: Admitted As Inpatient Clinical Impression: Bilateral pneumonia, Acute kidney injury, Severe sepsis, Acute hypoxemic respiratory failure Admit Date/Time: 06/27/21 09:21 Admit Provider: Amie Madden
[2021-06-27] MEDS: ONDANSETRON 4 MG/2 ML INJ IV (07:40)
[2021-06-27] MEDS: FUROSEMIDE 40 MG/4 ML VIAL IV (07:40)
[2021-06-27 08:14] LABS: Add Manual Diff / Slide Review NO; Basophils Absolute Auto 0 /uL (0-100); Basophils Percent Auto 0.3 % (0-2); Eosinophils Absolute Auto 0 /uL (0-450); Eosinophils Percent Auto 0.1 % (2-4); Hematocrit 31.5 % (41-53); Hemoglobin 10.6 g/dL (13.5-17.5); Lymphocytes Absolute Auto 100 /uL (1100-4500); Lymphocytes Percent Auto 0.8 % (25-40); Mean Corpuscular HGB Conc 33.6 % (30-36); Mean Corpuscular Hemoglobin 37.2 PG (26-34); Mean Corpuscular Volume 110.8 fL (80-100); Monocytes Absolute Auto 0 /uL (0-900); Monocytes Percent Auto 0.3 % (3-14); Neutrophils Absolute Auto 10300 /uL (1500-7000); Neutrophils Percent Auto 98.5 % (50-75); Platelet Count 150 X10^3/uL (150-400); Red Blood Cell Count 2.84 X10^6/uL (4.5-5.9); Red Cell Distribution Width 11.9 % (11.6-14.8); White Blood Cell Count 10.5 X10^3/uL (4.5-11.0)
--- NOTE | 2021-06-27 08:31 | PC.NURSE ---
MD informed of Low BP. Verbal order for 500ml NS blous
[2021-06-27 08:38] LABS: D Dimer 3313 ng/mL (<230)
[2021-06-27 08:39] LABS: COVID19 - ADMIT (NP swab/PCR) Negative (Negative)
[2021-06-27] MEDS: SODIUM CHLORIDE 0.9% 500 ML 1000 ML IV (08:39)
[2021-06-27 08:40] LABS: Creatine Kinase 47 U/L (55-170); Magnesium 1.9 mg/dL (1.6-2.3)
[2021-06-27 08:41] LABS: Alanine Aminotransferase 19 IU/L (<50); Albumin 3.8 g/dL (3.5-5.0); Albumin Globulin Ratio 1.8 (1.0-2.8); Alkaline Phosphatase 92 U/L (38-126); Aspartate Aminotransferase 22 IU/L (17-59); BUN Creatinine Ratio 17.6 (6-22); Bilirubin Total 1.8 mg/dL (0.2-1.3); Blood Urea Nitrogen 51 mg/dL (9-20); Calcium 8.7 mg/dL (8.4-10.2); Carbon Dioxide 20 mmol/L (22-32); Chloride 104 mmol/L (98-107); Estimated Glomerular Filt Rate 20.9 mL/min (>60); Globulin 2.1 g/dL (1.7-4.1); Glucose 127 mg/dL (80-110); HEMOLYSIS < 15 (0-50); Lactate (Lactic Acid) 3.2 mmol/L (0.7-2.1); Potassium 3.7 mmol/L (3.4-5.1); Sodium 135 mmol/L (137-145); Total Protein 5.9 g/dL (6.3-8.2)
[2021-06-27 08:49] LABS: NT-proBNP (BNP-Adult 18+) 5350 pg/mL (<450)
--- NOTE | 2021-06-27 08:50 | PC.NURSE ---
10mcg Epi push given by Dr. Garza
[2021-06-27 08:52] LABS: Troponin I 0.063 ng/mL (0.01-0.034)
[2021-06-27 09:00] LABS: pH ABG 7.41 (7.35-7.45)
[2021-06-27 09:01] LABS: Fractionated Inspired Oxygen 50; HCO3 ABG 19 mmol/L (22-26); Oxygen Saturation ABG 96 % (95-100); PCO2 ABG 30.5 mmHg (35-45); PO2 ABG 79 mmHg (80-100); TCO2 ABG 20 mmol/L (21-31)
[2021-06-27] MEDS: AZITHROMYCIN 500 MG in DEXTROSE 5% IN WATER 250 ML IV (09:06)
[2021-06-27] MEDS: LACTATED RINGERS 2,381.37 ML 793.79 ML IV (09:07)
[2021-06-27] MEDS: cefTRIAXone 2,000 MG in SODIUM CHLORIDE 0.9% 100 ML 200 ML IV (09:20)
[2021-06-27 09:31] LABS: INR 1.2 (0.9-1.3); Prothrombin Time 13.2 SECONDS (10.1-12.7)
--- NOTE | 2021-06-27 09:46 | DI.ECHO.S_ITS ---
[facility]---------+ [facility] +---------+ : : [id number] : [place] : : : : [id number] : : : : Phone: [phone] Echocardiogram Report + + :Name: SERENITY LITTLEJOHN Study Date: 06/27/2021 Height: 69 in : :[facility] ReadingLocation: Weight: 175 lb: : Gender: Male BSA: 2.0 m2 : :: 1935 Age: 86 yrs BP: 92/54 mmHg: :Reason For Study: SOB, HYPOXIA : :Ordering Physician: GARRETT, : :REZA Performed By: Jaclyn Atkinson : :Referring: REZA TUCKER : + + Interpretation Summary Left ventricular ejection fraction is estimated to be 40 +/- 5%. The study is technically difficult and it is difficult to visualize the endocardium. Despite Definity contrast it is difficult study to accurately estimate the ejection fraction. The septum is dyskinetic. This is a new finding. The interventricular septum is flattened, consistent with a right ventricular pressure/volume condition. The right ventricle is mild to moderately dilated. Right ventricular systolic function is mild to moderately reduced. There is severe biatrial enlargement. There is mild mitral regurgitation. There is a prosthetic aortic valve. The prosthetic aortic valve is not well visualized. There is trace aortic regurgitation. There is moderate tricuspid regurgitation. The right ventricular systolic pressure is estimated to be at least 55 mmHg based on an estimated right atrial pressure of 15 mm Hg. Procedure: A two-dimensional transthoracic echocardiogram with color flow and Doppler was performed. The study quality was technically difficult. A contrast injection of Definity was performed to improve assessment of LV function. Comparison is made with the echocardiogram of 11/29/2019. The patient had occasional PVCs during the exam. Left Ventricle: Left ventricle appears visually small in size. There is mild concentric left ventricular hypertrophy. Left ventricular ejection fraction is estimated to be 40 +/- 5%. The study is technically difficult and it is difficult to visualize the endocardium. Despite Definity contrast it is difficult study to accurately estimate the ejection fraction. The septum is dyskinetic. This is a new finding. The interventricular septum is flattened, consistent with a right ventricular pressure/volume condition. Right Ventricle: The right ventricle is mild to moderately dilated. Right ventricular systolic function is mild to moderately reduced. Atria: The left atrium is severely dilated. There is severe biatrial enlargement. The right atrium is severely dilated. There is no Doppler evidence for an interatrial shunt. Mitral Valve: There is moderate mitral annular calcification. The mitral valve leaflets appear mildly thickened, but open well. There is mild mitral regurgitation. Aortic Valve: There is a prosthetic aortic valve. The prosthetic aortic valve is not well visualized. There is trace aortic regurgitation. Tricuspid Valve: The tricuspid valve leaflets are thin and pliable. There is moderate tricuspid regurgitation. The right ventricular systolic pressure is estimated to be at least 55 mmHg based on an estimated right atrial pressure of 15 mm Hg. Pulmonic Valve: The pulmonic valve is not well visualized. There is no pulmonic valvular regurgitation. Great Vessels: The ascending aorta is moderately enlarged. The IVC is dilated (diameter is greater than 2.1 cm) and it collapses less than 50% with a sniff. This suggests a high right atrial pressure of 15 mm Hg. Pericardium/ Pleura There is no pericardial effusion. There is no pleural effusion. MMode/2D Measurements & Calculations LVIDd: 5.1 cm LVOT diam: 2.1 cm LVIDs: 4.1 cm asc Aorta Diam: 4.1 cm FS: 19.4 % IVSd: 1.2 cm LVPWd: 1.1 cm LV rouse. diameter/BSA (cm/m^2): 2.6 LV sys. diameter/BSA (cm/m^2): 2.1 LA A2 area: 28.9 cm2 RA long axis: 7.8 cm LA A4 area: 32.4 cm2 RA area: 35.9 cm2 LA length (vol): 6.6 cm RA vol: 140.9 ml LA vol: 120.1 ml RA : 72.2 ml/m2 LA vol index: 61.5 ml/m2 IVC diam: 2.2 cm RVD1 (basal): 4.5 cm TAPSE: 1.4 cm Doppler Measurements & Calculations Ao V2 max: 204.2 cm/sec LVOT Max Camron: 62.2 cm/sec Ao V2 mean: 133.9 cm/sec LV V1 max P.5 mmHg Ao max P.7 mmHg LV V1 VTI: 11.5 cm Ao mean P.3 mmHg CURTIS(I,D): 1.2 cm2 Ao V2 VTI: 33.7 cm CURTIS(V,D): 1.0 cm2 sev ratio: 0.34 CURTIS indexed to BSA (cm^2/m^2): 0.59 MV E max camron: 99.9 cm/sec TR max camron: 313.3 cm/sec MV A max camron: 1.6 cm/sec TR max P.3 mmHg MV E/A: 61.4 PA V2 max: 101.3 cm/sec Med Peak E' Camron: 7.7 cm/sec PA V2 mean: 65.4 cm/sec E/E' med: 13.0 PA mean P.0 mmHg Lat Peak E' Camron: 8.0 cm/sec PA pr(Accel): 44.7 mmHg E/E' lat: 12.5 E/e' average: 12.7 MV dec time: 0.26 sec SV(LVOT): 38.8 ml Reading Physician:11:57 AM
[2021-06-27 10:07] LABS: Reflexed Lactate in 2 Hours Y
[2021-06-27 11:03] LABS: Macrocytosis 1+; Platelet Estimate Decreased on smear
[2021-06-27 11:08] LABS: Lactate 2HR (Lactic Acid Rflx) 2.7 mmol/L (0.7-2.1)
--- NOTE | 2021-06-27 11:11 | PC.NURSE ---
Was given 10mcg push of Epi by dr. Garza for a BP of 88/51
--- NOTE | 2021-06-27 13:43 | PM.HP.1 ---
History of Present Illness History of Present Illness Chief complaint: COUGHING UP BLOOD, SOB Narrative: The patient is an 86-year-old male with a history of atrial fibrillation status post a Watchman device, pacemaker placement, coronary artery disease, hypertension, hyperlipidemia, COPD not on home oxygen, chronic kidney disease stage 3, gastroesophageal reflux disease. Who was in his usual state of health until last evening. Patient reports he woke up at 3:00 a.m. and had abrupt emesis. He then laid back down and had a sep 2nd episode of emesis around 5:00 a.m.. The patient was short of breath. He was brought to the emergency room for evaluation. In the emergency room the patient was noted to be markedly hypoxic. Initially they felt he may be and heart failure. He was given IV Lasix, patient was placed on BiPAP, he became hypotensive. Chest x-ray was suggestive of pneumonia, the patient required epinephrine in the emergency room to improve his blood pressure. He was taken off BiPAP and placed on high-flow oxygen. Patient reports having gastroesophageal reflux disease, he is scheduled to see a machine overhauler in May with no further evaluation. He developed significant abdominal pain last week. He has a known ventral hernia. He had a CT scan of the abdomen and pelvis which showed no explanation for his acute abdominal pain. The patient reports he developed nausea and vomiting which was different from his usual reflux this morning. Following that he was significantly hypoxic. The patient has a white count of 10.5, hemoglobin 10.6, hematocrit 31.5. He was also found to have a D-dimer elevated at 33 13, patient's BUN and creatinine were markedly elevated. Baseline creatinine is about 1.44, today his BUN was 51 with a creatinine of 2.89. Patient notes that he has had pleural effusion requiring thoracentesis. His medications, including torsemide, spironolactone, metolazone have been adjusted to manage his respiratory failure. In addition the patient is on an MARIAH-inhibitor for his hypertension. Patient also reports feeling quite weak. Patient was found to have a proBNP of 53 50 in the emergency department in addition to a troponin I of 0.063. He denies any chest pain. He does report hemoptysis, no further GERD, no hematemesis, no melena, no bright red blood per rectum. He has mild headache. He has shortness of breath which is improved. No cough, no fever. Patient has no lower extremity edema. Patient is admitted to the hospital at this time for acute respiratory failure secondary to aspiration pneumonia related to recent vomiting. Patient History Medical History (Updated 06/27/21 @ 09:17 by Christophe Garza DO) Aortic stenosis Atrial fibrillation BPH (benign prostatic hyperplasia) CAD (coronary artery disease) CHF (congestive heart failure) CML (chronic myelocytic leukemia) COPD (chronic obstructive pulmonary disease) History of cardioversion Hyperlipidemia Hypertension PAD (peripheral artery disease) Pulmonary arterial hypertension Pulmonary nodule Squamous cell carcinoma of skin of ear Stenosis of coronary stent Surgical History H/O aortic valve replacement H/O transurethral resection of prostate History of cardiac radiofrequency ablation History of coronary artery stent placement S/P TAVR (transcatheter aortic valve replacement) Family & Social History Family History Mother Diabetes mellitus Heart disease PAD (peripheral artery disease) Father Lung disease Heart disease Brother Heart attack Brother Heart attack Social History: household members spouse Safety & Behavioral: Feels Safe in Current Yes Environment Been Physically Hurt or No Threatened By a Person Suicidal Ideation Description None Suicide Plan Description No Plan Tobacco & Substance use: Tobacco type cigarettes,cigars Smoking Status Former smoker alcohol intake current alcohol intake frequency 0-2 drinks per day Substance Use Type does not use Meds Home Medications and Allergies Home Medications Medication Instructions Recorded Confirmed Type atorvastatin 40 mg tablet 40 mg PO BEDTIME #0 11/24/17 06/27/21 History imatinib 400 mg tablet (Gleevec) 400 mg PO DAILY #0 11/24/17 06/27/21 History carvedilol 3.125 mg tablet 3.125 mg PO DAILY 01/19/19 06/27/21 History tamsulosin 0.4 mg capsule 0.4 mg PO DAILY 01/19/19 06/27/21 History tiotropium bromide 18 mcg capsule 1 cap INHALATION DAILY 01/19/19 06/27/21 History with inhalation device (Spiriva with HandiHaler) albuterol sulfate 90 mcg/actuation 2 puff INHALATION QID PRN 11/27/19 06/27/21 History aerosol inhaler clopidogrel 75 mg tablet 75 mg PO DAILY 11/27/19 06/27/21 History ferrous sulfate 325 mg (65 mg 325 mg PO Q OTHER DAY 11/27/19 06/27/21 History iron) tablet magnesium oxide 400 mg (241.3 mg 400 mg PO DAILY 11/27/19 06/27/21 History magnesium) tablet omeprazole 20 mg capsule,delayed 20 mg PO DAILY 11/27/19 06/27/21 History release spironolactone 25 mg tablet 25 mg PO DAILY 11/27/19 06/27/21 History acetaminophen 325 mg tablet 650 mg PO Q6HR PRN #30 tab 11/29/19 06/27/21 Rx albuterol sulfate 5 mg/mL(0.5 %) 5 mg INHALATION Q6H PRN 06/27/21 06/27/21 History solution for nebulization alpha lipoic acid 100 mg capsule 100 mg PO DAILY PRN 06/27/21 06/27/21 History aspirin 81 mg tablet 81 mg PO DAILY 06/27/21 06/27/21 History cholecalciferol (vitamin D3) 50 50 mcg PO BID 06/27/21 06/27/21 History mcg (2,000 unit) tablet cyanocobalamin (vitamin B-12) 1,000 mcg PO DAILY 06/27/21 06/27/21 History 1,000 mcg tablet lisinopril 20 mg tablet 20 mg PO DAILY 06/27/21 06/27/21 History lorazepam 0.5 mg tablet (Ativan) 0.5 mg PO DAILY PRN 06/27/21 06/27/21 History metolazone 5 mg tablet 5 mg PO DAILY 06/27/21 06/27/21 History ondansetron HCl 4 mg tablet 4 mg PO DAILY PRN 06/27/21 06/27/21 History (Zofran) potassium chloride 10 mEq 10 meq PO Q OTHER DAY 06/27/21 06/27/21 History tablet,extended release sildenafil 100 mg tablet 100 mg PO DAILY PRN 06/27/21 06/27/21 History torsemide 20 mg tablet 20 mg PO Q OTHER DAY 06/27/21 06/27/21 History torsemide 20 mg tablet 40 mg PO Q OTHER DAY 06/27/21 06/27/21 History Allergies Allergy/AdvReac Type Severity Reaction Status Date / Time No Known Drug Allergies Allergy Verified 02/10/20 15:25 Review of Systems Review of Systems Narrative: Review of system is negative except as discussed above Exam Vital Signs (past 8 hours): - 06/27/21 07:20 06/27/21 08:20 06/27/21 08:21 Temperature 97.8 F Pulse Rate 69 69 Respiratory Rate 21 28 H Blood Pressure 74/44 L Pulse Oximetry 97 99 06/27/21 08:22 06/27/21 08:30 06/27/21 08:45 Temperature Pulse Rate 71 69 71 Respiratory Rate 24 16 25 H Blood Pressure 79/50 L 83/53 L 87/53 L Pulse Oximetry 98 99 99 06/27/21 08:46 06/27/21 08:51 06/27/21 08:58 Temperature Pulse Rate 71 71 72 Respiratory Rate 27 H 24 22 Blood Pressure 86/53 L 79/50 L 98/54 L Pulse Oximetry 100 98 94 06/27/21 09:00 06/27/21 09:15 06/27/21 09:30 Temperature Pulse Rate 71 70 69 Respiratory Rate 15 23 16 Blood Pressure 107/58 L 87/52 L 81/49 L Pulse Oximetry 93 98 96 06/27/21 09:39 06/27/21 09:45 06/27/21 10:00 Temperature Pulse Rate 69 69 69 Respiratory Rate 13 20 13 Blood Pressure 101/58 L 89/50 L 92/54 L Pulse Oximetry 96 94 97 06/27/21 10:15 06/27/21 10:30 06/27/21 10:31 Temperature Pulse Rate 69 69 69 Respiratory Rate 28 H 23 24 Blood Pressure Pulse Oximetry 95 95 94 06/27/21 10:34 06/27/21 10:45 06/27/21 10:48 Temperature Pulse Rate 69 69 Respiratory Rate 31 H 28 H 24 Blood Pressure 102/55 L 87/49 L Pulse Oximetry 91 90 L 92 06/27/21 11:00 06/27/21 11:07 06/27/21 11:27 Temperature Pulse Rate 69 69 70 Respiratory Rate 26 H 32 H 38 H Blood Pressure 87/50 L 88/51 L Pulse Oximetry 94 87 L 95 06/27/21 11:30 06/27/21 11:40 06/27/21 11:52 Temperature Pulse Rate 81 70 Respiratory Rate 35 H 31 H Blood Pressure 107/56 L Pulse Oximetry 90 L 93 86 L 06/27/21 11:54 06/27/21 12:06 06/27/21 12:12 Temperature Pulse Rate 69 Respiratory Rate 22 Blood Pressure 97/54 L 97/54 L Pulse Oximetry 88 L 85 L 87 L 06/27/21 12:14 Temperature Pulse Rate Respiratory Rate Blood Pressure 97/54 L Pulse Oximetry 91 Fraction of Inspired Oxygen 55 Oxygen Delivery Method High Flow Nasal Cannula Oxygen Flow Rate 60 Narrative Exam Narrative: Ill-appearing elderly male lying in bed [facility] Other: HEENT: Normocephalic atraumatic, extraocular muscles are intact, oropharynx is clear, he does have moist mucous membranes, neck is supple, no evidence of JVD, Resp Other: Lungs: Decreased breath sounds, no crackles rhonchi or wheezes Cardio Other: Cardiac exam: Regular rate and rhythm, normal S1-S2, with a 2/6 systolic ejection murmur GI Other: Abdomen: Soft, scaphoid, nontender, no palpable masses, no hepatosplenomegaly noted Skin Other: Chronic varicosities of the lower extremities Neuro Other: Pleasant gentleman cooperative and awake and alert, cranial nerves 2-12 are intact, strength is symmetric and equal, sensation is grossly intact, gait is not assessed Extrem Other: No edema noted Psych Other: Patient is awake, alert, coherent, and able to participate with exam, no hallucinations, no delusions Objective Labs Result Diagrams: 06/27/21 07:50 06/27/21 07:50 Labs: Laboratory Results - last 24 hr 06/27/21 06/27/21 06/27/21 07:26 07:50 07:50 WBC RBC Hgb Hct MCV MCH MCHC RDW Plt Count Neut % (Auto) Lymph % (Auto) [place] % (Auto) Eos % (Auto) Baso % (Auto) Neut # (Auto) Lymph # (Auto) [place] # (Auto) Eos # (Auto) Baso # (Auto) Platelet Estimate RBC Morphology Macrocytosis PT INR D-Dimer 3313 H ABG pH ABG pCO2 ABG pO2 ABG HCO3 ABG Total CO2 ABG O2 Saturation ABG Base Excess FiO2 Sodium Potassium Chloride Carbon Dioxide BUN Creatinine Estimated GFR BUN/Creatinine Ratio Glucose Lactate Calcium Magnesium Total Bilirubin AST ALT Alkaline Phosphatase Total Creatine Kinase CK-MB (CK-2) CK-MB (CK-2) Rel Index Troponin I NT-Pro-B Natriuret Pep 5350 H Total Protein Albumin Globulin Albumin/Globulin Ratio Procalcitonin 1.50 H SARS-CoV-2 (PCR) Negative 06/27/21 06/27/21 06/27/21 07:50 07:50 07:50 WBC 10.5 RBC 2.84 L Hgb 10.6 L Hct 31.5 L MCV 110.8 H MCH 37.2 H MCHC 33.6 RDW 11.9 Plt Count 150 Neut % (Auto) 98.5 H Lymph % (Auto) 0.8 L [place] % (Auto) 0.3 L Eos % (Auto) 0.1 L Baso % (Auto) 0.3 Neut # (Auto) 47580 H Lymph # (Auto) 100 L [place] # (Auto) 0 Eos # (Auto) 0 Baso # (Auto) 0 Platelet Estimate Decreased on smear RBC Morphology See below Macrocytosis 1+ H PT INR D-Dimer ABG pH ABG pCO2 ABG pO2 ABG HCO3 ABG Total CO2 ABG O2 Saturation ABG Base Excess FiO2 Sodium Potassium Chloride Carbon Dioxide BUN Creatinine Estimated GFR BUN/Creatinine Ratio Glucose Lactate 3.2 H Calcium Magnesium 1.9 Total Bilirubin AST ALT Alkaline Phosphatase Total Creatine Kinase 47 L CK-MB (CK-2) TNP CK-MB (CK-2) Rel Index TNP Troponin I 0.063 H NT-Pro-B Natriuret Pep Total Protein Albumin Globulin Albumin/Globulin Ratio Procalcitonin SARS-CoV-2 (PCR) 06/27/21 06/27/21 06/27/21 07:50 07:50 08:21 WBC RBC Hgb Hct MCV MCH MCHC RDW Plt Count Neut % (Auto) Lymph % (Auto) [place] % (Auto) Eos % (Auto) Baso % (Auto) Neut # (Auto) Lymph # (Auto) [place] # (Auto) Eos # (Auto) Baso # (Auto) Platelet Estimate RBC Morphology Macrocytosis PT 13.2 H INR 1.2 D-Dimer ABG pH 7.41 ABG pCO2 30.5 L ABG pO2 79 L ABG HCO3 19 L ABG Total CO2 20 L ABG O2 Saturation 96 ABG Base Excess -5.0 L FiO2 50 Sodium 135 L Potassium 3.7 Chloride 104 Carbon Dioxide 20 L BUN 51 H Creatinine 2.89 H Estimated GFR 20.9 L BUN/Creatinine Ratio 17.6 Glucose 127 H Lactate Calcium 8.7 Magnesium Total Bilirubin 1.8 H AST 22 ALT 19 Alkaline Phosphatase 92 Total Creatine Kinase CK-MB (CK-2) CK-MB (CK-2) Rel Index Troponin I NT-Pro-B Natriuret Pep Total Protein 5.9 L Albumin 3.8 Globulin 2.1 Albumin/Globulin Ratio 1.8 Procalcitonin SARS-CoV-2 (PCR) 06/27/21 10:42 WBC RBC Hgb Hct MCV MCH MCHC RDW Plt Count Neut % (Auto) Lymph % (Auto) [place] % (Auto) Eos % (Auto) Baso % (Auto) Neut # (Auto) Lymph # (Auto) [place] # (Auto) Eos # (Auto) Baso # (Auto) Platelet Estimate RBC Morphology Macrocytosis PT INR D-Dimer ABG pH ABG pCO2 ABG pO2 ABG HCO3 ABG Total CO2 ABG O2 Saturation ABG Base Excess FiO2 Sodium Potassium Chloride Carbon Dioxide BUN Creatinine Estimated GFR BUN/Creatinine Ratio Glucose Lactate 2.7 H Calcium Magnesium Total Bilirubin AST ALT Alkaline Phosphatase Total Creatine Kinase CK-MB (CK-2) CK-MB (CK-2) Rel Index Troponin I NT-Pro-B Natriuret Pep Total Protein Albumin Globulin Albumin/Globulin Ratio Procalcitonin SARS-CoV-2 (PCR) Assessment & Plan Assessment & Plan narrative: 1. 86 y/o male admitted to the hospital for Acute Hypoxic Respiratory Failure -patient confirms, episode of emesis x2, chest x-ray consistent with a probable aspiration pneumonia, -procalcitonin elevated at 1.5 -white count 10.5 -patient started on antibiotics to include ceftriaxone and azithromycin, this likely represents aspiration pneumonia, due to Gram-negative rods verses anaerobes -will discontinue ceftriaxone and azithromycin, will start Unasyn -patient has known emphysema, he is not chronically on oxygen, he does require albuterol and Spiriva at home -the patient previously anticoagulated with Coumadin for atrial fibrillation, that was discontinued after his wash min device, his D-dimers markedly elevated at 3300 -patient has an elevated creatinine and is unable to get a CT angio, consider V/Q scan if the patient does not have any significant improvement, suspect D-dimer is an acute phase reactant but will follow 2. Acute on chronic renal failure, likely multifactorial, present on admission -patient's BUN and creatinine markedly elevated on admission, BUN 51 creatinine 2.89, -patient with a baseline creatinine of 2.5 on June 14, 1.83 prior to that, this is likely in part pre renal as the patient was taking torsemide, spironolactone, metolazone, to prevent recurrent pulmonary edema -will lisinopril, spironolactone, metolazone, and torsemide given his early hypotension -will avoid nephrotoxic agent -gentle IV hydration, will recheck labs in the morning 3. History of chronic systolic heart failure -proBNP elevated at over 5000 -echocardiogram revealed ejection fraction of 40 +/-5%, right ventricle is [id number] dilated, right ventricular systolic function mild to moderately reduced, severe biatrial enlargement, mild mitral regurgitation, there is a prosthetic aortic valve, trace aortic regurgitation, moderate tricuspid regurgitation -patient recently treated with thoracentesis for a significant pleural effusion -will need to resume his usual outpatient medications once renal function and volume status improved 4. Elevated troponin, question type 2 OR, patient denies chest pain -will repeat troponin currently, will evaluate EKG as well 5. History of emphysema -patient not on home O2 -this is likely contributing to his hypoxic respiratory failure -will continue usual nebulizer/inhalers and like at home 6. Aortic stenosis, status post TAVR 7. Paroxysmal atrial fibrillation, status post Watchman device 8. Hyperlipidemia -continue statin 9. It GERD, with a ventral hernia -continue PPI -repeat GI evaluation as an outpatient, consider upper endoscopy 10. Chronic myelogenous leukemia Continue Gleevec 400 mg daily Patient reports his is his surrogate decision maker. He is also a full code. Patient will be admitted to the hospital as an inpatient as it is anticipated his length of stay will be greater than 48 hours.
[2021-06-27] MEDS: AMPICILLIN/SULBACTAM 1.5 GM 1.5 GM in SODIUM CHLORIDE 0.9% 100 ML IV ×2 (15:38→15:40)
[2021-06-27] MEDS: LACTATED RINGERS 1,000 ML 100 ML IV (15:38)
--- NOTE | 2021-06-27 15:42 | DI.NM.S_ITS ---
PROCEDURE: NM PUL VENT AND PERFUSION RADIOPHARMACEUTICAL: Less than 3 mCi Tc-99m DTPA aerosol by inhalation and 10.5 mCi Tc-99m MAA intravenously. INDICATIONS: r/o PE TECHNIQUE: Ventilation images were obtained first with Tc-99m DTPA aerosol. Subsequently, perfusion images were acquired after intravenous injection of Tc-99m MAA. Anterior, posterior, RODRIGUEZ, [place]IZ[place], RPO, LPO, left and right lateral views were obtained. COMPARISON: [facility], CR, XR CHEST 1V, 06/27/2021, 8:03. FINDINGS: The comparison chest x-ray demonstrates infiltrate in the left lower lung zone. Sternotomy. Mild cardiomegaly. Technetium 99 M DTPA ventilation images demonstrate central airway deposition of aerosol. There is decreased ventilation in the left lower lobe and overall heterogeneous activity bilaterally. Perfusion images demonstrate decreased perfusion in the left lower lobe, matching ventilation abnormality. Multiple small foci of perfusion abnormality also matche decreased decreased ventilation on ventilation images. IMPRESSION: Intermediate likelihood ratio for pulmonary embolism. Dictated by: Sherrie David M.D. on 06/28/2021 at 10:15 Approved by: Sherrie Davdi M.D. on 06/28/2021 at 10:33
[2021-06-27 16:06] LABS: Creatine Kinase 36 U/L (55-170)
[2021-06-27 16:07] LABS: Add Manual Diff / Slide Review NO; Basophils Absolute Auto 200 /uL (0-100); Basophils Percent Auto 0.9 % (0-2); Eosinophils Absolute Auto 0 /uL (0-450); Hematocrit 26.3 % (41-53); Hemoglobin 8.6 g/dL (13.5-17.5); Lymphocytes Absolute Auto 100 /uL (1100-4500); Lymphocytes Percent Auto 0.6 % (25-40); Mean Corpuscular HGB Conc 32.6 % (30-36); Mean Corpuscular Hemoglobin 36.2 PG (26-34); Mean Corpuscular Volume 110.9 fL (80-100); Monocytes Absolute Auto 700 /uL (0-900); Monocytes Percent Auto 3.2 % (3-14); Neutrophils Absolute Auto 21600 /uL (1500-7000); Neutrophils Percent Auto 95.3 % (50-75); Platelet Count 115 X10^3/uL (150-400); Red Blood Cell Count 2.37 X10^6/uL (4.5-5.9); Red Cell Distribution Width 12.1 % (11.6-14.8); White Blood Cell Count 22.7 X10^3/uL (4.5-11.0)
[2021-06-27 16:08] LABS: BUN Creatinine Ratio 18.5 (6-22); Blood Urea Nitrogen 50 mg/dL (9-20); Carbon Dioxide 21 mmol/L (22-32); Chloride 103 mmol/L (98-107); Estimated Glomerular Filt Rate 22.5 mL/min (>60); Glucose 147 mg/dL (80-110); HEMOLYSIS < 15 (0-50); Potassium 3.9 mmol/L (3.4-5.1); Sodium 133 mmol/L (137-145)
[2021-06-27 16:20] LABS: Troponin I 0.095 ng/mL (0.01-0.034)
[2021-06-27] MEDS: ENOXAPARIN 100 MG/ML SYRINGE 90 MG SUBCUT (16:49)
[2021-06-27 17:06] LABS: Macrocytosis 1+
[2021-06-27] MEDS: IPRATROPIUM 0.5 MG/2.5 ML NEB INH ×2 (17:10→22:52)
[2021-06-27] MEDS: DOCUSATE 100 MG CAPSULE PO (20:39)
[2021-06-27] MEDS: ATORVASTATIN 20 MG TABLET 40 MG PO (20:39)
[2021-06-28] VITALS (16 sets, daily range): BP systolic 83–138; BP diastolic 50–68; PULSE 62–72; RESP 16–30; TEMP 36.2–36.9; O2SAT 97–100
[2021-06-28] MEDS: MELATONIN 3 MG TABLET 9 MG PO ×2 (00:42→20:39)
[2021-06-28] MEDS: AMPICILLIN/SULBACTAM 1.5 GM 1.5 GM in SODIUM CHLORIDE 0.9% 100 ML IV ×2 (03:57→16:33)
[2021-06-28] MEDS: SODIUM CHLORIDE 0.9% FLUSH 10 ML IV ×2 (03:58→20:40)
[2021-06-28 05:29] LABS: Add Manual Diff / Slide Review NO; Basophils Absolute Auto 0 /uL (0-100); Eosinophils Absolute Auto 0 /uL (0-450); Hematocrit 23.2 % (41-53); Hemoglobin 7.7 g/dL (13.5-17.5); Lymphocytes Absolute Auto 500 /uL (1100-4500); Lymphocytes Percent Auto 2.8 % (25-40); Mean Corpuscular HGB Conc 33.3 % (30-36); Mean Corpuscular Hemoglobin 36.4 PG (26-34); Mean Corpuscular Volume 109.3 fL (80-100); Monocytes Absolute Auto 800 /uL (0-900); Monocytes Percent Auto 4.4 % (3-14); Neutrophils Absolute Auto 17500 /uL (1500-7000); Neutrophils Percent Auto 92.8 % (50-75); Platelet Count 99 X10^3/uL (150-400); Red Blood Cell Count 2.12 X10^6/uL (4.5-5.9); Red Cell Distribution Width 12.2 % (11.6-14.8); White Blood Cell Count 18.9 X10^3/uL (4.5-11.0)
--- NOTE | 2021-06-28 05:40 | PC.NURSE ---
Informed ISAIAH Merida that pt. only had 50 ml UO for the night, pt. did have a total of 525 UO yesterday bet. am/pm shift. No further orders.
[2021-06-28 05:41] LABS: Alanine Aminotransferase 17 IU/L (<50); Albumin 2.8 g/dL (3.5-5.0); Albumin Globulin Ratio 1.3 (1.0-2.8); Alkaline Phosphatase 44 U/L (38-126); Aspartate Aminotransferase 18 IU/L (17-59); BUN Creatinine Ratio 20.7 (6-22); Bilirubin Total 1.3 mg/dL (0.2-1.3); Blood Urea Nitrogen 57 mg/dL (9-20); Calcium 8.1 mg/dL (8.4-10.2); Carbon Dioxide 24 mmol/L (22-32); Chloride 105 mmol/L (98-107); Globulin 2.1 g/dL (1.7-4.1); Glucose 103 mg/dL (80-110); HEMOLYSIS < 15 (0-50); Potassium 4.3 mmol/L (3.4-5.1); Sodium 135 mmol/L (137-145); Total Protein 4.9 g/dL (6.3-8.2)
[2021-06-28 06:09] LABS: Procalcitonin 27.1 ng/mL (<0.5)
[2021-06-28] MEDS: PANTOPRAZOLE DR 20 MG TABLET PO (06:15)
[2021-06-28] MEDS: ONDANSETRON 4 MG/2 ML INJ IV (07:58)
[2021-06-28] MEDS: ASPIRIN EC 81 MG TABLET PO (09:21)
[2021-06-28] MEDS: DOCUSATE 100 MG CAPSULE PO ×2 (09:21→20:39)
[2021-06-28] MEDS: CLOPIDOGREL 75 MG TABLET PO (09:21)
[2021-06-28] MEDS: MAGNESIUM OXIDE 400 MG TABLET PO (09:21)
[2021-06-28] MEDS: IPRATROPIUM 0.5 MG/2.5 ML NEB INH ×2 (11:26→16:45)
--- NOTE | 2021-06-28 12:18 | DI.US.S_ITS ---
PROCEDURE: US PERIPH VENOUS LOW EXTREM BI INDICATIONS: RULE OUT DEEP VEIN THROMBOSIS TECHNIQUE: Real-time imaging, as well as color and pulse Doppler interrogation, were performed of the deep veins of both legs from the inguinal ligament to the popliteal fossa. COMPARISON: None. FINDINGS: Right: The common femoral, femoral and popliteal veins are normally compressible, and free of intraluminal thrombus. Color and pulse Doppler demonstrate normal phasic intravascular flow. There is normal augmentation response to distal compression maneuver. Left: The common femoral, femoral and popliteal veins are normally compressible, and free of intraluminal thrombus. Color and pulse Doppler demonstrate normal phasic intravascular flow. There is normal augmentation response to distal compression maneuver. IMPRESSION: Normal for age, source of current DVT symptoms is not seen. Dictated by: Guy Adame M.D. on 06/28/2021 at 13:26 Approved by: Guy Adame M.D. on 06/28/2021 at 13:27
--- NOTE | 2021-06-28 14:14 | CM.DANOTE ---
Discharge Planning/Care Management DCP: assessment: case received, EMR reviewed, discussed in Team Rounds. Went to room now to meet with pt. Room dark, pt in bed with eyes closed and o2 per nasal cannula and appeared to be sleeping deeply. Met then with pt's Radha, sitting in room on window seat. Introduced self and role. Pt is an 86 year old male who admitted yesterday morning to care of hospitalist team. Payer: Medicare and [facility] Admission status: in review: per UR ALLEN Hinkle. Most recent admission to was Oct 2019 and at that time pt said Radha was beginning to have some difficulties with her memory. Radha appeared to be a bit of a vague historian but did confirm that PCP is Dr. Byrd. She states pt has had [facility] in the past but not for a couple of years. He sees several specialty providers also. She says they used to travel back [place] forth to [place] and [place] but this has stopped and they now stay in [place]. Radha did confirm that she drove here and did speak with Dr. Madden early this morning. She is unsure what the plan will be but is aware that testing is in process. DCP team will be following. Initially Dr. Madden thought pt might be ok for d/c later today. At this time he is moved out of rm 226 and to 207 so this is still unclear. Advanced directive, confirm from FAMILY Start: 06/27/21 12:27 Freq: Q24H Status: Active Protocol: Document 06/27/21 12:27 JLN (Rec: 06/27/21 14:10 JLN [id number]) Advance Directive, confirm on record Time 11:30 Person contacted spouse Copy received No CM Discharge Assessment Start: 06/28/21 14:12 Freq: Status: Active Protocol: Document 06/28/21 14:12 ITV (Rec: 06/28/21 14:13 ITV [id number]) Discharge Planning Assessment Advance Directives? Yes: Solutions Architect has just drawn up new papers and they dont have. Advance Directives on File No History Provided By Family Member,Medical Record Household Members spouse Is patient alert and oriented? Yes Transportation Arrangement Spouse Referrals Initiated Home Health If patient plan is home with home health No : Has signed face to face form been completed? Review Status In Process
--- NOTE | 2021-06-28 15:24 | DIET.PN ---
Dietary Progress Note Assessment: 86 y/o M admitted for coughing up blood and SOB. Dietary consult for at risk MNA. Cayetano reports decrease in appetite r/t GI upset, primarily heart burn prior to admit. He is unsure if he has had weight loss recently and no wt h/o in notes. Has seen GI in OP. Sleeps with wedge to help GERD s/s. Nutrition contributing factor to GERD might be 4oz ETOH in evening and higher fat intake for snacks and some dinners. I/O indicates 75% PO today. Usual Diet recall: 9a muffin and half caf coffee 12p egg salad sandwich or eggs and padilla or oatmeal 4p popcorn, nuts, or chips 7p salad and salmon or take-out (pizza, tacos) or pasta Beverages: coffee, juice, water, 4oz ETOH HS HT: 177.8cm WT: 87.5kg BMI: 27.7 Labs: HCT 23.2 L, MCH 36.4 H, Cr 2.76 MNA: 10 (at risk) Dusty: 18 Nutrition Diagnosis: Difficulty eating r/t GERD symptoms exacerbated by ETOH and fat intake aeb diet recall and pt report Interventions: 1. Reviewed MNT for GERD, including limiting high fat intake, caffeine, and ETOH. 2. Encouraged f/u with GI professional and RD OP prn Diet Order: Heart Healthy Monitoring/Evaluations: RD f/u prn. Araseli Mcclure RDN, [facility]
--- NOTE | 2021-06-28 15:35 | P.PN_ITS ---
Subjective Subjective Interval history: 86 y/o male admitted with Acute Respiratory Failure following an episode of vomiting. He was on high flow oxygen yesterday and tapered to nasal canula today Patient feels significantly improved. No further vomiting Exam Vital Signs (past 8 hours): - 06/28/21 08:00 06/28/21 11:50 Temperature 97.4 F L Pulse Rate 72 Respiratory Rate 20 Blood Pressure 138/61 Pulse Oximetry 100 100 Fraction of Inspired Oxygen 0.34 Oxygen Delivery Method High Flow Nasal Cannula Oxygen Flow Rate 4 Narrative Exam Narrative: pleasant male lying in bed Chest Other: decreased breaths sounds bilaterally Cardio Other: RRR nl Sl S2 3/6 SILVERIO GI Other: Abd: soft/ non tender /non distended Extrem Other: 1+ edema Objective Labs Result Diagrams: 06/28/21 05:08 06/28/21 05:08 Labs: Laboratory Results - last 24 hr 06/27/21 06/27/21 06/27/21 11:30 13:45 13:45 WBC 22.7 H D RBC 2.37 L Hgb 8.6 L Hct 26.3 L MCV 110.9 H MCH 36.2 H MCHC 32.6 RDW 12.1 Plt Count 115 L Neut % (Auto) 95.3 H Lymph % (Auto) 0.6 L [place] % (Auto) 3.2 Eos % (Auto) 0.0 L Baso % (Auto) 0.9 Neut # (Auto) 31004 H Lymph # (Auto) 100 L [place] # (Auto) 700 Eos # (Auto) 0 Baso # (Auto) 200 H RBC Morphology See below Macrocytosis 1+ H Sodium 133 L Potassium 3.9 Chloride 103 Carbon Dioxide 21 L BUN 50 H Creatinine 2.71 H Estimated GFR 22.5 L BUN/Creatinine Ratio 18.5 Glucose 147 H Calcium 8.0 L Total Bilirubin AST ALT Alkaline Phosphatase Total Creatine Kinase CK-MB (CK-2) CK-MB (CK-2) Rel Index Troponin I Total Protein Albumin Globulin Albumin/Globulin Ratio Procalcitonin Nasal Screen MRSA (PCR) Negative for mrsa 06/27/21 06/28/21 06/28/21 13:45 05:08 05:08 WBC 18.9 H RBC 2.12 L Hgb 7.7 L Hct 23.2 L MCV 109.3 H MCH 36.4 H MCHC 33.3 RDW 12.2 Plt Count 99 L Neut % (Auto) 92.8 H Lymph % (Auto) 2.8 L [place] % (Auto) 4.4 Eos % (Auto) 0.0 L Baso % (Auto) 0.0 Neut # (Auto) 07746 H Lymph # (Auto) 500 L [place] # (Auto) 800 Eos # (Auto) 0 Baso # (Auto) 0 RBC Morphology Macrocytosis Sodium 135 L Potassium 4.3 Chloride 105 Carbon Dioxide 24 BUN 57 H Creatinine 2.76 H Estimated GFR 22.0 L BUN/Creatinine Ratio 20.7 Glucose 103 Calcium 8.1 L Total Bilirubin 1.3 AST 18 ALT 17 Alkaline Phosphatase 44 Total Creatine Kinase 36 L CK-MB (CK-2) TNP CK-MB (CK-2) Rel Index TNP Troponin I 0.095 H Total Protein 4.9 L Albumin 2.8 L Globulin 2.1 Albumin/Globulin Ratio 1.3 Procalcitonin Nasal Screen MRSA (PCR) 06/28/21 05:08 WBC RBC Hgb Hct MCV MCH MCHC RDW Plt Count Neut % (Auto) Lymph % (Auto) [place] % (Auto) Eos % (Auto) Baso % (Auto) Neut # (Auto) Lymph # (Auto) [place] # (Auto) Eos # (Auto) Baso # (Auto) RBC Morphology Macrocytosis Sodium Potassium Chloride Carbon Dioxide BUN Creatinine Estimated GFR BUN/Creatinine Ratio Glucose Calcium Total Bilirubin AST ALT Alkaline Phosphatase Total Creatine Kinase CK-MB (CK-2) CK-MB (CK-2) Rel Index Troponin I Total Protein Albumin Globulin Albumin/Globulin Ratio Procalcitonin 27.1 H Nasal Screen MRSA (PCR) [facility] Medical History (Updated 06/27/21 @ 09:17 by Christophe Garza DO) Aortic stenosis Atrial fibrillation BPH (benign prostatic hyperplasia) CAD (coronary artery disease) CHF (congestive heart failure) CML (chronic myelocytic leukemia) COPD (chronic obstructive pulmonary disease) History of cardioversion Hyperlipidemia Hypertension PAD (peripheral artery disease) Pulmonary arterial hypertension Pulmonary nodule Squamous cell carcinoma of skin of ear Stenosis of coronary stent Surgical History H/O aortic valve replacement H/O transurethral resection of prostate History of cardiac radiofrequency ablation History of coronary artery stent placement S/P TAVR (transcatheter aortic valve replacement) Family History Mother Diabetes mellitus Heart disease PAD (peripheral artery disease) Father Lung disease Heart disease Brother Heart attack Brother Heart attack Social History household members: spouse Smoking Status: Former smoker alcohol intake: current Assessment & Plan Assessment & Plan narrative: 6 y/o male admitted to the hospital for Acute Hypoxic Respiratory Failure -patient confirms, episode of emesis x2, chest x-ray consistent with a probable aspiration pneumonia, -procalcitonin elevated at 1.5 -white count 10.5 -patient started on antibiotics to include ceftriaxone and azithromycin, this likely represents aspiration pneumonia, due to Gram-negative rods verses anaerobes -will discontinue ceftriaxone and azithromycin, will start Unasyn -patient has known emphysema, he is not chronically on oxygen, he does require albuterol and Spiriva at home -the patient previously anticoagulated with Coumadin for atrial fibrillation, that was discontinued after his wash min device, his D-dimers markedly elevated at 3300 -patient has an elevated creatinine and is unable to get a CT angio, consider V/Q scan if the patient does not have any significant improvement, suspect D- dimer is an acute phase reactant but will follow - V/Q scan intermediate probability, LE duplex negative for DVT, Elevated WBC, Procalcitonin, likely Aspiration Pneumonia due to bacterial infection -Resume DVT prophylaxis, d/c treatment doses of Lovenox -continue IV antibiotics, follow up Procalcitonin WBC daily -off high flow oxygen, tolerating 4 liters without difficulty 2. Acute on chronic renal failure, likely multifactorial, present on admission -patient's BUN and creatinine markedly elevated on admission, BUN 51 creatinine 2.89, -patient with a baseline creatinine of 2.5 on June 14, 1.83 prior to that, this is likely in part pre renal as the patient was taking torsemide, spironolactone, metolazone, to prevent recurrent pulmonary edema -will hold lisinopril, spironolactone, metolazone, and torsemide given his early hypotension- resume lisinopril -will avoid nephrotoxic agent -IV fluids heplocked -Creatinine 2.76, close to baseline, 3. History of chronic systolic heart failure -proBNP elevated at over 5000 -echocardiogram revealed ejection fraction of 40 +/-5%, right ventricle is [id number]-gl-uzjaicttfy dilated, right ventricular systolic function mild to moderately reduced, severe biatrial enlargement, mild mitral regurgitation, there is a prosthetic aortic valve, trace aortic regurgitation, moderate tricuspid regurgitation -patient recently treated with thoracentesis for a significant pleural effusion -will need to resume his usual outpatient medications once renal function and volume status improved -resume lisinopril, torsemide, follow labs 4. Elevated troponin, question type 2 [place], patient denies chest pain -will repeat troponin currently, will evaluate EKG as well -troponin .095, no chest pain, suspect demand ischemia 5. History of emphysema -patient not on home O2 -this is likely contributing to his hypoxic respiratory failure -will continue usual nebulizer/inhalers and like at home 6. Aortic stenosis, status post TAVR 7. Paroxysmal atrial fibrillation, status post Watchman device 8. Hyperlipidemia
[2021-06-28] MEDS: IMATINIB 400 MG 400 EACH PO (16:33)
[2021-06-28 18:00] LABS: Lactate (Lactic Acid) 2.1 mmol/L (0.7-2.1)
[2021-06-28 19:41] LABS: Reflexed Lactate in 2 Hours Y
[2021-06-28] MEDS: ATORVASTATIN 20 MG TABLET 40 MG PO (20:39)
[2021-06-28] MEDS: HEPARIN 5,000 UNIT/ML VIAL 5000 UNIT SUBCUT (20:39)
[2021-06-28] MEDS: carvediloL 3.125 MG TABLET PO (20:39)
[2021-06-28 21:20] LABS: Lactate 2HR (Lactic Acid Rflx) 1.4 mmol/L (0.7-2.1)
[2021-06-29] VITALS (14 sets, daily range): BP systolic 105–134; BP diastolic 51–77; PULSE 62–94; RESP 15–18; TEMP 36.2–37.1; O2SAT 91–97
[2021-06-29] MEDS: AMPICILLIN/SULBACTAM 1.5 GM 1.5 GM in SODIUM CHLORIDE 0.9% 100 ML IV ×2 (03:40→18:12)
[2021-06-29 06:34] LABS: BUN Creatinine Ratio 25.3 (6-22); Blood Urea Nitrogen 57 mg/dL (9-20); Calcium 8.4 mg/dL (8.4-10.2); Carbon Dioxide 25 mmol/L (22-32); Chloride 105 mmol/L (98-107); Estimated Glomerular Filt Rate 27.9 mL/min (>60); Glucose 118 mg/dL (80-110); HEMOLYSIS < 15 (0-50); Sodium 136 mmol/L (137-145)
[2021-06-29] MEDS: PANTOPRAZOLE DR 20 MG TABLET PO (06:40)
[2021-06-29 06:45] LABS: NT-proBNP (BNP-Adult 18+) 8020 pg/mL (<450); Troponin I 0.118 ng/mL (0.01-0.034)
[2021-06-29] MEDS: IPRATROPIUM 0.5 MG/2.5 ML NEB INH ×4 (07:39→21:07)
[2021-06-29] MEDS: CLOPIDOGREL 75 MG TABLET PO (09:57)
[2021-06-29] MEDS: MAGNESIUM OXIDE 400 MG TABLET PO (09:57)
[2021-06-29] MEDS: DOCUSATE 100 MG CAPSULE PO ×2 (09:57→20:49)
[2021-06-29] MEDS: TORSEMIDE 10 MG TABLET 20 MG PO (09:57)
[2021-06-29] MEDS: ASPIRIN EC 81 MG TABLET PO (09:57)
[2021-06-29] MEDS: HEPARIN 5,000 UNIT/ML VIAL 5000 UNIT SUBCUT ×2 (09:58→20:49)
[2021-06-29] MEDS: carvediloL 3.125 MG TABLET PO ×2 (09:58→20:49)
[2021-06-29] MEDS: lisinopriL 20 MG TABLET PO (09:58)
[2021-06-29] MEDS: metOLazone 2.5 MG TABLET 5 MG PO (10:00)
--- NOTE | 2021-06-29 13:27 | PM.PN.1 ---
Subjective Subjective Interval history: Patient is a 86 y/o male admitted to the hospital for acute respiratory failure secondary to probable aspiration pneumonia. Overall he feels significantly improved. He continues to have a cough. He denies any chest pain. Patient is anxious to go home Exam Vital Signs (past 8 hours): - 06/29/21 07:39 06/29/21 07:46 06/29/21 09:00 Temperature 97.6 F Pulse Rate 71 73 Respiratory Rate 16 16 Blood Pressure 134/72 Pulse Oximetry 97 97 96 06/29/21 09:58 Temperature Pulse Rate 76 Respiratory Rate Blood Pressure 123/68 Pulse Oximetry Fraction of Inspired Oxygen 0.34 Oxygen Delivery Method Room Air Oxygen Flow Rate 0 Narrative Exam Narrative: Pleasant gentleman sitting in a chair in no acute distress Chest Other: Midline sternotomy scar noted, no erythema Resp Other: Lungs: decreased breath sounds, no crackles rhonchi or wheezing Cardio Other: Irregularly irregular, normal Sl S2 2/6 SILVERIO GI Other: Soft/ non tender/ non distended/ no palpable masses Skin Other: skin is very friable, multiple ecchymoses on upper and lower extremities Extrem Other: No edema, Objective Labs Result Diagrams: 06/28/21 05:08 06/29/21 06:15 Labs: Laboratory Results - last 24 hr 06/28/21 06/28/21 06/29/21 17:40 20:38 06:15 Sodium 136 L Potassium 4.0 Chloride 105 Carbon Dioxide 25 BUN 57 H Creatinine 2.25 H Estimated GFR 27.9 L BUN/Creatinine Ratio 25.3 H Glucose 118 H Lactate 2.1 1.4 Calcium 8.4 Troponin I 0.118 H NT-Pro-B Natriuret Pep 8020 H Procalcitonin 06/29/21 06:15 Sodium Potassium Chloride Carbon Dioxide BUN Creatinine Estimated GFR BUN/Creatinine Ratio Glucose Lactate Calcium Troponin I NT-Pro-B Natriuret Pep Procalcitonin 15.0 H [facility] Medical History (Updated 06/27/21 @ 09:17 by Christophe Garza DO) Aortic stenosis Atrial fibrillation BPH (benign prostatic hyperplasia) CAD (coronary artery disease) CHF (congestive heart failure) CML (chronic myelocytic leukemia) COPD (chronic obstructive pulmonary disease) History of cardioversion Hyperlipidemia Hypertension PAD (peripheral artery disease) Pulmonary arterial hypertension Pulmonary nodule Squamous cell carcinoma of skin of ear Stenosis of coronary stent Surgical History H/O aortic valve replacement H/O transurethral resection of prostate History of cardiac radiofrequency ablation History of coronary artery stent placement S/P TAVR (transcatheter aortic valve replacement) Family History Mother Diabetes mellitus Heart disease PAD (peripheral artery disease) Father Lung disease Heart disease Brother Heart attack Brother Heart attack Social History household members: spouse Smoking Status: Former smoker alcohol intake: current Assessment & Plan Assessment & Plan narrative: 86 y/o male admitted to the hospital for Acute Hypoxic Respiratory Failure -patient confirms, episode of emesis x2, chest x-ray consistent with a probable aspiration pneumonia, -procalcitonin elevated at 27.1, now 15.0 -white count 10.5, increased to 22.7, now 18.9 -patient started on antibiotics to include ceftriaxone and azithromycin, this likely represents aspiration pneumonia, due to Gram-negative rods verses anaerobes -will discontinue ceftriaxone and azithromycin, will start Unasyn will continue while in the hospital and WBC elevated with elevated procalcitonin -patient has known emphysema, he is not chronically on oxygen, he does require albuterol and Spiriva at home -the patient previously anticoagulated with Coumadin for atrial fibrillation, that was discontinued after his watchman device, his D-dimers markedly elevated at 3300 -patient has an elevated creatinine and is unable to get a CT angio, - V/Q scan intermediate probability, LE duplex negative for DVT, Elevated WBC, Procalcitonin, likely Aspiration Pneumonia due to bacterial infection -Resume DVT prophylaxis, d/c treatment doses of Lovenox -continue IV antibiotics, follow up Procalcitonin WBC daily -now on room air oxygenating at 97% 2. Elevated Troponin - Suspect Type 2 PA based on elevated troponins, abnormal Echo, known LAD stent recently -Patient denies chest pain, EKG reveals paced rhythm, no ST T wave abnormalities -Patient with known cardiac disease, recent LAD stent -Troponin's continue to trend upwards, .065, .095. today .118 -D/W Dr. Villagran, [facility] -Recommends STress Test on Thursday if Troponin's not increasing further and patient not having chest pain -Echo reveals new dyskinesis of septum -If patient continues to have increasing Troponins or Chest pain, he will likely need cardiac cath- He is high risk given elevated creatinine. 3. Acute on chronic renal failure, likely multifactorial, present on admission -patient's BUN and creatinine markedly elevated on admission, BUN 51 creatinine 2.89, -patient with a baseline creatinine of 2.5 on June 14, 1.83 prior to that, this is likely in part pre renal as the patient was taking torsemide, spironolactone, metolazone, to prevent recurrent pulmonary edema -resume lisinopril/torsemide -will avoid nephrotoxic agent -IV fluids heplocked -Creatinine 2.25 4. History of chronic systolic heart failure -proBNP elevated at over 5000 -echocardiogram revealed ejection fraction of 40 +/-5%, right ventricle is hwem-na-uzoidepxyd dilated, right ventricular systolic function mild to moderately reduced, severe biatrial enlargement, mild mitral regurgitation, there is a prosthetic aortic valve, trace aortic regurgitation, moderate tricuspid regurgitation -patient recently treated with thoracentesis for a significant pleural effusion -will need to resume his usual outpatient medications once renal function and volume status improved -resume lisinopril, torsemide, follow labs 5. History of emphysema -patient not on home O2 -this is likely contributing to his hypoxic respiratory failure -will continue usual nebulizer/inhalers and like at home 6. Aortic stenosis, status post TAVR 7. Paroxysmal atrial fibrillation, status post Watchman device 8. Hyperlipidemia Patient will need ischemic work up prior to discharge. Ideally, stress test here Thursday. IF transfer needed, he will need to go to [facility] which is the nearest facility
[2021-06-29 17:36] LABS: Troponin I 0.093 ng/mL (0.01-0.034)
[2021-06-29] MEDS: MELATONIN 3 MG TABLET 9 MG PO (20:49)
[2021-06-29] MEDS: ATORVASTATIN 20 MG TABLET 40 MG PO (20:49)
[2021-06-29] MEDS: SODIUM CHLORIDE 0.9% FLUSH 10 ML IV (20:49)
[2021-06-30] VITALS (10 sets, daily range): BP systolic 89–113; BP diastolic 55–64; PULSE 70–77; RESP 15–18; TEMP 36.5–36.8; O2SAT 93–98
[2021-06-30] MEDS: AMPICILLIN/SULBACTAM 1.5 GM 1.5 GM in SODIUM CHLORIDE 0.9% 100 ML IV ×2 (04:37→18:00)
[2021-06-30 06:02] LABS: Add Manual Diff / Slide Review NO; Basophils Absolute Auto 0 /uL (0-100); Basophils Percent Auto 0.1 % (0-2); Eosinophils Absolute Auto 0 /uL (0-450); Eosinophils Percent Auto 0.4 % (2-4); Hematocrit 22.3 % (41-53); Hemoglobin 7.8 g/dL (13.5-17.5); Lymphocytes Absolute Auto 500 /uL (1100-4500); Lymphocytes Percent Auto 4.5 % (25-40); Mean Corpuscular HGB Conc 34.9 % (30-36); Mean Corpuscular Volume 108.8 fL (80-100); Monocytes Absolute Auto 600 /uL (0-900); Monocytes Percent Auto 5.4 % (3-14); Neutrophils Absolute Auto 9300 /uL (1500-7000); Neutrophils Percent Auto 89.6 % (50-75); Platelet Count 102 X10^3/uL (150-400); Red Blood Cell Count 2.05 X10^6/uL (4.5-5.9); Red Cell Distribution Width 12.4 % (11.6-14.8); White Blood Cell Count 10.4 X10^3/uL (4.5-11.0)
--- NOTE | 2021-06-30 06:08 | DI.RAD.S_ITS ---
PROCEDURE: XR CHEST 1V INDICATIONS: r/o CHF TECHNIQUE: One view of the chest was acquired. COMPARISON: [facility], , XR CHEST 1V, 06/27/2021, 8:03. FINDINGS: Surgical changes and devices: Median sternotomy. Lungs and pleura: No change in moderate airspace opacity within the left lower lung. Spiculated right mid lung density is present, measuring roughly 16 mm which appears increased in prominence.. No pleural effusions or pneumothorax. Mediastinum: Mediastinal contours appear normal. Heart size is normal. Bones and chest wall: No suspicious bony lesions. Overlying soft tissues appear unremarkable. IMPRESSION: 1. No change in left lower lobe pneumonia. Continued plain film surveillance is recommended to ensure resolution, and to exclude underlying or central malignancy. 2. Increased spiculated density within the right mid lung. Recommend attention to this region on follow-up imaging study. If this finding persists, further assessment with chest CT is recommended. 3. Concordant with preliminary interpretation. Dictated by: Oracio Servin M.D. on 06/30/2021 at 7:38 Approved by: Oracio Servin M.D. on 06/30/2021 at 7:39
[2021-06-30 06:12] LABS: BUN Creatinine Ratio 27.1 (6-22); Blood Urea Nitrogen 56 mg/dL (9-20); Calcium 8.6 mg/dL (8.4-10.2); Carbon Dioxide 27 mmol/L (22-32); Chloride 105 mmol/L (98-107); Estimated Glomerular Filt Rate 30.7 mL/min (>60); Glucose 116 mg/dL (80-110); HEMOLYSIS < 15 (0-50); Sodium 138 mmol/L (137-145)
[2021-06-30] MEDS: PANTOPRAZOLE DR 20 MG TABLET PO (06:20)
[2021-06-30 06:22] LABS: Troponin I 0.076 ng/mL (0.01-0.034)
[2021-06-30 06:26] LABS: Procalcitonin 8.96 ng/mL (<0.5)
[2021-06-30] MEDS: IPRATROPIUM 0.5 MG/2.5 ML NEB INH ×4 (09:27→19:59)
[2021-06-30] MEDS: DOCUSATE 100 MG CAPSULE PO ×2 (09:42→20:43)
[2021-06-30] MEDS: lisinopriL 20 MG TABLET PO (09:42)
[2021-06-30] MEDS: MAGNESIUM OXIDE 400 MG TABLET PO (09:43)
[2021-06-30] MEDS: CLOPIDOGREL 75 MG TABLET PO (09:43)
[2021-06-30] MEDS: ASPIRIN EC 81 MG TABLET PO (09:43)
[2021-06-30] MEDS: SODIUM CHLORIDE 0.9% FLUSH 10 ML IV (09:43)
[2021-06-30] MEDS: carvediloL 3.125 MG TABLET PO ×2 (09:43→20:43)
[2021-06-30] MEDS: HEPARIN 5,000 UNIT/ML VIAL 5000 UNIT SUBCUT ×2 (09:44→20:43)
[2021-06-30] MEDS: metOLazone 2.5 MG TABLET 5 MG PO (09:52)
[2021-06-30] MEDS: TORSEMIDE 10 MG TABLET 20 MG PO (10:33)
--- NOTE | 2021-06-30 13:45 | PM.PN.1 ---
Subjective Subjective Date Patient Seen: 06/30/21 Time Patient Seen: 08:00 Interval history: Today he feels well. No chest pain. No shortness of breath. He wants to go home and is disappointed he has to stay for cardiac workup. Exam Vital Signs (past 8 hours): - 06/30/21 05:54 06/30/21 08:34 06/30/21 09:31 Temperature 98.1 F Pulse Rate 72 72 Respiratory Rate 15 16 Blood Pressure 104/63 105/55 L Pulse Oximetry 97 98 06/30/21 12:40 Temperature 97.9 F Pulse Rate 74 Respiratory Rate 18 Blood Pressure 113/64 Pulse Oximetry 97 Fraction of Inspired Oxygen 0.34 Oxygen Delivery Method Room Air Oxygen Flow Rate 0 Narrative Exam Narrative: GEN: no acute distress Chest/CV: midline sternotomy scar, irregularly irregular, systolic murmur PULM: clear bilaterally GI: Soft/ non tender/ non distended/ no palpable masses SKIN: skin is very friable, multiple ecchymoses on upper and lower extremities Objective Labs Result Diagrams: 06/30/21 05:50 06/30/21 05:50 Labs: Laboratory Results - last 24 hr 06/29/21 06/30/21 06/30/21 17:05 05:50 05:50 WBC 10.4 RBC 2.05 L Hgb 7.8 L Hct 22.3 L MCV 108.8 H MCH 38.0 H MCHC 34.9 RDW 12.4 Plt Count 102 L Neut % (Auto) 89.6 H Lymph % (Auto) 4.5 L [place] % (Auto) 5.4 Eos % (Auto) 0.4 L Baso % (Auto) 0.1 Neut # (Auto) 9300 H Lymph # (Auto) 500 L [place] # (Auto) 600 Eos # (Auto) 0 Baso # (Auto) 0 Sodium 138 Potassium 4.0 Chloride 105 Carbon Dioxide 27 BUN 56 H Creatinine 2.07 H Estimated GFR 30.7 L BUN/Creatinine Ratio 27.1 H Glucose 116 H Calcium 8.6 Troponin I 0.093 H 0.076 H Procalcitonin 06/30/21 05:50 WBC RBC Hgb Hct MCV MCH MCHC RDW Plt Count Neut % (Auto) Lymph % (Auto) [place] % (Auto) Eos % (Auto) Baso % (Auto) Neut # (Auto) Lymph # (Auto) [place] # (Auto) Eos # (Auto) Baso # (Auto) Sodium Potassium Chloride Carbon Dioxide BUN Creatinine Estimated GFR BUN/Creatinine Ratio Glucose Calcium Troponin I Procalcitonin 8.96 H [facility] Medical History (Updated 06/27/21 @ 09:17 by Christophe Garza DO) Aortic stenosis Atrial fibrillation BPH (benign prostatic hyperplasia) CAD (coronary artery disease) CHF (congestive heart failure) CML (chronic myelocytic leukemia) COPD (chronic obstructive pulmonary disease) History of cardioversion Hyperlipidemia Hypertension PAD (peripheral artery disease) Pulmonary arterial hypertension Pulmonary nodule Squamous cell carcinoma of skin of ear Stenosis of coronary stent Surgical History H/O aortic valve replacement H/O transurethral resection of prostate History of cardiac radiofrequency ablation History of coronary artery stent placement S/P TAVR (transcatheter aortic valve replacement) Family History Mother Diabetes mellitus Heart disease PAD (peripheral artery disease) Father Lung disease Heart disease Brother Heart attack Brother Heart attack Social History household members: spouse Smoking Status: Former smoker alcohol intake: current Assessment & Plan Assessment & Plan narrative: 86 y/o male admitted to the hospital for Acute Hypoxic Respiratory Failure. 1. Acute hypoxemic respiratory failure from aspiration pneumonia. -procalcitonin elevated at 27.1, now improved -white count 10.5, increased to 22.7, now normal -will discontinue ceftriaxone and azithromycin, will start Unasyn will continue while in the hospital and WBC elevated with elevated procalcitonin -patient has known emphysema, he is not chronically on oxygen, he does require albuterol and Spiriva at home -the patient previously anticoagulated with Coumadin for atrial fibrillation, that was discontinued after his watchman device, his D-dimers markedly elevated at 3300 -patient has an elevated creatinine and is unable to get a CT angio, - V/Q scan intermediate probability, LE duplex negative for DVT, Elevated WBC, Procalcitonin, likely Aspiration Pneumonia due to bacterial infection -Resume DVT prophylaxis, d/c treatment doses of Lovenox -now on room air oxygenating at 97% 2. Elevated Troponin - Suspect Type 2 [place] based on elevated troponins, abnormal Echo, known LAD stent recently -Patient denies chest pain, EKG reveals paced rhythm, no ST T wave abnormalities -Patient with known cardiac disease, recent LAD stent -Troponin's continue to trend upwards, .065, .095. today .118 -D/W Dr. Villagran, [facility] -Recommends STress Test on Thursday if Troponin's not increasing further and patient not having chest pain -Echo reveals new dyskinesis of septum -If patient continues to have increasing Troponins or Chest pain, he will likely need cardiac cath- He is high risk given elevated creatinine. 3. Acute on chronic renal failure, likely multifactorial, present on admission -patient's BUN and creatinine markedly elevated on admission, BUN 51 creatinine 2.89, -patient with a baseline creatinine of 2.5 on June 14, 1.83 prior to that, this is likely in part pre renal as the patient was taking torsemide, spironolactone, metolazone, to prevent recurrent pulmonary edema -resume lisinopril/torsemide -will avoid nephrotoxic agent -IV fluids heplocked -Creatinine 2.07 4. History of chronic systolic heart failure -proBNP elevated at over 5000 -echocardiogram revealed ejection fraction of 40 +/-5%, right ventricle is wmeu-qy-axyypzedgo dilated, right ventricular systolic function mild to moderately reduced, severe biatrial enlargement, mild mitral regurgitation, there is a prosthetic aortic valve, trace aortic regurgitation, moderate tricuspid regurgitation -patient recently treated with thoracentesis for a significant pleural effusion -will need to resume his usual outpatient medications once renal function and volume status improved -resume lisinopril, torsemide, follow labs 5. History of emphysema -patient not on home O2 -this is likely contributing to his hypoxic respiratory failure -will continue usual nebulizer/inhalers and like at home 6. Aortic stenosis, status post TAVR 7. Paroxysmal atrial fibrillation, status post Watchman device 8. Hyperlipidemia Patient will need ischemic work up prior to discharge. Ideally, stress test here Thursday.
--- NOTE | 2021-06-30 13:46 | DI.NM.S_ITS ---
PROCEDURE: NM SCOTT PERF SPECT SINGLE STUDY Exercise myocardial perfusion SPECT with gated imaging and ejection fraction RADIOPHARMACEUTICAL: 24.3 mCi Tc-99m sestamibi IV at peak exercise. INDICATIONS: chest pain, elevated trop TECHNIQUE: Radiopharmaceutical was injected at peak stress test. SPECT images were obtained, with perfusion images in short axis, horizontal long axis, and vertical long axis views. Gated images were reviewed using Yap software. COMPARISON: None. CARDIAC STRESS: A pharmaceutical nuclear stress test done by using lexiscan 0.4mg IV X1. Hemodynamic data: There is normal blood pressure and heart response to lexiscan. Symptoms: Patient denied anginal chest pain during exercise. EKG: resting ECG showed ventricular pacing. ECG non-diagnostic due to baseline ventricular pacing. FINDINGS: Raw data: There is good labeling of myocardium by radiotracer. No significant motion artifacts. Tshx-tt-kafdr ratio is 0.28 (normal is less than 0.38 for sestamibi tracer, and less than 0.50 for thallium tracer). Left ventricular function: Gated images demonstrate normal left ventricle wall thickening. No segmental wall motion abnormalities. Left ventricle end diastolic volume is 131 mL. Left ventricle stress ejection fraction is 64%; normal values are above 45%. Myocardial perfusion: There is normal distribution of activity in the left and right ventricular myocardium, without focal perfusion defects. IMPRESSION: Low risk, normal pharmaceutical stress only test 1) No perfusion evidence of ischemia or infarction. 2) Normal left ventricular size, wall motion, and systolic function (EF 64% post stress). 3) No angina during the study. 4) ECG non-diagnostic due to baseline ventricular pacing/LBBB. 5) No prior nuclear stress test available for comparison. Dictated by: Yamel Fernandez MD on 07/01/2021 at 16:47 Approved by: Yamel Fernandez MD on 07/01/2021 at 16:50
[2021-06-30] MEDS: ATORVASTATIN 20 MG TABLET 40 MG PO (20:43)
[2021-06-30] MEDS: MELATONIN 3 MG TABLET 9 MG PO (20:43)
[2021-07-01] VITALS (9 sets, daily range): BP systolic 82–123; BP diastolic 51–67; PULSE 67–76; RESP 16–20; TEMP 36.4–36.8; O2SAT 93–98
[2021-07-01] MEDS: SODIUM CHLORIDE 0.9% FLUSH 10 ML IV ×2 (03:35→08:50)
[2021-07-01] MEDS: AMPICILLIN/SULBACTAM 1.5 GM 1.5 GM in SODIUM CHLORIDE 0.9% 100 ML IV ×2 (03:36→16:12)
[2021-07-01 05:39] LABS: Hematocrit 23.7 % (41-53); Mean Corpuscular HGB Conc 33.9 % (30-36); Mean Corpuscular Hemoglobin 36.8 PG (26-34); Mean Corpuscular Volume 108.7 fL (80-100); Platelet Count 115 X10^3/uL (150-400); Red Blood Cell Count 2.18 X10^6/uL (4.5-5.9); Red Cell Distribution Width 12.2 % (11.6-14.8); White Blood Cell Count 7.7 X10^3/uL (4.5-11.0)
[2021-07-01 05:57] LABS: BUN Creatinine Ratio 25.9 (6-22); Blood Urea Nitrogen 51 mg/dL (9-20); Calcium 8.7 mg/dL (8.4-10.2); Carbon Dioxide 29 mmol/L (22-32); Chloride 103 mmol/L (98-107); Estimated Glomerular Filt Rate 32.5 mL/min (>60); Glucose 108 mg/dL (80-110); HEMOLYSIS < 15 (0-50); Potassium 4.2 mmol/L (3.4-5.1); Sodium 138 mmol/L (137-145)
[2021-07-01] MEDS: PANTOPRAZOLE DR 20 MG TABLET PO (06:29)
[2021-07-01] MEDS: ASPIRIN EC 81 MG TABLET PO (08:43)
[2021-07-01] MEDS: MAGNESIUM OXIDE 400 MG TABLET PO (08:43)
[2021-07-01] MEDS: HEPARIN 5,000 UNIT/ML VIAL 5000 UNIT SUBCUT (08:43)
[2021-07-01] MEDS: TORSEMIDE 10 MG TABLET 20 MG PO (08:43)
[2021-07-01] MEDS: CLOPIDOGREL 75 MG TABLET PO (08:43)
[2021-07-01] MEDS: DOCUSATE 100 MG CAPSULE PO (08:43)
[2021-07-01] MEDS: IPRATROPIUM 0.5 MG/2.5 ML NEB INH ×2 (09:01→12:27)
[2021-07-01] MEDS: SODIUM CHLORIDE 0.9% 500 ML 1000 ML IV (09:25)
--- NOTE | 2021-07-01 15:04 | PC.NURSE ---
A&Ox4. BP decreased to 84/51 this morning, held BP medication. Bolused 500 mL. BP claudette to 1123/63. PIV saline locked. Tele: A fib, BBB. Up in chair most of shift. Went down to stress test this afternoon. Call light within reach, bed low.
--- NOTE | 2021-07-01 15:40 | CM.DPC ---
DCP Cont: Per MD, stress test ordered for today and to go down for testing this afternoon and pending results pt may d/c home this evening or tomorrow. Per RN, pt required bolus and some bp issues but stabilized and off floor for stress test. Plan: SW to follow for plan of home with spouse when medically stable and any further identified discharge planning needs. CONSTANCE Rae
--- NOTE | 2021-07-01 18:55 | PM.DS.1 ---
History of Present Illness History of Present Illness Chief complaint: COUGHING UP BLOOD, SOB Narrative: Per Dr. Madden: The patient is an 86-year-old male with a history of atrial fibrillation status post a Watchman device, pacemaker placement, coronary artery disease, hypertension, hyperlipidemia, COPD not on home oxygen, chronic kidney disease stage 3, gastroesophageal reflux disease. Who was in his usual state of health until last evening. Patient reports he woke up at 3:00 a.m. and had abrupt emesis. He then laid back down and had a sep 2nd episode of emesis around 5:00 a.m.. The patient was short of breath. He was brought to the emergency room for evaluation. In the emergency room the patient was noted to be markedly hypoxic. Initially they felt he may be and heart failure. He was given IV Lasix, patient was placed on BiPAP, he became hypotensive. Chest x-ray was suggestive of pneumonia, the patient required epinephrine in the emergency room to improve his blood pressure. He was taken off BiPAP and placed on high-flow oxygen. Patient reports having gastroesophageal reflux disease, he is scheduled to see a ground intelligence officer in May with no further evaluation. He developed significant abdominal pain last week. He has a known ventral hernia. He had a CT scan of the abdomen and pelvis which showed no explanation for his acute abdominal pain. The patient reports he developed nausea and vomiting which was different from his usual reflux this morning. Following that he was significantly hypoxic. The patient has a white count of 10.5, hemoglobin 10.6, hematocrit 31.5. He was also found to have a D-dimer elevated at 33 13, patient's BUN and creatinine were markedly elevated. Baseline creatinine is about 1.44, today his BUN was 51 with a creatinine of 2.89. Patient notes that he has had pleural effusion requiring thoracentesis. His medications, including torsemide, spironolactone, metolazone have been adjusted to manage his respiratory failure. In addition the patient is on an MARIAH-inhibitor for his hypertension. Patient also reports feeling quite weak. Patient was found to have a proBNP of 53 50 in the emergency department in addition to a troponin I of 0.063. He denies any chest pain. He does report hemoptysis, no further GERD, no hematemesis, no melena, no bright red blood per rectum. He has mild headache. He has shortness of breath which is improved. No cough, no fever. Patient has no lower extremity edema. Patient is admitted to the hospital at this time for acute respiratory failure secondary to aspiration pneumonia related to recent vomiting. Discharge Providers Provider Date of admission: 06/27/21 09:21 Discharge Date: 07/01/21 Primary care physician: Christso Byrd MD Consults: 06/27/21 07:29 Consult to Respiratory Therapy Evaluate & Treat Comment: Physician Instructions: Evaluate and treat 06/27/21 12:27 Consult to Dietitian, Adult Routine Comment: Reason For Exam: at risk Discharge provider: Joe Augustine MD Summary Hospital Course Discharge Diagnosis: 1. Acute hypoxemic respiratory failure from aspiration pneumonia 2. Type 2 NC 3. SARAH on CKD stage 4 4. CHF with EF of 40-45% 5. COPD 6. Aortic stenosis s/p TAVR 7. Paroxysmal afib s/p watchman device 8. CML 9. HTN 10. BPH 11. Anemia 12. Thrombocytopenia 13. R mid lung spiculation, needs follow up imaging Hospital Course: Mr. Carrion came in with vomiting and abdominal pain. He had imaging done that showed bilateral pneumonia, possibly from aspiration from vomiting. He was started on IV antibiotics and had good improvement in his symptoms. His white count went to >22 and by discharge had resolved. He was off oxygen at discharge. He also was noted to have elevated troponin to 0.118. he had no chest pain. He had an ECHO that showed EF 40-45% with new dyskinesis. He had a stress test done that showed no evidence of ishcemia. He also was noted to have SARAH with creatinine of 2.89, that improved to 1.97 on discharge which appears to be his baseline. Initially his diuretics were held, but those were restarted by discharge. He was discharged with Augmentin to complete a total one week course of antibiotics for pneumonia. He was encouraged to follow up closely with PCP and collective bargaining specialist. He has a noted history of CML and is on gleevec, and had anemia and thrombocytopenia in the hospital, possibly from this or his infection, but he did not need transfusion. Of note his chest xray showed question of spiculated mass in right lung, given his overlying consolidation it is unclear in etiology. He is recommended to have follow up CT as an outpatient for further evaluation. Exam Vital Signs (past 8 hours): - 07/01/21 12:27 07/01/21 14:20 07/01/21 16:00 Temperature 97.8 F 97.9 F Pulse Rate 69 76 Respiratory Rate 16 20 19 Blood Pressure 123/63 105/59 L Pulse Oximetry 98 93 95 Fraction of Inspired Oxygen 0.34 Oxygen Delivery Method Room Air Oxygen Flow Rate 0 Narrative Exam Narrative: GEN: no acute distress Chest/CV: midline sternotomy scar, irregularly irregular, systolic murmur PULM: clear bilaterally GI: Soft/ non tender/ non distended/ no palpable masses SKIN: skin is very friable, multiple ecchymoses on upper and lower extremities Objective Labs Result Diagrams: 07/01/21 05:25 07/01/21 05:25 Labs: Laboratory Results - last 24 hr 07/01/21 07/01/21 05:25 05:25 WBC 7.7 RBC 2.18 L Hgb 8.0 L Hct 23.7 L MCV 108.7 H MCH 36.8 H MCHC 33.9 RDW 12.2 Plt Count 115 L Sodium 138 Potassium 4.2 Chloride 103 Carbon Dioxide 29 BUN 51 H Creatinine 1.97 H Estimated GFR 32.5 L BUN/Creatinine Ratio 25.9 H Glucose 108 Calcium 8.7 PFSH Medical History (Updated 06/27/21 @ 09:17 by Christophe Garza DO) Aortic stenosis Atrial fibrillation BPH (benign prostatic hyperplasia) CAD (coronary artery disease) CHF (congestive heart failure) CML (chronic myelocytic leukemia) COPD (chronic obstructive pulmonary disease) History of cardioversion Hyperlipidemia Hypertension PAD (peripheral artery disease) Pulmonary arterial hypertension Pulmonary nodule Squamous cell carcinoma of skin of ear Stenosis of coronary stent Surgical History H/O aortic valve replacement H/O transurethral resection of prostate History of cardiac radiofrequency ablation History of coronary artery stent placement S/P TAVR (transcatheter aortic valve replacement) Family History Mother Diabetes mellitus Heart disease PAD (peripheral artery disease) Father Lung disease Heart disease Brother Heart attack Brother Heart attack Social History household members: spouse Smoking Status: Former smoker alcohol intake: current Discharge Plan Discharge Plan Patient Disposition: Home Provider Discharge Comment: Mr. Carrion was admitted with vomiting and found to have an aspiration pneumonia. He was started on antibiotics and did well with treatment. He will be given 3 more days of antibiotics for his pneumonia with a medication called Augmentin. He also had mildly elevated cardiac enzyme. He had no chest pain. He had a stress test that did not show any abnormality. He should follow up closely with his collective bargaining specialist and he says he has an appointment this month. Discharge orders & Medications Prescriptions: New amoxicillin-pot clavulanate 875-125 mg tablet 1 tab PO BID Qty: 6 RF: 0 Continued imatinib [Gleevec] 400 MG tablet 400 mg PO DAILY Qty: 0 RF: 0 atorvastatin 40 MG tablet 40 mg PO BEDTIME Qty: 0 RF: 0 carvedilol 3.125 mg Tablet 3.125 mg PO DAILY RF: 0 tamsulosin 0.4 mg Capsule 0.4 mg PO DAILY RF: 0 Spiriva with HandiHaler 18 mcg Capsule, W/Inhalation Device 1 cap Inhalation DAILY RF: 0 clopidogrel 75 mg Tablet 75 mg PO DAILY RF: 0 spironolactone 25 mg Tablet 25 mg PO DAILY RF: 0 magnesium oxide 400 mg (241.3 mg magnesium) Tablet 400 mg PO DAILY RF: 0 ferrous sulfate 325 mg (65 mg iron) tablet 325 mg PO Q OTHER DAY RF: 0 omeprazole 20 mg Capsule,Delayed Release(Dr/Ec) 20 mg PO DAILY RF: 0 albuterol sulfate 90 mcg/actuation Hfa Aerosol Inhaler 2 puff INHALATION QID PRN (Reason: Shortness Of Breath) RF: 0 acetaminophen 325 mg Tablet 650 mg PO Q6HR PRN (Reason: Fever/Mild Pain (1-3)) Qty: 30 RF: 0 lorazepam [Ativan] 0.5 mg Tablet 0.5 mg PO DAILY PRN (Reason: Anxiety) RF: 0 aspirin 81 mg Tablet 81 mg PO DAILY RF: 0 albuterol sulfate 5 mg/mL Solution For Nebulization 5 mg INHALATION Q6H PRN (Reason: Shortness Of Breath Or Wheezing) RF: 0 alpha lipoic acid 100 mg Capsule 100 mg PO DAILY PRN (Reason: unsure) RF: 0 torsemide 20 mg Tablet 40 mg PO Q OTHER DAY RF: 0 lisinopril 20 mg Tablet 20 mg PO DAILY RF: 0 ondansetron HCl [Zofran] 4 mg Tablet 4 mg PO DAILY PRN (Reason: Nausea) RF: 0 metolazone 5 mg Tablet 5 mg PO DAILY RF: 0 cyanocobalamin (vitamin B-12) 1,000 mcg Tablet 1,000 mcg PO DAILY RF: 0 potassium chloride 10 mEq Tablet Extended Release 10 meq PO Q OTHER DAY RF: 0 sildenafil 100 mg Tablet 100 mg PO DAILY PRN (Reason: ED) RF: 0 cholecalciferol (vitamin D3) 50 mcg (2,000 unit) Tablet 50 mcg PO BID RF: 0 torsemide 20 mg Tablet 20 mg PO Q OTHER DAY RF: 0 cilostazol 100 mg Tablet 100 mg PO RF: 0 Follow up/Referrals: Christos Byrd MD [Primary Care Provider] - Diet/Activity/Treatments Diet: Low-sodium and Low-cholesterol Visit Report/Discharge Packet Instructions: Sepsis, Aspiration Pneumonia, Acute Kidney Injury Discharge Data Primary Care Provider: Christos Byrd V Quality MIPS - DC The patient has current or prior documentation of left ventricular ejection fraction (LVEF) less than 40%, or moderate or severely depressed left ventricular systolic function.: Yes A. The patient was prescribed or already taking an Angiotensin-Converting Enzyme (MARIAH) Inhibitor, or Angiotensin Receptor Josie (ARB).: Yes B. The patient was prescribed or already taking a beta-josie. [If Yes to Both A & B, STOP here]: Yes
== END 2021-07-01 19:02 | disposition home or self-care (01) | DRG 177 ==
LOC: ED 09:17 → AC 09:22 → ICU 06-28 08:55 → AC 06-28 12:57
PROVIDERS: Internal Medicine; Admitting Provider Internal Medicine; Emergency Provider Emergency Medicine; PCP Internal Medicine; Referring Provider Emergency Medicine; Visit Provider Internal Medicine
DX: J69.0 Pneumonitis due to inhalation of food and vomit (principal); J96.01 Acute respiratory failure with hypoxia; I21.A1 Myocardial infarction type 2; N17.9 Acute kidney failure, unspecified; I13.0 Hypertensive heart and chronic kidney disease with heart failure and stage 1 through stage 4 chronic kidney disease, or unspecified chronic kidney disease; I50.22 Chronic systolic (congestive) heart failure; C92.10 Chronic myeloid leukemia, BCR/ABL-positive, not having achieved remission; N18.30 Chronic kidney disease, stage 3 unspecified; J44.9 Chronic obstructive pulmonary disease, unspecified; I48.0 Paroxysmal atrial fibrillation; E78.5 Hyperlipidemia, unspecified; I25.10 Atherosclerotic heart disease of native coronary artery without angina pectoris; K21.9 Gastro-esophageal reflux disease without esophagitis; Z95.0 Presence of cardiac pacemaker; Z95.818 Presence of other cardiac implants and grafts; Z87.891 Personal history of nicotine dependence; Z20.822 Contact with and (suspected) exposure to COVID-19
CPT/HCPCS: 36415; 36600; 71045; 78451; 78582; 80048; 80053; 82550; 82805; 83605; 83735; 83880; 84145; 84484; 85025; 85027; 85379; 85610; 87040; 87635; 87797; 93005; 93017; 93306; 93970; 94640; 94660; 94762; 96365; 96368; 96375; 99284; 99285; 99291; 99292; A9539; A9540; C9803; A9502; J0295; J0696; J1644; J1650; J1940; J2405; J2785; Q9957

== ENCOUNTER → 2021-12-09 13:05 | Outpatient (CLI) | payer MEDICARE, OTHER, SELFPAY ==
[2021-06-27 08:05] VITALS: RESP 30; O2SAT 98
[2021-06-27 11:30] VITALS: BMI 27.6
--- NOTE | 2021-12-09 | DI.RAD.S_ITS ---
PROCEDURE: XR CHEST 2V INDICATIONS: SHORTNESS OF BREATH TECHNIQUE: 2 views of the chest were acquired. COMPARISON: [facility], , XR CHEST 1V, 06/30/2021, 6:10. FINDINGS: Surgical changes and devices: Redemonstrated sternotomy wires. Lungs and pleura: Persistent bilateral interstitial prominence with right pleural effusion/atelectasis. Mediastinum: Persistent enlargement of cardiac silhouette. A leadless is cardiac device is seen. Bones and chest wall: No suspicious bony abnormalities. Soft tissues appear unremarkable. IMPRESSION: Cardiomegaly with pulmonary edema pattern and small right pleural effusion. Dictated by: Thomas Pitts M.D. on 12/09/2021 at 14:12 Approved by: Thomas Pitts M.D. on 12/09/2021 at 14:12
== END ==
PROVIDERS: PCP Internal Medicine; Referring Provider Student in an Organized Health Care Education/Training Program; Visit Provider Student in an Organized Health Care Education/Training Program
DX: R06.02 Shortness of breath (principal); I51.7 Cardiomegaly; J81.1 Chronic pulmonary edema; J90 Pleural effusion, not elsewhere classified
CPT/HCPCS: 71046

== ENCOUNTER → 2022-07-21 11:02 | Outpatient (CLI) | payer MEDICARE, OTHER, SELFPAY ==
[2021-06-27 08:05] VITALS: RESP 30; O2SAT 98
[2021-06-27 11:30] VITALS: BMI 27.6
--- NOTE | 2022-07-21 | DI.RAD.S_ITS ---
PROCEDURE: XR CHEST 2V INDICATIONS: SHORTNESS OF BREATH TECHNIQUE: 2 views of the chest were acquired. COMPARISON: [facility], CR, XR CHEST 2V, 12/09/2021, 13:07. FINDINGS: Surgical changes and devices: Left parasternal healthcare financial analyst noted. Midline sternal wires present. Aortic valve prosthesis present. Lungs and pleura: Lungs are clear. No pleural effusions or pneumothorax. Mediastinum: Mediastinal contours are normal. Heart size is normal. Atherosclerotic vascular calcification noted in the aortic arch. Bones and chest wall: No suspicious bony abnormalities. Soft tissues appear unremarkable. IMPRESSION: No acute cardiopulmonary findings Approved by: Kenyon Gould M.D. on 07/21/2022 at 12:41
== END ==
PROVIDERS: PCP Internal Medicine; Referring Provider Internal Medicine; Visit Provider Internal Medicine
DX: R06.02 Shortness of breath (principal)
CPT/HCPCS: 71046

== ENCOUNTER → 2022-10-14 11:06 | Outpatient (CLI) | payer MEDICARE, OTHER, SELFPAY ==
[2021-06-27 08:05] VITALS: RESP 30; O2SAT 98
[2021-06-27 11:30] VITALS: BMI 27.6
--- NOTE | 2022-10-14 | DI.CT.S_ITS ---
PROCEDURE: CT CHEST WO CON INDICATIONS: Solitary pulmonary nodule, shortness of breath TECHNIQUE: Noncontrast 5 mm thick sections acquired from the pulmonary apices to the posterior costophrenic angles. 1 mm lung window, 5 mm thick coronal and sagittal and 7 mm axial MIP reformats were then acquired. For radiation dose reduction, the following was used: automated exposure control, adjustment of mA and/or kV according to patient size. COMPARISON: [facility], CT, CT CHEST ABD PEL W CON, 11/27/2019, 5:04. FINDINGS: Image quality: Excellent. Lungs and pleura: There is a mild right effusion. Central and peripheral airways are patent and normal in caliber. Previously identified nodule in the left lower lobe on series 3, image 235 is unchanged measuring approximately 1.8 cm. Mediastinum: Heart size is enlarged with coronary calcifications. No pericardial effusion. No mediastinal adenopathy by size criteria. Main pulmonary artery remains enlarged suggestive of pulmonary artery hypertension. Esophagus is normal in caliber. No hiatal hernia. Bones and chest wall: No suspicious bony lesions. No vertebral body compression fractures. No axillary or supraclavicular adenopathy by size criteria. Thyroid gland is unremarkable . Abdomen: Visualized upper abdominal solid organs and bowel loops appear normal in the absence of contrast. IMPRESSION: Stable left lower lobe pulmonary nodule. Mild right effusion. Dictated by: Annamarie Killian M.D. on 10/15/2022 at 16:36 Approved by: Annamarie Killian M.D. on 10/15/2022 at 17:16
== END ==
PROVIDERS: PCP Internal Medicine; Referring Provider Internal Medicine; Visit Provider Internal Medicine
DX: J90 Pleural effusion, not elsewhere classified (principal); R91.1 Solitary pulmonary nodule; R06.02 Shortness of breath; I25.10 Atherosclerotic heart disease of native coronary artery without angina pectoris
CPT/HCPCS: 71250

== ENCOUNTER 2022-10-16 13:32 | Emergency (ER) | payer MEDICARE, OTHER, SELFPAY ==
[2021-06-27 08:05] VITALS: RESP 30; O2SAT 98
[2021-06-27 11:30] VITALS: BMI 27.6
[2022-10-16] VITALS (16 sets, daily range): BP systolic 117–148; BP diastolic 58–80; PULSE 69–110; RESP 18–37; TEMP 36.1; O2SAT 96–100; BMI 27.8
--- NOTE | 2022-10-16 16:03 | DI.RAD.S_ITS ---
PROCEDURE: XR CHEST 1V INDICATIONS: Shortness of breath TECHNIQUE: One view of the chest was acquired. COMPARISON: [facility], , XR CHEST 2V, 07/21/2022, 11:34. FINDINGS: Surgical changes and devices: Sternal wires and loop recorder noted. Lungs and pleura: Mild appearance of increased interstitial opacities. Mediastinum: Mediastinal contours appear normal. Heart size is enlarged. Bones and chest wall: No suspicious bony lesions. Overlying soft tissues appear unremarkable. IMPRESSION: Increased interstitial opacities may represent edema versus interstitial pneumonia. Overall appearance is less prominent when compared to 07/21/2022. Dictated by: Annamarie Killian M.D. on 10/16/2022 at 16:38 Approved by: Annamarie Killian M.D. on 10/16/2022 at 16:39
[2022-10-16 16:20] LABS: INR 1.2 (0.9-1.3); Prothrombin Time 13.7 SECONDS (10.1-12.7)
[2022-10-16 16:21] LABS: Add Manual Diff / Slide Review NO; Basophils Absolute Auto 0 /uL (0-100); Basophils Percent Auto 0.4 % (0-2); Eosinophils Absolute Auto 100 /uL (0-450); Eosinophils Percent Auto 1.2 % (2-4); Hematocrit 26.9 % (41-53); Hemoglobin 9.1 g/dL (13.5-17.5); Lymphocytes Absolute Auto 900 /uL (1100-4500); Mean Corpuscular HGB Conc 33.8 % (30-36); Mean Corpuscular Hemoglobin 34.3 PG (26-34); Mean Corpuscular Volume 101.3 fL (80-100); Monocytes Absolute Auto 1200 /uL (0-900); Monocytes Percent Auto 13.9 % (3-14); Neutrophils Absolute Auto 6500 /uL (1500-7000); Neutrophils Percent Auto 74.5 % (50-75); Platelet Count 189 X10^3/uL (150-400); Red Blood Cell Count 2.65 X10^6/uL (4.5-5.9); Red Cell Distribution Width 13.2 % (11.6-14.8); White Blood Cell Count 8.8 X10^3/uL (4.5-11.0)
[2022-10-16 16:23] LABS: COVID19 -Nasal RAPID Negative (Negative)
[2022-10-16 16:29] LABS: Alanine Aminotransferase 16 IU/L (<50); Albumin Globulin Ratio 1.5 (1.0-2.8); Alkaline Phosphatase 85 U/L (38-126); Aspartate Aminotransferase 14 IU/L (17-59); BUN Creatinine Ratio 33.6 (6-22); Bilirubin Total 1.8 mg/dL (0.2-1.3); Blood Urea Nitrogen 86 mg/dL (9-20); Calcium 8.5 mg/dL (8.4-10.2); Carbon Dioxide 24 mmol/L (22-32); Chloride 102 mmol/L (98-107); Estimated Glomerular Filt Rate 24 mL/min (>60); Globulin 2.6 g/dL (1.7-4.1); Glucose 122 mg/dL (80-110); HEMOLYSIS < 15 (0-50); Potassium 4.8 mmol/L (3.4-5.1); Sodium 136 mmol/L (137-145); Total Protein 6.6 g/dL (6.3-8.2)
--- NOTE | 2022-10-16 16:29 | ED.SOB ---
HPI - SOB/Dyspnea <Jesus Liang PA-C - Last Filed: 10/16/22 21:15> General Chief Complaint: Shortness of Breath/Dyspnea Stated Complaint: SOB t-14 CT on Thursday fluid on lungs Time Seen by Provider: 10/16/22 15:48 Source: patient Mode of arrival: Ambulatory Limitations: no limitations History of Present Illness HPI Narrative: This is a 87-year-old male presents to the emergency department due to a 2 week history of shortness of breath. Denies any chest pain, nausea, vomiting, abdominal pain, fevers, URI symptoms, or any other concerning signs or symptoms. Patient states that he spoke with his primary care provider who ordered a CT which showed ?fluid on the lungs.On record review the CT showed mild right-sided pleural effusion. Patient states that the shortness of breath is worse with activity. Patient states he usually takes 20 mg of torsemide daily but has been doubling it up since he has been short of breath. Related Data Home Medications Medication Instructions Recorded Confirmed atorvastatin 40 mg tablet 40 mg PO BEDTIME ##0 11/24/17 06/27/21 imatinib 400 mg tablet (Gleevec) 400 mg PO DAILY ##0 11/24/17 06/27/21 carvedilol 3.125 mg tablet 3.125 mg PO DAILY 01/19/19 06/27/21 tamsulosin 0.4 mg capsule 0.4 mg PO DAILY 01/19/19 06/27/21 tiotropium bromide 18 mcg capsule 1 cap inhalation DAILY 01/19/19 06/27/21 with inhalation device (Spiriva with HandiHaler) albuterol sulfate 90 mcg/actuation 2 puff inhalation QID PRN 11/27/19 06/27/21 aerosol inhaler Shortness Of Breath clopidogrel 75 mg tablet 75 mg PO DAILY 11/27/19 06/27/21 ferrous sulfate 325 mg (65 mg 325 mg PO Q OTHER DAY 11/27/19 06/27/21 iron) tablet magnesium oxide 400 mg (241.3 mg 400 mg PO DAILY 11/27/19 06/27/21 magnesium) tablet omeprazole 20 mg capsule,delayed 20 mg PO DAILY 11/27/19 06/27/21 release spironolactone 25 mg tablet 25 mg PO DAILY 11/27/19 06/27/21 albuterol sulfate 5 mg/mL(0.5 %) 5 mg inhalation Q6H PRN Shortness 06/27/21 06/27/21 solution for nebulization Of Breath Or Wheezing alpha lipoic acid 100 mg capsule 100 mg PO DAILY PRN unsure 06/27/21 06/27/21 aspirin 81 mg tablet 81 mg PO DAILY 06/27/21 06/27/21 cholecalciferol (vitamin D3) 50 50 mcg PO BID 06/27/21 06/27/21 mcg (2,000 unit) tablet cilostazol 100 mg tablet 100 mg PO 06/27/21 cyanocobalamin (vitamin B-12) 1,000 mcg PO DAILY 06/27/21 06/27/21 1,000 mcg tablet lisinopril 20 mg tablet 20 mg PO DAILY 06/27/21 06/27/21 lorazepam 0.5 mg tablet (Ativan) 0.5 mg PO DAILY PRN Anxiety 06/27/21 06/27/21 metolazone 5 mg tablet 5 mg PO DAILY 06/27/21 06/27/21 ondansetron HCl 4 mg tablet 4 mg PO DAILY PRN Nausea 06/27/21 06/27/21 (Zofran) potassium chloride 10 mEq 10 meq PO Q OTHER DAY 06/27/21 06/27/21 tablet,extended release sildenafil 100 mg tablet 100 mg PO DAILY PRN ED 06/27/21 06/27/21 torsemide 20 mg tablet 20 mg PO Q OTHER DAY 06/27/21 06/27/21 torsemide 20 mg tablet 40 mg PO Q OTHER DAY 06/27/21 06/27/21 Previous Rx's Medication Instructions Recorded acetaminophen 325 mg tablet 650 mg PO Q6HR PRN Fever/Mild Pain 11/29/19 (1-3) #30 tabs amoxicillin 875 mg-potassium 1 tab PO BID #6 tabs 07/01/21 clavulanate 125 mg tablet Allergies Allergy/AdvReac Type Severity Reaction Status Date / Time No Known Drug Allergies Allergy Verified 02/10/20 15:25 Review of Systems <Jesus Liang PA-C - Last Filed: 10/16/22 21:15> Review of Systems Narrative: GENERAL: Denies chills, fatigue, malaise, fever, sweats. HEENT: Denies sinus pain, ear pain, sore throat, difficulty swallowing, dizziness. RESPIRATORY: Reports shortness of breath, denies, cough, wheezing, hemoptysis, sputum. CARDIOVASCULAR: Denies chest pain, palpitations, orthopnea, edema, GASTROINTESTINAL: Denies nausea, vomiting, abdominal pain, diarrhea, constipation, melena. : Denies dysuria, frequency, incontinence, hematuria, urinary retention. MUSCULOSKELETAL: denies weakness, joint pain, or bony pain SKIN: Denies rash, skin lesions, or other NEUROLOGIC: Denies weakness, headache, numbness, change in speech, confusion, seizures, incoordination. PSYCHIATRIC: No concerning psychosocial issues. 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 Surgical History H/O aortic valve replacement H/O transurethral resection of prostate History of cardiac radiofrequency ablation History of coronary artery stent placement S/P TAVR (transcatheter aortic valve replacement) Family History Mother Diabetes mellitus Heart disease PAD (peripheral artery disease) Father Lung disease Heart disease Brother Heart attack Brother Heart attack Social History household members: spouse Smoking Status: Former smoker alcohol intake: current Smoking Status: Former smoker alcohol intake frequency: 0-2 drinks per day Alcohol type: hard liquor Substance Use Type: does not use Exam <Jesus Liang PA-C - Last Filed: 10/16/22 21:15> Narrative Exam Narrative: GENERAL: Well-developed patient, in mild distress. HEAD: Atraumatic. Normocephalic. EYES: Pupils equal round and reactive. Extraocular motions intact. No scleral icterus. No injection or drainage. ENT: Nose without bleeding, purulent drainage. Throat without erythema, tonsillar hypertrophy or exudate. Airway patent. NECK: Trachea midline. Non tender CARDIOVASCULAR: Regular rate and rhythm without murmurs, gallops, or rubs. RESPIRATORY: Clear to auscultation. Breath sounds equal bilaterally. No wheezes, rales, or rhonchi. GASTROINTESTINAL: Abdomen soft, non-tender, nondistended. EXTREMITIES: No edema or joint tenderness. BACK: Nontender without deformity or crepitance. No flank tenderness. NEURO: AOx3. SKIN: No rash or erythema of visible areas Initial Vital Signs Initial Vital Signs: Vital Signs Temperature 96.9 F L 10/16/22 13:49 Pulse Rate 95 H 10/16/22 13:49 Respiratory Rate 24 10/16/22 13:49 Blood Pressure 123/63 10/16/22 13:49 Pulse Oximetry 100 10/16/22 13:49 Oxygen Delivery Method 10/16/22 13:49 <Sandra Inman DO - Last Filed: 10/17/22 08:24> Initial Vital Signs Initial Vital Signs: Vital Signs Temperature 96.9 F L 10/16/22 13:49 Pulse Rate 95 H 10/16/22 13:49 Respiratory Rate 24 10/16/22 13:49 Blood Pressure 123/63 10/16/22 13:49 Pulse Oximetry 100 10/16/22 13:49 Oxygen Delivery Method 10/16/22 13:49 Course <Jesus Liang PA-C - Last Filed: 10/16/22 21:15> Orders Ordered: Discontinued Medications Furosemide (Furosemide 100 Mg/10 Ml Vial) 80 mg IV NOW ONE Stop: 10/16/22 16:51 Last Admin: 10/16/22 17:05 Dose: 80 mg Documented By: ZENON Vital Signs Vital signs: Vital Signs - 8 hr 10/16/22 13:49 10/16/22 15:29 10/16/22 15:30 Temperature 96.9 F L Pulse Rate 95 H 91 H Respiratory Rate 24 21 Blood Pressure 123/63 136/69 Pulse Oximetry 100 100 Oxygen Delivery Method Room Air 10/16/22 15:30 10/16/22 16:00 10/16/22 16:00 Temperature Pulse Rate 86 70 Respiratory Rate 22 Blood Pressure 117/58 L Pulse Oximetry 100 100 Oxygen Delivery Method Room Air 10/16/22 16:30 10/16/22 16:30 10/16/22 17:00 Temperature Pulse Rate 71 Respiratory Rate 21 Blood Pressure 134/60 126/59 L Pulse Oximetry 100 Oxygen Delivery Method 10/16/22 17:00 10/16/22 17:30 10/16/22 17:30 Temperature Pulse Rate 69 69 Respiratory Rate 18 20 Blood Pressure 131/63 Pulse Oximetry 100 100 Oxygen Delivery Method Room Air 10/16/22 18:00 10/16/22 18:01 10/16/22 18:01 Temperature Pulse Rate 80 75 Respiratory Rate 30 H Blood Pressure 125/59 L Pulse Oximetry Oxygen Delivery Method 10/16/22 18:30 10/16/22 18:30 10/16/22 19:24 Temperature Pulse Rate 72 110 H Respiratory Rate 18 18 Blood Pressure 139/66 Pulse Oximetry 100 98 Oxygen Delivery Method 10/16/22 19:00 10/16/22 19:22 10/16/22 19:22 Temperature Pulse Rate 83 104 H Respiratory Rate 23 Blood Pressure 147/74 H Pulse Oximetry 96 100 Oxygen Delivery Method 10/16/22 19:30 10/16/22 19:30 10/16/22 20:00 Temperature Pulse Rate 82 73 Respiratory Rate 20 23 Blood Pressure 148/80 H Pulse Oximetry 100 100 Oxygen Delivery Method 10/16/22 20:01 10/16/22 20:01 Temperature Pulse Rate 77 Respiratory Rate 37 H Blood Pressure 145/77 H Pulse Oximetry Oxygen Delivery Method <Sandra Inman, DO - Last Filed: 10/17/22 08:24> Orders Ordered: Discontinued Medications Furosemide (Furosemide 100 Mg/10 Ml Vial) 80 mg IV NOW ONE Stop: 10/16/22 16:51 Last Admin: 10/16/22 17:05 Dose: 80 mg Documented By: ZENON Vital Signs Vital signs: Vital Signs - 8 hr 10/16/22 13:49 10/16/22 15:29 10/16/22 15:30 Temperature 96.9 F L Pulse Rate 95 H 91 H Respiratory Rate 24 21 Blood Pressure 123/63 136/69 Pulse Oximetry 100 100 Oxygen Delivery Method Room Air 10/16/22 15:30 10/16/22 16:00 10/16/22 16:00 Temperature Pulse Rate 86 70 Respiratory Rate 22 Blood Pressure 117/58 L Pulse Oximetry 100 100 Oxygen Delivery Method Room Air 10/16/22 16:30 10/16/22 16:30 10/16/22 17:00 Temperature Pulse Rate 71 Respiratory Rate 21 Blood Pressure 134/60 126/59 L Pulse Oximetry 100 Oxygen Delivery Method 10/16/22 17:00 10/16/22 17:30 10/16/22 17:30 Temperature Pulse Rate 69 69 Respiratory Rate 18 20 Blood Pressure 131/63 Pulse Oximetry 100 100 Oxygen Delivery Method Room Air 10/16/22 18:00 10/16/22 18:01 10/16/22 18:01 Temperature Pulse Rate 80 75 Respiratory Rate 30 H Blood Pressure 125/59 L Pulse Oximetry Oxygen Delivery Method 10/16/22 18:30 10/16/22 18:30 10/16/22 19:24 Temperature Pulse Rate 72 110 H Respiratory Rate 18 18 Blood Pressure 139/66 Pulse Oximetry 100 98 Oxygen Delivery Method 10/16/22 19:00 10/16/22 19:22 10/16/22 19:22 Temperature Pulse Rate 83 104 H Respiratory Rate 23 Blood Pressure 147/74 H Pulse Oximetry 96 100 Oxygen Delivery Method 10/16/22 19:30 10/16/22 19:30 10/16/22 20:00 Temperature Pulse Rate 82 73 Respiratory Rate 20 23 Blood Pressure 148/80 H Pulse Oximetry 100 100 Oxygen Delivery Method 10/16/22 20:01 10/16/22 20:01 Temperature Pulse Rate 77 Respiratory Rate 37 H Blood Pressure 145/77 H Pulse Oximetry Oxygen Delivery Method MDM - SOB/Dyspnea <Jesus Liang PA-C - Last Filed: 10/16/22 21:15> Lab Data Result diagrams: 10/16/22 15:55 10/16/22 15:55 Labs: Lab Results 10/16/22 10/16/22 10/16/22 Range/Units 15:55 15:55 15:55 WBC 8.8 (4.5-11.0) X10^3/uL RBC 2.65 L (4.5-5.9) X10^6/uL Hgb 9.1 L (13.5-17.5) g/dL Hct 26.9 L (41-53) % MCV 101.3 H (80-100) fL MCH 34.3 H (26-34) PG MCHC 33.8 (30-36) % RDW 13.2 (11.6-14.8) % Plt Count 189 (150-400) X10^3/uL Neut % (Auto) 74.5 (50-75) % Lymph % (Auto) 10.0 L (25-40) % [place] % (Auto) 13.9 (3-14) % Eos % (Auto) 1.2 L (2-4) % Baso % (Auto) 0.4 (0-2) % Neut # (Auto) 6500 (7574-1049) /uL Lymph # (Auto) 900 L (7741-1947) /uL [place] # (Auto) 1200 H (0-900) /uL Eos # (Auto) 100 (0-450) /uL Baso # (Auto) 0 (0-100) /uL PT 13.7 H (10.1-12.7) SECONDS INR 1.2 (0.9-1.3) Sodium (137-145) mmol/L Potassium (3.4-5.1) mmol/L Chloride (98-107) mmol/L Carbon Dioxide (22-32) mmol/L BUN (9-20) mg/dL Creatinine (0.66-1.25) mg/dL Estimated GFR (>60) mL/min BUN/Creatinine Ratio (6-22) Glucose (80-110) mg/dL Lactate (0.7-2.1) mmol/L Calcium (8.4-10.2) mg/dL Total Bilirubin (0.2-1.3) mg/dL AST (17-59) IU/L ALT (<50) IU/L Alkaline Phosphatase (38-126) U/L Troponin I (0.01-0.034) ng/mL NT-Pro-B Natriuret Pep (<450) pg/mL Total Protein (6.3-8.2) g/dL Albumin (3.5-5.0) g/dL Globulin (1.7-4.1) g/dL Albumin/Globulin Ratio (1.0-2.8) Procalcitonin (<0.5) ng/mL SARS-CoV-2 (PCR) Negative (Negative) 10/16/22 10/16/22 10/16/22 Range/Units 15:55 15:55 17:56 WBC (4.5-11.0) X10^3/uL RBC (4.5-5.9) X10^6/uL Hgb (13.5-17.5) g/dL Hct (41-53) % MCV (80-100) fL MCH (26-34) PG MCHC (30-36) % RDW (11.6-14.8) % Plt Count (150-400) X10^3/uL Neut % (Auto) (50-75) % Lymph % (Auto) (25-40) % [place] % (Auto) (3-14) % Eos % (Auto) (2-4) % Baso % (Auto) (0-2) % Neut # (Auto) (3830-9807) /uL Lymph # (Auto) (2010-3011) /uL [place] # (Auto) (0-900) /uL Eos # (Auto) (0-450) /uL Baso # (Auto) (0-100) /uL PT (10.1-12.7) SECONDS INR (0.9-1.3) Sodium 136 L (137-145) mmol/L Potassium 4.8 (3.4-5.1) mmol/L Chloride 102 (98-107) mmol/L Carbon Dioxide 24 (22-32) mmol/L BUN 86 H (9-20) mg/dL Creatinine 2.56 H (0.66-1.25) mg/dL Estimated GFR 24 L (>60) mL/min BUN/Creatinine Ratio 33.6 H (6-22) Glucose 122 H (80-110) mg/dL Lactate 1.0 (0.7-2.1) mmol/L Calcium 8.5 (8.4-10.2) mg/dL Total Bilirubin 1.8 H (0.2-1.3) mg/dL AST 14 L (17-59) IU/L ALT 16 (<50) IU/L Alkaline Phosphatase 85 (38-126) U/L Troponin I 0.040 H 0.046 H (0.01-0.034) ng/mL NT-Pro-B Natriuret Pep 3510 H (<450) pg/mL Total Protein 6.6 (6.3-8.2) g/dL Albumin 4.0 (3.5-5.0) g/dL Globulin 2.6 (1.7-4.1) g/dL Albumin/Globulin Ratio 1.5 (1.0-2.8) Procalcitonin (<0.5) ng/mL SARS-CoV-2 (PCR) (Negative) 10/16/22 Range/Units 17:56 WBC (4.5-11.0) X10^3/uL RBC (4.5-5.9) X10^6/uL Hgb (13.5-17.5) g/dL Hct (41-53) % MCV (80-100) fL MCH (26-34) PG MCHC (30-36) % RDW (11.6-14.8) % Plt Count (150-400) X10^3/uL Neut % (Auto) (50-75) % Lymph % (Auto) (25-40) % [place] % (Auto) (3-14) % Eos % (Auto) (2-4) % Baso % (Auto) (0-2) % Neut # (Auto) (4273-0798) /uL Lymph # (Auto) (0597-4456) /uL [place] # (Auto) (0-900) /uL Eos # (Auto) (0-450) /uL Baso # (Auto) (0-100) /uL PT (10.1-12.7) SECONDS INR (0.9-1.3) Sodium (137-145) mmol/L Potassium (3.4-5.1) mmol/L Chloride (98-107) mmol/L Carbon Dioxide (22-32) mmol/L BUN (9-20) mg/dL Creatinine (0.66-1.25) mg/dL Estimated GFR (>60) mL/min BUN/Creatinine Ratio (6-22) Glucose (80-110) mg/dL Lactate (0.7-2.1) mmol/L Calcium (8.4-10.2) mg/dL Total Bilirubin (0.2-1.3) mg/dL AST (17-59) IU/L ALT (<50) IU/L Alkaline Phosphatase (38-126) U/L Troponin I (0.01-0.034) ng/mL NT-Pro-B Natriuret Pep (<450) pg/mL Total Protein (6.3-8.2) g/dL Albumin (3.5-5.0) g/dL Globulin (1.7-4.1) g/dL Albumin/Globulin Ratio (1.0-2.8) Procalcitonin 0.09 (<0.5) ng/mL SARS-CoV-2 (PCR) (Negative) Imaging Data Chest x-ray: Radiologist's Impression: [address] [address] XRay Report Signed Patient: Cayetano Carrion MR#: [id number] : 1935 Acct:[id number] Age/Sex: 87 / M Date of Service: 10/16/22 Loc: ED Accession Number: [id number] ?? Procedure: XR chest 1V Ordering Provider: Sandra Inman D.O. PROCEDURE:? XR CHEST 1V ? INDICATIONS:? Shortness of breath ? TECHNIQUE:? One view of the chest was acquired.? ? COMPARISON:? [facility], CR, XR CHEST 2V, 07/21/2022, 11:34. ? FINDINGS:? ? Surgical changes and devices:? Sternal wires and loop recorder noted. ? Lungs and pleura:? Mild appearance of increased interstitial opacities. ? Mediastinum:? Mediastinal contours appear normal.? Heart size is enlarged. ? Bones and chest wall:? No suspicious bony lesions.? Overlying soft tissues appear unremarkable.? ? IMPRESSION:? Increased interstitial opacities may represent edema versus interstitial pneumonia.? Overall appearance is less prominent when compared to 07/21/2022. ? ? Dictated by: Annamarie Killian M.D. on 10/16/2022 at 16:38 ? ? Approved by: Annamarie Killian M.D. on 10/16/2022 at 16:39 ? MDM Narrative Medical decision making narrative: This is an 87 male with extensive past medical history as noted above presents to the emergency department due to worsening shortness of breath over the last couple of weeks. Patient states that his primary care provider ordered him a CT scan of the chest which showed right-sided pleural effusion and was advised to come to the emergency department for further evaluation. On exam the patient was resting comfortably with vital signs within normal limits. A chest x-ray showed findings concerning for possible edema versus pneumonia. Low suspicion for pneumonia as the patient's white blood cell count was not overly elevated and no fevers or other infectious symptoms. Lab work remains essentially unchanged from prior. Troponin was noted to be mildly elevated, with very slight increase in troponin after 2 hour repeat. EKG unremarkable. Patient does have history of heart failure as done by the elevated BNP. Also had decreased kidney function which appears baseline for him. Patient was given 80 of Lasix which helped improve his symptoms. He was ambulated without any hypoxic events. Recommended the patient double his current dosing of his furosemide to help with the pulmonary edema/pleural effusion and he follow-up with his primary care provider for further management of the diuretic. Patient was comfortable with this plan and discharge. The entirety of this patient's encounter was discussed and staffed with my attending provider, Dr. Inman. <Sandra Inman, DO - Last Filed: 10/17/22 08:24> Lab Data Labs: Lab Results 10/16/22 10/16/22 10/16/22 Range/Units 15:55 15:55 15:55 WBC 8.8 (4.5-11.0) X10^3/uL RBC 2.65 L (4.5-5.9) X10^6/uL Hgb 9.1 L (13.5-17.5) g/dL Hct 26.9 L (41-53) % MCV 101.3 H (80-100) fL MCH 34.3 H (26-34) PG MCHC 33.8 (30-36) % RDW 13.2 (11.6-14.8) % Plt Count 189 (150-400) X10^3/uL Neut % (Auto) 74.5 (50-75) % Lymph % (Auto) 10.0 L (25-40) % [place] % (Auto) 13.9 (3-14) % Eos % (Auto) 1.2 L (2-4) % Baso % (Auto) 0.4 (0-2) % Neut # (Auto) 6500 (8626-8320) /uL Lymph # (Auto) 900 L (8146-3664) /uL [place] # (Auto) 1200 H (0-900) /uL Eos # (Auto) 100 (0-450) /uL Baso # (Auto) 0 (0-100) /uL PT 13.7 H (10.1-12.7) SECONDS INR 1.2 (0.9-1.3) Sodium (137-145) mmol/L Potassium (3.4-5.1) mmol/L Chloride (98-107) mmol/L Carbon Dioxide (22-32) mmol/L BUN (9-20) mg/dL Creatinine (0.66-1.25) mg/dL Estimated GFR (>60) mL/min BUN/Creatinine Ratio (6-22) Glucose (80-110) mg/dL Lactate (0.7-2.1) mmol/L Calcium (8.4-10.2) mg/dL Total Bilirubin (0.2-1.3) mg/dL AST (17-59) IU/L ALT (<50) IU/L Alkaline Phosphatase (38-126) U/L Troponin I (0.01-0.034) ng/mL NT-Pro-B Natriuret Pep (<450) pg/mL Total Protein (6.3-8.2) g/dL Albumin (3.5-5.0) g/dL Globulin (1.7-4.1) g/dL Albumin/Globulin Ratio (1.0-2.8) Procalcitonin (<0.5) ng/mL SARS-CoV-2 (PCR) Negative (Negative) 10/16/22 10/16/22 10/16/22 Range/Units 15:55 15:55 17:56 WBC (4.5-11.0) X10^3/uL RBC (4.5-5.9) X10^6/uL Hgb (13.5-17.5) g/dL Hct (41-53) % MCV (80-100) fL MCH (26-34) PG MCHC (30-36) % RDW (11.6-14.8) % Plt Count (150-400) X10^3/uL Neut % (Auto) (50-75) % Lymph % (Auto) (25-40) % [place] % (Auto) (3-14) % Eos % (Auto) (2-4) % Baso % (Auto) (0-2) % Neut # (Auto) (9826-6399) /uL Lymph # (Auto) (2468-6455) /uL [place] # (Auto) (0-900) /uL Eos # (Auto) (0-450) /uL Baso # (Auto) (0-100) /uL PT (10.1-12.7) SECONDS INR (0.9-1.3) Sodium 136 L (137-145) mmol/L Potassium 4.8 (3.4-5.1) mmol/L Chloride 102 (98-107) mmol/L Carbon Dioxide 24 (22-32) mmol/L BUN 86 H (9-20) mg/dL Creatinine 2.56 H (0.66-1.25) mg/dL Estimated GFR 24 L (>60) mL/min BUN/Creatinine Ratio 33.6 H (6-22) Glucose 122 H (80-110) mg/dL Lactate 1.0 (0.7-2.1) mmol/L Calcium 8.5 (8.4-10.2) mg/dL Total Bilirubin 1.8 H (0.2-1.3) mg/dL AST 14 L (17-59) IU/L ALT 16 (<50) IU/L Alkaline Phosphatase 85 (38-126) U/L Troponin I 0.040 H 0.046 H (0.01-0.034) ng/mL NT-Pro-B Natriuret Pep 3510 H (<450) pg/mL Total Protein 6.6 (6.3-8.2) g/dL Albumin 4.0 (3.5-5.0) g/dL Globulin 2.6 (1.7-4.1) g/dL Albumin/Globulin Ratio 1.5 (1.0-2.8) Procalcitonin (<0.5) ng/mL SARS-CoV-2 (PCR) (Negative) 10/16/22 Range/Units 17:56 WBC (4.5-11.0) X10^3/uL RBC (4.5-5.9) X10^6/uL Hgb (13.5-17.5) g/dL Hct (41-53) % MCV (80-100) fL MCH (26-34) PG MCHC (30-36) % RDW (11.6-14.8) % Plt Count (150-400) X10^3/uL Neut % (Auto) (50-75) % Lymph % (Auto) (25-40) % [place] % (Auto) (3-14) % Eos % (Auto) (2-4) % Baso % (Auto) (0-2) % Neut # (Auto) (5749-6039) /uL Lymph # (Auto) (7694-0575) /uL [place] # (Auto) (0-900) /uL Eos # (Auto) (0-450) /uL Baso # (Auto) (0-100) /uL PT (10.1-12.7) SECONDS INR (0.9-1.3) Sodium (137-145) mmol/L Potassium (3.4-5.1) mmol/L Chloride (98-107) mmol/L Carbon Dioxide (22-32) mmol/L BUN (9-20) mg/dL Creatinine (0.66-1.25) mg/dL Estimated GFR (>60) mL/min BUN/Creatinine Ratio (6-22) Glucose (80-110) mg/dL Lactate (0.7-2.1) mmol/L Calcium (8.4-10.2) mg/dL Total Bilirubin (0.2-1.3) mg/dL AST (17-59) IU/L ALT (<50) IU/L Alkaline Phosphatase (38-126) U/L Troponin I (0.01-0.034) ng/mL NT-Pro-B Natriuret Pep (<450) pg/mL Total Protein (6.3-8.2) g/dL Albumin (3.5-5.0) g/dL Globulin (1.7-4.1) g/dL Albumin/Globulin Ratio (1.0-2.8) Procalcitonin 0.09 (<0.5) ng/mL SARS-CoV-2 (PCR) (Negative) Discharge Plan Departure Patient Disposition: Home Clinical Impression: Acute dyspnea Activity Restrictions/Additional Instructions: Thank you for coming to the [facility] Emergency Department today. As we discussed your lab work today was reassuring. There seems to be no changes from your baseline. There is no evidence of an acute heart attack. The CT scan from his few days ago showed a small pleural effusion but chest x-ray today showed no significant increase in this. I am glad that the furosemide give me you today in the emergency department help with your breathing. I am also glad after walking around the emergency department your oxygen levels did not drop. I recommend you take 20 mg of furosemide in the morning and 20 mg at night to help drain the fluid until you are able to follow up with your primary care provider. At this time I do not think that the amount of fluid in your lungs is large enough to warrant a procedure that would for drainage. I hope you feel better soon. Prescriptions: No Action imatinib [Gleevec] 400 MG tablet 400 mg PO DAILY Qty: 0 Rx Instructions: Pt prefers to take this at noon atorvastatin 40 MG tablet 40 mg PO BEDTIME Qty: 0 carvedilol 3.125 mg Tablet 3.125 mg PO DAILY tamsulosin 0.4 mg Capsule 0.4 mg PO DAILY Spiriva with HandiHaler 18 mcg Capsule, W/Inhalation Device 1 cap Inhalation DAILY clopidogrel 75 mg Tablet 75 mg PO DAILY spironolactone 25 mg Tablet 25 mg PO DAILY magnesium oxide 400 mg (241.3 mg magnesium) Tablet 400 mg PO DAILY ferrous sulfate 325 mg (65 mg iron) tablet 325 mg PO Q OTHER DAY Label Comments: TAKE 1 TABLET BY MOUTH EVERY OTHER DAY omeprazole 20 mg Capsule,Delayed Release(Dr/Ec) 20 mg PO DAILY albuterol sulfate 90 mcg/actuation Hfa Aerosol Inhaler 2 puff INHALATION QID PRN (Reason: Shortness Of Breath) acetaminophen 325 mg Tablet 650 mg PO Q6HR PRN (Reason: Fever/Mild Pain (1-3)) Qty: 30 0RF lorazepam [Ativan] 0.5 mg Tablet 0.5 mg PO DAILY PRN (Reason: Anxiety) aspirin 81 mg Tablet 81 mg PO DAILY albuterol sulfate 5 mg/mL Solution For Nebulization 5 mg INHALATION Q6H PRN (Reason: Shortness Of Breath Or Wheezing) alpha lipoic acid 100 mg Capsule 100 mg PO DAILY PRN (Reason: unsure) torsemide 20 mg Tablet 40 mg PO Q OTHER DAY lisinopril 20 mg Tablet 20 mg PO DAILY ondansetron HCl [Zofran] 4 mg Tablet 4 mg PO DAILY PRN (Reason: Nausea) metolazone 5 mg Tablet 5 mg PO DAILY Rx Instructions: take 30 minutes before torsemide cyanocobalamin (vitamin B-12) 1,000 mcg Tablet 1,000 mcg PO DAILY potassium chloride 10 mEq Tablet Extended Release 10 meq PO Q OTHER DAY Rx Instructions: pt prefers to take in the evening sildenafil 100 mg Tablet 100 mg PO DAILY PRN (Reason: ED) cholecalciferol (vitamin D3) 50 mcg (2,000 unit) Tablet 50 mcg PO BID torsemide 20 mg Tablet 20 mg PO Q OTHER DAY cilostazol 100 mg Tablet 100 mg PO amoxicillin-pot clavulanate 875-125 mg tablet 1 tab PO BID Qty: 6 0RF Referrals: Cristobal Mccauley MD [Primary Care Provider] - Visit Report Forms: Patient Portal/API <Sandra Inman DO - Last Filed: 10/17/22 08:24> Cosign ED Attending Valerianoature Attestation: I was immediately available in the department for consultation. Documentation has been reviewed. Case was discussed. Reviewed findings. Agree with current plan.
[2022-10-16 16:41] LABS: NT-proBNP (BNP-Adult 18+) 3510 pg/mL (<450)
[2022-10-16] MEDS: FUROSEMIDE 100 MG/10 ML VIAL 80 MG IV (17:05)
[2022-10-16 18:42] LABS: Troponin I 0.046 ng/mL (0.01-0.034)
[2022-10-16 18:47] LABS: Procalcitonin 0.09 ng/mL (<0.5)
--- NOTE | 2022-10-16 19:15 | PC.NURSE ---
Report received - assumed care of pt at this time
--- NOTE | 2022-10-16 19:25 | PC.NURSE ---
Patient ambulated with walker around the department 3 times, O2 saturation between 98-100% and pulse rate between 90-110. Complaints of feeling short of breath.
== END 2022-10-16 20:18 | disposition home or self-care (01) ==
PROVIDERS: Emergency Medicine; Emergency Provider Physician Assistant Medical; PCP Internal Medicine
DX: R06.00 Dyspnea, unspecified (principal); Z20.822 Contact with and (suspected) exposure to COVID-19; I10 Essential (primary) hypertension
CPT/HCPCS: 36415; 71045; 80053; 83605; 83880; 84145; 84484; 85025; 85610; 87635; 93005; 93010; 96374; 99284; C9803; J1940

== ENCOUNTER → 2022-11-04 15:07 | Outpatient (CLI) | payer MEDICARE, OTHER, SELFPAY ==
[2021-06-27 08:05] VITALS: RESP 30; O2SAT 98
[2021-06-27 11:30] VITALS: BMI 27.6
--- NOTE | 2022-11-04 | DI.US.S_ITS ---
PROCEDURE: US RENAL COMPLETE INDICATIONS: Chronic kidney disease, stage 3b TECHNIQUE: Real-time scanning was performed of the kidneys and bladder, with image documentation. COMPARISON: [facility], , RENAL COMPLETE, 04/09/2007, 8:09. FINDINGS: Kidneys: Kidneys are normal in size. Right kidney measures 9.6 cm long; left kidney measures 12.1 cm long. Right renal cortical thickness is 1.1 cm; left renal cortical thickness is 1.6 cm. Renal cortical echotexture is normal. No hydronephrosis or nephrolithiasis. No suspicious solid mass lesions. Bladder: Pre-void bladder volume is 95 mL. Post-void residual is 73 mL. Pre-void images demonstrate no intraluminal masses or stones. On pre-void images, bilateral ureteral jets are noted with color Doppler interrogation. (Of note, ureteral jets may not be detectable in up to 25% of cases due to insufficient differences in specific gravity between ureteral and bladder urine). Miscellaneous: No free pelvic fluid. The prostate measures 4.8 x 5.5 x 5.2 cm. There is a trace right pleural effusion. IMPRESSION: 1. Large postvoid residual. Findings suggest bladder outlet obstruction. 2. No hydronephrosis. 3. Trace right pleural effusion. Dictated by: Maria Luisa Taylor M.D. on 11/04/2022 at 16:16 Approved by: Maria Luisa Taylor M.D. on 11/04/2022 at 16:18
== END ==
PROVIDERS: PCP Internal Medicine; Referring Provider Student in an Organized Health Care Education/Training Program; Visit Provider Student in an Organized Health Care Education/Training Program
DX: N18.32 Chronic kidney disease, stage 3b (principal)
CPT/HCPCS: 76770